=== PATIENT | male | born 1950 | race Caucasian/White ===

== ENCOUNTER 2022-07-15 12:46 | Inpatient (IN) | payer MEDICARE, SELFPAY ==
--- NOTE | ~2022-07-15 | NM_ITS ---
EXAMINATION: HEPATOBILIARY SCAN. CLINICAL INFORMATION: Suspect acute cholecystitis. COMPARISON: CT abdomen pelvis 07/15/2022. Ultrasound limited abdomen 07/15/2022 TECHNIQUE: 4.2 mCi technetium 99m mebrofenin was injected intravenously. Images obtained over the right upper quadrant. FINDINGS: The isotope is taken up by the liver and is excreted into the bowel through the initial 120 minute imaging without visualization of the gallbladder. Images were then obtained at 4 hour postinjection which still demonstrated no isotope within the gallbladder. Activity has moved into the bowel loops with almost no residual activity remaining in the liver. Findings consistent with cystic duct obstruction, acute cholecystitis. NM/NM hepatobiliary wo pharm IMPRESSION: Nonvisualization of the gallbladder consistent cystic duct obstruction and an acute cholecystitis
--- NOTE | ~2022-07-15 | US_ITS ---
EXAMINATION: US ABDOMEN LIMITED CLINICAL INFORMATION: Epigastric/right upper quadrant abdominal pain, nausea and vomiting.. COMPARISON: None TECHNIQUE: Real-time imaging of the right upper quadrant abdominal viscera. FINDINGS: PANCREAS: Visualized portions unremarkable; tail obscured by interposed bowel gas. LIVER: Normal. The liver is normal in size. The liver contour is normal. Parenchymal echogenicity is normal. There is a 1.1 cm simple cyst along the gallbladder. There is no intrahepatic biliary duct dilatation seen. GALLBLADDER: Cholelithiasis. No gallbladder wall thickening or pericholecystic fluid. COMMON BILE DUCT: Normal in caliber measuring 0.5 cm in diameter. RIGHT KIDNEY: Normal. No hydronephrosis. No renal calculi or focal parenchymal lesions. The kidney measures 12.0 cm in maximum dimension. FREE FLUID: None. US/US abdomen limited IMPRESSION: Cholelithiasis. No sonographic evidence of cholecystitis.
--- NOTE | ~2022-07-15 | CT_ITS ---
EXAMINATION: CT ABDOMEN AND PELVIS WITH CONTRAST CLINICAL INFORMATION: Right-sided abdominal pain, LAP-BAND. Rule out hernia, appendicitis or cholecystitis. COMPARISON: None TECHNIQUE: Multidetector volumetric images were obtained from the superior aspect of the liver through the pubic symphysis following administration 85 mL of Omnipaque 350 intravenous contrast. Sagittal and coronal reformatted images were obtained on the technologist's workstation. Oral contrast: No This CT examination was performed using dose optimization techniques as appropriate, variously including the following: *Automated exposure control *Adjustment of mA and/or kV according to patient size (this includes techniques or standardized protocols for targeted exams where dose is matched to indication/reason for exam; i.e. extremities or head) *Use of iterative reconstruction technique DLP: 733 mGy-cm FINDINGS: LUNG BASES: Minimal peripheral basilar atelectasis. Coronary artery vascular calcifications. LIVER, GALLBLADDER, AND BILIARY TREE: Normal hepatic attenuation in size. There are couple small subcentimeter hypodense probable cyst in the caudate, medial segment left liver lobe, and adjacent to the gallbladder, too small to characterize. No other liver lesion. No biliary ductal dilation. Gallbladder contains small amount of layering calcified stones. There is prominent gallbladder wall enhancement and surrounding pericholecystic inflammatory change highly suspicious for acute cholecystitis. No biliary ductal dilation. PANCREAS: Unremarkable. SPLEEN: 0.8 cm low-density lesion in the spleen, too small to characterize, statistically likely a cyst or hemangioma. No other splenic lesion. Normal splenic size. ADRENAL GLANDS: Unremarkable. KIDNEYS AND URETERS: Nephrograms are symmetric. No hydronephrosis. Cortical scarring in the left lower pole. 2.4 cm simple left upper pole renal cyst. No imaging follow-up recommended. No additional renal lesions. No perinephric fluid collections. BLADDER: Unremarkable. GASTROINTESTINAL TRACT: Small hiatal hernia. Status post prior sleeve gastrectomy. No dilated bowel loops. No bowel wall thickening. Normal appendix. No free air or ascites. ABDOMINAL WALL: Possible small fat-containing right inguinal hernia. LYMPH NODES: No lymphadenopathy. VASCULAR: Status post aortobiiliac endovascular stent graft grafting. 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 Moderate vascular calcifications. Numerous surgical clips in the right left groin. PELVIC VISCERA: Unremarkable. OSSEOUS STRUCTURES: No acute fracture or suspicious osseous lesion. Changes of DISH and superimposed mild degenerative disc disease noted. CT/CT abdomen pelvis w IV con IMPRESSION: 1. Cholelithiasis with findings highly suspicious for acute cholecystitis, as above. 2. No biliary ductal dilation. 3. Normal appendix. No evidence of appendicitis, bowel obstruction or other acute intra-abdominal process.
--- NOTE | 2022-07-15 12:53 | ED_ITS ---
HPI - Abdominal Pain General Chief Complaint: Abdominal Pain <DOMENIC Johns - Last Filed: 07/15/22 12:59> Stated Complaint: abd pain <DOMENIC Johns - Last Filed: 07/15/22 12:59> Time Seen by Provider: 07/15/22 16:00 <DOMENIC Johns - Last Filed: 07/15/22 12:59> Source: patient <Bernardo Singletary MD - Last Filed: 07/15/22 19:53> Mode of arrival: ambulatory <Bernardo Singletary MD - Last Filed: 07/15/22 19:53> Limitations: no limitations <Bernardo Singletary MD - Last Filed: 07/15/22 19:53> History of Present Illness HPI narrative: 71-year-old male who presents emergency department for evaluation epigastric pain which began last night around 19:00. Patient states that the pain came on gradually then became severe. Since onset the patient states the pain is been constant and is 8/10. Describes the pain as a throbbing/pressure- like pain. Patient states that he ate lunch which consisted of a chicken sandwich but did not eat dinner since had no appetite. Since onset of pain is had nausea and vomiting. He states he has not been able to eat food or drink fluid. This is 1st episode of this type pain. He denied fever, chills, rhinorrhea, sore throat, cough, chest pain, shortness of breath, diarrhea dysuria, frequency or urgency. He has not noticed any dark tarry stools or black stools. He does not know when he his bowels last. Patient states that a history lap band surgery 10 years prior and required some type of revision, he is not sure where he had the surgery. Patient was initially seen at urgent care clinic. I did review the note sent in with the patient. Patient was diagnosed with generalized abdominal pain, his vital signs revealed a normal temperature impulse 094 but his blood pressure was elevated 226/90. He had no test done at the urgent care clinic and was sent to the emergency department for further evaluation <Bernardo Singletary MD - Last Filed: 07/15/22 19:53> Related Data Home Medications: Previous Rx's Medication Instructions Recorded carbidopa 25 mg-levodopa 100 mg 1.5 tab PO TID 28 days #126 tabs 06/10/22 tablet <DOMENIC Johns - Last Filed: 07/15/22 12:59> Allergies/Adverse Reactions: Allergies Allergy/AdvReac Type Severity Reaction Status Date / Time No Known Allergies Allergy Verified 07/15/22 12:58 <DOMENIC Johns - Last Filed: 07/15/22 12:59> Review of Systems Review of Systems Yes all other systems are reviewed and are negative <Bernardo Singletary MD - Last Filed: 07/15/22 19:53> [facility] Past Medical History [facility] Narrative: Past medical history: Diabetes mellitus, hypertension, hyperlipidemia, gastritis, anxiety. Past surgical history: Lap band surgery with some type of revision 10 years prior, patient cannot recall what hospital he had this procedure done at. Social history: He denies tobacco, alcohol and drug use. <Bernardo Singletary MD - Last Filed: 07/15/22 19:53> Social History Social History: Social History Advance Directives: No Advance Directives Information Provided: Yes <DOMENIC Johns - Last Filed: 07/15/22 12:59> Physical Exam ED Vital Signs: Vital Signs - 24 hr 07/15/22 12:54 07/15/22 16:05 Temperature 98.2 F 99.5 F Pulse Rate 102 H 98 Respiratory Rate 18 14 Blood Pressure 194/82 H 192/84 H Pulse Oximetry 96 97 Oxygen Delivery Method Room Air Room Air BMI result Body Mass Index 31.1 <DOMENIC Johns - Last Filed: 07/15/22 12:59> Vital Signs - 24 hr 07/15/22 12:54 07/15/22 16:05 Temperature 98.2 F 99.5 F Pulse Rate 102 H 98 Respiratory Rate 18 14 Blood Pressure 194/82 H 192/84 H Pulse Oximetry 96 97 Oxygen Delivery Method Room Air Room Air BMI result Body Mass Index 31.1 <Bernardo Singletary MD - Last Filed: 07/15/22 19:53> Const General: cooperative and no acute distress <Bernardo Singletary MD - Last Filed: 07/15/22 19:53> Orientation/consciousness: oriented to person and oriented to place <Bernardo Singletary MD - Last Filed: 07/15/22 19:53> Limitations: no limitations <Bernardo Singletary MD - Last Filed: 07/15/22 19:53> HENMT Head: Yes normal to inspection, Yes normocephalic and Yes atraumatic <Bernardo Singletary MD - Last Filed: 07/15/22 19:53> Ears: external ears normal <Bernardo Singletary MD - Last Filed: 07/15/22 19:53> General nose exam: Normal external nose present <Bernardo Singletary MD - Last Filed: 07/15/22 19:53> Face and sinus: Yes normal facial exam <MD Neville Jackman Last Filed: 07/15/22 19:53> Mouth: Normal oral and palatal mucosa present <Bernardo Singletary MD - Last Filed: 07/15/22 19:53> Throat: Yes posterior oropharynx normal <Bernardo Singletary MD - Last Filed: 07/15 19:53> Eyes General: appearance normal, both eyes and all related structures <Bernardo Singletary MD - Last Filed: 07/15/22 19:53> Pupils: Equal, round and reactive pupils present <Bernardo Singletary MD - Last Filed: 07/15/22 19:53> Neck Neck: Yes normal visual inspection, Yes no lymphadenopathy, Yes trachea midline and Yes supple <Bernardo Singletary MD - Last Filed: 07/15/22 19:53> Chest Chest palpation & inspection: normal inspection of the chest and normal palpation of entire chest wall <MD Neville Jackman Last Filed: 07/15/22 19:53> Resp Effort & Inspection: normal respiratory effort and able to speak in complete sentences <MD Neville Jackman Last Filed: 07/15/22 19:53> Auscultation: clear to auscultation bilaterally <MD Neville Jackman Last Filed: 07/15/22 19:53> Cardio Rate: regular rate <Bernardo Singletary MD - Last Filed: 07/15/22 19:53> Rhythm: regular rhythm <Bernardo Singletary MD - Last Filed: 07/15/22 19:53> Heart sounds: S1 normal heart sound present, S2 normal heart sound present and no murmurs <Bernardo Singletary MD - Last Filed: 07/15/22 19:53> GI Inspection: Yes normal to inspection <Bernardo Singletary MD - Last Filed: 07/15/22 19:53> Palpation (GI): Soft to palpation, Tenderness to palpation present (GI) (Mid right abdominal tenderness moderate to severe) in the RLQ (Moderate) and in the RUQ (Mild) and no guarding <Bernardo Singletary MD - Last Filed: 07/15/22 19:53> Auscultation: normal bowel sounds <Bernardo Singletary MD - Last Filed: 07/15/22 19:53> General: Yes no CVA tenderness <Bernardo Singletary MD - Last Filed: 07/15/22 19:53> Back/Spine/Pelvis Back: no CVA tenderness <Bernardo Singletary MD - Last Filed: 07/15/22 19:53> Skin General skin exam: no rashes or lesions noted <Bernardo Singletayr MD - Last Filed: 07/15/22 19:53> Neuro General: oriented to person and oriented to place <Bernardo Singletary MD - Last Filed: 07/15/22 19:53> Cranial nerves: Yes CN's II-XII intact bilaterally and Yes Equal, round and reactive pupils present <Bernardo Singletary MD - Last Filed: 07/15/22 19:53> Cognition (Neuro): normal cognition <Bernardo Singletary MD - Last Filed: 07/15/22 19:53> Motor exam (neuro): 5/5 motor strength present throughout <Bernardo Singletary MD - Last Filed: 07/15/22 19:53> Extrem General: Yes normal to inspection <Bernardo Singletary MD - Last Filed: 07/15/22 19:53> Psych Appearance: grossly normal <Bernardo Singletary MD - Last Filed: 07/15/22 19:53> Speech and movement: Normal speech and movement present <Bernardo Singletary MD - Last Filed: 07/15/22 19:53> Affect: normal affect <Bernardo Singletary MD - Last Filed: 07/15/22 19:53> Attitude: cooperative <Bernardo Singletary MD - Last Filed: 07/15/22 19:53> Thought process: Normal thought process present <Bernardo Singletary MD - Last Filed: 07/15/22 19:53> Thought content: Normal thought content present <Bernardo Singletary MD - Last Filed: 07/15/22 19:53> Course Course Course Narrative: RME-- 71yo M w/PMHx HTN, HLD, anxiety, DM, epigastric/RUQ abd pain, N/V x yesterday. Sent from [facility] in triage, likely from pain. Abd soft with epigastric and RUQ abd pain. +[place]. No CVAT Low suspicion for severe sepsis at this time Labs, UA, US abd ordered <DOMENIC Johns - Last Filed: 07/15/22 12:59> Medical Decision Making Medical Decision Making MDM Narrative: 71-year-old male with history of diabetes mellitus, hypertension , hyperlipidemia, gastritis and anxiety who had a lap band surgery with some type revision 10 years prior presents emergency department for evaluation of gradual onset of right-sided abdominal pain which started last night at around 19:00 hours, the pain is been constant nausea 10. The on my exam the patient has mid right sided abdominal tenderness which is moderate to severe compared to the right upper quadrant and right lower quadrant. Patient was seen by the provider at triage, laboratory evaluation ultrasound were obtained. 1626: My independent interpretation of the patient's laboratory evaluation is as follows: Elevated WBC 38979. Elevated glucose 226. LFTs were normal. Lipase was normal. Patient's ultrasound revealed cholelithiasis but no evidence for cholecystitis. I am concerned the patient may have a partial small-bowel obstruction versus internal hernia secondary to his lack bed surgery. Cholecystitis and appendicitis are still a possibility despite the negative ultrasound. I ordered IV insert, normal saline x2 L, Zofran 4 mg IV for his nausea and vomiting and Dilaudid 1 mg IV for his pain. CT scan of the abdomen pelvis with IV contrast will be obtained. 1928: CT scan of the abdomen pelvis is consistent with acute cholecystitis. Patient did get some improvement of his pain after receiving the Dilaudid but he states that his pain is returning. On re-examination the patient continues to have right upper quadrant and right-sided abdominal tenderness. Patient was ordered to get Unasyn 3 g IV and Dilaudid 1 mg IV. 1939: I did discuss the case with the covering surgeon, Dr. Slater and he will admit the patient to his service. He did agree with Unasyn as the antibiotic. He requested that I consult the hospitalist for medical management of this patient and for medical clearance. Dr. King was consulted and I did discuss the case with her over tiger text. <Bernardo Singletary MD - Last Filed: 07/15/22 19:53> Differential Diagnosis The differential diagnosis includes but is not limited to acute cholecystitis, internal hernia, complete bowel obstruction, partial bowel obstruction, appendicitis <Bernardo Singletary MD - Last Filed: 07/15/22 19:53> Consult Healthcare Provider Management of the patient was discussed with: Hospitalist and Physical Therapy Aid (Dr. Slater) <Bernardo Singletary MD - Last Filed: 07/15/22 19:53> Lab Data [facility] Lab Attestation statement: I reviewed the patient's lab results. <Bernardo Singletary MD - Last Filed: 07/15/22 19:53> Please see [facility] from my discussion <Bernardo Singletary MD - Last Filed: 07/15/22 19:53> Result Diagrams: 07/15/22 13:13 07/15/22 13:13 <DOMENIC Johns - Last Filed: 07/15/22 12:59> Labs: Lab Results 07/15/22 07/15/22 07/15/22 Range/Units 13:13 13:13 13:13 WBC 13.3 H (4.8-10.8) X10*3/uL RBC 4.09 L (4.60-5.80) X10*6/uL Hgb 12.9 L (14.0-18.0) g/dl Hct 37.3 L (42.0-52.0) % MCV 91.2 (80.0-98.0) fL MCH 31.5 (27.0-33.0) pg MCHC 34.6 (31.0-36.0) g/dl RDW 13.6 (11.0-16.0) % Plt Count 199 (160-400) X10*3/uL MPV 9.9 (9.4-12.4) fL Immature Gran % (Auto) 0.7 H (0.0-0.4) % Neut % (Auto) 85.1 H (45-73) % Lymph % (Auto) 8.0 L (20-40) % [place] % (Auto) 5.7 (2-11) % Eos % (Auto) 0.2 (0-4) % Baso % (Auto) 0.3 (0-2) % Lymph # (Auto) 1.1 L (1.2-4.9) X10*3/uL [place] # (Auto) 0.8 (0.1-1.2) X10*3/uL Eos # (Auto) 0.0 (0.0-0.4) X10*3/uL Baso # (Auto) 0.0 (0.0-0.2) X10*3/uL Abs Immat Gran (auto) 0.09 H (0.00-0.03) X10*3/uL Absolute Neuts (auto) 11.3 H (2.0-8.3) x10*3/uL Absolute Nucleated RBC 0.000 (0.0-0.012) X10*3/uL Nucleated RBC % (auto) 0.0 (0.0-0.2) /100WBC Sodium 137 (135-145) mmol/L Potassium 4.4 (3.3-5.1) mmol/L Chloride 100 (96-108) mmol/L Carbon Dioxide 23 (22-29) mmol/L Anion Gap 18 (12-20) BUN 13 (9-16) mg/dL Creatinine 0.89 (0.5-1.4) mg/dL Estim Creat Clear Calc 97.8 Estimated GFR > 60 Random Glucose 222 H (60-115) mg/dL Lactic Acid (0.5-2.0) mmol/L Calcium 9.1 (8.4-10.2) mg/dL Magnesium 1.5 L (1.6-2.6) mg/dL Total Bilirubin 1.0 (0.0-1.0) mg/dL Direct Bilirubin 0.2 (0.0-0.5) mg/dL AST 23 (5-37) U/L ALT 31 (0-40) U/L Alkaline Phosphatase 103 (39-117) U/L Total Protein 7.8 (6.5-8.0) g/dL Albumin 4.2 (3.5-5.0) g/dL Lipase 22 (8-78) U/L COVID-19 (HAO) (Negative) COVID-19 Clin Com Influenza Type A (BO) Negative (Negative) Influenza Type B (BO) Negative (Negative) Influenza A & B Note See Note 07/15/22 07/15/22 Range/Units 13:13 16:49 WBC (4.8-10.8) X10*3/uL RBC (4.60-5.80) X10*6/uL Hgb (14.0-18.0) g/dl Hct (42.0-52.0) % MCV (80.0-98.0) fL MCH (27.0-33.0) pg MCHC (31.0-36.0) g/dl RDW (11.0-16.0) % Plt Count (160-400) X10*3/uL MPV (9.4-12.4) fL Immature Gran % (Auto) (0.0-0.4) % Neut % (Auto) (45-73) % Lymph % (Auto) (20-40) % [place] % (Auto) (2-11) % Eos % (Auto) (0-4) % Baso % (Auto) (0-2) % Lymph # (Auto) (1.2-4.9) X10*3/uL [place] # (Auto) (0.1-1.2) X10*3/uL Eos # (Auto) (0.0-0.4) X10*3/uL Baso # (Auto) (0.0-0.2) X10*3/uL Abs Immat Gran (auto) (0.00-0.03) X10*3/uL Absolute Neuts (auto) (2.0-8.3) x10*3/uL Absolute Nucleated RBC (0.0-0.012) X10*3/uL Nucleated RBC % (auto) (0.0-0.2) /100WBC Sodium (135-145) mmol/L Potassium (3.3-5.1) mmol/L Chloride (96-108) mmol/L Carbon Dioxide (22-29) mmol/L Anion Gap (12-20) BUN (9-16) mg/dL Creatinine (0.5-1.4) mg/dL Estim Creat Clear Calc Estimated GFR Random Glucose (60-115) mg/dL Lactic Acid 3.4 H* (0.5-2.0) mmol/L Calcium (8.4-10.2) mg/dL Magnesium (1.6-2.6) mg/dL Total Bilirubin (0.0-1.0) mg/dL Direct Bilirubin (0.0-0.5) mg/dL AST (5-37) U/L ALT (0-40) U/L Alkaline Phosphatase (39-117) U/L Total Protein (6.5-8.0) g/dL Albumin (3.5-5.0) g/dL Lipase (8-78) U/L COVID-19 (HAO) Negative (Negative) COVID-19 Clin Com See Note Influenza Type A (BO) (Negative) Influenza Type B (BO) (Negative) Influenza A & B Note <DOMENIC Johns - Last Filed: 07/15/22 12:59> Lab Results 07/15/22 07/15/22 07/15/22 Range/Units 13:13 13:13 13:13 WBC 13.3 H (4.8-10.8) X10*3/uL RBC 4.09 L (4.60-5.80) X10*6/uL Hgb 12.9 L (14.0-18.0) g/dl Hct 37.3 L (42.0-52.0) % MCV 91.2 (80.0-98.0) fL MCH 31.5 (27.0-33.0) pg MCHC 34.6 (31.0-36.0) g/dl RDW 13.6 (11.0-16.0) % Plt Count 199 (160-400) X10*3/uL MPV 9.9 (9.4-12.4) fL Immature Gran % (Auto) 0.7 H (0.0-0.4) % Neut % (Auto) 85.1 H (45-73) % Lymph % (Auto) 8.0 L (20-40) % [place] % (Auto) 5.7 (2-11) % Eos % (Auto) 0.2 (0-4) % Baso % (Auto) 0.3 (0-2) % Lymph # (Auto) 1.1 L (1.2-4.9) X10*3/uL [place] # (Auto) 0.8 (0.1-1.2) X10*3/uL Eos # (Auto) 0.0 (0.0-0.4) X10*3/uL Baso # (Auto) 0.0 (0.0-0.2) X10*3/uL Abs Immat Gran (auto) 0.09 H (0.00-0.03) X10*3/uL Absolute Neuts (auto) 11.3 H (2.0-8.3) x10*3/uL Absolute Nucleated RBC 0.000 (0.0-0.012) X10*3/uL Nucleated RBC % (auto) 0.0 (0.0-0.2) /100WBC Sodium 137 (135-145) mmol/L Potassium 4.4 (3.3-5.1) mmol/L Chloride 100 (96-108) mmol/L Carbon Dioxide 23 (22-29) mmol/L Anion Gap 18 (12-20) BUN 13 (9-16) mg/dL Creatinine 0.89 (0.5-1.4) mg/dL Estim Creat Clear Calc 97.8 Estimated GFR > 60 Random Glucose 222 H (60-115) mg/dL Lactic Acid (0.5-2.0) mmol/L Calcium 9.1 (8.4-10.2) mg/dL Magnesium 1.5 L (1.6-2.6) mg/dL Total Bilirubin 1.0 (0.0-1.0) mg/dL Direct Bilirubin 0.2 (0.0-0.5) mg/dL AST 23 (5-37) U/L ALT 31 (0-40) U/L Alkaline Phosphatase 103 (39-117) U/L Total Protein 7.8 (6.5-8.0) g/dL Albumin 4.2 (3.5-5.0) g/dL Lipase 22 (8-78) U/L COVID-19 (HAO) (Negative) COVID-19 Clin Com Influenza Type A (BO) Negative (Negative) Influenza Type B (BO) Negative (Negative) Influenza A & B Note See Note 07/15/22 07/15/22 Range/Units 13:13 16:49 WBC (4.8-10.8) X10*3/uL RBC (4.60-5.80) X10*6/uL Hgb (14.0-18.0) g/dl Hct (42.0-52.0) % MCV (80.0-98.0) fL MCH (27.0-33.0) pg MCHC (31.0-36.0) g/dl RDW (11.0-16.0) % Plt Count (160-400) X10*3/uL MPV (9.4-12.4) fL Immature Gran % (Auto) (0.0-0.4) % Neut % (Auto) (45-73) % Lymph % (Auto) (20-40) % [place] % (Auto) (2-11) % Eos % (Auto) (0-4) % Baso % (Auto) (0-2) % Lymph # (Auto) (1.2-4.9) X10*3/uL [place] # (Auto) (0.1-1.2) X10*3/uL Eos # (Auto) (0.0-0.4) X10*3/uL Baso # (Auto) (0.0-0.2) X10*3/uL Abs Immat Gran (auto) (0.00-0.03) X10*3/uL Absolute Neuts (auto) (2.0-8.3) x10*3/uL Absolute Nucleated RBC (0.0-0.012) X10*3/uL Nucleated RBC % (auto) (0.0-0.2) /100WBC Sodium (135-145) mmol/L Potassium (3.3-5.1) mmol/L Chloride (96-108) mmol/L Carbon Dioxide (22-29) mmol/L Anion Gap (12-20) BUN (9-16) mg/dL Creatinine (0.5-1.4) mg/dL Estim Creat Clear Calc Estimated GFR Random Glucose (60-115) mg/dL Lactic Acid 3.4 H* (0.5-2.0) mmol/L Calcium (8.4-10.2) mg/dL Magnesium (1.6-2.6) mg/dL Total Bilirubin (0.0-1.0) mg/dL Direct Bilirubin (0.0-0.5) mg/dL AST (5-37) U/L ALT (0-40) U/L Alkaline Phosphatase (39-117) U/L Total Protein (6.5-8.0) g/dL Albumin (3.5-5.0) g/dL Lipase (8-78) U/L COVID-19 ([facility]O) Negative (Negative) COVID-19 Clin Com See Note Influenza Type A (BO) (Negative) Influenza Type B (BO) (Negative) Influenza A & B Note <Bernardo Singletary MD - Last Filed: 07/15/22 19:53> Radiology Impression Discussion of test interpretation with radiology: I have reviewed the radiologist's reading. <Bernardo Singletary MD - Last Filed: 07/15/22 19:53> Radiologist Impression: EXAMINATION: US ABDOMEN LIMITED CLINICAL INFORMATION: Epigastric/right upper quadrant abdominal pain, nausea and vomiting.. COMPARISON: None TECHNIQUE: Real-time imaging of the right upper quadrant abdominal viscera. FINDINGS: PANCREAS: Visualized portions unremarkable; tail obscured by interposed bowel gas. LIVER: Normal. The liver is normal in size. The liver contour is normal. Parenchymal echogenicity is normal. There is a 1.1 cm simple cyst along the gallbladder. There is no intrahepatic biliary duct dilatation seen. GALLBLADDER: Cholelithiasis. No gallbladder wall thickening or pericholecystic fluid. COMMON BILE DUCT: Normal in caliber measuring 0.5 cm in diameter. RIGHT KIDNEY: Normal. No hydronephrosis. No renal calculi or focal parenchymal lesions. The kidney measures 12.0 cm in maximum dimension. FREE FLUID: None. US/US abdomen limited IMPRESSION: Cholelithiasis. No sonographic evidence of cholecystitis. Dictated By: Tristan Cannon MD Signed By:<Electronically signed by Tristan Cannon MD in [place]>07/15/22 [id number] EXAMINATION: CT ABDOMEN AND PELVIS WITH CONTRAST FINDINGS: LUNG BASES: Minimal peripheral basilar atelectasis. Coronary artery vascular calcifications. LIVER, GALLBLADDER, AND BILIARY TREE: Normal hepatic attenuation in size. There are couple small subcentimeter hypodense probable cyst in the caudate, medial segment left liver lobe, and adjacent to the gallbladder, too small to characterize. No other liver lesion. No biliary ductal dilation. Gallbladder contains small amount of layering calcified stones. There is prominent gallbladder wall enhancement and surrounding pericholecystic inflammatory change highly suspicious for acute cholecystitis. No biliary ductal dilation. PANCREAS: Unremarkable. SPLEEN: 0.8 cm low-density lesion in the spleen, too small to characterize, statistically likely a cyst or hemangioma. No other splenic lesion. Normal splenic size. ADRENAL GLANDS: Unremarkable. KIDNEYS AND URETERS: Nephrograms are symmetric. No hydronephrosis. Cortical scarring in the left lower pole. 2.4 cm simple left upper pole renal cyst. No imaging follow-up recommended. No additional renal lesions. No perinephric fluid collections. BLADDER: Unremarkable. GASTROINTESTINAL TRACT: Small hiatal hernia. Status post prior sleeve gastrectomy. No dilated bowel loops. No bowel wall thickening. Normal appendix. No free air or ascites. ABDOMINAL WALL: Possible small fat-containing right inguinal hernia. LYMPH NODES: No lymphadenopathy. VASCULAR: Status post aortobiiliac endovascular stent graft grafting. 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 Moderate vascular calcifications. Numerous surgical clips in the right left groin. PELVIC VISCERA: Unremarkable. OSSEOUS STRUCTURES: No acute fracture or suspicious osseous lesion. Changes of DISH and superimposed mild degenerative disc disease noted. CT/CT abdomen pelvis w IV con IMPRESSION: 1. Cholelithiasis with findings highly suspicious for acute cholecystitis, as above. 2. No biliary ductal dilation. 3. Normal appendix. No evidence of appendicitis, bowel obstruction or other acute intra-abdominal process. Dictated By:Chacho FormanSigned By:<Electronically signed by Chacho Forman in [place]>07/15/221806 <Bernardo Singletary MD - Last Filed: 07/15/22 19:53> External Record Review External record reviewed: Outside ED record (I reviewed the record from the urgent care clinic the refer the patient to the emergency depart) <Bernardo Singletary MD - Last Filed: 07/15/22 19:53> Medications Administered Discontinued Medications Generic Name Dose Route Start Last Admin Trade Name Freq PRN Reason Stop Dose Admin Hydromorphone HCl 1 mg 07/15/22 16:17 07/15/22 16:40 Hydromorphone Hcl 1 Mg/Ml Syringe IVPUSH 07/15/22 16:18 1 mg ONCE STA Administration Protocol Sodium Chloride 1,000 mls @ 999 mls/hr 07/15/22 13:00 07/15/22 16:41 Ns IV 07/15/22 14:00 Not Given .Q1H1M STEFFI Sodium Chloride 1,000 mls @ 999 mls/hr 07/15/22 16:17 07/15/22 17:43 Ns IV 07/15/22 17:17 Infused .Q1H1M STA Infusion Sodium Chloride 1,000 mls @ 999 mls/hr 07/15/22 16:26 07/15/22 18:06 Ns IV 07/15/22 17:26 Infused .Q1H1M STA Infusion Sodium Chloride 2,328 mls @ 2,328 mls/hr 07/15/22 17:29 07/15/22 18:09 Ns IV 07/15/22 18:28 Not Given .Q1H STA Iohexol 100 ml 07/15/22 17:22 07/15/22 17:22 Iohexol 350 Mg/Ml 100 Ml Infus..Btl IV 07/15/22 17:23 85 ml ONCE ONE Administration Ondansetron HCl 4 mg 07/15/22 16:17 07/15/22 16:41 Ondansetron Hcl 4 Mg/2 Ml Vial IVPUSH 07/15/22 16:18 4 mg ONCE ONE Administration <DOMENIC Johns - Last Filed: 07/15/22 12:59> Medications Administered Discontinued Medications Generic Name Dose Route Start Last Admin Trade Name Freq PRN Reason Stop Dose Admin Hydromorphone HCl 1 mg 07/15/22 16:17 07/15/22 16:40 Hydromorphone Hcl 1 Mg/Ml Syringe IVPUSH 07/15/22 16:18 1 mg ONCE STA Administration Protocol Sodium Chloride 1,000 mls @ 999 mls/hr 07/15/22 13:00 07/15/22 16:41 Ns IV 07/15/22 14:00 Not Given .Q1H1M STEFFI Sodium Chloride 1,000 mls @ 999 mls/hr 07/15/22 16:17 07/15/22 17:43 Ns IV 07/15/22 17:17 Infused .Q1H1M STA Infusion Sodium Chloride 1,000 mls @ 999 mls/hr 07/15/22 16:26 07/15/22 18:06 Ns IV 07/15/22 17:26 Infused .Q1H1M STA Infusion Sodium Chloride 2,328 mls @ 2,328 mls/hr 07/15/22 17:29 07/15/22 18:09 Ns IV 07/15/22 18:28 Not Given .Q1H STA Iohexol 100 ml 07/15/22 17:22 07/15/22 17:22 Iohexol 350 Mg/Ml 100 Ml Infus..Btl IV 07/15/22 17:23 85 ml ONCE ONE Administration Ondansetron HCl 4 mg 07/15/22 16:17 07/15/22 16:41 Ondansetron Hcl 4 Mg/2 Ml Vial IVPUSH 07/15/22 16:18 4 mg ONCE ONE Administration <Bernardo Singletary MD - Last Filed: 07/15/22 19:53> Discharge Plan Discharge Patient Disposition: Admitted As Inpatient <DOMENIC Johns - Last Filed: 07/15/22 12:59> Prescriptions: No Action carbidopa-levodopa 25-100 mg tablet 1.5 tab PO TID 28 Days Qty: 126 3RF <DOMENIC Johns - Last Filed: 07/15/22 12:59>
[2022-07-15 12:54] VITALS: BP 194/82; PULSE 102; RESP 18; TEMP 36.8; O2SAT 96; BMI 31.1
--- NOTE | 2022-07-15 12:56 | ECG_ITS ---
Test Reason : EPIGASTRIC PAIN Blood Pressure : / mmHG Vent. Rate : 099 BPM Atrial Rate : 099 BPM P-R Int : 188 ms QRS Dur : 086 ms QT Int : 372 ms P-R-T Axes : 049 -10 093 degrees QTc Int : 477 ms Sinus rhythm with occasional Premature ventricular complexes and Premature atrial complexes Inferior infarct , age undetermined Anteroseptal infarct , age undetermined Abnormal ECG No previous ECGs available Referred By: Danika Garcia Electronically Signed By:ARIELA ORO
[2022-07-15 13:19] LABS: MANUAL DIFF FLAG NO
[2022-07-15 13:22] LABS: Basophils Percent Auto 0.3 % (0-2); Eosinophils Percent Auto 0.2 % (0-4); Hematocrit 37.3 % (42.0-52.0); Hemoglobin 12.9 g/dl (14.0-18.0); Imm Gran Abs Auto 0.09 X10*3/uL (0.00-0.03); Imm Gran Pct Auto 0.7 % (0.0-0.4); Lymphocytes Absolute Auto 1.1 X10*3/uL (1.2-4.9); Mean Corpuscular HGB Conc 34.6 g/dl (31.0-36.0); Mean Corpuscular Hemoglobin 31.5 pg (27.0-33.0); Mean Corpuscular Volume 91.2 fL (80.0-98.0); Mean Platelet Volume 9.9 fL (9.4-12.4); Monocytes Absolute Auto 0.8 X10*3/uL (0.1-1.2); Monocytes Percent Auto 5.7 % (2-11); Neutrophils Absolute Auto 11.3 x10*3/uL (2.0-8.3); Neutrophils Percent Auto 85.1 % (45-73); Platelet Count 199 X10*3/uL (160-400); Red Blood Count 4.09 X10*6/uL (4.60-5.80); Red Cell Distribution Width 13.6 % (11.0-16.0); White Blood Count 13.3 X10*3/uL (4.8-10.8)
[2022-07-15 13:43] LABS: Alanine Aminotransferase 31 U/L (0-40); Albumin Level 4.2 g/dL (3.5-5.0); Alkaline Phosphatase 103 U/L (39-117); Anion Gap 18 (12-20); Aspartate Amino Transferase 23 U/L (5-37); Bilirubin Direct 0.2 mg/dL (0.0-0.5); Blood Urea Nitrogen 13 mg/dL (9-16); Calcium 9.1 mg/dL (8.4-10.2); Carbon Dioxide 23 mmol/L (22-29); Chloride 100 mmol/L (96-108); Creatinine Clr Calc Pharmacy 97.8; Estimated Glomerular Filt Rate > 60; Glucose Random 222 mg/dL (60-115); Lipase 22 U/L (8-78); Magnesium 1.5 mg/dL (1.6-2.6); Potassium 4.4 mmol/L (3.3-5.1); Sodium 137 mmol/L (135-145); Total Protein 7.8 g/dL (6.5-8.0)
[2022-07-15 13:45] LABS: COVID-19 Test Negative (Negative); IDNOW Serial# 9DB6401D
[2022-07-15 13:49] LABS: IDNOW Serial# 55D5AD1C; Influenza A Negative (Negative); Influenza B2 Negative (Negative)
[2022-07-15 16:05] VITALS: BP 192/84; PULSE 98; RESP 14; TEMP 37.5; O2SAT 97
[2022-07-15] MEDS: HYDROmorphone HCl 1 MG/ML SYRINGE IVPUSH ×2 (16:40→20:13)
[2022-07-15] MEDS: 0.9 % Sodium Chloride 1,000 ML 999 ML IV ×2 (16:40→17:30)
[2022-07-15] MEDS: ondansetron HCL 4 MG/2 ML VIAL IVPUSH (16:41)
[2022-07-15 17:22] LABS: Lactic Acid 3.4 mmol/L (0.5-2.0)
[2022-07-15] MEDS: iohexoL 350 MG/ML 100 ML INFUS..BTL IV (17:22)
[2022-07-15 18:54] LABS: Reflex Lactate? Lactic Acid Added
--- NOTE | 2022-07-15 19:45 | MHC.EDTECH ---
pt refused labs and urine being uncooperative with staff
--- OUTSIDE RECORDS SUMMARY | 2022-07-15 19:58 | XMS_ITS | Continuity of Care Document ---
:1950 Author Organization [facility] Address [address] [place] [phone]- Care Team Providers Name Role Phone Stephane Rodriguez MD Primary Care Physician [place] [facility] [place](s): 05/28/21 - 06/27/21 [facility] [address] [place], [place] [id number]- Attending Physician: Laith Martinez Admitting Physician: Laith Martinez Referring Physician: Laith Martinez Allergies, Adverse Reactions, Alerts No Known Allergies Immunizations Given and Recorded Vaccine Date Status Refusal Reason influenza virus vaccine, inactivated 03/09/18 Given influenza virus vaccine, inactivated1 03/25/16 Given Not Given Vaccine Date Status Refusal Reason pneumococcal 13-valent vaccine2 03/18/18 Not Given Patient Refuses 1Admin Note: VERBAL ORDER FROM . CDC INFO [id number] Note: Pt states had both pneumonia vaccines last year Medications aspirin 81 mg oral delayed release tablet 81 mg, By Mouth, Daily, # 30 tablet, Refills 11, Tot. Refills 11, Maintenance, 09/16/17 15:09:16 EDT, Route to Pharmacy Electronically, [id number], [facility] Start Date: 09/16/17 Stop Date: 09/11/18 Status: Orderedcarbidopa-levodopa 25 mg-100 mg oral tablet 0 Refills, Maintenance, 04/11/21 14:13:00 EST, Partial fill upon patient request if the prescriptionis for a schedule II opioid drug. Start Date: 04/11/21 Status: OrderedCelexa 20 mg oral tablet 1 tablet = 20 mg, By Mouth, Daily, 0 Refills, Maintenance Start Date: 01/15/12 Status: OrderedclonazePAM 0.5 mg oral tablet 0.5 tablet = 0.25 mg, By Mouth, Daily at bedtime, # 10 tablet, 0 Refills, Maintenance, 09/04/18 11:38:44 EDT, Tablet Start Date: 09/04/18 Status: Orderedclopidogrel 75 mg oral tablet 75 mg, 1, tablet, By Mouth, Daily, # 30 tablet, Refills 11, Tot. Refills 11, Maintenance, 09/14/20 15:50:00 EDT, Route to Pharmacy Electronically, [facility], med packs, 182.88, cm, 11/30/18 13:35:00 EDT, Height Start Date: 09/14/20 Stop Date: 09/09/21 Status: OrderedCPAP AT BEDTIME CPAP AT BEDTIME, See Instructions, # 1 each, Refills 0, Tot. Refills 0, Maintenance, At home he is on CPAP, 03/19/18 12:57:47 EDT, Compound Start Date: 03/19/18 Status: OrderedDepakote 500 mg oral enteric coated tablet 2, By Mouth, 2 times a day, # 270 tablet, 0 Refills, Maintenance, 09/13/17 8:46:59 EDT, EC Tablet Start Date: 09/13/17 Status: OrderedDiovan HCT 25 mg-320 mg oral tablet 1 tablet, By Mouth, Daily, # 30 tablet, 11 Refills, Maintenance, 11/23/15 8:33:10, Tablet, 1 tablet By Mouth Daily,x30 days Start Date: 11/23/15 Stop Date: 11/17/16 Status: Ordereddivalproex sodium 250 mg oral enteric coated tablet 1 tablet = 250 mg, By Mouth, Daily, 0 Refills, Maintenance, 04/11/21 14:16:00 EST, Partial fill uponpatient request if the prescription is for a schedule II opioid drug. Start Date: 04/11/21 Status: Orderedgabapentin 100 mg oral capsule 200 mg, 2, capsule, By Mouth, Daily at bedtime, # 120 capsule, Refills 0, Maintenance, 09/13/17 8:50:44 EDT Start Date: 09/13/17 Status: Orderedinsulin glargine 100 u/ml subcutaneous solution = 20 units, Subcutaneous Injection, Daily at bedtime, 0 Refills, Maintenance, 09/04/18 11:48:47 EDT,Injection Start Date: 09/04/18 Status: OrderedLipitor 80 mg oral tablet 1 tablet = 80 mg, By Mouth, Daily, # 30 tablet, 11 Refills, Maintenance, Tablet, Route to Pharmacy Electronically, [id number], [facility] Start Date: 12/19/16 Status: OrderedmetFORMIN 500 mg oral tablet 1 tablet = 500 mg, By Mouth, 2 times a day, # 180 tablet, 0 Refills, Maintenance, 09/06/15 10:37:15,Tablet Start Date: 09/06/15 Status: Orderednebivolol 10 mg oral tablet 1 tablet = 10 mg, By Mouth, Daily, # 30 tablet, 11 Refills, Maintenance, 04/11/21 14:58:00 EST, Tablet, [facility], Partial fill upon patient request if the prescription is for a schedule II opioid drug., 182.88, cm, 04/11/21 14:12:00 EST, Height Start Date: 04/11/21 Stop Date: 04/06/22 Status: Orderednitroglycerin 0.3 mg sublingual tablet See Instructions, PRN for chest pain, Take one sublingual tablet as needed for chest pain; may repeat x2 additional doses every 5 minutes not to exceed 3 doses/15 min--if pain persists, seek medical attention, # 100 tablet, 5 Refills, Maintenance,... Start Date: 04/23/21 Status: OrderedProventil 0.083% inhalation solution 3 mL, Inhalation, Every 6 hours, PRN Dyspnea, # 120 each, 0 Refills, Maintenance, Solution Start Date: 11/11/10 Status: OrderedRisperDAL 0.5 mg oral tablet 1 mg, 2, tablet, By Mouth, Daily at bedtime, # 120 tablet, Refills 0, Maintenance, 09/13/17 8:52:02 EDT Start Date: 09/13/17 Status: OrderedTylenol Caplet = 325 mg, By Mouth, Every 4 hours, PRN as needed for pain, not to exceed 4000 mg/day, 0 Refills, Maintenance, 11/15/13 10:52:47 EDT Start Date: 11/15/13 Status: OrderedVitamin B-12 1000 mcg oral tablet 1 tablet = 1,000 mcg, By Mouth, Daily, # 30 tablet, 0 Refills, Maintenance, 02/21/14 15:42:05, Tablet Start Date: 02/21/14 Status: OrderedVitamin C 500 mg oral tablet 1 tablet = 500 mg, By Mouth, 3 times a day, # 30 tablet, 0 Refills, Maintenance, 02/21/14 15:41:43, Tablet Start Date: 02/21/14 Status: Ordered Problem List Condition Effective Dates Status Health Status Informant AAA - Abdominal aortic Active aneurysm(Confirmed) Carotid artery stenosis(Confirmed) Active Empyema(Confirmed) Active HTN (hypertension)(Confirmed) Active Obese class I(Confirmed) Active Slurred speech(Confirmed) Active SVT - Supraventricular Active tachycardia(Confirmed) Social History Social History Type Response Smoking Status Former smoker; Tobacco user in household: No; Other: quit smoking 1999; entered on: 09/06/15 Sex
--- OUTSIDE RECORDS SUMMARY | 2022-07-15 19:58 | XMS_ITS | Continuity of Care Document ---
:1950 Author Organization [facility] Address [address] [address]- Care Team Providers Name Role Phone Stephane Rodriguez MD Primary Care Physician Encounter [facility] [place] Date(s): 04/17/21 - 05/17/21 [facility] [address] [address]- Attending Physician: Laith Martinez Admitting Physician: Laith Martinez Referring Physician: Admtr, Laith Allergies, Adverse Reactions, Alerts Substance Reaction Severity Status NKA Active Immunizations Given and Recorded Vaccine Date Status Refusal Reason influenza virus vaccine, inactivated 03/09/18 Given influenza virus vaccine, inactivated1 03/25/16 Given Not Given Vaccine Date Status Refusal Reason pneumococcal 13-valent vaccine2 03/18/18 Not Given Patient Refuses 1Admin Note: VERBAL ORDER FROM . CDC INFO [id number] Note: Pt states had both pneumonia vaccines last year Medications aspirin 81 mg oral delayed release tablet 81 mg, By Mouth, Daily, # 30 tablet, Refills 11, Tot. Refills 11, Maintenance, 09/16/17 15:09:16 EDT, Route to Pharmacy Electronically, [id number], [facility] Start Date: 09/16/17 Stop Date: [...] 09/14/20 15:50:00 EDT, Route to Pharmacy Electronically, [facility], med packs, 182.88, cm, 11/30/18 13:35:00 [...] Refills, Maintenance, Tablet, Route to Pharmacy Electronically, [id number], [facility] Start Date: 12/19/16 Status: OrderedmetFORMIN 500 mg oral tablet 1 tablet = 500 mg, By Mouth, 2 times a day, # 180 tablet, 0 Refills, Maintenance, 09/06/15 10:37:15,Tablet Start Date: 09/06/15 Status: Orderednebivolol 10 mg oral tablet 1 tablet = 10 mg, By Mouth, Daily, # 30 tablet, 11 Refills, Maintenance, 04/11/21 14:58:00 EST, Tablet, [facility], Partial fill upon patient request if [...] Refills, Maintenance, 11/15/13 10:52:47 EDT Start Date: 6/24/14 Status: OrderedVitamin B-12 1000 mcg oral tablet [...]
--- OUTSIDE RECORDS SUMMARY | 2022-07-15 19:58 | XMS_ITS | Continuity of Care Document ---
:1950 Author Organization [facility] Address [address] [place] [address]- Care Team Providers Name Role Phone Michael SUE, Stephane Dwyer Primary Care Physician Encounter [facility] Date(s): 02/11/21 - 03/13/21 [facility] [address] [place] [phone] [place] Allergies, Adverse Reactions, Alerts Substance Reaction Severity Status NKA Active Immunizations Given and Recorded Vaccine Date Status Refusal Reason influenza virus vaccine, inactivated 03/09/18 Given influenza virus vaccine, inactivated1 03/25/16 Given Not Given Vaccine Date Status Refusal Reason pneumococcal 13-valent vaccine2 03/18/18 Not Given Patient Refuses 1Admin Note: VERBAL ORDER FROM . CDC INFO [id number] Note: Pt states had both pneumonia vaccines last year Medications aspirin 81 mg oral delayed release tablet 81 mg, By Mouth, Daily, # 30 tablet, Refills 11, Tot. Refills 11, Maintenance, 09/16/17 15:09:16 EDT, Route to Pharmacy Electronically, [id number], [facility] Start Date: 09/16/17 Stop Date: 09/11/18 Status: Orderedbisacodyl 5 mg oral delayed release tablet = 10 mg, By Mouth, Daily, PRN Constipation, 0 Refills, Maintenance, 03/19/18 12:57:33 EDT, EC Tablet Start Date: 03/19/18 Status: OrderedCelexa 20 mg oral tablet 1 [...] 09/14/20 15:50:00 EDT, Route to Pharmacy Electronically, [facility], med packs, 182.88, cm, 11/30/18 13:35:00 [...] Start Date: 11/23/15 Stop Date: 11/17/16 Status: Orderedgabapentin 100 mg oral capsule 200 [...] Refills, Maintenance, Tablet, Route to Pharmacy Electronically, [id number], [facility] Start Date: 12/19/16 Status: OrderedmetFORMIN 500 mg oral tablet 1 tablet = 500 mg, By Mouth, 2 times a day, # 180 tablet, 0 Refills, Maintenance, 09/06/15 10:37:15,Tablet Start Date: 09/06/15 Status: Orderednebivolol 5 mg oral tablet 1 tablet = 5 mg, By Mouth, Daily, # 90 tablet, 3 Refills, Maintenance, 02/11/21 12:12:00 EDT, Tablet, [facility] Start Date: 02/11/21 Stop Date: 02/06/22 Status: OrderedProventil 0.083% inhalation solution 3 mL, [...] stenosis(Confirmed) Active Empyema(Confirmed) Active HTN (hypertension)(Confirmed) Active Slurred speech(Confirmed) Active SVT - Supraventricular Active tachycardia(Confirmed) Social History Social History Type Response Smoking Status Former smoker; Tobacco user in household: No; Other: quit smoking 1999; entered on: 09/06/15 Sex
--- OUTSIDE RECORDS SUMMARY | 2022-07-15 19:58 | XMS_ITS | Continuity of Care Document ---
:1950 Author Organization [facility] Address [address] [place] [address]- Care Team Providers Name Role Phone Stephane Rodriguez MD Primary Care Physician [place] [facility] [place] 10/[place]20 [facility] [address] [place] [id number] Attending Physician: Brown Carlisle MD Admitting Physician: Brown Carlisle MD Referring Physician: Stephane Rodriguez MD Allergies, Adverse Reactions, Alerts Substance Reaction Severity Status NKA Active Immunizations Given and Recorded Vaccine Date Status Refusal Reason influenza virus vaccine, inactivated 03/09/18 Given influenza virus vaccine, inactivated1 03/25/16 Given Not Given Vaccine Date Status Refusal Reason pneumococcal 13-valent vaccine2 03/18/18 Not Given Patient Refuses 1Admin Note: VERBAL ORDER FROM . CDC INFO [id number] Note: Pt states had both pneumonia vaccines last year Medications aspirin 81 mg oral delayed release tablet 81 mg, By Mouth, Daily, # 30 tablet, Refills 11, Tot. Refills 11, Maintenance, 09/16/17 15:09:16 EDT, Route to Pharmacy Electronically, [id number], [facility] Start Date: 09/16/17 Stop Date: [...] 09/14/20 15:50:00 EDT, Route to Pharmacy Electronically, [facility], med packs, 182.88, cm, 11/30/18 13:35:00 [...] Refills, Maintenance, Tablet, Route to Pharmacy Electronically, [id number], [facility] Start Date: 12/19/16 Status: OrderedmetFORMIN 500 mg oral tablet 1 tablet = 500 mg, By Mouth, 2 times a day, # 180 tablet, 0 Refills, Maintenance, 09/06/15 10:37:15,Tablet Start Date: 09/06/15 Status: Orderednebivolol 5 mg oral tablet 1 tablet = 5 mg, By Mouth, Daily, # 30 tablet, 11 Refills, Maintenance, 02/06/20 14:51:00 EDT, Tablet, [facility], 182.88, cm, 11/30/18 13:35:00 EDT, Height, 104.5, kg, 09/02/18 15:17:00 EDT, Dry Weight Start Date: 02/06/20 Stop Date: 01/31/21 Status: OrderedProventil 0.083% inhalation solution 3 mL, [...]
--- OUTSIDE RECORDS SUMMARY | 2022-07-15 19:58 | XMS_ITS | Continuity of Care Document ---
:1950 Author Organization [facility] Address [address] [place] [address]- Care Team Providers Name Role Phone Stephane Rodriguez MD Primary Care Physician [place] [facility] [place]11[place]22 - 05/11/22 [facility] [address] [place] [address]- [place] Allergies, Adverse Reactions, Alerts No Known Allergies Immunizations Given and Recorded Vaccine Date Status Refusal Reason influenza virus vaccine, inactivated 03/09/18 Given influenza virus vaccine, inactivated1 03/25/16 Given Not Given Vaccine Date Status Refusal Reason pneumococcal 13-valent vaccine2 03/18/18 Not Given Patient Refuses 1Admin Note: VERBAL ORDER FROM . CDC INFO [id number] Note: Pt states had both pneumonia vaccines last year Medications aspirin 81 mg oral delayed release tablet 81 mg, By Mouth, Daily, # 30 tablet, Refills 11, Tot. Refills 11, Maintenance, 09/16/17 15:09:16 EDT, Route to Pharmacy Electronically, [id number], [facility] Start Date: 09/16/17 Stop Date: 09/11/18 Status: Orderedcarbidopa-levodopa 25 mg-100 mg oral tablet See Instructions, 1.5 tabs TID, 0 Refills, Maintenance, 04/11/21 14:13:00 EST, Partial [...] 09/14/20 15:50:00 EDT, Route to Pharmacy Electronically, [facility], med packs, 182.88, cm, 11/30/18 13:35:00 EDT, Height Start Date: 09/14/20 Stop Date: 09/09/21 Status: Orderedclopidogrel 75 mg oral tablet See Instructions, TAKE 1 TABLET BY MOUTH ONCE A DAY, # 30 tablet, Refills 10, Instructions Replace Required Details, [facility], 182.85, cm, 08/05/21 16:25:00 EDT, Height Start Date: 09/30/21 Status: OrderedCPAP AT BEDTIME CPAP AT BEDTIME, See Instructions, # 1 each, Refills 0, Tot. Refills 0, Maintenance, At home he is on CPAP, 03/19/18 12:57:47 EDT, Compound Start Date: 03/19/18 Status: OrderedDepakote 500 mg oral enteric coated tablet 2, By Mouth, 2 times a day, # 270 tablet, 0 Refills, Maintenance, 09/13/17 8:46:59 EDT, EC Tablet Start Date: 09/13/17 Status: Ordereddivalproex sodium 250 mg oral enteric [...] Refills, Maintenance, Tablet, Route to Pharmacy Electronically, [id number], [facility] Start Date: 12/19/16 Status: OrderedmetFORMIN 500 mg oral tablet 1 tablet = 500 mg, By Mouth, 2 times a day, # 180 tablet, 0 Refills, Maintenance, 09/06/15 10:37:15,Tablet Start Date: 09/06/15 Status: Orderednebivolol 10 mg oral tablet 1 tablet = 10 mg, By Mouth, Daily, # 30 tablet, 11 Refills, Maintenance, 04/11/22 14:37:00 EST, Tablet, [facility], Partial fill upon patient request if the prescription is for a schedule II opioid drug., 182.85, cm, 08/05/21 16:25:00 EDT, Height Start Date: 04/11/22 Stop Date: 04/06/23 Status: Orderednitroglycerin 0.3 mg sublingual tablet See [...] Refills, Maintenance, Solution Start Date: 11/11/10 Status: Orderedranolazine 500 mg oral tablet, extended release 1 tablet = 500 mg, By Mouth, 2 times a day, # 120 tablet, 5 Refills, Maintenance, 08/05/21 17:51:00 EDT, ER Tablet, [facility], Partial fill upon patient request if the prescription is for a schedule II opioid drug., 182.85, cm, ... Start Date: 08/05/21 Stop Date: 07/31/22 Status: OrderedRisperDAL 0.5 mg oral tablet 1 [...] Date: 02/21/14 Status: Ordered Problem List Condition Confirmation Course Effective Dates Status Health I nformant Status AAA - Abdominal aortic Confirmed Active aneurysm Carotid artery Confirmed Active stenosis Empyema Confirmed Active HTN (hypertension) Confirmed Active Obese class I Confirmed Active Slurred speech Confirmed Active SVT - Supraventricular Confirmed Active tachycardia Social History Social History Type Response Smoking Status Former smoker; Tobacco user in household: No; Other: quit smoking 1999; entered on: 09/06/15 Sex Patient Care team information Care Team PersonnelName: Chacho Brunner MD Position: [facility] Cardiology MD Member Role: Lifetime Consulting Physician Address: Address: [address] [place] [address] [address] [place] [address]- Name: Chaparrita Rasheed RN Position: S RN Member Role: Primary Care Nurse Name: Mitali Benson Position: S Outreach Member Role: Lifetime Consulting Physician Name: Svitlana Aiken NP Position: Reference Physician Member Role: Primary Care Nurse Address: Address: [address] [place] [address]- [place] Name: Natalie Berkowitz RN Position: S RN Member Role: Primary Care Nurse Name: Stephane Rodriguez MD Position: [facility] Outreach Member Role: PCP Address: Address: [address] [place] [address] [address] [place] [address]- [place] Name: Liliana Bryant RN Position: S RN Member Role: Primary Care Nurse Care Team Related PersonsName: NO, ONE Name: TIESHA MARQUEZ Address: [place] [address] Name: DARNELL MARQUEZ Address: home [address] [place] [address] [place] [address]
--- OUTSIDE RECORDS SUMMARY | 2022-07-15 19:58 | XMS_ITS | Continuity of Care Document ---
:1950 Author Organization [facility] Address [address] [place] [address]- Care Team Providers Name Role Phone Stephane Rodriguez MD Primary Care Physician Encounter [facility] [place] Date(s): 05/14/22 - 05/14/[address] [address]- Discharge Disposition: A-D/C Walkout Attending Physician: Not on Staff, Attending MD Admitting Physician: Not on Staff, Admitting MD Referring Physician: Not on Staff, Referring MD Allergies, Adverse Reactions, Alerts No Known Allergies Immunizations Given and Recorded Vaccine Date Status Refusal Reason influenza virus vaccine, inactivated 03/09/18 Given influenza virus vaccine, inactivated1 03/25/16 Given Not Given Vaccine Date Status Refusal Reason pneumococcal 13-valent vaccine2 03/18/18 Not Given Patient Refuses 1Admin Note: VERBAL ORDER FROM . CDC INFO [id number] Note: Pt states had both pneumonia vaccines last year Medications aspirin 81 mg oral delayed release tablet 81 mg, By Mouth, Daily, # 30 tablet, Refills 11, Tot. Refills 11, Maintenance, 09/16/17 15:09:16 EDT, Route to Pharmacy Electronically, [id number], [facility] Start Date: 09/16/17 Stop [...] 09/14/20 15:50:00 EDT, Route to Pharmacy Electronically, [facility], med packs, 182.88, cm, 11/30/18 13:35:00 EDT, Height Start Date: 09/14/20 Stop Date: 09/09/21 Status: Orderedclopidogrel 75 mg oral tablet See Instructions, TAKE 1 TABLET BY MOUTH ONCE A DAY, # 30 tablet, Refills 10, Instructions Replace Required Details, Route to Pharmacy Electronically, [facility], 182.85, cm, 08/05/21 16:25:00 EDT, Height [...] Refills, Maintenance, Tablet, Route to Pharmacy Electronically, [id number], [facility] Start Date: 12/19/16 Status: OrderedmetFORMIN 500 mg oral tablet 1 tablet = 500 mg, By Mouth, 2 times a day, # 180 tablet, 0 Refills, Maintenance, 09/06/15 10:37:15,Tablet Start Date: 09/06/15 Status: Orderednebivolol 10 mg oral tablet 1 tablet = 10 mg, By Mouth, Daily, # 30 tablet, 11 Refills, Maintenance, 04/11/22 14:37:00 EST, Tablet, [facility], Partial fill upon patient request if [...] Active SVT - Supraventricular Confirmed Active tachycardia Vital Signs Most recent to oldest [Reference Range]: 1 2 Oxygen Saturation [94-100 %] 97 % 98 % (05/14/22 2:16 AM) (05/14/22 2:11 AM) Pulse Rate [55-90 bpm] 94 bpm 98 bpm *H* *H* (05/14/22 2:16 AM) (05/14/22 2:11 AM) Blood Pressure [90-138/55-84 mm Hg] 199/67 mm Hg *H* (05/14/22 2:20 AM) Respiratory Rate [16-30 br/min] 20 br/min 20 br/mi n (05/14/22 2:16 AM) (05/14/22 2:11 AM) Temperature [96.8-100.4 DegF] 98.9 DegF (05/14/22 2:16 AM) Mode of Delivery (Oxygen) Room air (05/14/22 2:16 AM) Blood pressure sites Arm, right (05/14/22 2:20 AM) Temperature Route Oral (05/14/22 2:16 AM) Social History Social History Type Response Smoking Status Former smoker; Tobacco user in household: No; Other: quit smoking 1999; entered on: 09/06/15 Sex EKG study Event Display: ECG 12-Lead Authored Date: Please click on pdf link to open report Event Display: ECG 12-Lead Authored Date: Ventricular Rate: 91 BPM Atrial Rate: 91 BPM P-R Interval: 208 ms QRS Duration: 86 ms Q-T Interval: 380 ms QTC Calculation(Bazett): 467 ms P [place]: 2 degrees R [place]: -4 degrees T [place]: 89 degrees Normal sinus rhythm Anteroseptal infarct (cited on or before 24-JUL-2013) Abnormal ECG When compared with ECG of 05-AUG-2021 16:34, No significant change was found Confirmed by JENNIFER PANDEY MD ([id number]) on 05/14/2022 3:52:28 PM [place]: JENNIFER PANDEY MD Event Display: EKG Authored Date: Patient Care team information Care Team PersonnelName: Jennifer Brunner MD R Position: [facility] MD Member Role: Lifetime Consulting Physician Address: Address: [address] [place] [address] [place] [address]- [place] Name: Chaparrita Rasheed RN Position: S RN Member Role: Primary Care Nurse Name: Mitali Benson Position: S Outreach Member Role: Lifetime Consulting Physician Name: Svitlana Aiken NP Position: Reference Physician Member Role: Primary Care Nurse Address: Address: [address] [place] [address]- [place] Name: Natalie Berkowitz RN Position: S RN Member Role: Primary Care Nurse Name: Stephane Rodriguez MD Position: [facility] Outreach Member Role: PCP Address: Address: [address] [place] [address] [address] [place] [address]- Name: Liliana Bryant RN Position: S RN Member Role: Primary Care Nurse Care Team Related PersonsName: NO, ONE Name: TIESHA MARQUEZ Address: [place] [address] Name: DARNELL MARQUEZ Address: [address] [address]
--- OUTSIDE RECORDS SUMMARY | 2022-07-15 19:58 | XMS_ITS | Continuity of Care Document ---
:1950 Author Organization [facility] Address [address] [place] [address]- Care Team Providers Name Role Phone Michael SUE, Stephane Dwyer Primary Care Physician Encounter [facility] [place] Date(s): 04/24/21 - 05/24/21 [facility] [address] [place] [address]- Attending Physician: Laith Martinez Allergies, Adverse Reactions, Alerts Substance Reaction Severity Status NKA Active Immunizations Given and Recorded Vaccine Date Status Refusal Reason influenza virus vaccine, inactivated 03/09/18 Given influenza virus vaccine, inactivated1 03/25/16 Given Not Given Vaccine Date Status Refusal Reason pneumococcal 13-valent vaccine2 03/18/18 Not Given Patient Refuses 1Admin Note: VERBAL ORDER FROM . CDC INFO [id number] Note: Pt states had both pneumonia vaccines last year Medications aspirin 81 mg oral delayed release tablet 81 mg, By Mouth, Daily, # 30 tablet, Refills 11, Tot. Refills 11, Maintenance, 09/16/17 15:09:16 EDT, Route to Pharmacy Electronically, [id number], [facility] Start Date: 09/16/17 Stop Date: [...] 09/14/20 15:50:00 EDT, Route to Pharmacy Electronically, [facility], med packs, 182.88, cm, 11/30/18 13:35:00 [...] Refills, Maintenance, Tablet, Route to Pharmacy Electronically, [id number], [facility] Start Date: 12/19/16 Status: OrderedmetFORMIN 500 mg oral tablet 1 tablet = 500 mg, By Mouth, 2 times a day, # 180 tablet, 0 Refills, Maintenance, 09/06/15 10:37:15,Tablet Start Date: 09/06/15 Status: Orderednebivolol 10 mg oral tablet 1 tablet = 10 mg, By Mouth, Daily, # 30 tablet, 11 Refills, Maintenance, 04/11/21 14:58:00 EST, Tablet, [facility], Partial fill upon patient request if [...]
--- OUTSIDE RECORDS SUMMARY | 2022-07-15 19:58 | XMS_ITS | Continuity of Care Document ---
:1950 Author Organization [facility] Address [address] [place] [address]- Care Team Providers Name Role Phone Michael SUE, Stephane Dwyer Primary Care Physician [place] [facility] [place] - 05/12/21 [facility] [address] [place] [address]- [place] Allergies, Adverse Reactions, Alerts Substance Reaction Severity Status NKA Active Immunizations Given and Recorded Vaccine Date Status Refusal Reason influenza virus vaccine, inactivated 03/09/18 Given influenza virus vaccine, inactivated1 03/25/16 Given Not Given Vaccine Date Status Refusal Reason pneumococcal 13-valent vaccine2 03/18/18 Not Given Patient Refuses 1Admin Note: VERBAL ORDER FROM . CDC INFO [id number] Note: Pt states had both pneumonia vaccines last year Medications aspirin 81 mg oral delayed release tablet 81 mg, By Mouth, Daily, # 30 tablet, Refills 11, Tot. Refills 11, Maintenance, 09/16/17 15:09:16 EDT, Route to Pharmacy Electronically, [id number], [facility] Start Date: 09/16/17 Stop [...] 09/14/20 15:50:00 EDT, Route to Pharmacy Electronically, [facility], med packs, 182.88, cm, 11/30/18 13:35:00 [...] Refills, Maintenance, Tablet, Route to Pharmacy Electronically, [id number], [facility] Start Date: 12/19/16 Status: OrderedmetFORMIN 500 mg oral tablet 1 tablet = 500 mg, By Mouth, 2 times a day, # 180 tablet, 0 Refills, Maintenance, 09/06/15 10:37:15,Tablet Start Date: 09/06/15 Status: Orderednebivolol 10 mg oral tablet 1 tablet = 10 mg, By Mouth, Daily, # 30 tablet, 11 Refills, Maintenance, 04/11/21 14:58:00 EST, Tablet, [facility], Partial fill upon patient request if [...]
--- OUTSIDE RECORDS SUMMARY | 2022-07-15 19:58 | XMS_ITS | Continuity of Care Document ---
:1950 Author Organization [facility] Address [address] [place] [address]- Care Team Providers Name Role Phone Stephane Rodriguez MD Primary Care Physician Encounter [facility] [place] Date(s): 09/11/20 - 10/11/20 [facility] [address] [place] [address] Attending Physician: Laith Martinez Admitting Physician: Laith Martinez Referring Physician: AdmtrLaith Allergies, Adverse Reactions, Alerts Substance Reaction Severity Status NKA Active Immunizations Given and Recorded Vaccine Date Status Refusal Reason influenza virus vaccine, inactivated 03/09/18 Given influenza virus vaccine, inactivated1 03/25/16 Given Not Given Vaccine Date Status Refusal Reason pneumococcal 13-valent vaccine2 03/18/18 Not Given Patient Refuses 1Admin Note: VERBAL ORDER FROM . CDC INFO [id number] Note: Pt states had both pneumonia vaccines last year Medications aspirin 81 mg oral delayed release tablet 81 mg, By Mouth, Daily, # 30 tablet, Refills 11, Tot. Refills 11, Maintenance, 09/16/17 15:09:16 EDT, Route to Pharmacy Electronically, [id number], [facility] Start Date: 09/16/17 Stop Date: [...] 09/14/20 15:50:00 EDT, Route to Pharmacy Electronically, [facility], med packs, 182.88, cm, 11/30/18 13:35:00 [...] Refills, Maintenance, Tablet, Route to Pharmacy Electronically, [id number], [facility] Start Date: 12/19/16 Status: OrderedmetFORMIN 500 mg oral tablet 1 tablet = 500 mg, By Mouth, 2 times a day, # 180 tablet, 0 Refills, Maintenance, 09/06/15 10:37:15,Tablet Start Date: 09/06/15 Status: Orderednebivolol 5 mg oral tablet 1 tablet = 5 mg, By Mouth, Daily, # 30 tablet, 11 Refills, Maintenance, 02/06/20 14:51:00 EDT, [facility], [facility], 182.88, cm, 11/30/18 13:35:00 EDT, Height, [...]
--- OUTSIDE RECORDS SUMMARY | 2022-07-15 19:58 | XMS_ITS | Continuity of Care Document ---
:1950 Author Organization [facility] Address [address] [place] [address]- Care Team Providers Name Role Phone Stephane Rodriguez MD Primary Care Physician [place] [facility] [place] - 03/13/21 [facility] [address] [place], [place] [id number]- Attending Physician: Laith Martinez Admitting Physician: Laith [...] Note: VERBAL ORDER FROM . CDC INFO [id number] Note: Pt states had both pneumonia vaccines last year Medications aspirin 81 mg oral delayed release tablet 81 mg, By Mouth, Daily, # 30 tablet, Refills 11, Tot. Refills 11, Maintenance, 09/16/17 15:09:16 EDT, Route to Pharmacy Electronically, [id number], [facility] Start Date: 09/16/17 Stop Date: 09/11/18 [...] 09/14/20 15:50:00 EDT, Route to Pharmacy Electronically, [facility], med packs, 182.88, cm, 11/30/18 13:35:00 [...] Refills, Maintenance, Tablet, Route to Pharmacy Electronically, [id number], [facility] Start Date: 12/19/16 Status: OrderedmetFORMIN 500 mg oral tablet 1 tablet = 500 mg, By Mouth, 2 times a day, # 180 tablet, 0 Refills, Maintenance, 09/06/15 10:37:15,Tablet Start Date: 09/06/15 Status: Orderednebivolol 5 mg oral tablet 1 tablet = 5 mg, By Mouth, Daily, # 90 tablet, 3 Refills, Maintenance, 02/11/21 12:12:00 EDT, Tablet, [facility] Start Date: 02/11/21 Stop Date: 02/06/22 [...]
--- OUTSIDE RECORDS SUMMARY | 2022-07-15 19:58 | XMS_ITS | Continuity of Care Document ---
:1950 Author Organization [facility] Address [address] [place] [address]- Care Team Providers Name Role Phone Stephane Rodriguez MD Primary Care Physician Encounter [facility] [place] Date(s): 11/03/19 - 01/05/20 [facility] [address] [place] [address]- [facility] Attending Physician: Brown Carlisle MD Admitting Physician: [...] Note: VERBAL ORDER FROM . CDC INFO [id number] Note: Pt states had both pneumonia vaccines last year Medications aspirin 81 mg oral delayed release tablet 81 mg, By Mouth, Daily, # 30 tablet, Refills 11, Tot. Refills 11, Maintenance, 09/16/17 15:09:16 EDT, Route to Pharmacy Electronically, [id number], [facility] Start Date: 09/16/17 Stop Date: 09/11/18 Status: Orderedbisacodyl 5 mg oral delayed release tablet = 10 mg, By Mouth, Daily, PRN Constipation, 0 Refills, Maintenance, 03/19/18 12:57:33 EDT, EC Tablet Start Date: 03/19/18 Status: OrderedCelexa 20 mg oral tablet 1 tablet = 20 mg, By Mouth, Daily, 0 Refills, Maintenance Start Date: 8/23/12 Status: OrderedclonazePAM 0.5 mg oral tablet 0.5 tablet = 0.25 mg, By Mouth, Daily at bedtime, # 10 tablet, 0 Refills, Maintenance, 09/04/18 11:38:44 EDT, Tablet Start Date: 09/04/18 Status: Orderedclopidogrel 75 mg oral tablet 75 mg, 1, tablet, By Mouth, Daily, # 30 tablet, Refills 11, Tot. Refills 11, Maintenance, 09/29/19 12:42:00 EDT, Route to Pharmacy Electronically, [facility], med packs, 182.88, cm, 11/30/18 13:35:00 EDT, Height, 104.5, kg, 09/02/18 15:17:00 E... Start Date: 09/29/19 Stop Date: 09/23/20 Status: OrderedCPAP AT BEDTIME CPAP AT BEDTIME, [...] Refills, Maintenance, Tablet, Route to Pharmacy Electronically, [id number], [facility] Start Date: 12/19/16 Status: OrderedmetFORMIN 500 mg oral tablet 1 tablet = 500 mg, By Mouth, 2 times a day, # 180 tablet, 0 Refills, Maintenance, 09/06/15 10:37:15,Tablet Start Date: 09/06/15 Status: Orderednadolol 80 mg oral tablet 1 tablet = 80 mg, By Mouth, Daily, # 30 tablet, 11 Refills, Maintenance, 01/13/17 16:05:53 Start Date: 01/13/17 Stop Date: 01/08/18 Status: OrderedProventil 0.083% inhalation solution 3 mL, [...]
--- OUTSIDE RECORDS SUMMARY | 2022-07-15 19:58 | XMS_ITS | Continuity of Care Document ---
:1950 Author Organization [facility] Address [address] [place] [address]- Care Team Providers Name Role Phone Stephane Rodriguez MD Primary Care Physician Encounter [facility] [place] Date(s): 05/14/20 - 06/13/20 [facility] [address] [place] [id number] Attending Physician: Laith Martinez Allergies, Adverse Reactions, Alerts Substance Reaction Severity Status NKA Active Immunizations Given and Recorded Vaccine Date Status Refusal Reason influenza virus vaccine, inactivated 03/09/18 Given influenza virus vaccine, inactivated1 03/25/16 Given Not Given Vaccine Date Status Refusal Reason pneumococcal 13-valent vaccine2 03/18/18 Not Given Patient Refuses 1Admin Note: VERBAL ORDER FROM . CDC INFO [id number] Note: Pt states had both pneumonia vaccines last year Medications aspirin 81 mg oral delayed release tablet 81 mg, By Mouth, Daily, # 30 tablet, Refills 11, Tot. Refills 11, Maintenance, 09/16/17 15:09:16 EDT, Route to Pharmacy Electronically, [id number], [facility] Start Date: 09/16/17 Stop Date: [...] 09/29/19 12:42:00 EDT, Route to Pharmacy Electronically, [facility], med packs, 182.88, cm, 11/30/18 13:35:00 [...] Refills, Maintenance, Tablet, Route to Pharmacy Electronically, [id number], [facility] Start Date: 12/19/16 Status: OrderedmetFORMIN 500 mg oral tablet 1 tablet = 500 mg, By Mouth, 2 times a day, # 180 tablet, 0 Refills, Maintenance, 09/06/15 10:37:15,Tablet Start Date: 09/06/15 Status: Orderednebivolol 5 mg oral tablet 1 tablet = 5 mg, By Mouth, Daily, # 30 tablet, 11 Refills, Maintenance, 02/06/20 14:51:00 EDT, Tablet, [facility], 182.88, cm, 11/30/18 13:35:00 EDT, [...]
--- OUTSIDE RECORDS SUMMARY | 2022-07-15 19:58 | XMS_ITS | Continuity of Care Document ---
:1950 Author Organization [facility] Address [address] [place] [address]- Care Team Providers Name Role Phone Stephane Rodriguez MD Primary Care Physician [place] [facility] [place] 09/[place] - 11/15/20 [facility] [address] [place] [address] Attending Physician: Brown Carlisle MD [...] Note: VERBAL ORDER FROM . CDC INFO [id number] Note: Pt states had both pneumonia vaccines last year Medications aspirin 81 mg oral delayed release tablet 81 mg, By Mouth, Daily, # 30 tablet, Refills 11, Tot. Refills 11, Maintenance, 09/16/17 15:09:16 EDT, Route to Pharmacy Electronically, [id number], [facility] Start Date: 09/16/17 Stop [...] 09/14/20 15:50:00 EDT, Route to Pharmacy Electronically, [facility], med packs, 182.88, cm, 11/30/18 13:35:00 [...] Refills, Maintenance, Tablet, Route to Pharmacy Electronically, [id number], [facility] Start Date: 12/19/16 Status: OrderedmetFORMIN 500 mg oral tablet 1 tablet = 500 mg, By Mouth, 2 times a day, # 180 tablet, 0 Refills, Maintenance, 09/06/15 10:37:15,Tablet Start Date: 09/06/15 Status: Orderednebivolol 5 mg oral tablet 1 tablet = 5 mg, By Mouth, Daily, # 30 tablet, 11 Refills, Maintenance, 02/06/20 14:51:00 EDT, Tablet, [facility], 182.88, cm, 11/30/18 13:35:00 EDT, Height, [...]
--- OUTSIDE RECORDS SUMMARY | 2022-07-15 19:58 | XMS_ITS | Continuity of Care Document ---
:1950 Author Organization [facility] Address [address] [place] [address]- Care Team Providers Name Role Phone Stephane Rodriguez MD Primary Care Physician [place] [facility] [place](s): 08/05/21 - 09/04/21 [facility] [address] [place] [address]- Attending Physician: Laith Martinez Allergies, Adverse Reactions, Alerts No Known Allergies Immunizations Given and Recorded Vaccine Date Status Refusal Reason influenza virus vaccine, inactivated 03/09/18 Given influenza virus vaccine, inactivated1 03/25/16 Given Not Given Vaccine Date Status Refusal Reason pneumococcal 13-valent vaccine2 03/18/18 Not Given Patient Refuses 1Admin Note: VERBAL ORDER FROM . CDC INFO [id number] Note: Pt states had both pneumonia vaccines last year Medications aspirin 81 mg oral delayed release tablet 81 mg, By Mouth, Daily, # 30 tablet, Refills 11, Tot. Refills 11, Maintenance, 09/16/17 15:09:16 EDT, Route to Pharmacy Electronically, [id number], [facility] Start Date: 09/16/17 [...] 09/14/20 15:50:00 EDT, Route to Pharmacy Electronically, [facility], med packs, 182.88, cm, 11/30/18 13:35:00 [...] Refills, Maintenance, Tablet, Route to Pharmacy Electronically, [id number], [facility] Start Date: 12/19/16 Status: OrderedmetFORMIN 500 mg oral tablet 1 tablet = 500 mg, By Mouth, 2 times a day, # 180 tablet, 0 Refills, Maintenance, 09/06/15 10:37:15,Tablet Start Date: 09/06/15 Status: Orderednebivolol 10 mg oral tablet 1 tablet = 10 mg, By Mouth, Daily, # 30 tablet, 11 Refills, Maintenance, 04/11/21 14:58:00 EST, Tablet, [facility], Partial fill upon patient request if [...]
--- OUTSIDE RECORDS SUMMARY | 2022-07-15 19:58 | XMS_ITS | Continuity of Care Document ---
:1950 Author Organization [facility] Address [address] [place] [address]- Care Team Providers Name Role Phone Stephane Rodriguez MD Primary Care Physician Encounter [facility] Date(s): 07/12/19 - 07/12/[address] [address]- [facility] Attending Physician: Stephane Rodriguez MD Allergies, Adverse Reactions, Alerts Substance Reaction Severity Status NKA Active Immunizations Given and Recorded Vaccine Date Status Refusal Reason influenza virus vaccine, inactivated 03/09/18 Given influenza virus vaccine, inactivated1 03/25/16 Given Not Given Vaccine Date Status Refusal Reason pneumococcal 13-valent vaccine2 03/18/18 Not Given Patient Refuses 1Admin Note: VERBAL ORDER FROM . CDC INFO [id number] Note: Pt states had both pneumonia vaccines last year Medications aspirin 81 mg oral delayed release tablet 81 mg, By Mouth, Daily, # 30 tablet, Refills 11, Tot. Refills 11, Maintenance, 09/16/17 15:09:16 EDT, Route to Pharmacy Electronically, [id number], [facility] Start Date: 09/16/17 Stop [...] 75 mg, 1, tablet, By Mouth, Daily, Please call for follow up appt [phone], # 30 tablet, [id number], Tot. Refills 11, Maintenance, 11/04/18 8:11:24 EDT, Route to Pharmacy Electronically, NCPDP_[id number], [facility], med packs Start Date: 11/04/18 Stop Date: 10/30/19 Status: OrderedCPAP AT BEDTIME CPAP AT BEDTIME, [...] Refills, Maintenance, Tablet, Route to Pharmacy Electronically, [id number], [facility] Start Date: [...]
--- OUTSIDE RECORDS SUMMARY | 2022-07-15 19:58 | XMS_ITS | Continuity of Care Document ---
:1950 Author Organization [facility] Address [address] [place] [address]- Care Team Providers Name Role Phone Stephane Rodriguez MD Primary Care Physician Encounter [facility] [place] Date(s): 08/07/20 - 09/22/[address] [address] Attending Physician: Stephane Rodriguez MD Admitting Physician: Stephane Rodriguez MD Referring Physician: Stephane Rodriguez MD Allergies, Adverse Reactions, Alerts Substance Reaction Severity Status NKA Active Immunizations Given and Recorded Vaccine Date Status Refusal Reason influenza virus vaccine, inactivated 03/09/18 Given influenza virus vaccine, inactivated1 03/25/16 Given Not Given Vaccine Date Status Refusal Reason pneumococcal 13-valent vaccine2 03/18/18 Not Given Patient Refuses 1Admin Note: VERBAL ORDER FROM . CDC INFO [id number] Note: Pt states had both pneumonia vaccines last year Medications aspirin 81 mg oral delayed release tablet 81 mg, By Mouth, Daily, # 30 tablet, Refills 11, Tot. Refills 11, Maintenance, 09/16/17 15:09:16 EDT, Route to Pharmacy Electronically, [id number], [facility] Start Date: 09/16/17 Stop [...] 09/14/20 15:50:00 EDT, Route to Pharmacy Electronically, [facility], med packs, 182.88, cm, 11/30/18 13:35:00 [...] Refills, Maintenance, Tablet, Route to Pharmacy Electronically, [id number], [facility] Start Date: 12/19/16 Status: OrderedmetFORMIN 500 mg oral tablet 1 tablet = 500 mg, By Mouth, 2 times a day, # 180 tablet, 0 Refills, Maintenance, 09/06/15 10:37:15,Tablet Start Date: 09/06/15 Status: Orderednebivolol 5 mg oral tablet 1 tablet = 5 mg, By Mouth, Daily, # 30 tablet, 11 Refills, Maintenance, 02/06/20 14:51:00 EDT, Tablet, [facility], 182.88, cm, 11/30/18 13:35:00 EDT, Height, [...]
--- OUTSIDE RECORDS SUMMARY | 2022-07-15 19:58 | XMS_ITS | Continuity of Care Document ---
:1950 Author Organization [facility] Address [address] [place] [address]- Care Team Providers Name Role Phone Stephane Rodriguez MD Primary Care Physician Encounter [facility] [place] Date(s): 03/19/21 - 05/15/21 [facility] [address] [place] [address]- Attending Physician: Brown Carlisle MD Admitting Physician: [...] Note: VERBAL ORDER FROM . CDC INFO [id number] Note: Pt states had both pneumonia vaccines last year Medications aspirin 81 mg oral delayed release tablet 81 mg, By Mouth, Daily, # 30 tablet, Refills 11, Tot. Refills 11, Maintenance, 09/16/17 15:09:16 EDT, Route to Pharmacy Electronically, [id number], [facility] Start Date: 09/16/17 Stop Date: [...] 09/14/20 15:50:00 EDT, Route to Pharmacy Electronically, [facility], med packs, 182.88, cm, 11/30/18 13:35:00 [...] Refills, Maintenance, Tablet, Route to Pharmacy Electronically, [id number], [facility] Start Date: 12/19/16 Status: OrderedmetFORMIN 500 mg oral tablet 1 tablet = 500 mg, By Mouth, 2 times a day, # 180 tablet, 0 Refills, Maintenance, 09/06/15 10:37:15,Tablet Start Date: 09/06/15 Status: Orderednebivolol 10 mg oral tablet 1 tablet = 10 mg, By Mouth, Daily, # 30 tablet, 11 Refills, Maintenance, 04/11/21 14:58:00 EST, Tablet, [facility], Partial fill upon patient request if [...]
--- OUTSIDE RECORDS SUMMARY | 2022-07-15 19:58 | XMS_ITS | Continuity of Care Document ---
:1950 Author Organization [facility] Address [address] [place] [address]- Care Team Providers Name Role Phone Stephane Rodriguez MD Primary Care Physician [place] [facility] [place] 01/24/21 - 03/13/21 [facility] [address] [place] [address]- Attending Physician: Brown Carlisle MD Admitting Physician: [...] Note: VERBAL ORDER FROM . CDC INFO [id number] Note: Pt states had both pneumonia vaccines last year Medications aspirin 81 mg oral delayed release tablet 81 mg, By Mouth, Daily, # 30 tablet, Refills 11, Tot. Refills 11, Maintenance, 09/16/17 15:09:16 EDT, Route to Pharmacy Electronically, [id number], [facility] Start Date: 09/16/17 Stop [...] 09/14/20 15:50:00 EDT, Route to Pharmacy Electronically, [facility], med packs, 182.88, cm, 11/30/18 13:35:00 [...] Refills, Maintenance, Tablet, Route to Pharmacy Electronically, [id number], [facility] Start Date: 12/19/16 Status: OrderedmetFORMIN 500 mg oral tablet 1 tablet = 500 mg, By Mouth, 2 times a day, # 180 tablet, 0 Refills, Maintenance, 09/06/15 10:37:15,Tablet Start Date: 09/06/15 Status: Orderednebivolol 5 mg oral tablet 1 tablet = 5 mg, By Mouth, Daily, # 90 tablet, 3 Refills, Maintenance, 02/11/21 12:12:00 EDT, Tablet, [facility] Start Date: 02/11/21 Stop Date: 02/06/22 [...]
--- OUTSIDE RECORDS SUMMARY | 2022-07-15 19:58 | XMS_ITS | Continuity of Care Document ---
:1950 Author Organization [facility] Address [address] [place] [address]- Care Team Providers Name Role Phone Stephane Rodriguez MD Primary Care Physician Encounter [facility] Date(s): 02/06/20 - 03/07/20 [facility] [address] [place] [address]- [facility] Attending Physician: Laith Martinez Allergies, Adverse Reactions, Alerts Substance Reaction Severity Status NKA Active Immunizations Given and Recorded Vaccine Date Status Refusal Reason influenza virus vaccine, inactivated 03/09/18 Given influenza virus vaccine, inactivated1 03/25/16 Given Not Given Vaccine Date Status Refusal Reason pneumococcal 13-valent vaccine2 03/18/18 Not Given Patient Refuses 1Admin Note: VERBAL ORDER FROM . CDC INFO [id number] Note: Pt states had both pneumonia vaccines last year Medications aspirin 81 mg oral delayed release tablet 81 mg, By Mouth, Daily, # 30 tablet, Refills 11, Tot. Refills 11, Maintenance, 09/16/17 15:09:16 EDT, Route to Pharmacy Electronically, [id number], [facility] Start Date: 09/16/17 Stop [...] 09/29/19 12:42:00 EDT, Route to Pharmacy Electronically, [facility], med packs, 182.88, cm, 11/30/18 13:35:00 [...] Refills, Maintenance, Tablet, Route to Pharmacy Electronically, [id number], [facility] Start Date: 12/19/16 Status: OrderedmetFORMIN 500 mg oral tablet 1 tablet = 500 mg, By Mouth, 2 times a day, # 180 tablet, 0 Refills, Maintenance, 09/06/15 10:37:15,Tablet Start Date: 09/06/15 Status: Orderednebivolol 5 mg oral tablet 1 tablet = 5 mg, By Mouth, Daily, # 30 tablet, 11 Refills, Maintenance, 02/06/20 14:51:00 EDT, Tablet, [facility], 182.88, cm, 11/30/18 13:35:00 EDT, [...]
--- OUTSIDE RECORDS SUMMARY | 2022-07-15 19:59 | XMS_ITS | Continuity of Care Document ---
:1950 Author Organization [facility] Address [address] [place] [address]- Care Team Providers Name Role Phone Stephane Rodriguez MD Primary Care Physician Encounter [facility] R [id number] Date(s): 01/11/20 - 03/15/20 [facility] [address] [place] [address]- [facility] Attending Physician: Brown Carlisle MD Admitting Physician: [...] Note: VERBAL ORDER FROM . CDC INFO [id number] Note: Pt states had both pneumonia vaccines last year Medications aspirin 81 mg oral delayed release tablet 81 mg, By Mouth, Daily, # 30 tablet, Refills 11, Tot. Refills 11, Maintenance, 09/16/17 15:09:16 EDT, Route to Pharmacy Electronically, [id number], [facility] Start Date: 09/16/17 Stop [...] 09/29/19 12:42:00 EDT, Route to Pharmacy Electronically, [facility], med packs, 182.88, cm, 11/30/18 13:35:00 [...] Refills, Maintenance, Tablet, Route to Pharmacy Electronically, [id number], [facility] Start Date: 12/19/16 Status: OrderedmetFORMIN 500 mg oral tablet 1 tablet = 500 mg, By Mouth, 2 times a day, # 180 tablet, 0 Refills, Maintenance, 09/06/15 10:37:15,Tablet Start Date: 09/06/15 Status: Orderednebivolol 5 mg oral tablet 1 tablet = 5 mg, By Mouth, Daily, # 30 tablet, 11 Refills, Maintenance, 02/06/20 14:51:00 EDT, Tablet, [facility], 182.88, cm, 11/30/18 13:35:00 EDT, [...]
--- OUTSIDE RECORDS SUMMARY | 2022-07-15 19:59 | XMS_ITS | Continuity of Care Document ---
:1950 Author Organization [facility] Address [address] [place] [id number]- Care Team Providers Name Role Phone Michael SUE, Stephane Dwyer Primary Care Physician Encounter [facility] Date(s): 02/11/21 - 03/13/21 [facility] [address] [place] [address]- [place] Allergies, Adverse Reactions, Alerts Substance Reaction Severity Status NKA Active Immunizations Given and Recorded Vaccine Date Status Refusal Reason influenza virus vaccine, inactivated 03/09/18 Given influenza virus vaccine, inactivated1 03/25/16 Given Not Given Vaccine Date Status Refusal Reason pneumococcal 13-valent vaccine2 03/18/18 Not Given Patient Refuses 1Admin Note: VERBAL ORDER FROM . CDC INFO [id number] Note: Pt states had both pneumonia vaccines last year Medications aspirin 81 mg oral delayed release tablet 81 mg, By Mouth, Daily, # 30 tablet, Refills 11, Tot. Refills 11, Maintenance, 09/16/17 15:09:16 EDT, Route to Pharmacy Electronically, [id number], [facility] Start Date: 09/16/17 Stop [...] 09/14/20 15:50:00 EDT, Route to Pharmacy Electronically, [email or web address], med packs, 182.88, cm, 11/30/18 13:35:00 [...] Refills, Maintenance, Tablet, Route to Pharmacy Electronically, [id number], [facility] Start Date: [...]
--- OUTSIDE RECORDS SUMMARY | 2022-07-15 19:59 | XMS_ITS | Continuity of Care Document ---
:1950 Author Organization [facility] Address [address] [address]- Care Team Providers Name Role Phone Stephane Rodriguez MD Primary Care Physician Encounter [facility] [place] Date(s): 04/17/21 - 04/24/21 [facility] [address] [address]- Attending Physician: Adam Caballero Admitting Physician: Adam Caballero Referring Physician: Adam Caballero Allergies, Adverse Reactions, Alerts Substance Reaction Severity Status NKA Active Immunizations Given and Recorded Vaccine Date Status Refusal Reason influenza virus vaccine, inactivated 03/09/18 Given influenza virus vaccine, inactivated1 03/25/16 Given Not Given Vaccine Date Status Refusal Reason pneumococcal 13-valent vaccine2 03/18/18 Not Given Patient Refuses 1Admin Note: VERBAL ORDER FROM . CDC INFO [id number] Note: Pt states had both pneumonia vaccines last year Medications aspirin 81 mg oral delayed release tablet 81 mg, By Mouth, Daily, # 30 tablet, Refills 11, Tot. Refills 11, Maintenance, 09/16/17 15:09:16 EDT, Route to Pharmacy Electronically, [id number], [facility] Start Date: 09/16/17 Stop [...] 09/14/20 15:50:00 EDT, Route to Pharmacy Electronically, [facility], med packs, 182.88, cm, 11/30/18 13:35:00 [...] Refills, Maintenance, Tablet, Route to Pharmacy Electronically, [id number], [facility] Start Date: 12/19/16 Status: OrderedmetFORMIN 500 mg oral tablet 1 tablet = 500 mg, By Mouth, 2 times a day, # 180 tablet, 0 Refills, Maintenance, 09/06/15 10:37:15,Tablet Start Date: 09/06/15 Status: Orderednebivolol 10 mg oral tablet 1 tablet = 10 mg, By Mouth, Daily, # 30 tablet, 11 Refills, Maintenance, 04/11/21 14:58:00 EST, Tablet, [facility], Partial fill upon patient request if [...]
--- OUTSIDE RECORDS SUMMARY | 2022-07-15 19:59 | XMS_ITS | Continuity of Care Document ---
:1950 Author Organization [facility] Address [address] [place] [address]- Care Team Providers Name Role Phone Stephane Rodriguez MD Primary Care Physician Encounter [facility] Date(s): 04/23/21 - 06/27/21 [facility] [address] [place] [address]- Attending Physician: Brown Carlisle MD Admitting Physician: Brwon Carlisle MD Referring Physician: Stephane Rodriguez MD Allergies, Adverse Reactions, Alerts No Known Allergies Immunizations Given and Recorded Vaccine Date Status Refusal Reason influenza virus vaccine, inactivated 03/09/18 Given influenza virus vaccine, inactivated1 03/25/16 Given Not Given Vaccine Date Status Refusal Reason pneumococcal 13-valent vaccine2 03/18/18 Not Given Patient Refuses 1Admin Note: VERBAL ORDER FROM . CDC INFO [id number] Note: Pt states had both pneumonia vaccines last year Medications aspirin 81 mg oral delayed release tablet 81 mg, By Mouth, Daily, # 30 tablet, Refills 11, Tot. Refills 11, Maintenance, 09/16/17 15:09:16 EDT, Route to Pharmacy Electronically, [id number], [facility] Start Date: 09/16/17 [...] 09/14/20 15:50:00 EDT, Route to Pharmacy Electronically, [facility], med packs, 182.88, cm, 11/30/18 13:35:00 [...] Refills, Maintenance, 09/04/18 11:48:47 EDT,Injection Start Date: 4/13/19 Status: OrderedLipitor 80 mg oral tablet 1 tablet = 80 mg, By Mouth, Daily, # 30 tablet, 11 Refills, Maintenance, Tablet, Route to Pharmacy Electronically, [id number], [facility] Start Date: 12/19/16 Status: OrderedmetFORMIN 500 mg oral tablet 1 tablet = 500 mg, By Mouth, 2 times a day, # 180 tablet, 0 Refills, Maintenance, 09/06/15 10:37:15,Tablet Start Date: 09/06/15 Status: Orderednebivolol 10 mg oral tablet 1 tablet = 10 mg, By Mouth, Daily, # 30 tablet, 11 Refills, Maintenance, 04/11/21 14:58:00 EST, Tablet, [facility], Partial fill upon patient request if [...]
--- OUTSIDE RECORDS SUMMARY | 2022-07-15 19:59 | XMS_ITS | Continuity of Care Document ---
:1950 Author Organization [facility] Address [address] [place] [address]- Care Team Providers Name Role Phone Stephane Rodriguez MD Primary Care Physician Encounter [facility] Date(s): 05/09/19 - 05/19/19 [facility] [address] [place] [address]- [facility] Attending Physician: Laith Martinez Admitting Physician: AdmtrLaith Referring Physician: AdmtrLaith Allergies, Adverse Reactions, Alerts Substance Reaction Severity Status NKA Active Immunizations Given and Recorded Vaccine Date Status Refusal Reason influenza virus vaccine, inactivated 03/09/18 Given influenza virus vaccine, inactivated1 03/25/16 Given Not Given Vaccine Date Status Refusal Reason pneumococcal 13-valent vaccine2 03/18/18 Not Given Patient Refuses 1Admin Note: VERBAL ORDER FROM . CDC INFO [id number] Note: Pt states had both pneumonia vaccines last year Medications aspirin 81 mg oral delayed release tablet 81 mg, By Mouth, Daily, # 30 tablet, Refills 11, Tot. Refills 11, Maintenance, 09/16/17 15:09:16 EDT, Route to Pharmacy Electronically, [id number], [facility] Start Date: 09/16/17 Stop Date: [...] Daily, Please call for follow up appt [phone], # 30 tablet, [id number], Tot. Refills 11, Maintenance, 11/04/18 8:11:24 EDT, Route to Pharmacy Electronically, [id number], [facility], med packs Start Date: 11/04/18 [...] Refills, Maintenance, Tablet, Route to Pharmacy Electronically, [id number], [facility] Start Date: [...]
--- OUTSIDE RECORDS SUMMARY | 2022-07-15 19:59 | XMS_ITS | Continuity of Care Document ---
:1950 Author Organization [facility] Address [address] [place] [address]- Care Team Providers Name Role Phone Stephane Rodriguez MD Primary Care Physician Encounter [facility] Date(s): 10/16/20 - 11/15/20 [facility] [address] [place] [address] Attending Physician: Laith Martinez Admitting [...] Note: VERBAL ORDER FROM . CDC INFO [id number] Note: Pt states had both pneumonia vaccines last year Medications aspirin 81 mg oral delayed release tablet 81 mg, By Mouth, Daily, # 30 tablet, Refills 11, Tot. Refills 11, Maintenance, 09/16/17 15:09:16 EDT, Route to Pharmacy Electronically, [id number], [facility] Start Date: 09/16/17 [...] 09/14/20 15:50:00 EDT, Route to Pharmacy Electronically, [email or web address], med packs, 182.88, cm, 11/30/18 13:35:00 [...] Refills, Maintenance, Tablet, Route to Pharmacy Electronically, [id number], [facility] Start Date: 12/19/16 Status: OrderedmetFORMIN 500 mg oral tablet 1 tablet = 500 mg, By Mouth, 2 times a day, # 180 tablet, 0 Refills, Maintenance, 09/06/15 10:37:15,Tablet Start Date: 09/06/15 Status: Orderednebivolol 5 mg oral tablet 1 tablet = 5 mg, By Mouth, Daily, # 30 tablet, 11 Refills, Maintenance, 02/06/20 14:51:00 EDT, Tablet, [email or web address], 182.88, cm, 11/30/18 13:35:00 [...]
--- NOTE | 2022-07-15 20:01 | PM.HPGS ---
History of Present Illness History of Present Illness Date of Service: 07/16/22 Chief complaint: Acute Cholecystitis Narrative: Angel Berrios is a 71 year old male with PMH: DM2, HTN, vascular disease, s/p aortobifem stent, h/o lap band & revision ?sleeve gastrectomy presenting with epigastric/RUQ abd pain & leukocytosis & CT Abd/pelvis concerning for acute cholecystitis. The patient is currently on Plavix for his vascular disease. He notes relatively acute onset of abdominal pain that localized to the right upper quadrant and notes that it has improved this morning. Patient is a somewhat poor historian and does not recall all of his history. He refused lab draws overnight and when I saw him this morning at 7:20am, a definitive plan could not be provided to the patient due to the lack of labs and the patient was upset. Review of Systems Review of Systems: Yes all other systems are reviewed and are negative Constitutional: Constitutional: Reports as per [facility] Past Medical History Medical History (Updated 07/16/22 @ 05:45 by Opal King MD) CAD (coronary artery disease) DMII (diabetes mellitus, type 2) HTN (hypertension) Hyperlipidemia Vascular disease of abdomen Surgical History Surgical History (Updated 07/16/22 @ 05:42 by Opal King MD) H/O bariatric surgery Social History Social History (Updated 07/16/22 @ 05:42 by Opal King MD) Household Members: None Housing: House Do you presently have visiting nurse or other home services: No Alcohol intake: never Patient Tobacco Use Status: Never used Tobacco Second Hand Smoke Exposure: No service: No Current occupational status: retired [employer] Allergies Allergy/AdvReac Type Severity Reaction Status Date / Time No Known Allergies Allergy Verified 07/15/22 12:58 Active Medications: Current Medications Hydromorphone HCl (Hydromorphone Hcl 0.5 Mg/0.5 Ml Syringe) 0.25 mg IVPUSH Q2H PRN; Protocol PRN Reason: Pain, Moderate (Pain Scale 4-6 Lactated Ringer's (Lr) 1,000 mls @ 100 mls/hr IVCONT .Q10H STEFFI Ampicillin Sodium/Sulbactam (Sodium 3 gm/ Sodium Chloride) 100 mls @ 200 mls/hr IV Q8H STEFFI Ondansetron HCl (Ondansetron Hcl 4 Mg/2 Ml Vial) 4 mg IVPUSH Q6H PRN PRN Reason: Nausea and Vomiting Pharmacy Consult (Consult Rx Perform Med Rec) 1 each MISCELLANE ONCE PRN PRN Reason: Consult order Sodium Chloride (0.9 % Sodium Chloride Flush 3 Ml Syringe) [facility] Medications Medication Instructions Recorded Confirmed Last Taken Type albuterol sulfate 90 mcg/actuation 2 puff inhalation Q4-6H PRN 07/15/22 07/15/22 07/14/22 History aerosol inhaler Wheezing atorvastatin 80 mg tablet 1 tab PO DAILY 07/15/22 07/15/22 07/14/22 History carbidopa 25 mg-levodopa 100 mg 1.5 tab PO BID 07/15/22 07/16/22 07/14/22 History tablet citalopram 20 mg tablet 1 tab PO DAILY 07/15/22 07/15/22 07/14/22 History clopidogrel 75 mg tablet 1 tab PO DAILY 07/15/22 07/15/22 07/14/22 History divalproex 500 mg tablet,extended 2 tab PO BID 07/15/22 07/16/22 07/14/22 History release 24 hr gabapentin 100 mg capsule 2 cap PO BEDTIME 07/15/22 07/16/22 07/14/22 History losartan 100 1 tab PO DAILY 07/15/22 07/15/22 Unknown History mg-hydrochlorothiazide 25 mg tablet metformin 500 mg tablet 1 tab PO BID 07/15/22 07/15/22 Unknown History nebivolol 10 mg tablet (Bystolic) 1 tab PO DAILY 07/15/22 07/15/22 Unknown History divalproex 250 mg tablet,delayed 1 tab PO BEDTIME 07/16/22 07/16/22 07/14/22 History release Physical Exam Vital Signs: Vital Signs: Last Vital Signs Temp 99.5 F 07/15/22 16:05 Pulse 98 07/15/22 16:05 Resp 14 07/15/22 16:05 BP 192/84 H 07/15/22 16:05 Pulse Ox 97 07/15/22 16:05 O2 Del Method 07/15/22 16:05 BMI result Body Mass Index 31.1 The patient is non-toxic & in good spirits NC/AT, PERRLA, EOMI Mood, affect & judgment all appear appropriate Sclera anicteric conjunctiva pink and moist Oropharynx is clear with no aphthous ulcers, Mallampati class 4, mucous membranes moist Neck is supple with no masses, adenopathy or bruits Heart is regular, normal S1-S2 no rubs or murmurs Lungs are clear and equal anteriorly with no audible wheezing, rubs or dullness to percussion Abdomen is overweight with no demonstrable hernias. RUQ pain to palpation is present but no HSM, rebound, rigidity, guarding, masses or bruits are present. Rectal exam is deferred Skin has good turgor and is free of rashes Extremities free of cyanosis clubbing edema Results Results Labs: Short CBC 07/15/22 Range/Units 13:13 WBC 13.3 H (4.8-10.8) X10*3/uL Hgb 12.9 L (14.0-18.0) g/dl Hct 37.3 L (42.0-52.0) % Plt Count 199 (160-400) X10*3/uL BMP 07/15/22 13:13 Sodium 137 Potassium 4.4 Chloride 100 Carbon Dioxide 23 BUN 13 Creatinine 0.89 Calcium 9.1 Liver Function 07/15/22 Range/Units 13:13 Total Bilirubin 1.0 (0.0-1.0) mg/dL Direct Bilirubin 0.2 (0.0-0.5) mg/dL AST 23 (5-37) U/L ALT 31 (0-40) U/L Alkaline Phosphatase 103 (39-117) U/L Albumin 4.2 (3.5-5.0) g/dL Abdomen CT scan report/results: report reviewed and image reviewed CT scan - pelvis: report reviewed and image reviewed Abdominal ultrasound report/results: report reviewed and image reviewed Additional studies: HbA1c pending Lactic acid elevated at 3.4; apparently patient refused repeat labs overnight 07/16/2022 labs HbA1c 7.7 wbc 5.8; Hb 10.9, Plts 163K LFTs: TBili 0.8; transaminases WNL; AlkPhos nml at 72 Lytes WNL, Mag WNL, Prealb 31 BUN 10, Cr 0.76 Pt refused repeat lactic acid Assessment and Plan (1) Cholecystitis, acute: Status: Acute (2) Acute dehydration: Status: Acute (3) DMII (diabetes mellitus, type 2): Status: Acute (4) HTN (hypertension): Status: Acute (5) H/O bariatric surgery: Status: Acute (6) Hyperlipidemia: Status: Acute (7) Vascular disease of abdomen: Status: Acute (8) Lactic acid acidosis: Status: Acute Plan admit NPO, Abx, IVF Unasyn, pain management & antiemetics Consult hospitalist re: DM2 & medical comorbidities; Check HbA1c Trend labs, lactic acid 07/16/22 1035am The patient reports that he is improved. We had a candid discussion about his refusal to allow labs and how that limits my ability to recommend a course of action. I also explained that he may need additional testing which she became irritated regarding. I reviewed his comorbidities and risk of complications regarding surgery and the need for a clear, safe plan which will require his participation. Time Spent With Patient Time: Total time managing care of this patient today ____ minutes. Quality Stroke Does the patient have a stroke diagnosis?: No VTE Prior VTE?: No VTE Risk Level:: Surgical - moderate VTE Device Contraindication: N/A - Device Ordered VTE Drug Contraindication: N/A - Med Ordered Procedures Date of Service Date of Service: 07/16/22
[2022-07-15] MEDS: Ampicillin Sodium/Sulbactam Na 3 GM in 0.9 % Sodium Chloride 100 ML IV (20:14)
[2022-07-15 20:21] LABS: Appearance Urine Clear; Color Urine Yellow; Glucose Urine UA 100 mg/dL (Negative); Leukocyte Esterase Urine Negative (Negative); Nitrite Urine Negative (Negative); PH 5.5 (5.0-9.0); Specific Gravity - Urine >= 1.030 (1.005-1.025); UMIC TRIGGER UACC YES; Urine Blood Negative (Negative); Urine Ketones 15 mg/dL (Negative); Urine Protein 100 (2+) mg/dL (Neg-Trace)
[2022-07-15 20:24] LABS: Bacteria Urine None Seen (None Seen); Hyaline Casts Urine 0-2 /LPF (0-2); RBC Urine 0-2 /HPF (0-2); Squamous Epithelial Cell Urine 0-2 /HPF (0-2); WBC Urine 0-5 /HPF (0-5)
[2022-07-15 20:49] LABS: ~Lactic Acid-LAB USE ONLY 2.4 mmol/L (0.5-2.0)
[2022-07-15] MEDS: Lactated Ringers 1,000 ML 125 ML IVCONT (21:08)
[2022-07-15 22:17] LABS: Reflex Lactate? 2 Y
[2022-07-15 22:42] VITALS: BP 119/81; PULSE 77; RESP 16; TEMP 36.3; O2SAT 96
--- NOTE | 2022-07-15 22:46 | P.CONHOSP_ITS ---
History of Present Illness Data of Consult Service Date: 07/15/22 Primary Care Provider: Stephane Rodriguez MD [facility] Reason for consult: medical management 71-year-old male with past medical history of diabetes, hypertension, hyperlipidemia, gastritis, anxiety, history of CVA, as well as reports history of CAD, status post sleeve gastrectomy, presents to the hospital with complaints of epigastric as well as right upper quadrant abdominal pain x1 day. Patient workup in the ED consistent with acute cholecystitis. [place] [address], and lactic acid of 3.4, medical team is consulted for medical management. patient currently denies any headache, change in vision, no chest pain, no urinary symptoms and no lower extremity edema. vitals reviewed, stable Review of Systems Review of Systems: Yes all other systems are reviewed and are negative [facility] Medical History (Updated 07/16/22 @ 05:45 by Opal King MD) CAD (coronary artery disease) DMII (diabetes mellitus, type 2) HTN (hypertension) Hyperlipidemia Vascular disease of abdomen Surgical History (Updated 07/16/22 @ 05:42 by Opal King MD) H/O bariatric surgery Social History (Updated 07/16/22 @ 05:42 by Opal King MD) Alcohol intake: never Patient Tobacco Use Status: Never used Tobacco Use of substances other than those prescribed or required for medical reasons: No Advance Directives: No Advance Directives Information Provided: Yes Meds Allergies Allergy/AdvReac Type Severity Reaction Status Date / Time No Known Allergies Allergy Verified 07/15/22 12:58 Active Medications: Current Medications Hydromorphone HCl (Hydromorphone Hcl 0.5 Mg/0.5 Ml Syringe) 0.25 mg IVPUSH Q2H PRN; Protocol PRN Reason: Pain, Moderate (Pain Scale 4-6 Lactated Ringer's (Lr) 1,000 mls @ 125 mls/hr IVCONT .Q8H STEFFI Last Admin: 07/15/22 21:08 Dose: 125 mls/hr Ampicillin Sodium/Sulbactam (Sodium 3 gm/ Sodium Chloride) 100 mls @ 200 mls/hr IV Q8H STEFFI Ondansetron HCl (Ondansetron Hcl 4 Mg/2 Ml Vial) 4 mg IVPUSH Q6H PRN PRN Reason: Nausea and Vomiting Pharmacy Consult (Consult Rx Perform Med Rec) 1 each MISCELLANE ONCE PRN PRN Reason: Consult order Sodium Chloride (0.9 % Sodium Chloride Flush 3 Ml Syringe) 3 ml IVFLUSH [facility] Home Medications Medication Instructions Recorded Confirmed Last Taken Type albuterol sulfate 90 mcg/actuation 2 puff inhalation Q4-6H PRN 07/15/22 07/15/22 Unknown History aerosol inhaler Wheezing atorvastatin 80 mg tablet 1 tab PO DAILY 07/15/22 07/15/22 Unknown History carbidopa 25 mg-levodopa 100 mg 1 tab PO 07/15/22 Unknown History tablet citalopram 20 mg tablet 1 tab PO DAILY 07/15/22 07/15/22 Unknown History clopidogrel 75 mg tablet 1 tab PO DAILY 07/15/22 07/15/22 Unknown History divalproex 250 mg tablet,delayed 1 tab PO DAILY 07/15/22 07/15/22 Unknown History release divalproex 500 mg tablet,extended 2 tab PO BEDTIME 07/15/22 07/15/22 Unknown History release 24 hr gabapentin 100 mg capsule 2 cap PO 07/15/22 Unknown History losartan 100 1 tab PO DAILY 07/15/22 07/15/22 Unknown History mg-hydrochlorothiazide 25 mg tablet metformin 500 mg tablet 1 tab PO BID 07/15/22 07/15/22 Unknown History nebivolol 10 mg tablet (Bystolic) 1 tab PO DAILY 07/15/22 07/15/22 Unknown History Physical Exam Vital Signs and Narrative: Vital Signs: Last Vital Signs Temp 97.3 F 07/15/22 22:42 Pulse 77 07/15/22 22:42 Resp 16 07/15/22 22:42 BP 119/81 07/15/22 22:42 Pulse Ox 96 07/15/22 22:42 O2 Del Method 07/15/22 22:42 BMI result Body Mass Index 31.1 Const: General: cooperative and no acute distress Orientation/con sciousness: patient oriented x3 Eyes: General: appearance normal, both eyes and all related structures Resp: Effort & Inspection: normal respiratory effort Auscultation: clear to auscultation bilaterally Cardio: Rate: regular rate Rhythm: regular rhythm GI: Other: abdominal tenderness in the right upper quadrant Palpation (GI): Soft to palpation Auscultation: normal bowel sounds Skin: General skin exam: no rashes or lesions noted Neuro: General: patient oriented x3 Cognition (Neuro): normal cognition Extrem: General: Yes normal to inspection and Yes no pedal edema Results Labs 07/15/22 13:13 07/15/22 13:13 Labs: Laboratory Results - last 24 hr 07/15/22 07/15/22 07/15/22 13:13 13:13 13:13 MCV 91.2 MCH 31.5 MCHC 34.6 RDW 13.6 Plt Count 199 MPV 9.9 Immature Gran % (Auto) 0.7 H Neut % (Auto) 85.1 H Lymph % (Auto) 8.0 L Wilkinson % (Auto) 5.7 Eos % (Auto) 0.2 Baso % (Auto) 0.3 Lymph # (Auto) 1.1 L Wilkinson # (Auto) 0.8 Eos # (Auto) 0.0 Baso # (Auto) 0.0 Abs Immat Gran (auto) 0.09 H Absolute Neuts (auto) 11.3 H Absolute Nucleated RBC 0.000 Nucleated RBC % (auto) 0.0 Anion Gap 18 Estim Creat Clear Calc 97.8 Estimated GFR > 60 Random Glucose 222 H Lactic Acid Lactic Acid F/U @ 2Hr Calcium 9.1 Magnesium 1.5 L Total Bilirubin 1.0 Direct Bilirubin 0.2 AST 23 ALT 31 Alkaline Phosphatase 103 Total Protein 7.8 Albumin 4.2 Prealbumin 31.0 Lipase 22 Urine Color Urine Appearance Urine pH Ur Specific [place]anger Urine Protein Urine Glucose (UA) Urine Ketones Urine Blood Urine Nitrite Ur Leukocyte Esterase Urine RBC Urine WBC Ur Squamous Epith Cells Urine Bacteria Hyaline Casts COVID-19 (HAO) COVID-19 Clin Com Influenza Type A (BO) Negative Influenza Type B (BO) Negative Influenza A & B Note See Note 07/15/22 07/15/22 07/15/22 13:13 16:49 20:07 MCV MCH MCHC RDW Plt Count MPV Immature Gran % (Auto) Neut % (Auto) Lymph % (Auto) Wilkinson % (Auto) Eos % (Auto) Baso % (Auto) Lymph # (Auto) Wilkinson # (Auto) Eos # (Auto) Baso # (Auto) Abs Immat Gran (auto) Absolute Neuts (auto) Absolute Nucleated RBC Nucleated RBC % (auto) Anion Gap Estim Creat Clear Calc Estimated GFR Random Glucose Lactic Acid 3.4 H* Lactic Acid F/U @ 2Hr Calcium Magnesium Total Bilirubin Direct Bilirubin AST ALT Alkaline Phosphatase Total Protein Albumin Prealbumin Lipase Urine Color Yellow Urine Appearance Clear Urine pH 5.5 Ur Specific [place]anger >= 1.030 H Urine Protein 100 (2+) H Urine Glucose (UA) 100 H Urine Ketones 15 Urine Blood Negative Urine Nitrite Negative Ur Leukocyte Esterase Negative Urine RBC 0-2 Urine WBC 0-5 Ur Squamous Epith Cells 0-2 Urine Bacteria None Seen Hyaline Casts 0-2 COVID-19 (HAO) Negative COVID-19 Clin Com See Note Influenza Type A (BO) Influenza Type B (BO) Influenza A & B Note 07/15/22 20:07 MCV MCH MCHC RDW Plt Count MPV Immature Gran % (Auto) Neut % (Auto) Lymph % (Auto) Wilkinson % (Auto) Eos % (Auto) Baso % (Auto) Lymph # (Auto) Wilkinson # (Auto) Eos # (Auto) Baso # (Auto) Abs Immat Gran (auto) Absolute Neuts (auto) Absolute Nucleated RBC Nucleated RBC % (auto) Anion Gap Estim Creat Clear Calc Estimated GFR Random Glucose Lactic Acid Lactic Acid F/U @ 2Hr 2.4 H* Calcium Magnesium Total Bilirubin Direct Bilirubin AST ALT Alkaline Phosphatase Total Protein Albumin Prealbumin Lipase Urine Color Urine Appearance Urine pH Ur Specific Granger Urine Protein Urine Glucose (UA) Urine Ketones Urine Blood Urine Nitrite Ur Leukocyte Esterase Urine RBC Urine WBC Ur Squamous Epith Cells Urine Bacteria Hyaline Casts COVID-19 (HAO) COVID-19 Clin Com Influenza Type A (BO) Influenza Type B (BO) Influenza A & B Note Imaging Radiologist's Impressions: Impressions Abdomen Ultrasound 07/15/22 14:04 IMPRESSION: Cholelithiasis. No sonographic evidence of cholecystitis. Abdomen/Pelvis CT 07/15/22 17:22 IMPRESSION: 1. Cholelithiasis with findings highly suspicious for acute cholecystitis, as above. 2. No biliary ductal dilation. 3. Normal appendix. No evidence of appendicitis, bowel obstruction or other acute intra-abdominal process. Assessment and Plan (1) Cholecystitis, acute: Status: Acute (2) Hypomagnesemia: Status: Acute (3) Lactic acid acidosis: Status: Acute Plan 71-year-old male with past medical history of hypertension, diabetes, presents to the hospital with complaints of right upper quadrant abdominal pain found to have acute cholecystitis. Patient being evaluated and admitted by General surgery, we are consulted for medical management # acute cholecystitis - patient started on IV antibiotics - further management per General surgery # hypo magnesemia - repleted - follow Mag level # lactic acidosis - likely secondary to acute infection - patient started on IV antibiotics and fluids - trend lactic level # hypertension - stable - continue home antihypertensives # diabetes - hold metformin - will add low-dose sliding scale insulin - diabetic diet # Parkinson's? - continue carbidopa levodopa # history of CVA /CAD? - continue Plavix DVT prophylaxis: SCDs, management per surgical team Time Spent With Patient Time: Total time managing care of this patient today ____ minutes.
--- NOTE | 2022-07-16 02:57 | PC.NURSE ---
Assumed care of pt. at 1900. At that time pt. resting in bed. Pt. put on clothes and wanted to leave. MD notified and talked to pt. about staying. Pt. requesting to go to his car to obtain cell phone. Security called and was able to retreive pt's cell phone. Pt. able to ambulate independently to bathroom. Pt. refused initial attempt at lab draw for repeat lactic and blood cultures. Pt. agreed to let this RN draw the blood for labs. Pt. then needed another repeat lab and refused when phlebotomy came for the draw. This RN explained why the draw was needed and pt. again agreed to the blood draw. Pt. now sleeping in bed, under no apparent distress. Pt. does bend arm itermittently during sleep which delays administration of IVF. Will continue to monitor.
[2022-07-16] MEDS: Ampicillin Sodium/Sulbactam Na 3 GM in 0.9 % Sodium Chloride 100 ML IV ×3 (04:25→20:14)
[2022-07-16] MEDS: Magnesium Sulfate/H2O 2 GM/50 ML PIGGYBACK IV (06:12)
[2022-07-16 07:07] LABS: MANUAL DIFF FLAG NO
[2022-07-16 07:08] LABS: Basophils Percent Auto 0.3 % (0-2); Eosinophils Absolute Auto 0.2 X10*3/uL (0.0-0.4); Eosinophils Percent Auto 2.6 % (0-4); Hematocrit 31.5 % (42.0-52.0); Hemoglobin 10.9 g/dl (14.0-18.0); Imm Gran Abs Auto 0.03 X10*3/uL (0.00-0.03); Imm Gran Pct Auto 0.5 % (0.0-0.4); Lymphocytes Absolute Auto 1.2 X10*3/uL (1.2-4.9); Lymphocytes Percent Auto 20.1 % (20-40); Mean Corpuscular HGB Conc 34.6 g/dl (31.0-36.0); Mean Corpuscular Hemoglobin 32.2 pg (27.0-33.0); Mean Corpuscular Volume 93.2 fL (80.0-98.0); Mean Platelet Volume 10.3 fL (9.4-12.4); Monocytes Absolute Auto 0.6 X10*3/uL (0.1-1.2); Monocytes Percent Auto 10.7 % (2-11); Neutrophils Absolute Auto 3.8 x10*3/uL (2.0-8.3); Neutrophils Percent Auto 65.8 % (45-73); Platelet Count 163 X10*3/uL (160-400); Red Blood Count 3.38 X10*6/uL (4.60-5.80); White Blood Count 5.8 X10*3/uL (4.8-10.8)
[2022-07-16] MEDS: Lactated Ringers 1,000 ML 125 ML IVCONT (07:13)
[2022-07-16 07:16] LABS: Glucose, Whole Blood 174 mg/dL (60-115)
--- NOTE | 2022-07-16 07:22 | PC.NURSE ---
Patient resting comfortably denies abdominal pain currently tolerating IVF no distress noted. Attempt to call report unsuccessful will CTM
[2022-07-16 07:31] LABS: Alanine Aminotransferase 23 U/L (0-40); Albumin Level 3.5 g/dL (3.5-5.0); Alkaline Phosphatase 72 U/L (39-117); Aspartate Amino Transferase 15 U/L (5-37); Bilirubin Total 0.8 mg/dL (0.0-1.0); Blood Urea Nitrogen 10 mg/dL (9-16); Calcium 8.4 mg/dL (8.4-10.2); Creatinine Clr Calc Pharmacy 114.5; Estimated Glomerular Filt Rate > 60; Glucose Random 157 mg/dL (60-115); Magnesium 1.8 mg/dL (1.6-2.6); Total Protein 6.2 g/dL (6.5-8.0)
[2022-07-16 07:39] LABS: Estimated Average Glucose 174 mg/dL; Hemoglobin A1c % 7.7 %
[2022-07-16 07:56] VITALS: BP 146/50; PULSE 87; RESP 18; O2SAT 97
[2022-07-16 08:00] VITALS: BP 184/82; PULSE 86; RESP 16; TEMP 36.3; O2SAT 98
[2022-07-16 08:14] LABS: Anion Gap 13 (12-20); Carbon Dioxide 29 mmol/L (22-29); Chloride 102 mmol/L (96-108); Potassium 3.9 mmol/L (3.3-5.1); Sodium 140 mmol/L (135-145)
[2022-07-16] MEDS: Losartan Potassium 50 MG TABLET 100 MG PO (08:35)
[2022-07-16] MEDS: Escitalopram Oxalate 10 MG TABLET PO (08:36)
[2022-07-16] MEDS: hydroCHLOROthiazide 25 MG TABLET PO (08:36)
[2022-07-16] MEDS: Divalproex Sodium 250 MG TABLET.DR PO (08:36)
[2022-07-16] MEDS: Atorvastatin Calcium 80 MG TABLET PO (08:36)
--- NOTE | 2022-07-16 08:43 | PC.NURSE ---
Message sent to inpatient MD to see if they want plavix held patient possible surgical case will CTM
--- NOTE | 2022-07-16 09:08 | PHA.MEDREC ---
Pharmacy Consult ? Medication Reconciliation Pharmacy has completed the medication reconciliation.
--- NOTE | 2022-07-16 09:29 | MHC.CM.PN ---
CM met with Patient at bedside and addressed IMM with him, original was given to him and a copy has been placed on the chart. Patient lives alone in a house and he required no services nor DME [employer]. Home self care is the goal and CM has initiated and will follow for dc planning. Patient's PCP is Dr. Stephane Rodriguez and he has received all of the [employer] vax.
[2022-07-16] MEDS: Divalproex Sodium ER 500 MG TAB.ER.24H PO ×2 (09:52→20:13)
[2022-07-16 10:57] VITALS: BP 148/62; PULSE 80
--- NOTE | 2022-07-16 11:16 | P.PNGS_ITS ---
Subjective Subjective Date of Service: 07/16/22 Patient reports: still having pain Interval history: The patient reports ongoing pain but also notes that it is improved somewhat. He continues to deny any chest pain, difficulty breathing or shortness of breath Biliary colic versus acute cholecystitis and his increased risk for the latter given his extensive vascular disease was discussed. The importance of his compliance with testing was reviewed and the patient noted that he would comply. Physical Exam Vital Signs: Vital Signs: Last Vital Signs Temp 97.4 F 07/16/22 08:00 Pulse 80 07/16/22 10:57 Resp 16 07/16/22 08:00 BP 148/62 H 07/16/22 10:57 Pulse Ox 98 07/16/22 08:00 O2 Del Method 07/16/22 08:00 BMI result Body Mass Index 31.1 On exam he is anicteric and nontoxic He is in no respiratory distress His abdomen in remains obese and soft with right upper quadrant tenderness to palpation with no peritoneal sign Objective Data Active Medications Albuterol Sulfate (Albuterol Sulfate 90 Mcg 8 Gm Inhaler) 2 puff INHALE Q4H PRN PRN Reason: Wheezing Atorvastatin Calcium (Atorvastatin Calcium 80 Mg Tablet) 80 mg PO DAILY [facility] Last Admin: 07/16/22 08:36 Dose: 80 mg Documented By: JACKIE Clopidogrel Bisulfate (Clopidogrel Bisulfate 75 Mg Tablet) 75 mg PO DAILY [facility] Last Admin: 07/16/22 09:44 Dose: Not Given Documented By: YAEL Non-Admin Reason: per MD sherryo itz Dextrose (Dextrose 50 % 25 Gm/50 Ml Syringe) 25 gm IVPUSH Q15M PRN; Protocol PRN Reason: per Hypoglycemia Standing Ord. Divalproex Sodium (Divalproex Sodium 250 Mg Tablet.Dr) 250 mg PO BEDTIME [facility] Divalproex Sodium (Divalproex Sodium Er 500 Mg Tab.Er.24h) 500 mg PO BID [facility] Last Admin: 07/16/22 09:52 Dose: 500 mg Documented By: YAEL Escitalopram Oxalate (Escitalopram Oxalate 10 Mg Tablet) 10 mg PO DAILY [facility] Last Admin: 07/16/22 08:36 Dose: 10 mg Documented By: JACKIE Glucose (Glucose Gel 15 Gm Gel..Gram.) 15 gm PO Q15M PRN; Protocol PRN Reason: per Hypoglycemia Standing Ord. Hydrochlorothiazide (Hydrochlorothiazide 25 Mg Tablet) 25 mg PO DAILY [facility] Last Admin: 07/16/22 08:36 Dose: 25 mg Documented By: JACKIE Hydromorphone HCl (Hydromorphone Hcl 0.5 Mg/0.5 Ml Syringe) 0.25 mg IVPUSH Q2H PRN; Protocol PRN Reason: Pain, Moderate (Pain Scale 4-6 Lactated Ringer's (Lr) 1,000 mls @ 125 mls/hr IVCONT .Q8H [facility] Last Admin: 07/16/22 07:13 Dose: 125 mls/hr Documented By: JACKIE Ampicillin Sodium/Sulbactam (Sodium 3 gm/ Sodium Chloride) 100 mls @ 200 mls/hr IV Q8H [facility] Last Infusion: 07/16/22 09:12 Dose: 0 mls/hr Documented By: YAEL Insulin Human Lispro (Insulin Lispro 100 Unit/Ml 3 Ml Vial) 0 unit SUBCUT QIDACHS [facility]; Protocol Last Admin: 07/16/22 07:14 Dose: Not Given Documented By: JACKIE Non-Admin Reason: NPO Losartan Potassium (Losartan Potassium 50 Mg Tablet) 100 mg PO DAILY [facility] Last Admin: 07/16/22 08:35 Dose: 100 mg Documented By: JACKIE Non-Formulary Medication (Nebivolol [Bystolic]) 1 tab PO DAILY [facility] Ondansetron HCl (Ondansetron Hcl 4 Mg/2 Ml Vial) 4 mg IVPUSH Q6H PRN PRN Reason: Nausea and Vomiting Pharmacy Consult (Consult Rx Perform Med Rec) 1 each MISCELLANE ONCE PRN PRN Reason: Consult order Sodium Chloride (0.9 % Sodium Chloride Flush 3 Ml Syringe) 3 ml IVFLUSH QSHIFT [facility] Last Admin: 07/16/22 07:14 Dose: Not Given Documented By: JACKIE Non-Admin Reason: fluids running Labs 07/16/22 06:17 07/16/22 06:17 Labs: Laboratory Results - last 24 hr 07/15/22 07/15/22 07/15/22 13:13 13:13 13:13 MCV 91.2 MCH 31.5 MCHC 34.6 RDW 13.6 Plt Count 199 MPV 9.9 Immature Gran % (Auto) 0.7 H Neut % (Auto) 85.1 H Lymph % (Auto) 8.0 L [place] % (Auto) 5.7 Eos % (Auto) 0.2 Baso % (Auto) 0.3 Lymph # (Auto) 1.1 L [place] # (Auto) 0.8 Eos # (Auto) 0.0 Baso # (Auto) 0.0 Abs Immat Gran (auto) 0.09 H Absolute Neuts (auto) 11.3 H Absolute Nucleated RBC 0.000 Nucleated RBC % (auto) 0.0 Anion Gap 18 Estim Creat Clear Calc 97.8 Estimated GFR > 60 POC Glucose Random Glucose 222 H Estimat Average Glucose Hemoglobin A1c % Lactic Acid Lactic Acid F/U @ 2Hr Calcium 9.1 Magnesium 1.5 L Total Bilirubin 1.0 Direct Bilirubin 0.2 AST 23 ALT 31 Alkaline Phosphatase 103 Total Protein 7.8 Albumin 4.2 Prealbumin 31.0 Lipase 22 Urine Color Urine Appearance Urine pH Ur Specific [place] Urine Protein Urine Glucose (UA) Urine Ketones Urine Blood Urine Nitrite Ur Leukocyte Esterase Urine RBC Urine WBC Ur Squamous Epith Cells Urine Bacteria Hyaline Casts COVID-19 ([facility]) COVID-19 Clin Com Influenza Type A (BO) Negative Influenza Type B (BO) Negative Influenza A & B Note See Note 07/15/22 07/15/22 07/15/22 13:13 16:49 20:07 MCV MCH MCHC RDW Plt Count MPV Immature Gran % (Auto) Neut % (Auto) Lymph % (Auto) [place] % (Auto) Eos % (Auto) Baso % (Auto) Lymph # (Auto) [place] # (Auto) Eos # (Auto) Baso # (Auto) Abs Immat Gran (auto) Absolute Neuts (auto) Absolute Nucleated RBC Nucleated RBC % (auto) Anion Gap Estim Creat Clear Calc Estimated GFR POC Glucose Random Glucose Estimat Average Glucose Hemoglobin A1c % Lactic Acid 3.4 H* Lactic Acid F/U @ 2Hr Calcium Magnesium Total Bilirubin Direct Bilirubin AST ALT Alkaline Phosphatase Total Protein Albumin Prealbumin Lipase Urine Color Yellow Urine Appearance Clear Urine pH 5.5 Ur Specific [place] >= 1.030 H Urine Protein 100 (2+) H Urine Glucose (UA) 100 H Urine Ketones 15 Urine Blood Negative Urine Nitrite Negative Ur Leukocyte Esterase Negative Urine RBC 0-2 Urine WBC 0-5 Ur Squamous Epith Cells 0-2 Urine Bacteria None Seen Hyaline Casts 0-2 COVID-19 ([facility]) Negative COVID-19 Clin Com See Note Influenza Type A (BO) Influenza Type B (BO) Influenza A & B Note 07/15/22 07/15/22 07/16/22 20:07 20:07 06:17 MCV 93.2 MCH 32.2 MCHC 34.6 RDW 14.0 Plt Count 163 MPV 10.3 Immature Gran % (Auto) 0.5 H Neut % (Auto) 65.8 Lymph % (Auto) 20.1 [place] % (Auto) 10.7 Eos % (Auto) 2.6 Baso % (Auto) 0.3 Lymph # (Auto) 1.2 [place] # (Auto) 0.6 Eos # (Auto) 0.2 Baso # (Auto) 0.0 Abs Immat Gran (auto) 0.03 Absolute Neuts (auto) 3.8 Absolute Nucleated RBC 0.000 Nucleated RBC % (auto) 0.0 Anion Gap Estim Creat Clear Calc Estimated GFR POC Glucose Random Glucose Estimat Average Glucose 174 Hemoglobin A1c % 7.7 Lactic Acid Lactic Acid F/U @ 2Hr 2.4 H* Calcium Magnesium Total Bilirubin Direct Bilirubin AST ALT Alkaline Phosphatase Total Protein Albumin Prealbumin Lipase Urine Color Urine Appearance Urine pH Ur Specific [place] Urine Protein Urine Glucose (UA) Urine Ketones Urine Blood Urine Nitrite Ur Leukocyte Esterase Urine RBC Urine WBC Ur Squamous Epith Cells Urine Bacteria Hyaline Casts COVID-19 ([facility]) COVID-19 Clin Com Influenza Type A (BO) Influenza Type B (BO) Influenza A & B Note 07/16/22 07/16/22 06:17 07:12 MCV MCH MCHC RDW Plt Count MPV Immature Gran % (Auto) Neut % (Auto) Lymph % (Auto) [place] % (Auto) Eos % (Auto) Baso % (Auto) Lymph # (Auto) [place] # (Auto) Eos # (Auto) Baso # (Auto) Abs Immat Gran (auto) Absolute Neuts (auto) Absolute Nucleated RBC Nucleated RBC % (auto) Anion Gap 13 Estim Creat Clear Calc 114.5 Estimated GFR > 60 POC Glucose 174 H Random Glucose 157 H Estimat Average Glucose Hemoglobin A1c % Lactic Acid Lactic Acid F/U @ 2Hr Calcium 8.4 D Magnesium 1.8 Total Bilirubin 0.8 Direct Bilirubin AST 15 ALT 23 Alkaline Phosphatase 72 Total Protein 6.2 L Albumin 3.5 Prealbumin Lipase Urine Color Urine Appearance Urine pH Ur Specific [place] Urine Protein Urine Glucose (UA) Urine Ketones Urine Blood Urine Nitrite Ur Leukocyte Esterase Urine RBC Urine WBC Ur Squamous Epith Cells Urine Bacteria Hyaline Casts COVID-19 ([facility]) COVID-19 Clin Com Influenza Type A (BO) Influenza Type B (BO) Influenza A & B Note Procedures Date of Service Date of Service: 07/16/22 Progress Note: A&P Assessment and plan (1) Cholecystitis, acute: Status: Acute (2) DMII (diabetes mellitus, type 2): Status: Acute (3) Vascular disease of abdomen: Status: Acute (4) H/O bariatric surgery: Status: Acute (5) HTN (hypertension): Status: Acute (6) Lactic acid acidosis: Status: Acute Plan I had a candid conversation with the patient regarding his refusal of lab testi ng and he assured me that he will be compliant. We reviewed options of contacting his PCP for a possible transfer verses continuing with evaluation here. I have ordered a HIDA scan stat since my concern is that the patient has acute cholecystitis in spite of his labs. His vascular disease puts him at an increased risk. In addition, his Plavix is being held since operative intervention or percutaneous cholecystostomy baby required. The patient's increased risk of surgical complications given his diabetes, significant vascular disease, anticoagulation with Plavix and the risks of multi organ failure including were candidly discussed. The option of him leaving is in appropriate since this could result in . The patient seems to understand the importance of his compliance to better direct his care. Will ask staff to obtain PCP records to help evaluate him from a cardio vascular perspective since he may need operative intervention versus percutaneous drainage. Continue NPO and hold Plavix Time Spent With Patient Time: Total time managing care of this patient today ____ minutes. Quality Stroke Does the patient have a stroke diagnosis?: No VTE Prior VTE?: No VTE Risk Level:: Surgical - moderate VTE Device Contraindication: N/A - Device Ordered VTE Drug Contraindication: N/A - Med Ordered
[2022-07-16 12:12] LABS: Glucose, Whole Blood 155 mg/dL (60-115)
--- NOTE | 2022-07-16 16:12 | P.PNIM_ITS ---
Subjective Subjective Date of Service: 07/16/22 Interval History: No acute events overnight. Pain somewhat improved Review of Systems Denies chest pain Denies shortness of breath Denies nausea vomiting diarrhea Denies fever chills Physical Exam Vital Signs: Vital Signs: Last Vital Signs Temp 97.4 F 07/16/22 08:00 Pulse 80 07/16/22 10:57 Resp 16 07/16/22 08:00 BP 148/62 H 07/16/22 10:57 Pulse Ox 98 07/16/22 08:00 O2 Del Method 07/16/22 08:00 BMI result Body Mass Index 31.1 Const: Other: Awake alert oriented x3 no acute distress Resp: Other: Clear to auscultation bilaterally no rales rhonchi or wheezes Cardio: Other: No S4; positive S1-S2; no S3 murmurs rubs gallops GI: Other: Soft nontender nondistended normoactive bowel sounds Extrem: Other: No edema bilaterally Objective Data Active Medications Albuterol Sulfate (Albuterol Sulfate 90 Mcg 8 Gm Inhaler) 2 puff INHALE Q4H PRN PRN Reason: Wheezing Atorvastatin Calcium (Atorvastatin Calcium 80 Mg Tablet) 80 mg PO DAILY [facility] Last Admin: 07/16/22 08:36 Dose: 80 mg Documented By: JACKIE Dextrose (Dextrose 50 % 25 Gm/50 Ml Syringe) 25 gm IVPUSH Q15M PRN; Protocol PRN Reason: per Hypoglycemia Standing Ord. Divalproex Sodium (Divalproex Sodium 250 Mg Tablet.Dr) 250 mg PO BEDTIME [facility] Divalproex Sodium (Divalproex Sodium Er 500 Mg Tab.Er.24h) 500 mg PO BID [facility] Last Admin: 07/16/22 09:52 Dose: 500 mg Documented By: YAEL Escitalopram Oxalate (Escitalopram Oxalate 10 Mg Tablet) 10 mg PO DAILY [facility] Last Admin: 07/16/22 08:36 Dose: 10 mg Documented By: JACKIE Glucose (Glucose Gel 15 Gm Gel..Gram.) 15 gm PO Q15M PRN; Protocol PRN Reason: per Hypoglycemia Standing Ord. Hydrochlorothiazide (Hydrochlorothiazide 25 Mg Tablet) 25 mg PO DAILY [facility] Last Admin: 07/16/22 08:36 Dose: 25 mg Documented By: JACKIE Hydromorphone HCl (Hydromorphone Hcl 0.5 Mg/0.5 Ml Syringe) 0.25 mg IVPUSH Q2H PRN; Protocol PRN Reason: Pain, Moderate (Pain Scale 4-6 Lactated Ringer's (Lr) 1,000 mls @ 100 mls/hr IVCONT .Q10H [facility] Last Infusion: 07/16/22 15:28 Dose: 0 mls/hr Documented By: YAEL Ampicillin Sodium/Sulbactam (Sodium 3 gm/ Sodium Chloride) 100 mls @ 200 mls/hr IV Q8H [facility] Last Infusion: 07/16/22 13:54 Dose: 0 mls/hr Documented By: JONNY Insulin Human Lispro (Insulin Lispro 100 Unit/Ml 3 Ml Vial) 0 unit SUBCUT QIDACHS [facility]; Protocol Last Admin: 07/16/22 12:41 Dose: Not Given Documented By: YAEL Non-Admin Reason: NPO Losartan Potassium (Losartan Potassium 50 Mg Tablet) 100 mg PO DAILY [facility] Last Admin: 07/16/22 08:35 Dose: 100 mg Documented By: JACKIE Non-Formulary Medication (Nebivolol [Bystolic]) 1 tab PO DAILY [facility] Ondansetron HCl (Ondansetron Hcl 4 Mg/2 Ml Vial) 4 mg IVPUSH Q6H PRN PRN Reason: Nausea and Vomiting Pharmacy Consult (Consult Rx Perform Med Rec) 1 each MISCELLANE ONCE PRN PRN Reason: Consult order Sodium Chloride (0.9 % Sodium Chloride Flush 3 Ml Syringe) 3 ml IVFLUSH QSHIFT [facility] Last Admin: 07/16/22 07:14 Dose: Not Given Documented By: JACKIE Non-Admin Reason: fluids running Labs 07/16/22 06:17 07/16/22 06:17 Labs: Laboratory Results - last 24 hr 07/15/22 07/15/22 07/15/22 13:13 16:49 20:07 MCV MCH MCHC RDW Plt Count MPV Immature Gran % (Auto) Neut % (Auto) Lymph % (Auto) [place] % (Auto) Eos % (Auto) Baso % (Auto) Lymph # (Auto) [place] # (Auto) Eos # (Auto) Baso # (Auto) Abs Immat Gran (auto) Absolute Neuts (auto) Absolute Nucleated RBC Nucleated RBC % (auto) Anion Gap Estim Creat Clear Calc Estimated GFR POC Glucose Random Glucose Estimat Average Glucose Hemoglobin A1c % Lactic Acid 3.4 H* Lactic Acid F/U @ 2Hr Calcium Magnesium Total Bilirubin AST ALT Alkaline Phosphatase Total Protein Albumin Prealbumin 31.0 Urine Color Yellow Urine Appearance Clear Urine pH 5.5 Ur Specific [place] >= 1.030 H Urine Protein 100 (2+) H Urine Glucose (UA) 100 H Urine Ketones 15 Urine Blood Negative Urine Nitrite Negative Ur Leukocyte Esterase Negative Urine RBC 0-2 Urine WBC 0-5 Ur Squamous Epith Cells 0-2 Urine Bacteria None Seen Hyaline Casts 0-2 07/15/22 07/15/22 07/16/22 20:07 20:07 06:17 MCV 93.2 MCH 32.2 MCHC 34.6 RDW 14.0 Plt Count 163 MPV 10.3 Immature Gran % (Auto) 0.5 H Neut % (Auto) 65.8 Lymph % (Auto) 20.1 [place] % (Auto) 10.7 Eos % (Auto) 2.6 Baso % (Auto) 0.3 Lymph # (Auto) 1.2 [place] # (Auto) 0.6 Eos # (Auto) 0.2 Baso # (Auto) 0.0 Abs Immat Gran (auto) 0.03 Absolute Neuts (auto) 3.8 Absolute Nucleated RBC 0.000 Nucleated RBC % (auto) 0.0 Anion Gap Estim Creat Clear Calc Estimated GFR POC Glucose Random Glucose Estimat Average Glucose 174 Hemoglobin A1c % 7.7 Lactic Acid Lactic Acid F/U @ 2Hr 2.4 H* Calcium Magnesium Total Bilirubin AST ALT Alkaline Phosphatase Total Protein Albumin Prealbumin Urine Color Urine Appearance Urine pH Ur Specific [place] Urine Protein Urine Glucose (UA) Urine Ketones Urine Blood Urine Nitrite Ur Leukocyte Esterase Urine RBC Urine WBC Ur Squamous Epith Cells Urine Bacteria Hyaline Casts 07/16/22 07/16/22 07/16/22 06:17 07:12 12:09 MCV MCH MCHC RDW Plt Count MPV Immature Gran % (Auto) Neut % (Auto) Lymph % (Auto) [place] % (Auto) Eos % (Auto) Baso % (Auto) Lymph # (Auto) [place] # (Auto) Eos # (Auto) Baso # (Auto) Abs Immat Gran (auto) Absolute Neuts (auto) Absolute Nucleated RBC Nucleated RBC % (auto) Anion Gap 13 Estim Creat Clear Calc 114.5 Estimated GFR > 60 POC Glucose 174 H 155 H Random Glucose 157 H Estimat Average Glucose Hemoglobin A1c % Lactic Acid Lactic Acid F/U @ 2Hr Calcium 8.4 D Magnesium 1.8 Total Bilirubin 0.8 AST 15 ALT 23 Alkaline Phosphatase 72 Total Protein 6.2 L Albumin 3.5 Prealbumin Urine Color Urine Appearance Urine pH Ur Specific [place] Urine Protein Urine Glucose (UA) Urine Ketones Urine Blood Urine Nitrite Ur Leukocyte Esterase Urine RBC Urine WBC Ur Squamous Epith Cells Urine Bacteria Hyaline Casts Assessment and Plan (1) Cholecystitis, acute: Status: Acute (2) Hypomagnesemia: Status: Acute (3) HTN (hypertension): Status: Acute (4) DMII (diabetes mellitus, type 2): Status: Acute Plan 71-year-old male with past medical history of hypertension, diabetes, CAD presents to the hospital with complaints of right upper quadrant abdominal pain found to have acute cholecystitis. Patient being evaluated and admitted by General surgery, we are consulted for medical management 1.Acute cholecystitis -Unasyn as ordered(2) -management per General surgery -hold plavix -cardiology consult for preop risk stratification given history of CAD (follows with Dr. Carlisle [facility]) 2.Hypomagnesemia - repleted... Normalized - follow Mag level 3.Hypertension -acceptable control on current therapies -adjust as indicated 4.DMII -hold metformin -lispro correctional scale -adjust as indicated 5.Parkinson's? -continue carbidopa levodopa DVT prophylaxis: SCDs, management per surgical team Time Spent With Patient Time: Total time managing care of this patient today ____ minutes. Quality Stroke Does the patient have a stroke diagnosis?: No VTE Prior VTE?: No VTE Risk Level:: Surgical - moderate VTE Device Contraindication: N/A - Device Ordered VTE Drug Contraindication: N/A - Med Ordered
[2022-07-16 18:04] LABS: Glucose, Whole Blood 156 mg/dL (60-115)
[2022-07-16 20:00] VITALS: RESP 20
[2022-07-16] MEDS: Lactated Ringers 1,000 ML 100 ML IVCONT (20:13)
[2022-07-16] MEDS: Gabapentin 100 MG CAPSULE 200 MG PO (21:02)
[2022-07-16] MEDS: Carbidopa/Levodopa 25/100 TABLET 1.5 TAB PO (21:02)
[2022-07-17 04:00] VITALS: BP 149/68; PULSE 86; RESP 16; TEMP 36.9; O2SAT 94
[2022-07-17] MEDS: Ampicillin Sodium/Sulbactam Na 3 GM in 0.9 % Sodium Chloride 100 ML IV ×3 (05:10→19:40)
--- NOTE | 2022-07-17 06:55 | PM.PNGS ---
Subjective Subjective Date of Service: 07/17/22 Patient reports: feels better and still having pain Interval history: The patient denies any new complaints and a continues to report his abdominal pain may be slightly improved but it is still present. He otherwise has no chest pain, difficulty breathing or shortness of breaths Physical Exam Vital Signs: Vital Signs: Last Vital Signs Temp 98.5 F 07/17/22 04:00 Pulse 86 07/17/22 04:00 Resp 16 07/17/22 04:00 BP 149/68 H 07/17/22 04:00 Pulse Ox 94 07/17/22 04:00 O2 Del Method 07/17/22 04:00 BMI result Body Mass Index 31.1 On exam he is anicteric and nontoxic Abdomen remains obese and soft with right upper quadrant tenderness that is approximately the same as yesterday. No peritoneal sign to percussion is noted. Objective Data Active Medications Albuterol Sulfate (Albuterol Sulfate 90 Mcg 8 Gm Inhaler) 2 puff INHALE Q4H PRN PRN Reason: Wheezing Atorvastatin Calcium (Atorvastatin Calcium 80 Mg Tablet) 80 mg PO DAILY [facility] Last Admin: 07/16/22 08:36 Dose: 80 mg Documented By: JACKIE Carbidopa/Levodopa (Carbidopa/Levodopa 25/100 Tablet) 1.5 tab PO BID [facility] Last Admin: 07/16/22 21:02 Dose: 1.5 tab Documented By: HAY Dextrose (Dextrose 50 % 25 Gm/50 Ml Syringe) 25 gm IVPUSH Q15M PRN; Protocol PRN Reason: per Hypoglycemia Standing Ord. Divalproex Sodium (Divalproex Sodium 250 Mg Tablet.) 250 mg PO BEDTIME [facility] Divalproex Sodium (Divalproex Sodium Er 500 Mg Tab.Er.24h) 500 mg PO BID [facility] Last Admin: 07/16/22 20:13 Dose: 500 mg Documented By: HAY Escitalopram Oxalate (Escitalopram Oxalate 10 Mg Tablet) 10 mg PO DAILY [facility] Last Admin: 07/16/22 08:36 Dose: 10 mg Documented By: JACKIE Gabapentin (Gabapentin 100 Mg Capsule) 200 mg PO BEDTIME [facility] Last Admin: 07/16/22 21:02 Dose: 200 mg Documented By: HAY Glucose (Glucose Gel 15 Gm Gel..Gram.) 15 gm PO Q15M PRN; Protocol PRN Reason: per Hypoglycemia Standing Ord. Hydrochlorothiazide (Hydrochlorothiazide 25 Mg Tablet) 25 mg PO DAILY [facility] Last Admin: 07/16/22 08:36 Dose: 25 mg Documented By: JACKIE Hydromorphone HCl (Hydromorphone Hcl 0.5 Mg/0.5 Ml Syringe) 0.25 mg IVPUSH Q2H PRN; Protocol PRN Reason: Pain, Moderate (Pain Scale 4-6 Lactated Ringer's (Lr) 1,000 mls @ 100 mls/hr IVCONT .Q10H [facility] Last Infusion: 07/17/22 05:44 Dose: 100 mls/hr Documented By: HAY Ampicillin Sodium/Sulbactam (Sodium 3 gm/ Sodium Chloride) 100 mls @ 200 mls/hr IV Q8H [facility] Last Infusion: 07/17/22 05:44 Dose: 0 mls/hr Documented By: HAY Insulin Human Lispro (Insulin Lispro 100 Unit/Ml 3 Ml Vial) 0 unit SUBCUT QIDACHS [facility]; Protocol Last Admin: 07/16/22 19:58 Dose: Not Given Documented By: HAY Non-Admin Reason: NPO Losartan Potassium (Losartan Potassium 50 Mg Tablet) 100 mg PO DAILY [facility] Last Admin: 07/16/22 08:35 Dose: 100 mg Documented By: JACKIE Non-Formulary Medication (Nebivolol [Bystolic]) 1 tab PO DAILY [facility] Ondansetron HCl (Ondansetron Hcl 4 Mg/2 Ml Vial) 4 mg IVPUSH Q6H PRN PRN Reason: Nausea and Vomiting Pharmacy Consult (Consult Rx Perform Med Rec) 1 each MISCELLANE ONCE PRN PRN Reason: Consult order Sodium Chloride (0.9 % Sodium Chloride Flush 3 Ml Syringe) 3 ml IVFLUSH QSHIFT [facility] Last Admin: 07/16/22 20:34 Dose: Not Given Documented By: HAY Non-Admin Reason: IV Running Labs 07/16/22 06:17 07/16/22 06:17 Labs: Laboratory Results - last 24 hr 07/15/22 07/16/22 07/16/22 20:07 06:17 06:17 MCV 93.2 MCH 32.2 MCHC 34.6 RDW 14.0 Plt Count 163 MPV 10.3 Immature Gran % (Auto) 0.5 H Neut % (Auto) 65.8 Lymph % (Auto) 20.1 Page % (Auto) 10.7 Eos % (Auto) 2.6 Baso % (Auto) 0.3 Lymph # (Auto) 1.2 Page # (Auto) 0.6 Eos # (Auto) 0.2 Baso # (Auto) 0.0 Abs Immat Gran (auto) 0.03 Absolute Neuts (auto) 3.8 Absolute Nucleated RBC 0.000 Nucleated RBC % (auto) 0.0 Anion Gap 13 Estim Creat Clear Calc 114.5 Estimated GFR > 60 POC Glucose Random Glucose 157 H Estimat Average Glucose 174 Hemoglobin A1c % 7.7 Calcium 8.4 D Magnesium 1.8 Total Bilirubin 0.8 AST 15 ALT 23 Alkaline Phosphatase 72 Total Protein 6.2 L Albumin 3.5 07/16/22 07/16/22 07/16/22 07:12 12:09 18:01 MCV MCH MCHC RDW Plt Count MPV Immature Gran % (Auto) Neut % (Auto) Lymph % (Auto) Page % (Auto) Eos % (Auto) Baso % (Auto) Lymph # (Auto) Page # (Auto) Eos # (Auto) Baso # (Auto) Abs Immat Gran (auto) Absolute Neuts (auto) Absolute Nucleated RBC Nucleated RBC % (auto) Anion Gap Estim Creat Clear Calc Estimated GFR POC Glucose 174 H 155 H 156 H Random Glucose Estimat Average Glucose Hemoglobin A1c % Calcium Magnesium Total Bilirubin AST ALT Alkaline Phosphatase Total Protein Albumin Imaging HIDA NM/NM hepatobiliary wo pharm IMPRESSION: Nonvisualization of the gallbladder consistent cystic duct obstruction and an acute cholecystitis : Radiologist's impression: Impressions Hepatobiliary Scan Nuclear Medicine 07/16/22 19:20 IMPRESSION: Nonvisualization of the gallbladder consistent cystic duct obstruction and an acute cholecystitis labs for 07/17/22 pendiing at 0658 Microbiology Microbiology Results: Microbiology 07/15/22 20:07 Blood Culture - Preliminary Blood - Venous No growth after 24 hours. 07/15/22 20:07 Blood Culture - Preliminary Blood - Venous No growth after 24 hours. Procedures Date of Service Date of Service: 07/17/22 Progress Note: A&P Assessment and plan (1) Cholecystitis, acute: Status: Acute (2) H/O bariatric surgery: Status: Acute (3) CAD (coronary artery disease): Status: Acute (4) Non-rheumatic aortic regurgitation: Status: Acute (5) DMII (diabetes mellitus, type 2): Status: Acute (6) Vascular disease of abdomen: Status: Acute (7) Hyperlipidemia: Status: Acute Plan I explained the symptoms of biliary colic versus acute calculous cholecystitis and recommended laparoscopic cholecystectomy since the patient clinically and by HIDA has acute cholecystitis. I reviewed the option of continued observation and 2nd opinion which was declined. I also reviewed the inherent risks to surgery which include, but are not limited to: Bleeding that could require another operation or blood, platelet or plasma transfusion, the need for open surgery, the unlikely but possible issue of bile leak that could require an ERCP, the risk of retained common duct stones that could require an ERCP, the risk of common bile duct injury which would require transfer to a larger institution for another operation. Patient seemed to understand his. His comorbidities and recent anticoagulation place him at a greater risk for bleeding complications which could require platelet transfusion or blood transfusion, and allowing the Plavix to get out of his system for a minimum of 5 days would help mitigate the risk of bleeding and need for blood products. We reviewed the operative consent and the patient would like to proceed with a laparoscopic cholecystectomy, possible open cholecystectomy and possible cholangiogram next week on Thursday. If his physical exam or labs mandate a change of plan, this will be discussed with him. Will start clears and continue to trend CBCD & CMP. Understandably, the patient asked about being discharged with an outpatient follow-up for surgery, however given the risks related to acute cholecystitis progressing and possibly requiring intervention or affecting his comorbidities, I do not believe this is a reasonable or safe option. Patient seemed understand and agreed with the plan Time Spent With Patient Time: Total time managing care of this patient today ____ minutes. Quality Stroke Does the patient have a stroke diagnosis?: No VTE Prior VTE?: No VTE Risk Level:: Surgical - moderate VTE Device Contraindication: N/A - Device Ordered VTE Drug Contraindication: N/A - Med Ordered
--- NOTE | 2022-07-17 07:00 | CA_ITS ---
Transthoracic Echocardiogram Patient (Last, First, Middle): Angel Berrios, Gender: Male Date of : 1950 Age: 71 Procedure Date: 07/17/2022 Procedure Type: Transthoracic Echocardiogram Location: S3E Height: 182.88 cm Weight: 104.33 kg BSA: 2.26 m2 Heart Rate: 75 bpm BP: 170 / 79 mmHg Skip Hoist Engineer: SB Referring MD: Marcos Tijerina DO Symptoms: Pre op risk stratification Study Quality: Adequate w contrast ECG Rhythm: Sinus Conclusions: - The left ventricular systolic function is hyperdynamic. The visually estimated ejection fraction is >70%. - There is severe septal asymmetric hypertrophy. - There is mild to moderate aortic valve regurgitation. Findings Procedure Information Contrast agent, definity, is being given per protocol without apparent complications. Left Ventricle Normal left ventricular cavity size. There is mildly increased left ventricular wall thickness. The left ventricular systolic function is hyperdynamic. The visually estimated ejection fraction is >70%. There is no evidence of regional wall motion abnormalities. There is no dynamic left ventricular outflow tract obstruction. E/E prime ratio is between 8 and 15 consistent with indeterminate filling pressures. Evidence suggests grade I (mild) diastolic dysfunction. There is severe septal asymmetric hypertrophy. Right Ventricle Mildly increased right ventricular cavity size. There is normal right ventricular systolic function. Atria Both atria are normal in size. Aortic Valve There is mild calcification of the aortic valve. There is no aortic valve stenosis. There is mild to moderate aortic valve regurgitation. Mitral Valve The mitral valve appears normal. There is no mitral valve regurgitation. There is no mitral valve stenosis. Pulmonic Valve The pulmonic valve is likely normal. Tricuspid Valve There is trace tricuspid valve regurgitation. There is no evidence of pulmonary hypertension. Great Vessels The aortic annulus, sinuses of valsalva, asc aorta, and aortic arch are normal in size. Venous The inferior vena cava is normal in size and collapses greater than 50% with inspiration. Pericardium/Pleural There is a trivial pericardial effusion. Prior Study Comparison No prior study available for comparison. Measurements 2D Linear Measurements IVSd: 1.63 0.6-0.9/0.6-1.0 cm LVIDd: 5.70 3.9-5.3/4.2-5.9 cm LVIDd Index: 2.52 2.4-3.2/2.2-3.1 cm/m2 LVIDs: 3.67 2.0-3.6 cm LVPWd: 1.26 0.7-1.1 cm LA Diam: 4.30 2.7-3.8/3.0-4.0 cm LAIDs Index: 1.90 1.5-2.3 cm/m2 LV Mass: 466.59 67-162/88-224 g LV Mass Index: 206.46 43-95/49-115 g/m2 LVOT Diam: 2.30 3.0+(-)1.3 cm 2D Systolic Function EF 4C: 73.10 >55% EF 2C: 84.60 >55% EF BiP: 80.50 >55% Mitral Valve MV Pk E: 0.93 MV PK A: 1.12 MV Decel Time: 192.00 E/A: 0.80 E'Lateral: 6.94 E'Medial: 4.67 E/E' Med: 20.00 E/E' Lat: 13.50 PHT: 56.00 MVA PHT: 3.93 Decel Trego: 4.87 Aortic Valve AoV Pk Pelon: 1.73 AoV Mn Pelon: 1.28 AoV VTI: 0.41 AoV Pk Grad: 12.00 Aov Mn Grad: 7.00 HEIDI Cont.VTI: 3.95 AI Pk Pelon: 4.40 AI VTI: 1.89 AI Trego: 2.91 LVOT LVOT Pk Pelon: 1.72 LVOT Mn Pelon: 1.24 LVOT VTI: 0.39 LVOT Pk Grad: 12.00 LVOT Mn Grad: 7.00 LVOT Diam: 2.30 LVOT Area: 4.15 Diastolic Function MV Pk E: 0.93 MV Pk A: 1.12 E/A: 0.80 E'Medial: 4.67 E/E' Med: 20.00 E' Laterial: 6.94 E/E' Lat: 13.50 Right Ventricle TAPSE (mm): 22.40 TVS' Pelon: 12.70 Tricuspid Valve RA Press: 3.00 Great Vessels Aorta Sinus of Valsalva: 3.90 2.0-3.5 cm Ao Asc: 3.60 2.1-3.4 cm Ao Arch: 3.50 Pulmonary Veins Pulm Vein S/D 1.00 Pulmonary Valve PV Pk Pelon: 0.80 Peak PV Grad: 3.00 Updated in Other Vendor System with Status of Final Tone Gutierres MD electronically signed on 07/17/2022 11:52:50 AM with status of Final
[2022-07-17 07:53] VITALS: BP 170/79; PULSE 87; RESP 16; TEMP 36.8; O2SAT 94
[2022-07-17] MEDS: hydroCHLOROthiazide 25 MG TABLET PO (08:06)
[2022-07-17] MEDS: Escitalopram Oxalate 10 MG TABLET PO (08:06)
[2022-07-17] MEDS: Divalproex Sodium ER 500 MG TAB.ER.24H PO ×2 (08:06→19:40)
[2022-07-17] MEDS: Carbidopa/Levodopa 25/100 TABLET 1.5 TAB PO ×2 (08:07→19:39)
[2022-07-17] MEDS: Losartan Potassium 50 MG TABLET 100 MG PO (08:07)
[2022-07-17] MEDS: Atorvastatin Calcium 80 MG TABLET PO (08:07)
[2022-07-17 08:34] LABS: MANUAL DIFF FLAG NO
[2022-07-17 08:37] LABS: Hematocrit 33.1 % (42.0-52.0); Hemoglobin 11.4 g/dl (14.0-18.0); Mean Corpuscular Hemoglobin 31.4 pg (27.0-33.0); Mean Corpuscular Volume 91.2 fL (80.0-98.0); Red Blood Count 3.63 X10*6/uL (4.60-5.80); White Blood Count 4.6 X10*3/uL (4.8-10.8)
[2022-07-17 08:38] LABS: Basophils Percent Auto 0.4 % (0-2); Eosinophils Absolute Auto 0.3 X10*3/uL (0.0-0.4); Eosinophils Percent Auto 5.7 % (0-4); Imm Gran Abs Auto 0.02 X10*3/uL (0.00-0.03); Imm Gran Pct Auto 0.4 % (0.0-0.4); Lymphocytes Absolute Auto 1.1 X10*3/uL (1.2-4.9); Mean Corpuscular HGB Conc 34.4 g/dl (31.0-36.0); Mean Platelet Volume 10.1 fL (9.4-12.4); Monocytes Absolute Auto 0.4 X10*3/uL (0.1-1.2); Monocytes Percent Auto 8.6 % (2-11); Neutrophils Absolute Auto 2.8 x10*3/uL (2.0-8.3); Neutrophils Percent Auto 61.9 % (45-73); Platelet Count 166 X10*3/uL (160-400); Red Cell Distribution Width 14.1 % (11.0-16.0)
[2022-07-17 08:51] LABS: Alanine Aminotransferase 10 U/L (0-40); Albumin Level 3.7 g/dL (3.5-5.0); Alkaline Phosphatase 77 U/L (39-117); Anion Gap 13 (12-20); Aspartate Amino Transferase 18 U/L (5-37); Bilirubin Total 0.9 mg/dL (0.0-1.0); Blood Urea Nitrogen 10 mg/dL (9-16); Calcium 8.7 mg/dL (8.4-10.2); Carbon Dioxide 29 mmol/L (22-29); Chloride 103 mmol/L (96-108); Creatinine Clr Calc Pharmacy 106.1; Estimated Glomerular Filt Rate > 60; Glucose Random 161 mg/dL (60-115); Potassium 3.7 mmol/L (3.3-5.1); Sodium 141 mmol/L (135-145); Total Protein 6.7 g/dL (6.5-8.0)
[2022-07-17 08:59] LABS: Prothrombin Time 11.9 SEC (10.0-13.1)
[2022-07-17 09:02] LABS: Partial Thromboplastin Time 30.5 SEC (26.0-36.4)
--- NOTE | 2022-07-17 09:48 | PM.CNCAR ---
History of Present Illness History of Present Illness Date of Service: 07/17/22 Chief complaint: Acute Cholecystitis Narrative: This is a cardiology consultation regarding preoperative risk stratification for gallbladder surgery. He has been diagnosed with acute cholecystitis after presenting with abdominal pain. Plan for cholecystectomy based on operative risk. [facility] records reviewed. He has significant past medical issues. Per last office note from 2 in , history of coronary disease status post bare metal stent to LAD in 2013 and drug-eluting stent to circumflex in 2018.; history of AVRT status post ablation; stroke in 2016, status post tPA, asthma, COPD, obstructive sleep apnea, hypertension, elevated lipids, ILR 2018 for cryptogenic CVA, obesity, status post lap band. Overall, he states that he generally does well from cardiac. Even with activities like walking, going up stairs extra, he does not really get chest pains or any cardiac symptoms. Nothing in the recent past according to him. Review of Systems Review of Systems: Yes all other systems are reviewed and are negative Constitutional: Constitutional: Reports as per HPI and Reports no additional constitutional complaints Eyes: Eyes: Reports as per HPI and Denies no additional eye complaints ENT: Denies system reviewed and no additional complaints, except as documented and Reports as per HPI Cardiovascular: Cardiovascular: Reports as per HPI, Reports no additional cardiovascular complaints, Denies acrocyanosis, Denies cool extremities, Denies chest pain, Denies leg edema, Denies lightheadedness, Denies palpitations and Denies dyspnea Respiratory: Respiratory: Reports as per HPI, Denies no additional respiratory complaints and Denies dyspnea Gastrointestinal: Gastrointestinal: Reports as per HPI, Denies no additional gastrointestinal complaints and Reports abdominal pain Genitourinary: Genitourinary: Reports no additional male genitourinary complaints and Reports as per HPI Musculoskeletal: Musculoskeletal: Reports no additional musculoskeletal complaints and Reports as per HPI Integumentary/Breasts: Skin/Breast: Reports system reviewed and no additional complaints, except as docu Neurologic: Reports system reviewed and no additional complaints, except as documented and Reports as per HPI Psychiatric: Psychiatric: Reports no additional psychiatric complaints and Reports as per HPI Endocrine: Endocrine: Reports no additional endocrine complaints, Reports as per HPI and Denies palpitations Hematologic/Lymphatic: Hematologic/Lymphatic: Reports no additional hematologic/lymphatic complaints and Reports as per HPI Allergic/Immunologic: Allergic/Immunologic: Reports no additional allergic/immunologic complaints and Reports as per HPI PMFSH Past Medical History Medical History (Updated 07/17/22 @ 09:53 by Tone Gutierres MD) CAD (coronary artery disease) DMII (diabetes mellitus, type 2) HTN (hypertension) Hyperlipidemia Non-rheumatic aortic regurgitation Vascular disease of abdomen Family History Family History (Updated 07/17/22 @ 09:52 by Tone Gutierres MD) Father CAD (coronary artery disease) Mother Lung cancer Surgical History Surgical History (Updated 07/16/22 @ 05:42 by Opal King MD) H/O bariatric surgery Social History Social History (Updated 07/16/22 @ 05:42 by Opal King MD) Household Members: None Housing: House Do you presently have visiting nurse or other home services: No Alcohol intake: never Patient Tobacco Use Status: Never used Tobacco Second Hand Smoke Exposure: No service: No Current occupational status: retired [employer] Allergies Allergy/AdvReac Type Severity Reaction Status Date / Time No Known Allergies Allergy Verified 07/15/22 12:58 Active Medications: Current Medications Albuterol Sulfate (Albuterol Sulfate 90 Mcg 8 Gm Inhaler) 2 puff INHALE Q4H PRN PRN Reason: Wheezing Atorvastatin Calcium (Atorvastatin Calcium 80 Mg Tablet) 80 mg PO DAILY [facility] Last Admin: 07/17/22 08:07 Dose: 80 mg Carbidopa/Levodopa (Carbidopa/Levodopa 25/100 Tablet) 1.5 tab PO BID [facility] Last Admin: 07/17/22 08:07 Dose: 1.5 tab Dextrose (Dextrose 50 % 25 Gm/50 Ml Syringe) 25 gm IVPUSH Q15M PRN; Protocol PRN Reason: per Hypoglycemia Standing Ord. Divalproex Sodium (Divalproex Sodium 250 Mg Tablet.Dr) 250 mg PO BEDTIME [facility] Divalproex Sodium (Divalproex Sodium Er 500 Mg Tab.Er.24h) 500 mg PO BID [facility] Last Admin: 07/17/22 08:06 Dose: 500 mg Escitalopram Oxalate (Escitalopram Oxalate 10 Mg Tablet) 10 mg PO DAILY [facility] Last Admin: 07/17/22 08:06 Dose: 10 mg Gabapentin (Gabapentin 100 Mg Capsule) 200 mg PO BEDTIME [facility] Last Admin: 07/16/22 21:02 Dose: 200 mg Glucose (Glucose Gel 15 Gm Gel..Gram.) 15 gm PO Q15M PRN; Protocol PRN Reason: per Hypoglycemia Standing Ord. Hydrochlorothiazide (Hydrochlorothiazide 25 Mg Tablet) 25 mg PO DAILY [facility] Last Admin: 07/17/22 08:06 Dose: 25 mg Hydromorphone HCl (Hydromorphone Hcl 0.5 Mg/0.5 Ml Syringe) 0.25 mg IVPUSH Q2H PRN; Protocol PRN Reason: Pain, Moderate (Pain Scale 4-6 Lactated Ringer's (Lr) 1,000 mls @ 100 mls/hr IVCONT .Q10H [facility] Last Infusion: 07/17/22 05:44 Dose: 100 mls/hr Ampicillin Sodium/Sulbactam (Sodium 3 gm/ Sodium Chloride) 100 mls @ 200 mls/hr IV Q8H [facility] Last Infusion: 07/17/22 05:44 Dose: Infused Insulin Human Lispro (Insulin Lispro 100 Unit/Ml 3 Ml Vial) 0 unit SUBCUT QIDACHS [facility]; Protocol Last Admin: 07/17/22 07:57 Dose: Not Given Losartan Potassium (Losartan Potassium 50 Mg Tablet) 100 mg PO DAILY [facility] Last Admin: 07/17/22 08:07 Dose: 100 mg Non-Formulary Medication (Nebivolol [Bystolic]) 1 tab PO DAILY [facility] Ondansetron HCl (Ondansetron Hcl 4 Mg/2 Ml Vial) 4 mg IVPUSH Q6H PRN PRN Reason: Nausea and Vomiting Pharmacy Consult (Consult Rx Perform Med Rec) 1 each MISCELLANE ONCE PRN PRN Reason: Consult order Sodium Chloride (0.9 % Sodium Chloride Flush 3 Ml Syringe) 3 ml IVFLUSH QSHIFT [facility] Last Admin: 07/17/22 08:07 Dose: Not Given Home Medications Medication Instructions Recorded Confirmed Last Taken Type albuterol sulfate 90 mcg/actuation 2 puff inhalation Q4-6H PRN 07/15/22 07/15/22 07/14/22 History aerosol inhaler Wheezing atorvastatin 80 mg tablet 1 tab PO DAILY 07/15/22 07/15/22 07/14/22 History carbidopa 25 mg-levodopa 100 mg 1.5 tab PO BID 07/15/22 07/16/22 07/14/22 History tablet citalopram 20 mg tablet 1 tab PO DAILY 07/15/22 07/15/22 07/14/22 History clopidogrel 75 mg tablet 1 tab PO DAILY 07/15/22 07/15/22 07/14/22 History divalproex 500 mg tablet,extended 2 tab PO BID 07/15/22 07/16/22 07/14/22 History release 24 hr gabapentin 100 mg capsule 2 cap PO BEDTIME 07/15/22 07/16/22 07/14/22 History losartan 100 1 tab PO DAILY 07/15/22 07/15/22 Unknown History mg-hydrochlorothiazide 25 mg tablet metformin 500 mg tablet 1 tab PO BID 07/15/22 07/15/22 Unknown History nebivolol 10 mg tablet (Bystolic) 1 tab PO DAILY 07/15/22 07/15/22 Unknown History divalproex 250 mg tablet,delayed 1 tab PO BEDTIME 07/16/22 07/16/22 07/14/22 History release Physical Exam Vital Signs: Vital Signs: Last Vital Signs Temp 98.2 F 07/17/22 07:53 Pulse 87 07/17/22 07:53 Resp 16 07/17/22 07:53 BP 170/79 H 07/17/22 07:53 Pulse Ox 94 07/17/22 07:53 O2 Del Method 07/17/22 07:53 BMI result Body Mass Index 31.1 Const: General: comfortable and no acute distress Orientation/consciousness: patient oriented x3 HEENT: Other: Unremarkable Head: Yes normal to inspection Neck: Neck: Yes normal visual inspection Chest: Chest palpation & inspection: normal inspection of the chest Resp: Auscultation: clear to auscultation bilaterally Cardio: Palpation: normal PMI Heart sounds: S1 normal heart sound present, S2 normal heart sound present, no gallops, no murmurs and no rubs GI: Palpation (GI): Soft to palpation Back/Spine/Pelvis: Other: unremarkable Skin: General skin exam: no rashes or lesions noted Neuro: General: patient oriented x3 Extrem: General: Yes normal to inspection Psych: Mental Status: mental status grossly normal Objective Labs and Meds 07/17/22 08:19 07/17/22 08:19 Lab results: Laboratory Results - last 24 hr 07/16/22 07/16/22 07/17/22 12:09 18:01 08:19 WBC 4.6 L RBC 3.63 L Hgb 11.4 L Hct 33.1 L MCV 91.2 MCH 31.4 MCHC 34.4 RDW 14.1 Plt Count 166 MPV 10.1 Immature Gran % (Auto) 0.4 Neut % (Auto) 61.9 Lymph % (Auto) 23.0 Collier % (Auto) 8.6 Eos % (Auto) 5.7 H Baso % (Auto) 0.4 Lymph # (Auto) 1.1 L Collier # (Auto) 0.4 Eos # (Auto) 0.3 Baso # (Auto) 0.0 Abs Immat Gran (auto) 0.02 Absolute Neuts (auto) 2.8 Absolute Nucleated RBC 0.000 Nucleated RBC % (auto) 0.0 PT INR APTT Sodium Potassium Chloride Carbon Dioxide Anion Gap BUN Creatinine Estim Creat Clear Calc Estimated GFR POC Glucose 155 H 156 H Random Glucose Calcium Total Bilirubin AST ALT Alkaline Phosphatase Total Protein Albumin 07/17/22 07/17/22 08:19 08:19 WBC RBC Hgb Hct MCV MCH MCHC RDW Plt Count MPV Immature Gran % (Auto) Neut % (Auto) Lymph % (Auto) Collier % (Auto) Eos % (Auto) Baso % (Auto) Lymph # (Auto) Collier # (Auto) Eos # (Auto) Baso # (Auto) Abs Immat Gran (auto) Absolute Neuts (auto) Absolute Nucleated RBC Nucleated RBC % (auto) PT 11.9 INR 1.0 APTT 30.5 Sodium 141 Potassium 3.7 Chloride 103 Carbon Dioxide 29 Anion Gap 13 BUN 10 Creatinine 0.82 Estim Creat Clear Calc 106.1 Estimated GFR > 60 POC Glucose Random Glucose 161 H Calcium 8.7 Total Bilirubin 0.9 AST 18 ALT 10 Alkaline Phosphatase 77 Total Protein 6.7 Albumin 3.7 ECG Interpretation: EKG with sinus rhythm at 99/Min; old inferior/anteroseptal infarct. Imaging Radiologist's impression: Impressions Hepatobiliary Scan Nuclear Medicine 07/16/22 19:20 IMPRESSION: Nonvisualization of the gallbladder consistent cystic duct obstruction and an acute cholecystitis Assessment and Plan (1) Preoperative cardiovascular examination: Status: Acute (2) CAD (coronary artery disease): Status: Acute (3) Non-rheumatic aortic regurgitation: Status: Acute (4) Cholecystitis, acute: Status: Acute Plan Cardiac catheterization 2018 reviewed; patent mid LAD stent; [id number] nonobstructive CAD in lad/RCA; severe stenosis in distal circumflex status post drug-eluting stenting. Echocardiogram 2020 with LVEF of 55-60%; no wall motion abnormality; calcification/thickening of right coronary cusp with mobile calcium; moderate aortic regurgitation. Bedside echocardiogram with preserved LVEF and aortic regurgitation as above. Study yet to be completed and reviewed. Hepatobiliary scan shows evidence of cystic duct obstruction/acute cholecystitis. Overall, history of CAD, prior stents but stable with no acute symptoms. Chronic aortic regurgitation but not severe. Multiple other comorbidities. Sara-operative risk including myocardial infarction discussed with the patient. This risk isn't modifiable. As he has been generally stable from cardiac, no clear contraindications for surgery. Patient himself feels that he would rather have the gallbladder taken out and accept the risk. Overall risk would be considered intermediate. With regard to antiplatelet drugs, not clear what he is actually on. [facility] notes from last year shows aspirin and Plavix. Current note list only Plavix. If he is actually taking both medications, that will increase his bleeding risk from surgery. In that case, may have to hold Plavix for 5 days before resorting to surgery. The other option proposed is percutaneous cholecystostomy. However, his cardiac risk for future gallbladder surgery will be similar to the current risk-with the exception of possibly lower bleeding risk based on antiplatelet regimen at that time. Discussed with and . Time Spent With Patient Time: Total time managing care of this patient today ____ minutes. Procedures Date of Service Date of Service: 07/17/22
[2022-07-17] MEDS: Lactated Ringers 1,000 ML 100 ML IVCONT (11:49)
[2022-07-17 15:51] VITALS: BP 182/79; PULSE 79; RESP 18; TEMP 36.3; O2SAT 98
--- NOTE | 2022-07-17 16:11 | HO.PM.IMPN ---
Subjective Subjective Date of Service: 07/17/22 Interval History: comfortable overnight. No acute issues. Tolerating clear liquids Review of Systems Denies chest pain Denies shortness of breath Denies nausea vomiting diarrhea Denies fever chills Physical Exam Vital Signs: Vital Signs: Last Vital Signs Temp 97.4 F 07/17/22 15:51 Pulse 79 07/17/22 15:51 Resp 18 07/17/22 15:51 BP 182/79 H 07/17/22 15:51 Pulse Ox 98 07/17/22 15:51 O2 Del Method 07/17/22 15:51 BMI result Body Mass Index 31.1 Const: Other: Awake alert oriented x3 no acute distress Resp: Other: Clear to auscultation bilaterally no rales rhonchi or wheezes Cardio: Other: No S4; positive S1-S2; no S3 murmurs rubs gallops GI: Other: Soft nontender nondistended normoactive bowel sounds Extrem: Other: No edema bilaterally Objective Data Active Medications Acetaminophen (Acetaminophen 325 Mg Tablet) 975 mg PO Q6H PRN PRN Reason: Pain, Mild (Pain Scale 1-3) Albuterol Sulfate (Albuterol Sulfate 90 Mcg 8 Gm Inhaler) 2 puff INHALE Q4H PRN PRN Reason: Wheezing Atorvastatin Calcium (Atorvastatin Calcium 80 Mg Tablet) 80 mg PO DAILY [facility] Last Admin: 07/17/22 08:07 Dose: 80 mg Documented By: JOSÉ ANTONIO Carbidopa/Levodopa (Carbidopa/Levodopa 25/100 Tablet) 1.5 tab PO BID [facility] Last Admin: 07/17/22 08:07 Dose: 1.5 tab Documented By: JOSÉ ANTONIO Divalproex Sodium (Divalproex Sodium 250 Mg Tablet.Dr) 250 mg PO BEDTIME [facility] Divalproex Sodium (Divalproex Sodium Er 500 Mg Tab.Er.24h) 500 mg PO BID [facility] Last Admin: 07/17/22 08:06 Dose: 500 mg Documented By: JOSÉ ANTONIO Escitalopram Oxalate (Escitalopram Oxalate 10 Mg Tablet) 10 mg PO DAILY [facility] Last Admin: 07/17/22 08:06 Dose: 10 mg Documented By: JOSÉ ANTONIO Gabapentin (Gabapentin 100 Mg Capsule) 200 mg PO BEDTIME [facility] Last Admin: 07/16/22 21:02 Dose: 200 mg Documented By: HO.LYSZ Hydrochlorothiazide (Hydrochlorothiazide 25 Mg Tablet) 25 mg PO DAILY [facility] Last Admin: 07/17/22 08:06 Dose: 25 mg Documented By: JOSÉ ANTONIO Hydromorphone HCl (Hydromorphone Hcl 0.5 Mg/0.5 Ml Syringe) 0.25 mg IVPUSH Q2H PRN; Protocol PRN Reason: Pain, Moderate (Pain Scale 4-6 Lactated Ringer's (Lr) 1,000 mls @ 100 mls/hr IVCONT .Q10H [facility] Last Admin: 07/17/22 11:49 Dose: 100 mls/hr Documented By: JOSÉ ANTONIO Ampicillin Sodium/Sulbactam (Sodium 3 gm/ Sodium Chloride) 100 mls @ 200 mls/hr IV Q8H [facility] Last Infusion: 07/17/22 12:36 Dose: 0 mls/hr Documented By: JOSÉ ANTONIO Losartan Potassium (Losartan Potassium 50 Mg Tablet) 100 mg PO DAILY [facility] Last Admin: 07/17/22 08:07 Dose: 100 mg Documented By: JOSÉ ANTONIO Non-Formulary Medication (Nebivolol [Bystolic]) 1 tab PO DAILY [facility] Ondansetron HCl (Ondansetron Hcl 4 Mg/2 Ml Vial) 4 mg IVPUSH Q6H PRN PRN Reason: Nausea and Vomiting Pantoprazole Sodium (Pantoprazole Sodium 40 Mg/10 Ml Vial) 40 mg IVPUSH DAILY@0630 [facility] Pharmacy Consult (Consult Rx Perform Med Rec) 1 each MISCELLANE ONCE PRN PRN Reason: Consult order Sodium Chloride (0.9 % Sodium Chloride Flush 3 Ml Syringe) 3 ml IVFLUSH QSHIFT [facility] Last Admin: 07/17/22 15:11 Dose: Not Given Documented By: JOSÉ ANTONIO Non-Admin Reason: IV Running Labs 07/17/22 08:19 07/17/22 08:19 Labs: Laboratory Results - last 24 hr 07/16/22 07/17/22 07/17/22 18:01 08:19 08:19 MCV 91.2 MCH 31.4 MCHC 34.4 RDW 14.1 Plt Count 166 MPV 10.1 Immature Gran % (Auto) 0.4 Neut % (Auto) 61.9 Lymph % (Auto) 23.0 [place] % (Auto) 8.6 Eos % (Auto) 5.7 H Baso % (Auto) 0.4 Lymph # (Auto) 1.1 L [place] # (Auto) 0.4 Eos # (Auto) 0.3 Baso # (Auto) 0.0 Abs Immat Gran (auto) 0.02 Absolute Neuts (auto) 2.8 Absolute Nucleated RBC 0.000 Nucleated RBC % (auto) 0.0 PT 11.9 INR 1.0 APTT 30.5 Anion Gap Estim Creat Clear Calc Estimated GFR POC Glucose 156 H Random Glucose Calcium Total Bilirubin AST ALT Alkaline Phosphatase Total Protein Albumin 07/17/22 08:19 MCV MCH MCHC RDW Plt Count MPV Immature Gran % (Auto) Neut % (Auto) Lymph % (Auto) [place] % (Auto) Eos % (Auto) Baso % (Auto) Lymph # (Auto) [place] # (Auto) Eos # (Auto) Baso # (Auto) Abs Immat Gran (auto) Absolute Neuts (auto) Absolute Nucleated RBC Nucleated RBC % (auto) PT INR APTT Anion Gap 13 Estim Creat Clear Calc 106.1 Estimated GFR > 60 POC Glucose Random Glucose 161 H Calcium 8.7 Total Bilirubin 0.9 AST 18 ALT 10 Alkaline Phosphatase 77 Total Protein 6.7 Albumin 3.7 Microbiology Microbiology Results: Microbiology 07/15/22 20:07 Blood Culture - Preliminary Blood - Venous No growth after 24 hours. 07/15/22 20:07 Blood Culture - Preliminary Blood - Venous No growth after 24 hours. Assessment and Plan (1) Cholecystitis, acute: Status: Acute (2) Hypomagnesemia: Status: Acute (3) HTN (hypertension): Status: Acute Plan 71-year-old male with past medical history of hypertension, diabetes, CAD presents to the hospital with complaints of right upper quadrant abdominal pain found to have acute cholecystitis. Patient being evaluated and admitted by General surgery, we are consulted for medical management 1.Acute cholecystitis -Unasyn as ordered(3) -management per General surgery -hold plavix x 5 days as per Cardiology - risk assessment done; plan for OR 07/22 2.Hypomagnesemia - repleted... Normalized - follow Mag level 3.Hypertension -acceptable control on current therapies -adjust as indicated 4.DMII -hold metformin -lispro correctional scale -adjust as indicated 5.Parkinson's? -continue carbidopa levodopa DVT prophylaxis: SCDs, management per surgical team Time Spent With Patient Time: Total time managing care of this patient today ____ minutes. Quality Stroke Does the patient have a stroke diagnosis?: No VTE Prior VTE?: No VTE Risk Level:: Surgical - moderate VTE Device Contraindication: N/A - Device Ordered VTE Drug Contraindication: N/A - Med Ordered
[2022-07-17] MEDS: Divalproex Sodium 250 MG TABLET.DR PO (19:39)
[2022-07-17] MEDS: Gabapentin 100 MG CAPSULE 200 MG PO (19:39)
[2022-07-17 19:43] VITALS: BP 180/74; PULSE 88; RESP 18; TEMP 36.1; O2SAT 96
[2022-07-17] MEDS: hydrALAZINE HCl 20 MG/ML VIAL 5 MG IVPUSH (20:58)
[2022-07-17 22:45] VITALS: BP 174/76
[2022-07-17] MEDS: 0.9 % Sodium Chloride Flush 3 ML SYRINGE IVFLUSH (23:45)
[2022-07-18 03:18] VITALS: BP 170/68; PULSE 85; RESP 18; TEMP 36.3; O2SAT 98
[2022-07-18] MEDS: Ampicillin Sodium/Sulbactam Na 3 GM in 0.9 % Sodium Chloride 100 ML IV ×3 (04:04→23:58)
[2022-07-18] MEDS: Pantoprazole Sodium 40 MG/10 ML VIAL IVPUSH (06:21)
[2022-07-18 06:39] LABS: MANUAL DIFF FLAG NO
[2022-07-18 06:58] LABS: Basophils Percent Auto 0.5 % (0-2); Eosinophils Absolute Auto 0.3 X10*3/uL (0.0-0.4); Eosinophils Percent Auto 8.1 % (0-4); Hematocrit 32.7 % (42.0-52.0); Hemoglobin 11.3 g/dl (14.0-18.0); Imm Gran Abs Auto 0.02 X10*3/uL (0.00-0.03); Imm Gran Pct Auto 0.5 % (0.0-0.4); Lymphocytes Absolute Auto 1.1 X10*3/uL (1.2-4.9); Lymphocytes Percent Auto 29.4 % (20-40); Mean Corpuscular HGB Conc 34.6 g/dl (31.0-36.0); Mean Corpuscular Volume 89.8 fL (80.0-98.0); Mean Platelet Volume 10.3 fL (9.4-12.4); Monocytes Absolute Auto 0.4 X10*3/uL (0.1-1.2); Monocytes Percent Auto 11.2 % (2-11); Neutrophils Absolute Auto 1.9 x10*3/uL (2.0-8.3); Neutrophils Percent Auto 50.3 % (45-73); Platelet Count 151 X10*3/uL (160-400); Red Blood Count 3.64 X10*6/uL (4.60-5.80); Red Cell Distribution Width 13.6 % (11.0-16.0); White Blood Count 3.8 X10*3/uL (4.8-10.8)
[2022-07-18 07:20] LABS: Alanine Aminotransferase 9 U/L (0-40); Albumin Level 3.6 g/dL (3.5-5.0); Alkaline Phosphatase 73 U/L (39-117); Anion Gap 12 (12-20); Aspartate Amino Transferase 18 U/L (5-37); Bilirubin Total 0.8 mg/dL (0.0-1.0); Blood Urea Nitrogen 8 mg/dL (9-16); Carbon Dioxide 29 mmol/L (22-29); Chloride 104 mmol/L (96-108); Creatinine Clr Calc Pharmacy 110.2; Estimated Glomerular Filt Rate > 60; Glucose Random 146 mg/dL (60-115); Potassium 3.3 mmol/L (3.3-5.1); Sodium 142 mmol/L (135-145); Total Protein 6.4 g/dL (6.5-8.0)
[2022-07-18 07:46] VITALS: BP 186/77; PULSE 79; RESP 19; TEMP 36.4; O2SAT 97
[2022-07-18] MEDS: Carbidopa/Levodopa 25/100 TABLET 1.5 TAB PO ×2 (08:18→21:38)
[2022-07-18] MEDS: 0.9 % Sodium Chloride Flush 3 ML SYRINGE IVFLUSH ×2 (08:18→21:41)
[2022-07-18] MEDS: Divalproex Sodium ER 500 MG TAB.ER.24H PO ×2 (08:19→21:40)
[2022-07-18] MEDS: Atorvastatin Calcium 80 MG TABLET PO (08:19)
[2022-07-18] MEDS: hydroCHLOROthiazide 25 MG TABLET PO (08:19)
[2022-07-18] MEDS: Losartan Potassium 50 MG TABLET 100 MG PO (08:19)
[2022-07-18] MEDS: Escitalopram Oxalate 10 MG TABLET PO (08:19)
--- NOTE | 2022-07-18 10:16 | PM.PNGS ---
Subjective Subjective Date of Service: 07/18/22 <Pita Bower PA-C - Last Filed: 07/18/22 10:34> 07/18/22 <Casper Craft MD - Last Filed: 07/18/22 13:32> Interval history: Feels ok this morning, overall improved. Some mild pain persists. Tolerating liquids. OOB and ambulating. <Pita Bower PA-C - Last Filed: 07/18/22 10:34> Physical Exam Vital Signs: Vital Signs: Last Vital Signs Temp 97.5 F 07/18/22 07:46 Pulse 79 07/18/22 07:46 Resp 19 07/18/22 07:46 BP 186/77 H 07/18/22 07:46 Pulse Ox 97 07/18/22 07:46 O2 Del Method 07/18/22 07:46 BMI result Body Mass Index 31.1 <Pita Bower PA-C - Last Filed: 07/18/22 10:34> Const: General: comfortable, no acute distress and alert <Pita Bower PA-C - Last Filed: 07/18/22 10:34> Orientation/consciousness: patient oriented x3 <Pita Bower PA-C - Last Filed: 07/18/22 10:34> Resp: Effort & Inspection: normal respiratory effort <Pita Bower PA-C - Last Filed: 07/18/22 10:34> GI: Inspection: No distended <Pita Bower PA-C - Last Filed: 07/18/22 10:34> Palpation (GI): Soft to palpation, Tenderness to palpation present (GI) in the RUQ and Yung's sign positive, no guarding and not rigid <Pita Bower PA-C - Last Filed: 07/18/22 10:34> Skin: General skin exam: no rashes or lesions noted and no jaundice <Pita Bower PA-C - Last Filed: 07/18/22 10:34> Neuro: General: patient oriented x3 and moves all extremities <Pita Bower PA-C - Last Filed: 07/18/22 10:34> Objective Data Active Medications Acetaminophen (Acetaminophen 325 Mg Tablet) 975 mg PO Q6H PRN PRN Reason: Pain, Mild (Pain Scale 1-3) Albuterol Sulfate (Albuterol Sulfate 90 Mcg 8 Gm Inhaler) 2 puff INHALE Q4H PRN PRN Reason: Wheezing Atorvastatin Calcium (Atorvastatin Calcium 80 Mg Tablet) 80 mg PO DAILY [facility] Last Admin: 07/18/22 08:19 Dose: 80 mg Documented By: JOSÉ ANTONIO Carbidopa/Levodopa (Carbidopa/Levodopa 25/100 Tablet) 1.5 tab PO BID [facility] Last Admin: 07/18/22 08:18 Dose: 1.5 tab Documented By: JOSÉ ANTONIO Divalproex Sodium (Divalproex Sodium 250 Mg Tablet.Dr) 250 mg PO BEDTIME [facility] Last Admin: 07/17/22 19:39 Dose: 250 mg Documented By: HAY Divalproex Sodium (Divalproex Sodium Er 500 Mg Tab.Er.24h) 500 mg PO BID [facility] Last Admin: 07/18/22 08:19 Dose: 500 mg Documented By: JOSÉ ANTONIO Escitalopram Oxalate (Escitalopram Oxalate 10 Mg Tablet) 10 mg PO DAILY [facility] Last Admin: 07/18/22 08:19 Dose: 10 mg Documented By: JOSÉ ANTONIO Gabapentin (Gabapentin 100 Mg Capsule) 200 mg PO BEDTIME [facility] Last Admin: 07/17/22 19:39 Dose: 200 mg Documented By: HAY Hydrochlorothiazide (Hydrochlorothiazide 25 Mg Tablet) 25 mg PO DAILY [facility] Last Admin: 07/18/22 08:19 Dose: 25 mg Documented By: JOSÉ ANTONIO Hydromorphone HCl (Hydromorphone Hcl 0.5 Mg/0.5 Ml Syringe) 0.25 mg IVPUSH Q2H PRN; Protocol PRN Reason: Pain, Moderate (Pain Scale 4-6 Lactated Ringer's (Lr) 1,000 mls @ 100 mls/hr IVCONT .Q10H [facility] Last Admin: 07/18/22 04:49 Dose: Not Given Documented By: CARLOS Non-Admin Reason: paused per md order Ampicillin Sodium/Sulbactam (Sodium 3 gm/ Sodium Chloride) 100 mls @ 200 mls/hr IV Q8H [facility] Last Infusion: 07/18/22 04:49 Dose: 0 mls/hr Documented By: CARLOS Losartan Potassium (Losartan Potassium 50 Mg Tablet) 100 mg PO DAILY [facility] Last Admin: 07/18/22 08:19 Dose: 100 mg Documented By: JOSÉ ANTONIO Non-Formulary Medication (Nebivolol [Bystolic]) 1 tab PO DAILY [facility] Ondansetron HCl (Ondansetron Hcl 4 Mg/2 Ml Vial) 4 mg IVPUSH Q6H PRN PRN Reason: Nausea and Vomiting Pantoprazole Sodium (Pantoprazole Sodium 40 Mg/10 Ml Vial) 40 mg IVPUSH DAILY@0630 [facility] Last Admin: 07/18/22 06:21 Dose: 40 mg Documented By: CARLOS Pharmacy Consult (Consult Rx Perform Med Rec) 1 each MISCELLANE ONCE PRN PRN Reason: Consult order Sodium Chloride (0.9 % Sodium Chloride Flush 3 Ml Syringe) 3 ml IVFLUSH QSHIFT [facility] Last Admin: 07/18/22 08:18 Dose: 3 ml Documented By: JOSÉ ANTONIO <Pita Bower PA-C - Last Filed: 07/18/22 10:34> Labs CBC & Chem 7: 07/18/22 06:20 07/18/22 06:20 <Pita Bower PA-C - Last Filed: 07/18/22 10:34> Labs: Laboratory Results - last 24 hr 07/18/22 07/18/22 06:20 06:20 MCV 89.8 MCH 31.0 MCHC 34.6 RDW 13.6 Plt Count 151 L MPV 10.3 Immature Gran % (Auto) 0.5 H Neut % (Auto) 50.3 Lymph % (Auto) 29.4 [place] % (Auto) 11.2 H Eos % (Auto) 8.1 H Baso % (Auto) 0.5 Lymph # (Auto) 1.1 L [place] # (Auto) 0.4 Eos # (Auto) 0.3 Baso # (Auto) 0.0 Abs Immat Gran (auto) 0.02 Absolute Neuts (auto) 1.9 L Absolute Nucleated RBC 0.000 Nucleated RBC % (auto) 0.0 Anion Gap 12 Estim Creat Clear Calc 110.2 Estimated GFR > 60 Random Glucose 146 H Calcium 9.0 Total Bilirubin 0.8 AST 18 ALT 9 Alkaline Phosphatase 73 Total Protein 6.4 L Albumin 3.6 <Pita McnallyLUTHER posadasAnila - Last Filed: 07/18/22 10:34> Microbiology Microbiology Results: Microbiology 07/15/22 20:07 Blood Culture - Preliminary Blood - Venous No growth after 48 hours. 07/15/22 20:07 Blood Culture - Preliminary Blood - Venous No growth after 48 hours. <Pita McnallyBEULAH posadas - Last Filed: 07/18/22 10:34> Procedures Date of Service Date of Service: 07/18/22 <Pita McnallyBEULAH posadas - Last Filed: 07/18/22 10:34> Progress Note: A&P Assessment and plan (1) Cholecystitis, acute: Status: Acute <Pita CheliBEULAH posadas - Last Filed: 07/18/22 10:34> (2) Non-rheumatic aortic regurgitation: Status: Acute <Pita CheliLUTHER posadasAnila - Last Filed: 07/18/22 10:34> (3) CAD (coronary artery disease): Status: Acute <Pita CheliLUTHER posadasAnila - Last Filed: 07/18/22 10:34> (4) DMII (diabetes mellitus, type 2): Status: Acute <Pita McnallyLUTHER posadasAnlia Lozada Last Filed: 07/18/22 10:34> Assessment and Plan: 71 year old male with multiple medical comorbidities who presented with epigastric/RUQ abd pain, clinical picture suggestive of acute cholecystitis. Feels overall improved with only mild pain but RUQ remains tender with positive yung sign. Treatment options discussed with the patient by Dr. Slater and the patient would like to proceed with cholecystectomy. Seen by cardiology yesterday and was deemed stable from cardiac standpoint. Surgery is planned for Thursday. Cont to hold plavix. Cont unasyn, IVF, clear liquids. AM labs reviewed. Patient comfortable with plan. <Pita CheliBEULAH posadas - Last Filed: 07/18/22 10:34> 71 year old male with multiple medical comorbidities who presented with epigastric/RUQ abd pain, clinical picture suggestive of acute cholecystitis. Feels overall improved with only mild pain but RUQ remains tender with positive yung sign. Treatment options discussed with the patient by Dr. Slater and the patient would like to proceed with cholecystectomy. Seen by cardiology yesterday and was deemed stable from cardiac standpoint. Surgery is planned for Thursday. Cont to hold plavix. Cont unasyn, IVF, clear liquids. AM labs reviewed. Patient comfortable with plan. Agree with the above assessment and plan. Patient feels much improved with pain 2 to 3/10 currently. His abdomen is soft with some mild right upper quadrant abdominal tenderness and positive Yung sign. Continue clear liquids. Patient scheduled for laparoscopic cholecystectomy on Thursday. <Casper Craft MD - Last Filed: 07/18/22 13:32> Time Spent With Patient Time: Total time managing care of this patient today ____ minutes. <Pita Bower PA-C - Last Filed: 07/18/22 10:34> Quality Stroke Does the patient have a stroke diagnosis?: No <Pita Bower PA-C - Last Filed: 07/18/22 10:34> VTE Prior VTE?: No <Pita Bower PA-C - Last Filed: 07/18/22 10:34> VTE Risk Level:: Surgical - moderate <Pita Bower PA-C - Last Filed: 07/18/22 10:34> VTE Device Contraindication: N/A - Device Ordered <Pita Bower PA-C - Last Filed: 07/18/22 10:34> VTE Drug Contraindication: N/A - Med Ordered <Pita Bower PA-C - Last Filed: 07/18/22 10:34>
--- NOTE | 2022-07-18 14:08 | P.PNIM_ITS ---
Subjective Subjective Date of Service: 07/18/22 Interval History: no acute issues overnight. Pain 3/10 tolerating clear liquid diet Review of Systems Denies chest pain Denies shortness of breath Denies nausea vomiting diarrhea Denies fever chills Physical Exam Vital Signs: Vital Signs: Last Vital Signs Temp 97.5 F 07/18/22 07:46 Pulse 79 07/18/22 07:46 Resp 19 07/18/22 07:46 BP 186/77 H 07/18/22 07:46 Pulse Ox 97 07/18/22 07:46 O2 Del Method 07/18/22 07:46 BMI result Body Mass Index 31.1 Const: Other: Awake alert oriented x3 no acute distress Resp: Other: Clear to auscultation bilaterally no rales rhonchi or wheezes Cardio: Other: No S4; positive S1-S2; no S3 murmurs rubs gallops GI: Other: Soft nontender nondistended normoactive bowel sounds Extrem: Other: No edema bilaterally Objective Data Active Medications Acetaminophen (Acetaminophen 325 Mg Tablet) 975 mg PO Q6H PRN PRN Reason: Pain, Mild (Pain Scale 1-3) Albuterol Sulfate (Albuterol Sulfate 90 Mcg 8 Gm Inhaler) 2 puff INHALE Q4H PRN PRN Reason: Wheezing Atorvastatin Calcium (Atorvastatin Calcium 80 Mg Tablet) 80 mg PO DAILY [facility] Last Admin: 07/18/22 08:19 Dose: 80 mg Documented By: JOSÉ ANTONIO Carbidopa/Levodopa (Carbidopa/Levodopa 25/100 Tablet) 1.5 tab PO BID [facility] Last Admin: 07/18/22 08:18 Dose: 1.5 tab Documented By: JOSÉ ANTONIO Divalproex Sodium (Divalproex Sodium 250 Mg Tablet.Dr) 250 mg PO BEDTIME [facility] Last Admin: 07/17/22 19:39 Dose: 250 mg Documented By: HAY Divalproex Sodium (Divalproex Sodium Er 500 Mg Tab.Er.24h) 500 mg PO BID [facility] Last Admin: 07/18/22 08:19 Dose: 500 mg Documented By: JOSÉ ANTONIO Escitalopram Oxalate (Escitalopram Oxalate 10 Mg Tablet) 10 mg PO DAILY [facility] Last Admin: 07/18/22 08:19 Dose: 10 mg Documented By: JOSÉ ANTONIO Gabapentin (Gabapentin 100 Mg Capsule) 200 mg PO BEDTIME [facility] Last Admin: 07/17/22 19:39 Dose: 200 mg Documented By: HAY Hydrochlorothiazide (Hydrochlorothiazide 25 Mg Tablet) 25 mg PO DAILY [facility] Last Admin: 07/18/22 08:19 Dose: 25 mg Documented By: JOSÉ ANTONIO Hydromorphone HCl (Hydromorphone Hcl 0.5 Mg/0.5 Ml Syringe) 0.25 mg IVPUSH Q2H PRN; Protocol PRN Reason: Pain, Moderate (Pain Scale 4-6 Lactated Ringer's (Lr) 1,000 mls @ 100 mls/hr IVCONT .Q10H [facility] Last Infusion: 07/18/22 13:07 Dose: 0 mls/hr Documented By: JOSÉ ANTONIO Ampicillin Sodium/Sulbactam (Sodium 3 gm/ Sodium Chloride) 100 mls @ 200 mls/hr IV Q8H [facility] Last Infusion: 07/18/22 04:49 Dose: 0 mls/hr Documented By: CARLOS Losartan Potassium (Losartan Potassium 50 Mg Tablet) 100 mg PO DAILY [facility] Last Admin: 07/18/22 08:19 Dose: 100 mg Documented By: JOSÉ ANTONIO Non-Formulary Medication (Nebivolol [Bystolic]) 1 tab PO DAILY [facility] Ondansetron HCl (Ondansetron Hcl 4 Mg/2 Ml Vial) 4 mg IVPUSH Q6H PRN PRN Reason: Nausea and Vomiting Oxycodone HCl (Oxycodone Hcl Immed Release 5 Mg Tablet) 5 mg PO Q4H PRN PRN Reason: Pain, Moderate (Pain Scale 4-6 Pantoprazole Sodium (Pantoprazole Sodium 40 Mg/10 Ml Vial) 40 mg IVPUSH DAILY@0630 [facility] Last Admin: 07/18/22 06:21 Dose: 40 mg Documented By: CARLOS Pharmacy Consult (Consult Rx Perform Med Rec) 1 each MISCELLANE ONCE PRN PRN Reason: Consult order Sodium Chloride (0.9 % Sodium Chloride Flush 3 Ml Syringe) 3 ml IVFLUSH QSHIFT [facility] Last Admin: 07/18/22 08:18 Dose: 3 ml Documented By: JOSÉ ANTONIO Labs 07/18/22 06:20 07/18/22 06:20 Labs: Laboratory Results - last 24 hr 07/18/22 07/18/22 06:20 06:20 MCV 89.8 MCH 31.0 MCHC 34.6 RDW 13.6 Plt Count 151 L MPV 10.3 Immature Gran % (Auto) 0.5 H Neut % (Auto) 50.3 Lymph % (Auto) 29.4 [place] % (Auto) 11.2 H Eos % (Auto) 8.1 H Baso % (Auto) 0.5 Lymph # (Auto) 1.1 L [place] # (Auto) 0.4 Eos # (Auto) 0.3 Baso # (Auto) 0.0 Abs Immat Gran (auto) 0.02 Absolute Neuts (auto) 1.9 L Absolute Nucleated RBC 0.000 Nucleated RBC % (auto) 0.0 Anion Gap 12 Estim Creat Clear Calc 110.2 Estimated GFR > 60 Random Glucose 146 H Calcium 9.0 Total Bilirubin 0.8 AST 18 ALT 9 Alkaline Phosphatase 73 Total Protein 6.4 L Albumin 3.6 Microbiology Microbiology Results: Microbiology 07/15/22 20:07 Blood Culture - Preliminary Blood - Venous No growth after 48 hours. 07/15/22 20:07 Blood Culture - Preliminary Blood - Venous No growth after 48 hours. Assessment and Plan (1) Cholecystitis, acute: Status: Acute (2) Hypomagnesemia: Status: Acute (3) HTN (hypertension): Status: Acute Plan 71-year-old male with past medical history of hypertension, diabetes, CAD presents to the hospital with complaints of right upper quadrant abdominal pain found to have acute cholecystitis. Patient being evaluated and admitted by General surgery, we are consulted for medical management 1.Acute cholecystitis -Unasyn as ordered(3) -management per General surgery -hold plavix x 5 days as per Cardiology - risk assessment done; plan for OR 07/22 2.Hypomagnesemia - repleted... Normalized - follow Mag level 3.Hypertension - add Norvasc 10 mg daily - follow clinically 4.DMII -hold metformin -lispro correctional scale -adjust as indicated 5.Parkinson's? -continue carbidopa levodopa DVT prophylaxis: SCDs, management per surgical team Time Spent With Patient Time: Total time managing care of this patient today ____ minutes. Quality Stroke Does the patient have a stroke diagnosis?: No VTE Prior VTE?: No VTE Risk Level:: Surgical - moderate VTE Device Contraindication: N/A - Device Ordered VTE Drug Contraindication: N/A - Med Ordered
--- NOTE | 2022-07-18 15:04 | MHC.CM.PN ---
PATIENT IS HERE UNTIL Thursday07/22/22 (GALLBLADDER TO BE REMOVED THURSDAY )
[2022-07-18 15:17] VITALS: BP 170/74; PULSE 82; RESP 18; TEMP 36.3; O2SAT 96
[2022-07-18] MEDS: amLODIPine Besylate 10 MG TABLET PO (15:35)
[2022-07-18 19:42] VITALS: BP 146/72; PULSE 85; RESP 18; TEMP 37; O2SAT 97
[2022-07-18] MEDS: Gabapentin 100 MG CAPSULE 200 MG PO (21:37)
[2022-07-18] MEDS: Divalproex Sodium 250 MG TABLET.DR PO (21:39)
[2022-07-19 04:00] VITALS: BP 152/60; PULSE 82; RESP 16; TEMP 36.3; O2SAT 98
[2022-07-19] MEDS: Pantoprazole Sodium 40 MG/10 ML VIAL IVPUSH (06:19)
[2022-07-19 08:00] VITALS: BP 143/69; PULSE 92; RESP 18; TEMP 36.3; O2SAT 97
[2022-07-19] MEDS: Losartan Potassium 50 MG TABLET 100 MG PO (08:59)
[2022-07-19] MEDS: Escitalopram Oxalate 10 MG TABLET PO (08:59)
[2022-07-19] MEDS: Divalproex Sodium ER 500 MG TAB.ER.24H PO ×2 (08:59→20:11)
[2022-07-19] MEDS: amLODIPine Besylate 10 MG TABLET PO (08:59)
[2022-07-19] MEDS: Carbidopa/Levodopa 25/100 TABLET 1.5 TAB PO ×2 (08:59→20:09)
[2022-07-19] MEDS: hydroCHLOROthiazide 25 MG TABLET PO (08:59)
[2022-07-19] MEDS: Atorvastatin Calcium 80 MG TABLET PO (08:59)
[2022-07-19] MEDS: Ampicillin Sodium/Sulbactam Na 3 GM in 0.9 % Sodium Chloride 100 ML IV ×3 (09:00→22:50)
[2022-07-19] MEDS: 0.9 % Sodium Chloride Flush 3 ML SYRINGE IVFLUSH ×3 (09:01→23:34)
--- NOTE | 2022-07-19 09:12 | P.PNGS_ITS ---
Subjective Subjective Date of Service: 07/19/22 Interval history: Patient feels well, denies any abdominal pain. He is tolerating the clear liquid diet. Physical Exam Vital Signs: Vital Signs: Last Vital Signs Temp 97.3 F 07/19/22 08:00 Pulse 92 07/19/22 08:00 Resp 18 07/19/22 08:00 BP 143/69 H 07/19/22 08:00 Pulse Ox 97 07/19/22 08:00 O2 Del Method 07/19/22 08:00 BMI result Body Mass Index 31.1 Const: General: comfortable, no acute distress and alert Orientation/consciousness: patient oriented x3 Resp: Effort & Inspection: normal respiratory effort GI: Inspection: No distended Palpation (GI): Soft to palpation, nontender, no guarding and not rigid Skin: General skin exam: no rashes or lesions noted and no jaundice Neuro: General: patient oriented x3 and moves all extremities Objective Data Active Medications Acetaminophen (Acetaminophen 325 Mg Tablet) 975 mg PO Q6H PRN PRN Reason: Pain, Mild (Pain Scale 1-3) Albuterol Sulfate (Albuterol Sulfate 90 Mcg 8 Gm Inhaler) 2 puff INHALE Q4H PRN PRN Reason: Wheezing Amlodipine Besylate (Amlodipine Besylate 10 Mg Tablet) 10 mg PO DAILY [facility]; Protocol Last Admin: 07/19/22 08:59 Dose: 10 mg Documented By: OLY Atorvastatin Calcium (Atorvastatin Calcium 80 Mg Tablet) 80 mg PO DAILY [facility] Last Admin: 07/19/22 08:59 Dose: 80 mg Documented By: OLY Carbidopa/Levodopa (Carbidopa/Levodopa 25/100 Tablet) 1.5 tab PO BID [facility] Last Admin: 07/19/22 08:59 Dose: 1.5 tab Documented By: OLY Divalproex Sodium (Divalproex Sodium 250 Mg Tablet.Dr) 250 mg PO BEDTIME [facility] Last Admin: 07/18/22 21:39 Dose: 250 mg Documented By: ROBERT Divalproex Sodium (Divalproex Sodium Er 500 Mg Tab.Er.24h) 500 mg PO BID [facility] Last Admin: 07/19/22 08:59 Dose: 500 mg Documented By: OLY Escitalopram Oxalate (Escitalopram Oxalate 10 Mg Tablet) 10 mg PO DAILY [facility] Last Admin: 07/19/22 08:59 Dose: 10 mg Documented By: OLY Gabapentin (Gabapentin 100 Mg Capsule) 200 mg PO BEDTIME [facility] Last Admin: 07/18/22 21:37 Dose: 200 mg Documented By: ABA-SHAMAR Hydrochlorothiazide (Hydrochlorothiazide 25 Mg Tablet) 25 mg PO DAILY [facility] Last Admin: 07/19/22 08:59 Dose: 25 mg Documented By: OLY Hydromorphone HCl (Hydromorphone Hcl 0.5 Mg/0.5 Ml Syringe) 0.25 mg IVPUSH Q2H PRN; Protocol PRN Reason: Pain, Moderate (Pain Scale 4-6 Lactated Ringer's (Lr) 1,000 mls @ 100 mls/hr IVCONT .Q10H [facility] Last Admin: 07/19/22 01:00 Dose: Not Given Documented By: JUSTICE Non-Admin Reason: on hold per report/ Ampicillin Sodium/Sulbactam (Sodium 3 gm/ Sodium Chloride) 100 mls @ 200 mls/hr IV Q8H [facility] Last Admin: 07/19/22 09:00 Dose: 200 mls/hr Documented By: OLY Losartan Potassium (Losartan Potassium 50 Mg Tablet) 100 mg PO DAILY [facility] Last Admin: 07/19/22 08:59 Dose: 100 mg Documented By: OLY Non-Formulary Medication (Nebivolol [Bystolic]) 1 tab PO DAILY [facility] Ondansetron HCl (Ondansetron Hcl 4 Mg/2 Ml Vial) 4 mg IVPUSH Q6H PRN PRN Reason: Nausea and Vomiting Oxycodone HCl (Oxycodone Hcl Immed Release 5 Mg Tablet) 5 mg PO Q4H PRN PRN Reason: Pain, Moderate (Pain Scale 4-6 Pantoprazole Sodium (Pantoprazole Sodium 40 Mg/10 Ml Vial) 40 mg IVPUSH DAILY@0630 [facility] Last Admin: 07/19/22 06:19 Dose: 40 mg Documented By: JUSTICE Pharmacy Consult (Consult Rx Perform Med Rec) 1 each MISCELLANE ONCE PRN PRN Reason: Consult order Sodium Chloride (0.9 % Sodium Chloride Flush 3 Ml Syringe) 3 ml IVFLUSH QSHIFT [facility] Last Admin: 07/19/22 09:01 Dose: 3 ml Documented By: OLY Labs 07/18/22 06:20 07/18/22 06:20 Procedures Date of Service Date of Service: 07/19/22 Progress Note: A&P Assessment and plan (1) Cholecystitis, acute: Status: Acute (2) Non-rheumatic aortic regurgitation: Status: Acute (3) CAD (coronary artery disease): Status: Acute (4) DMII (diabetes mellitus, type 2): Status: Acute Plan 71 year old male with multiple medical comorbidities who presented with epigastric/RUQ abd pain, clinical picture suggestive of acute cholecystitis. Patient is now asymptomatic with no abdominal pain and a negative Yung sign. He is tolerating clear liquid diet without increased pain or nausea/vomiting. Patient is easily awaiting laparoscopic cholecystectomy planned for Thursday with Dr. Slater. Continue to hold Plavix. Continue clear liquid diet. Time Spent With Patient Time: Total time managing care of this patient today ____ minutes. Quality Stroke Does the patient have a stroke diagnosis?: No VTE Prior VTE?: No VTE Risk Level:: Surgical - moderate VTE Device Contraindication: N/A - Device Ordered VTE Drug Contraindication: N/A - Med Ordered
--- NOTE | 2022-07-19 14:37 | P.PNIM_ITS ---
Subjective Subjective Date of Service: 07/19/22 Interval History: remains pain-free. Tolerating clear liquid diet Review of Systems Denies chest pain Denies shortness of breath Denies nausea vomiting diarrhea Denies fever chills Physical Exam Vital Signs: Vital Signs: Last Vital Signs Temp 97.3 F 07/19/22 08:00 Pulse 92 07/19/22 08:00 Resp 18 07/19/22 08:00 BP 143/69 H 07/19/22 08:00 Pulse Ox 97 07/19/22 08:00 O2 Del Method 07/19/22 08:00 BMI result Body Mass Index 31.1 Const: Other: Awake alert oriented x3 no acute distress Resp: Other: Clear to auscultation bilaterally no rales rhonchi or wheezes Cardio: Other: No S4; positive S1-S2; no S3 murmurs rubs gallops GI: Other: Soft nontender nondistended normoactive bowel sounds Extrem: Other: No edema bilaterally Objective Data Active Medications Acetaminophen (Acetaminophen 325 Mg Tablet) 975 mg PO Q6H PRN PRN Reason: Pain, Mild (Pain Scale 1-3) Albuterol Sulfate (Albuterol Sulfate 90 Mcg 8 Gm Inhaler) 2 puff INHALE Q4H PRN PRN Reason: Wheezing Amlodipine Besylate (Amlodipine Besylate 10 Mg Tablet) 10 mg PO DAILY [facility]; Protocol Last Admin: 07/19/22 08:59 Dose: 10 mg Documented By: OLY Atorvastatin Calcium (Atorvastatin Calcium 80 Mg Tablet) 80 mg PO DAILY [facility] Last Admin: 07/19/22 08:59 Dose: 80 mg Documented By: OLY Carbidopa/Levodopa (Carbidopa/Levodopa 25/100 Tablet) 1.5 tab PO BID [facility] Last Admin: 07/19/22 08:59 Dose: 1.5 tab Documented By: OLY Divalproex Sodium (Divalproex Sodium 250 Mg Tablet.) 250 mg PO BEDTIME [facility] Last Admin: 07/18/22 21:39 Dose: 250 mg Documented By: ROBERT Divalproex Sodium (Divalproex Sodium Er 500 Mg Tab.Er.24h) 500 mg PO BID [facility] Last Admin: 07/19/22 08:59 Dose: 500 mg Documented By: OLY Escitalopram Oxalate (Escitalopram Oxalate 10 Mg Tablet) 10 mg PO DAILY [facility] Last Admin: 07/19/22 08:59 Dose: 10 mg Documented By: OLY Gabapentin (Gabapentin 100 Mg Capsule) 200 mg PO BEDTIME [facility] Last Admin: 07/18/22 21:37 Dose: 200 mg Documented By: ABA-RIVCHELSEY Hydrochlorothiazide (Hydrochlorothiazide 25 Mg Tablet) 25 mg PO DAILY [facility] Last Admin: 07/19/22 08:59 Dose: 25 mg Documented By: OLY Hydromorphone HCl (Hydromorphone Hcl 0.5 Mg/0.5 Ml Syringe) 0.25 mg IVPUSH Q2H PRN; Protocol PRN Reason: Pain, Moderate (Pain Scale 4-6 Ampicillin Sodium/Sulbactam (Sodium 3 gm/ Sodium Chloride) 100 mls @ 200 mls/hr IV Q8H [facility] Last Infusion: 07/19/22 09:57 Dose: 200 mls/hr Documented By: OLY Losartan Potassium (Losartan Potassium 50 Mg Tablet) 100 mg PO DAILY [facility] Last Admin: 07/19/22 08:59 Dose: 100 mg Documented By: OLY Metoprolol Succinate (Metoprolol Succinate Er 100 Mg Tab.Er.24h) 200 mg PO DAILY [facility] Ondansetron HCl (Ondansetron Hcl 4 Mg/2 Ml Vial) 4 mg IVPUSH Q6H PRN PRN Reason: Nausea and Vomiting Oxycodone HCl (Oxycodone Hcl Immed Release 5 Mg Tablet) 5 mg PO Q4H PRN PRN Reason: Pain, Moderate (Pain Scale 4-6 Pantoprazole Sodium (Pantoprazole Sodium 40 Mg/10 Ml Vial) 40 mg IVPUSH DAILY@0630 [facility] Last Admin: 07/19/22 06:19 Dose: 40 mg Documented By: JUSTICE Pharmacy Consult (Consult Rx Perform Med Rec) 1 each MISCELLANE ONCE PRN PRN Reason: Consult order Sodium Chloride (0.9 % Sodium Chloride Flush 3 Ml Syringe) 3 ml IVFLUSH QSHIFT [facility] Last Admin: 07/19/22 09:01 Dose: 3 ml Documented By: OLY Labs 07/18/22 06:20 07/18/22 06:20 Assessment and Plan (1) Cholecystitis, acute: Status: Acute (2) Hypomagnesemia: Status: Acute (3) HTN (hypertension): Status: Acute Plan 71-year-old male with past medical history of hypertension, diabetes, CAD presents to the hospital with complaints of right upper quadrant abdominal pain found to have acute cholecystitis. Patient being evaluated and admitted by [facility] surgery, we are consulted for medical management 1.Acute cholecystitis -Unasyn as ordered(4) -management per General surgery -hold plavix x 5 days as per Cardiology - risk assessment done; plan for OR 07/22 2.Hypomagnesemia - repleted... Normalized - follow Mag level 3.Hypertension - add Norvasc 10 mg daily - follow clinically 4.DMII -hold metformin -lispro correctional scale -adjust as indicated 5.Parkinson's? -continue carbidopa levodopa DVT prophylaxis: SCDs, management per surgical team Time Spent With Patient Time: Total time managing care of this patient today ____ minutes. Quality Stroke Does the patient have a stroke diagnosis?: No VTE Prior VTE?: No VTE Risk Level:: Surgical - moderate VTE Device Contraindication: N/A - Device Ordered VTE Drug Contraindication: N/A - Med Ordered
[2022-07-19 16:00] VITALS: BP 149/67; PULSE 82; RESP 18; TEMP 36.3; O2SAT 100
[2022-07-19 20:00] VITALS: BP 178/85; PULSE 77; RESP 18; TEMP 36.6; O2SAT 99
[2022-07-19] MEDS: Gabapentin 100 MG CAPSULE 200 MG PO (20:10)
[2022-07-19] MEDS: Divalproex Sodium 250 MG TABLET.DR PO (20:11)
[2022-07-20 03:12] VITALS: BP 163/75; PULSE 84; RESP 18; TEMP 36.2; O2SAT 99
[2022-07-20] MEDS: Pantoprazole Sodium 40 MG/10 ML VIAL IVPUSH (05:57)
[2022-07-20] MEDS: 0.9 % Sodium Chloride Flush 3 ML SYRINGE IVFLUSH ×3 (07:38→23:23)
[2022-07-20] MEDS: Metoprolol Succinate ER 100 MG TAB.ER.24H 200 MG PO (07:38)
[2022-07-20] MEDS: Losartan Potassium 50 MG TABLET 100 MG PO (07:39)
[2022-07-20] MEDS: Carbidopa/Levodopa 25/100 TABLET 1.5 TAB PO ×2 (07:39→20:25)
[2022-07-20] MEDS: Divalproex Sodium ER 500 MG TAB.ER.24H PO ×2 (07:39→20:24)
[2022-07-20] MEDS: amLODIPine Besylate 10 MG TABLET PO (07:39)
[2022-07-20] MEDS: Escitalopram Oxalate 10 MG TABLET PO (07:40)
[2022-07-20] MEDS: hydroCHLOROthiazide 25 MG TABLET PO (07:40)
[2022-07-20] MEDS: Ampicillin Sodium/Sulbactam Na 3 GM in 0.9 % Sodium Chloride 100 ML IV ×3 (07:40→22:38)
[2022-07-20] MEDS: Atorvastatin Calcium 80 MG TABLET PO (07:40)
[2022-07-20 08:00] VITALS: BP 165/72; PULSE 65; RESP 16; TEMP 36.2; O2SAT 97
--- NOTE | 2022-07-20 08:51 | PM.PNGS ---
Subjective Subjective Date of Service: 07/20/22 Interval history: No new complaints, resting comfortably Physical Exam Vital Signs: Vital Signs: Last Vital Signs Temp 97.1 F 07/20/22 08:00 Pulse 65 07/20/22 08:00 Resp 16 07/20/22 08:00 BP 165/72 H 07/20/22 08:00 Pulse Ox 97 07/20/22 08:00 O2 Del Method 07/20/22 08:00 O2 Flow Rate 96 07/19/22 20:00 BMI result Body Mass Index 31.1 Const: General: comfortable and no acute distress Nutritional Appearance: well nourished Orientation/consciousness: patient oriented x3 Eyes: Sclerae: sclerae normal GI: Inspection: Yes normal to inspection Palpation (GI): Soft to palpation Neuro: General: patient oriented x3 Extrem: General: Yes normal to inspection Objective Data Active Medications Acetaminophen (Acetaminophen 325 Mg Tablet) 975 mg PO Q6H PRN PRN Reason: Pain, Mild (Pain Scale 1-3) Albuterol Sulfate (Albuterol Sulfate 90 Mcg 8 Gm Inhaler) 2 puff INHALE Q4H PRN PRN Reason: Wheezing Amlodipine Besylate (Amlodipine Besylate 10 Mg Tablet) 10 mg PO DAILY [facility]; Protocol Last Admin: 07/20/22 07:39 Dose: 10 mg Documented By: OLY Atorvastatin Calcium (Atorvastatin Calcium 80 Mg Tablet) 80 mg PO DAILY [facility] Last Admin: 07/20/22 07:40 Dose: 80 mg Documented By: OLY Carbidopa/Levodopa (Carbidopa/Levodopa 25/100 Tablet) 1.5 tab PO BID [facility] Last Admin: 07/20/22 07:39 Dose: 1.5 tab Documented By: OLY Divalproex Sodium (Divalproex Sodium 250 Mg Tablet.Dr) 250 mg PO BEDTIME [facility] Last Admin: 07/19/22 20:11 Dose: 250 mg Documented By: CANDI Divalproex Sodium (Divalproex Sodium Er 500 Mg Tab.Er.24h) 500 mg PO BID [facility] Last Admin: 07/20/22 07:39 Dose: 500 mg Documented By: OLY Escitalopram Oxalate (Escitalopram Oxalate 10 Mg Tablet) 10 mg PO DAILY [facility] Last Admin: 07/20/22 07:40 Dose: 10 mg Documented By: OLY Gabapentin (Gabapentin 100 Mg Capsule) 200 mg PO BEDTIME [facility] Last Admin: 07/19/22 20:10 Dose: 200 mg Documented By: CANDI Hydrochlorothiazide (Hydrochlorothiazide 25 Mg Tablet) 25 mg PO DAILY [facility] Last Admin: 07/20/22 07:40 Dose: 25 mg Documented By: OLY Hydromorphone HCl (Hydromorphone Hcl 0.5 Mg/0.5 Ml Syringe) 0.25 mg IVPUSH Q2H PRN; Protocol PRN Reason: Pain, Moderate (Pain Scale 4-6 Ampicillin Sodium/Sulbactam (Sodium 3 gm/ Sodium Chloride) 100 mls @ 200 mls/hr IV Q8H [facility] Last Infusion: 07/20/22 08:35 Dose: 200 mls/hr Documented By: OLY Losartan Potassium (Losartan Potassium 50 Mg Tablet) 100 mg PO DAILY [facility] Last Admin: 07/20/22 07:39 Dose: 100 mg Documented By: OLY Metoprolol Succinate (Metoprolol Succinate Er 100 Mg Tab.Er.24h) 200 mg PO DAILY [facility] Last Admin: 07/20/22 07:38 Dose: 200 mg Documented By: OLY Ondansetron HCl (Ondansetron Hcl 4 Mg/2 Ml Vial) 4 mg IVPUSH Q6H PRN PRN Reason: Nausea and Vomiting Oxycodone HCl (Oxycodone Hcl Immed Release 5 Mg Tablet) 5 mg PO Q4H PRN PRN Reason: Pain, Moderate (Pain Scale 4-6 Pantoprazole Sodium (Pantoprazole Sodium 40 Mg/10 Ml Vial) 40 mg IVPUSH DAILY@0630 [facility] Last Admin: 07/20/22 05:57 Dose: 40 mg Documented By: JUSTICE Pharmacy Consult (Consult Rx Perform Med Rec) 1 each MISCELLANE ONCE PRN PRN Reason: Consult order Sodium Chloride (0.9 % Sodium Chloride Flush 3 Ml Syringe) 3 ml IVFLUSH QSHIFT [facility] Last Admin: 07/20/22 07:38 Dose: 3 ml Documented By: OLY Labs 07/18/22 06:20 07/18/22 06:20 Procedures Date of Service Date of Service: 07/20/22 Progress Note: A&P Assessment and plan (1) Cholecystitis, acute: Status: Acute (2) Non-rheumatic aortic regurgitation: Status: Acute (3) CAD (coronary artery disease): Status: Acute (4) DMII (diabetes mellitus, type 2): Status: Acute Plan 71 year old male with multiple medical comorbidities who presented with epigastric/RUQ abd pain, clinical picture suggestive of acute cholecystitis. Patient is now asymptomatic with no abdominal pain and a negative Yung sign. He is tolerating clear liquid diet without increased pain or nausea/vomiting. Patient is easily awaiting laparoscopic cholecystectomy planned for Thursday with Dr. Slater. Continue to hold Plavix. Continue clear liquid diet. Time Spent With Patient Time: Total time managing care of this patient today ____ minutes. Quality Stroke Does the patient have a stroke diagnosis?: No VTE Prior VTE?: No VTE Risk Level:: Surgical - moderate VTE Device Contraindication: N/A - Device Ordered VTE Drug Contraindication: N/A - Med Ordered
--- NOTE | 2022-07-20 12:42 | HO.PM.IMPN ---
Subjective Subjective Date of Service: 07/20/22 Interval History: remains comfortable tolerating clear liquids. Ambulatory ad saundra in the hallway Review of Systems Denies chest pain Denies shortness of breath Denies nausea vomiting diarrhea Denies fever chills Physical Exam Vital Signs: Vital Signs: Last Vital Signs Temp 97.1 F 07/20/22 08:00 Pulse 65 07/20/22 08:00 Resp 16 07/20/22 08:00 BP 165/72 H 07/20/22 08:00 Pulse Ox 97 07/20/22 08:00 O2 Del Method 07/20/22 08:00 O2 Flow Rate 96 07/19/22 20:00 BMI result Body Mass Index 31.1 Const: Other: Awake alert oriented x3 no acute distress Resp: Other: Clear to auscultation bilaterally no rales rhonchi or wheezes Cardio: Other: No S4; positive S1-S2; no S3 murmurs rubs gallops GI: Other: Soft nontender nondistended normoactive bowel sounds Extrem: Other: No edema bilaterally Objective Data Active Medications Acetaminophen (Acetaminophen 325 Mg Tablet) 975 mg PO Q6H PRN PRN Reason: Pain, Mild (Pain Scale 1-3) Albuterol Sulfate (Albuterol Sulfate 90 Mcg 8 Gm Inhaler) 2 puff INHALE Q4H PRN PRN Reason: Wheezing Amlodipine Besylate (Amlodipine Besylate 10 Mg Tablet) 10 mg PO DAILY [facility]; Protocol Last Admin: 07/20/22 07:39 Dose: 10 mg Documented By: OLY Atorvastatin Calcium (Atorvastatin Calcium 80 Mg Tablet) 80 mg PO DAILY [facility] Last Admin: 07/20/22 07:40 Dose: 80 mg Documented By: OLY Carbidopa/Levodopa (Carbidopa/Levodopa 25/100 Tablet) 1.5 tab PO BID [facility] Last Admin: 07/20/22 07:39 Dose: 1.5 tab Documented By: OLY Divalproex Sodium (Divalproex Sodium 250 Mg Tablet.) 250 mg PO BEDTIME [facility] Last Admin: 07/19/22 20:11 Dose: 250 mg Documented By: CANDI Divalproex Sodium (Divalproex Sodium Er 500 Mg Tab.Er.24h) 500 mg PO BID [facility] Last Admin: 07/20/22 07:39 Dose: 500 mg Documented By: OLY Escitalopram Oxalate (Escitalopram Oxalate 10 Mg Tablet) 10 mg PO DAILY [facility] Last Admin: 07/20/22 07:40 Dose: 10 mg Documented By: OLY Gabapentin (Gabapentin 100 Mg Capsule) 200 mg PO BEDTIME [facility] Last Admin: 07/19/22 20:10 Dose: 200 mg Documented By: CANDI Hydrochlorothiazide (Hydrochlorothiazide 25 Mg Tablet) 25 mg PO DAILY [facility] Last Admin: 07/20/22 07:40 Dose: 25 mg Documented By: OLY Hydromorphone HCl (Hydromorphone Hcl 0.5 Mg/0.5 Ml Syringe) 0.25 mg IVPUSH Q2H PRN; Protocol PRN Reason: Pain, Moderate (Pain Scale 4-6 Ampicillin Sodium/Sulbactam (Sodium 3 gm/ Sodium Chloride) 100 mls @ 200 mls/hr IV Q8H [facility] Last Infusion: 07/20/22 08:35 Dose: 200 mls/hr Documented By: OLY Losartan Potassium (Losartan Potassium 50 Mg Tablet) 100 mg PO DAILY [facility] Last Admin: 07/20/22 07:39 Dose: 100 mg Documented By: OLY Metoprolol Succinate (Metoprolol Succinate Er 100 Mg Tab.Er.24h) 200 mg PO DAILY [facility] Last Admin: 07/20/22 07:38 Dose: 200 mg Documented By: OLY Ondansetron HCl (Ondansetron Hcl 4 Mg/2 Ml Vial) 4 mg IVPUSH Q6H PRN PRN Reason: Nausea and Vomiting Oxycodone HCl (Oxycodone Hcl Immed Release 5 Mg Tablet) 5 mg PO Q4H PRN PRN Reason: Pain, Moderate (Pain Scale 4-6 Pantoprazole Sodium (Pantoprazole Sodium 40 Mg/10 Ml Vial) 40 mg IVPUSH DAILY@0630 [facility] Last Admin: 07/20/22 05:57 Dose: 40 mg Documented By: JUSTICE Pharmacy Consult (Consult Rx Perform Med Rec) 1 each MISCELLANE ONCE PRN PRN Reason: Consult order Sodium Chloride (0.9 % Sodium Chloride Flush 3 Ml Syringe) 3 ml IVFLUSH QSHIFT [facility] Last Admin: 07/20/22 07:38 Dose: 3 ml Documented By: OLY Labs 07/18/22 06:20 07/18/22 06:20 Assessment and Plan (1) Cholecystitis, acute: Status: Acute (2) Hypomagnesemia: Status: Acute (3) HTN (hypertension): Status: Acute (4) Hyperlipidemia: Status: Acute Plan 71-year-old male with past medical history of hypertension, diabetes, CAD presents to the hospital with complaints of right upper quadrant abdominal pain found to have acute cholecystitis. Patient being evaluated and admitted by General surgery, we are consulted for medical management 1.Acute cholecystitis -Unasyn as ordered(5) -management per General surgery -hold plavix x 5 days as per Cardiology - risk assessment done; plan for OR 07/22 2.Hypomagnesemia - repleted... Normalized - follow Mag level 3.Hypertension - add Norvasc 10 mg daily - follow clinically 4.DMII -hold metformin -lispro correctional scale -adjust as indicated 5.Parkinson's? -continue carbidopa levodopa DVT prophylaxis: SCDs, management per surgical team Time Spent With Patient Time: Total time managing care of this patient today ____ minutes. Quality Stroke Does the patient have a stroke diagnosis?: No VTE Prior VTE?: No VTE Risk Level:: Surgical - moderate VTE Device Contraindication: N/A - Device Ordered VTE Drug Contraindication: N/A - Med Ordered
[2022-07-20 15:24] VITALS: BP 148/79; PULSE 71; RESP 16; TEMP 36.4; O2SAT 99
[2022-07-20 19:47] VITALS: BP 167/75; PULSE 64; RESP 18; TEMP 35.9; O2SAT 99
[2022-07-20] MEDS: Divalproex Sodium 250 MG TABLET.DR PO (20:24)
[2022-07-20] MEDS: Gabapentin 100 MG CAPSULE 200 MG PO (20:24)
[2022-07-21 02:57] VITALS: BP 148/67; PULSE 64; RESP 18; TEMP 36.3; O2SAT 94
[2022-07-21] MEDS: Pantoprazole Sodium 40 MG/10 ML VIAL IVPUSH (05:46)
[2022-07-21] MEDS: 0.9 % Sodium Chloride Flush 3 ML SYRINGE IVFLUSH ×3 (07:28→22:56)
[2022-07-21] MEDS: Ampicillin Sodium/Sulbactam Na 3 GM in 0.9 % Sodium Chloride 100 ML IV ×3 (07:28→22:55)
[2022-07-21 08:00] VITALS: BP 170/74; PULSE 67; RESP 18; TEMP 36.4; O2SAT 99
[2022-07-21 09:58] LABS: Hematocrit 33.6 % (42.0-52.0); Hemoglobin 11.9 g/dl (14.0-18.0); Mean Corpuscular HGB Conc 35.4 g/dl (31.0-36.0); Mean Corpuscular Hemoglobin 31.9 pg (27.0-33.0); Mean Corpuscular Volume 90.1 fL (80.0-98.0); Mean Platelet Volume 9.7 fL (9.4-12.4); Platelet Count 153 X10*3/uL (160-400); Red Blood Count 3.73 X10*6/uL (4.60-5.80); Red Cell Distribution Width 13.9 % (11.0-16.0); White Blood Count 4.5 X10*3/uL (4.8-10.8)
[2022-07-21] MEDS: Metoprolol Succinate ER 100 MG TAB.ER.24H 200 MG PO (10:54)
[2022-07-21] MEDS: amLODIPine Besylate 10 MG TABLET PO (10:54)
[2022-07-21] MEDS: Divalproex Sodium ER 500 MG TAB.ER.24H PO ×2 (10:54→20:55)
[2022-07-21] MEDS: hydroCHLOROthiazide 25 MG TABLET PO (10:54)
[2022-07-21] MEDS: Losartan Potassium 50 MG TABLET 100 MG PO (10:54)
[2022-07-21] MEDS: Carbidopa/Levodopa 25/100 TABLET 1.5 TAB PO ×2 (10:55→20:55)
[2022-07-21] MEDS: Escitalopram Oxalate 10 MG TABLET PO (10:55)
[2022-07-21] MEDS: Atorvastatin Calcium 80 MG TABLET PO (10:55)
[2022-07-21 10:59] LABS: Anion Gap 15 (12-20); Blood Urea Nitrogen 5 mg/dL (9-16); Calcium 8.5 mg/dL (8.4-10.2); Carbon Dioxide 26 mmol/L (22-29); Chloride 105 mmol/L (96-108); Creatinine Clr Calc Pharmacy 101.2; Estimated Glomerular Filt Rate > 60; Glucose Random 189 mg/dL (60-115); Magnesium 1.6 mg/dL (1.6-2.6); Potassium 3.8 mmol/L (3.3-5.1); Sodium 142 mmol/L (135-145)
--- NOTE | 2022-07-21 11:17 | P.PNGS_ITS ---
Subjective Subjective Date of Service: 07/21/22 <Pita Bower PA-C - Last Filed: 07/21/22 11:22> 07/21/22 <Casper Craft MD - Last Filed: 07/21/22 11:56> Interval history: No new complaints. <Pita Bower PA-C - Last Filed: 07/21/22 11:22> Physical Exam Vital Signs: Vital Signs: Last Vital Signs Temp 97.6 F 07/21/22 08:00 Pulse 67 07/21/22 08:00 Resp 18 07/21/22 08:00 BP 170/74 H 07/21/22 08:00 Pulse Ox 99 07/21/22 08:00 O2 Del Method 07/21/22 08:00 O2 Flow Rate 96 07/19/22 20:00 BMI result Body Mass Index 31.1 <Pita Bower PA-C - Last Filed: 07/21/22 11:22> Const: General: comfortable, no acute distress and alert <Pita Bower PA-C - Last Filed: 07/21/22 11:22> Orientation/consciousness: patient oriented x3 <Pita Bower PA-C - Last Filed: 07/21/22 11:22> Resp: Effort & Inspection: normal respiratory effort <Pita Bower PA-C - Last Filed: 07/21/22 11:22> GI: Inspection: No distended <Pita Bower PA-C - Last Filed: 07/21/22 11:22> Palpation (GI): Soft to palpation, Tenderness to palpation present (GI) (very mild RUQ tenderness to deep palpation), no guarding and not rigid <Pita Bower PA-C - Last Filed: 07/21/22 11:22> Skin: General skin exam: no rashes or lesions noted <BEULAH Samano Last Filed: 07/21/22 11:22> Neuro: General: patient oriented x3 and moves all extremities <Pita Bower PA-C - Last Filed: 07/21/22 11:22> Objective Data Active Medications Acetaminophen (Acetaminophen 325 Mg Tablet) 975 mg PO Q6H PRN PRN Reason: Pain, Mild (Pain Scale 1-3) Albuterol Sulfate (Albuterol Sulfate 90 Mcg 8 Gm Inhaler) 2 puff INHALE Q4H PRN PRN Reason: Wheezing Amlodipine Besylate (Amlodipine Besylate 10 Mg Tablet) 10 mg PO DAILY [facility]; Protocol Last Admin: 07/21/22 10:54 Dose: 10 mg Documented By: ZANDRA Atorvastatin Calcium (Atorvastatin Calcium 80 Mg Tablet) 80 mg PO DAILY [facility] Last Admin: 07/21/22 10:55 Dose: 80 mg Documented By: ZANDRA Carbidopa/Levodopa (Carbidopa/Levodopa 25/100 Tablet) 1.5 tab PO BID [facility] Last Admin: 07/21/22 10:55 Dose: 1.5 tab Documented By: ZANDRA Divalproex Sodium (Divalproex Sodium 250 Mg Tablet.Dr) 250 mg PO BEDTIME [facility] Last Admin: 07/20/22 20:24 Dose: 250 mg Documented By: CANDI Divalproex Sodium (Divalproex Sodium Er 500 Mg Tab.Er.24h) 500 mg PO BID [facility] Last Admin: 07/21/22 10:54 Dose: 500 mg Documented By: ZANDRA Escitalopram Oxalate (Escitalopram Oxalate 10 Mg Tablet) 10 mg PO DAILY [facility] Last Admin: 07/21/22 10:55 Dose: 10 mg Documented By: ZANDRA Gabapentin (Gabapentin 100 Mg Capsule) 200 mg PO BEDTIME [facility] Last Admin: 07/20/22 20:24 Dose: 200 mg Documented By: CANDI Hydrochlorothiazide (Hydrochlorothiazide 25 Mg Tablet) 25 mg PO DAILY [facility] Last Admin: 07/21/22 10:54 Dose: 25 mg Documented By: ZANDRA Hydromorphone HCl (Hydromorphone Hcl 0.5 Mg/0.5 Ml Syringe) 0.25 mg IVPUSH Q2H PRN; Protocol PRN Reason: Pain, Moderate (Pain Scale 4-6 Ampicillin Sodium/Sulbactam (Sodium 3 gm/ Sodium Chloride) 100 mls @ 200 mls/hr IV Q8H [facility] Last Infusion: 07/21/22 08:07 Dose: 0 mls/hr Documented By: ZANDRA Losartan Potassium (Losartan Potassium 50 Mg Tablet) 100 mg PO DAILY [facility] Last Admin: 07/21/22 10:54 Dose: 100 mg Documented By: ZANDRA Metoprolol Succinate (Metoprolol Succinate Er 100 Mg Tab.Er.24h) 200 mg PO DAILY [facility] Last Admin: 07/21/22 10:54 Dose: 200 mg Documented By: ZANDRA Ondansetron HCl (Ondansetron Hcl 4 Mg/2 Ml Vial) 4 mg IVPUSH Q6H PRN PRN Reason: Nausea and Vomiting Oxycodone HCl (Oxycodone Hcl Immed Release 5 Mg Tablet) 5 mg PO Q4H PRN PRN Reason: Pain, Moderate (Pain Scale 4-6 Pantoprazole Sodium (Pantoprazole Sodium 40 Mg/10 Ml Vial) 40 mg IVPUSH RIC LY@0630 [facility] Last Admin: 07/21/22 05:46 Dose: 40 mg Documented By: MAGNUS Pharmacy Consult (Consult Rx Perform Med Rec) 1 each MISCELLANE ONCE PRN PRN Reason: Consult order Sodium Chloride (0.9 % Sodium Chloride Flush 3 Ml Syringe) 3 ml IVFLUSH QSHIFT [facility] Last Admin: 07/21/22 07:28 Dose: 3 ml Documented By: ZANDRA <Pita Bower PA-C - Last Filed: 07/21/22 11:22> Labs CBC & Chem 7: 07/21/22 09:51 07/21/22 09:51 <Pita Bower PA-C - Last Filed: 07/21/22 11:22> Labs: Laboratory Results - last 24 hr 07/21/22 07/21/22 09:51 09:51 MCV 90.1 MCH 31.9 MCHC 35.4 RDW 13.9 Plt Count 153 L MPV 9.7 Absolute Nucleated RBC 0.000 Nucleated RBC % (auto) 0.0 Anion Gap 15 Estim Creat Clear Calc 101.2 Estimated GFR > 60 Random Glucose 189 H Calcium 8.5 Magnesium 1.6 <Pita Bower PA-C - Last Filed: 07/21/22 11:22> Microbiology Microbiology Results: Microbiology 07/15/22 20:07 Blood Culture - Final Blood - Venous No growth after 5 days. 07/15/22 20:07 Blood Culture - Final Blood - Venous No growth after 5 days. <Pita Bower PA-C - Last Filed: 07/21/22 11:22> Procedures Date of Service Date of Service: 07/21/22 <Pita Bower PA-C - Last Filed: 07/21/22 11:22> Progress Note: A&P Assessment and plan (1) Cholecystitis, acute: Status: Acute <Pita Bower PA-C - Last Filed: 07/21/22 11:22> Assessment and Plan: 71 year old male with multiple medical comorbidities who presented with epigastric/RUQ abd pain, clinical picture suggestive of acute cholecystitis. Awaiting laparoscopic cholecystectomy with possible IOC tomorrow with Dr. Slater. Continue to hold Plavix. NPO after midnight. Patient understands plan. <Pita Bower PA-C - Last Filed: 07/21/22 11:22> 71 year old male with multiple medical comorbidities who presented with epigastric/RUQ abd pain, clinical picture suggestive of acute cholecystitis. Awaiting laparoscopic cholecystectomy with possible IOC tomorrow with Dr. Slater. Continue to hold Plavix. NPO after midnight. Patient understands plan. Agree with the above assessment and plan. Patient is scheduled for surgery tomorrow. Preop orders placed. <Casper Craft MD - Last Filed: 07/21/22 11:56> Time Spent With Patient Time: Total time managing care of this patient today ____ minutes. <Pita Bower PA-C - Last Filed: 07/21/22 11:22> Quality Stroke Does the patient have a stroke diagnosis?: No <Pita Bower PA-C - Last Filed: 07/21/22 11:22> VTE Prior VTE?: No <Pita Bower PA-C - Last Filed: 07/21/22 11:22> VTE Risk Level:: Surgical - moderate <Pita Bower PA-C - Last Filed: 07/21/22 11:22> VTE Device Contraindication: N/A - Device Ordered <Pita Bower PA-C - Last Filed: 07/21/22 11:22> VTE Drug Contraindication: N/A - Med Ordered <Pita Bower PA-C - Last Filed: 07/21/22 11:22>
--- NOTE | 2022-07-21 11:55 | MHC.CM.PN ---
PLAN IS FOR [facility] SATURDAY 07/22
--- NOTE | 2022-07-21 15:11 | HO.PM.IMPN ---
Subjective Subjective Date of Service: 07/21/22 Interval History: no RUQ pain and tolerating clear liquids, no fever Review of Systems Review of Systems: Yes all other systems are reviewed and are negative Physical Exam Vital Signs: Vital Signs: Last Vital Signs Temp 97.6 F 07/21/22 08:00 Pulse 67 07/21/22 08:00 Resp 18 07/21/22 08:00 BP 170/74 H 07/21/22 08:00 Pulse Ox 99 07/21/22 08:00 O2 Del Method 07/21/22 08:00 O2 Flow Rate 96 07/19/22 20:00 BMI result Body Mass Index 31.1 Const: Other: Gen: in no acute distress HEENT: sclera anicteric, moist mucus membranes Neck: supple Lungs: clear to auscultation bilaterally Heart: regular rate and rhythm, no murmurs Abd: soft, non-tender, non-distended, no Yung sign Ext: no edema Skin: warm/well-perfused Neuro: alert and oriented x3, no focal findings Psych: appropriate affect Objective Data Active Medications Acetaminophen (Acetaminophen 325 Mg Tablet) 975 mg PO Q6H PRN PRN Reason: Pain, Mild (Pain Scale 1-3) Albuterol Sulfate (Albuterol Sulfate 90 Mcg 8 Gm Inhaler) 2 puff INHALE Q4H PRN PRN Reason: Wheezing Amlodipine Besylate (Amlodipine Besylate 10 Mg Tablet) 10 mg PO DAILY [facility]; Protocol Last Admin: 07/21/22 10:54 Dose: 10 mg Documented By: ZANDRA Atorvastatin Calcium (Atorvastatin Calcium 80 Mg Tablet) 80 mg PO DAILY [facility] Last Admin: 07/21/22 10:55 Dose: 80 mg Documented By: ZANDRA Carbidopa/Levodopa (Carbidopa/Levodopa 25/100 Tablet) 1.5 tab PO BID [facility] Last Admin: 07/21/22 10:55 Dose: 1.5 tab Documented By: ZANDRA Divalproex Sodium (Divalproex Sodium 250 Mg Tablet.Dr) 250 mg PO BEDTIME [facility] Last Admin: 07/20/22 20:24 Dose: 250 mg Documented By: CANDI Divalproex Sodium (Divalproex Sodium Er 500 Mg Tab.Er.24h) 500 mg PO BID [facility] Last Admin: 07/21/22 10:54 Dose: 500 mg Documented By: ZANDRA Escitalopram Oxalate (Escitalopram Oxalate 10 Mg Tablet) 10 mg PO DAILY [facility] Last Admin: 07/21/22 10:55 Dose: 10 mg Documented By: ZANDRA Gabapentin (Gabapentin 100 Mg Capsule) 200 mg PO BEDTIME [facility] Last Admin: 07/20/22 20:24 Dose: 200 mg Documented By: CANDI Hydrochlorothiazide (Hydrochlorothiazide 25 Mg Tablet) 25 mg PO DAILY [facility] Last Admin: 07/21/22 10:54 Dose: 25 mg Documented By: ZANDRA Hydromorphone HCl (Hydromorphone Hcl 0.5 Mg/0.5 Ml Syringe) 0.25 mg IVPUSH Q2H PRN; Protocol PRN Reason: Pain, Moderate (Pain Scale 4-6 Ampicillin Sodium/Sulbactam (Sodium 3 gm/ Sodium Chloride) 100 mls @ 200 mls/hr IV Q8H [facility] Last Infusion: 07/21/22 08:07 Dose: 0 mls/hr Documented By: ZANDRA Losartan Potassium (Losartan Potassium 50 Mg Tablet) 100 mg PO DAILY [facility] Last Admin: 07/21/22 10:54 Dose: 100 mg Documented By: ZANDRA Metoprolol Succinate (Metoprolol Succinate Er 100 Mg Tab.Er.24h) 200 mg PO DAILY [facility] Last Admin: 07/21/22 10:54 Dose: 200 mg Documented By: ZANDRA Ondansetron HCl (Ondansetron Hcl 4 Mg/2 Ml Vial) 4 mg IVPUSH Q6H PRN PRN Reason: Nausea and Vomiting Oxycodone HCl (Oxycodone Hcl Immed Release 5 Mg Tablet) 5 mg PO Q4H PRN PRN Reason: Pain, Moderate (Pain Scale 4-6 Pantoprazole Sodium (Pantoprazole Sodium 40 Mg/10 Ml Vial) 40 mg IVPUSH DAILY@0630 [facility] Last Admin: 07/21/22 05:46 Dose: 40 mg Documented By: MAGNUS Pharmacy Consult (Consult Rx Perform Med Rec) 1 each MISCELLANE ONCE PRN PRN Reason: Consult order Sodium Chloride (0.9 % Sodium Chloride Flush 3 Ml Syringe) 3 ml IVFLUSH QSHIFT [facility] Last Admin: 07/21/22 07:28 Dose: 3 ml Documented By: ZANDRA Labs 07/21/22 09:51 07/21/22 09:51 Labs: Laboratory Results - last 24 hr 07/21/22 07/21/22 09:51 09:51 MCV 90.1 MCH 31.9 MCHC 35.4 RDW 13.9 Plt Count 153 L MPV 9.7 Absolute Nucleated RBC 0.000 Nucleated RBC % (auto) 0.0 Anion Gap 15 Estim Creat Clear Calc 101.2 Estimated GFR > 60 Random Glucose 189 H Calcium 8.5 Magnesium 1.6 Microbiology Microbiology Results: Microbiology 07/15/22 20:07 Blood Culture - Final Blood - Venous No growth after 5 days. 07/15/22 20:07 Blood Culture - Final Blood - Venous No growth after 5 days. Assessment and Plan (1) Cholecystitis, acute: Status: Acute (2) Hypomagnesemia: Status: Acute (3) HTN (hypertension): Status: Acute (4) Hyperlipidemia: Status: Acute Plan 71 year-old male with past medical history of hypertension, diabetes, and CAD who presented to the hospital with complaints of right upper quadrant abdominal pain and was found to have acute cholecystitis and admitted to the General Surgery service with Medicine consultation # acute cholecystitis - ampicillin-sulbactam d#6 - plan lap gris tomorrow - Cardiology consulted, clopidogrel on hold x5d # CAD - cath 2018: patent mid-LAD stent, mild-mod nonobstructive CAD in LAD + RAC; severe stenosis in distal circumflex s/p [place] - TTE 2020 with LVEF 55-60%, no WMA, calcification/thickening of R coronary cusp with mobile calcium; moderate aortic regurgitation - unmodifiable perioperative risk - clopidogrel on hold as above; continue metoprolol succinate + atorvastatin # hypoMg - repleted # HTN - metoprolol succinate, amlodipine, HCTZ, losartan # DM2 - hold MTF, continue correction-dose lispro # Parkinsonism - continue Sinemet # mood disorder - continue escitalopram + divalproex # VTE ppx: SCDs # dispo: TBD In my clinical judgment, the patient requires continued inpatient hospitalization for the following reasons: operative intervention + IV ABX Time Spent With Patient Time: Total time managing care of this patient today _40___ minutes. Quality Stroke Does the patient have a stroke diagnosis?: No VTE Prior VTE?: No VTE Risk Level:: Surgical - moderate VTE Device Contraindication: N/A - Device Ordered VTE Drug Contraindication: N/A - Med Ordered
[2022-07-21 15:54] VITALS: BP 147/68; PULSE 63; RESP 16; TEMP 36.3; O2SAT 99
[2022-07-21 20:00] VITALS: BP 160/70; PULSE 74; RESP 16; TEMP 36.6; O2SAT 96
[2022-07-21] MEDS: Gabapentin 100 MG CAPSULE 200 MG PO (20:55)
[2022-07-21] MEDS: Divalproex Sodium 250 MG TABLET.DR PO (20:55)
[2022-07-22] VITALS (12 sets, daily range): BP systolic 117–196; BP diastolic 45–70; PULSE 57–71; RESP 11–18; TEMP 35.9–36.6; O2SAT 96–100
[2022-07-22] MEDS: Pantoprazole Sodium 40 MG/10 ML VIAL IVPUSH (05:43)
[2022-07-22] MEDS: 0.9 % Sodium Chloride Flush 3 ML SYRINGE IVFLUSH (07:15)
[2022-07-22] MEDS: Ampicillin Sodium/Sulbactam Na 3 GM in 0.9 % Sodium Chloride 100 ML IV (07:16)
--- NOTE | 2022-07-22 08:00 | MHC.SHP ---
Pre-Procedural Eval Section A Date of Service: 07/22/22 The patient is an INPATIENT: Yes The History & Physical has been completed within 30 days and I have reviewed it.: Yes Section B Chief Complaint: Acute Cholecystitis Allergies: Allergies Allergy/AdvReac Type Severity Reaction Status Date / Time No Known Allergies Allergy Verified 07/15/22 12:58 Plan I have reviewed the history and physical and performed a pertinent physical examination on my patient. No changes have occurred unless specified. Time Spent With Patient Time: Total time managing care of this patient today ____ minutes.
--- NOTE | 2022-07-22 08:01 | P.PNGS_ITS ---
Subjective Subjective Date of Service: 07/22/22 Patient reports: no new complaints and feels better Interval history: Chart is reviewed. The patient is seen in follow-up with the plan to perform a laparoscopic cholecystectomy, possibly open and possible cholangiogram due to likely acute calculous cholecystitis. The patient denies interval change to any symptoms and notes that he is actually feeling a little better. He has no chest pain, difficulty breathing, shortness of breath or localizing neurologic symptoms. Physical Exam Vital Signs: Vital Signs: Last Vital Signs Temp 97 F 07/22/22 03:40 Pulse 59 07/22/22 03:40 Resp 18 07/22/22 03:40 BP 158/70 H 07/22/22 03:40 Pulse Ox 98 07/22/22 03:40 O2 Del Method 07/22/22 03:40 O2 Flow Rate 96 07/19/22 20:00 BMI result Body Mass Index 31.1 On exam he is nontoxic Sclera are anicteric Abdomen is soft, obese with a diastasis recti and right upper quadrant tenderness with no guarding Objective Data Active Medications Acetaminophen (Acetaminophen 325 Mg Tablet) 975 mg PO Q6H PRN PRN Reason: Pain, Mild (Pain Scale 1-3) Albuterol Sulfate (Albuterol Sulfate 90 Mcg 8 Gm Inhaler) 2 puff INHALE Q4H PRN PRN Reason: Wheezing Amlodipine Besylate (Amlodipine Besylate 10 Mg Tablet) 10 mg PO DAILY [facility]; Protocol Last Admin: 07/21/22 10:54 Dose: 10 mg Documented By: ZANDRA Atorvastatin Calcium (Atorvastatin Calcium 80 Mg Tablet) 80 mg PO DAILY [facility] Last Admin: 07/21/22 10:55 Dose: 80 mg Documented By: ZANDRA Carbidopa/Levodopa (Carbidopa/Levodopa 25/100 Tablet) 1.5 tab PO BID [facility] Last Admin: 07/21/22 20:55 Dose: 1.5 tab Documented By: MAGNUS Divalproex Sodium (Divalproex Sodium 250 Mg Tablet.Dr) 250 mg PO BEDTIME [facility] Last Admin: 07/21/22 20:55 Dose: 250 mg Documented By: MAGNUS Divalproex Sodium (Divalproex Sodium Er 500 Mg Tab.Er.24h) 500 mg PO BID [facility] Last Admin: 07/21/22 20:55 Dose: 500 mg Documented By: MAGNUS Escitalopram Oxalate (Escitalopram Oxalate 10 Mg Tablet) 10 mg PO DAILY [facility] Last Admin: 07/21/22 10:55 Dose: 10 mg Documented By: ZANDRA Gabapentin (Gabapentin 100 Mg Capsule) 200 mg PO BEDTIME [facility] Last Admin: 07/21/22 20:55 Dose: 200 mg Documented By: MAGNUS Hydrochlorothiazide (Hydrochlorothiazide 25 Mg Tablet) 25 mg PO DAILY [facility] Last Admin: 07/21/22 10:54 Dose: 25 mg Documented By: ZANDRA Hydromorphone HCl (Hydromorphone Hcl 0.5 Mg/0.5 Ml Syringe) 0.25 mg IVPUSH Q2H PRN; Protocol PRN Reason: Pain, Moderate (Pain Scale 4-6 Ampicillin Sodium/Sulbactam (Sodium 3 gm/ Sodium Chloride) 100 mls @ 200 mls/hr IV Q8H [facility] Last Infusion: 07/22/22 07:43 Dose: 0 mls/hr Documented By: ZANDRA Losartan Potassium (Losartan Potassium 50 Mg Tablet) 100 mg PO DAILY [facility] Last Admin: 07/21/22 10:54 Dose: 100 mg Documented By: ZANDRA Metoprolol Succinate (Metoprolol Succinate Er 100 Mg Tab.Er.24h) 200 mg PO DAILY [facility] Last Admin: 07/21/22 10:54 Dose: 200 mg Documented By: ZANDRA Ondansetron HCl (Ondansetron Hcl 4 Mg/2 Ml Vial) 4 mg IVPUSH Q6H PRN PRN Reason: Nausea and Vomiting Oxycodone HCl (Oxycodone Hcl Immed Release 5 Mg Tablet) 5 mg PO Q4H PRN PRN Reason: Pain, Moderate (Pain Scale 4-6 Pantoprazole Sodium (Pantoprazole Sodium 40 Mg/10 Ml Vial) 40 mg IVPUSH DAILY@0630 [facility] Last Admin: 07/22/22 05:43 Dose: 40 mg Documented By: MAGNUS Pharmacy Consult (Consult Rx Perform Med Rec) 1 each MISCELLANE ONCE PRN PRN Reason: Consult order Sodium Chloride (0.9 % Sodium Chloride Flush 3 Ml Syringe) 3 ml IVFLUSH QSHIFT [facility] Last Admin: 07/22/22 07:15 Dose: 3 ml Documented By: ZANDRA Labs 07/21/22 09:51 07/21/22 09:51 Labs: Laboratory Results - last 24 hr 07/21/22 07/21/22 09:51 09:51 MCV 90.1 MCH 31.9 MCHC 35.4 RDW 13.9 Plt Count 153 L MPV 9.7 Absolute Nucleated RBC 0.000 Nucleated RBC % (auto) 0.0 Anion Gap 15 Estim Creat Clear Calc 101.2 Estimated GFR > 60 Random Glucose 189 H Calcium 8.5 Magnesium 1.6 Procedures Date of Service Date of Service: 07/22/22 Progress Note: A&P Assessment and plan (1) Cholecystitis, acute: Status: Acute (2) CAD (coronary artery disease): Status: Acute (3) DMII (diabetes mellitus, type 2): Status: Acute (4) Vascular disease of abdomen: Status: Acute (5) Hyperlipidemia: Status: Acute (6) H/O bariatric surgery: Status: Acute (7) HTN (hypertension): Status: Acute (8) COPD (chronic obstructive pulmonary disease): Status: Acute (9) ERNESTO (obstructive sleep apnea): Status: Acute (10) Anticoagulated: Status: Acute Plan NPO except meds The patient agrees to laparoscopic cholecystectomy, possibly open and possible cholangiogram this afternoon. The inherent risks to surgery which include, but are not limited to: Bleeding that could require another operation or blood transfusion, the need for open surgery, the unlikely but possible issue of bile leak that could require an ERCP, the risk of retained common duct stones that could require an ERCP, the risk of common bile duct injury which would require t ransfer to a larger institution for another operation. Patient seemed to understand her options, declined a datastage consultant or 2nd opinion and wants to proceed. Please have patient void his urinary bladder confidential secretary. I have the OR consent on my person. Continue antibiotics and SCDs. Will need to keep the patient overnight due to bleeding concerns. Time Spent With Patient Time: Total time managing care of this patient today ____ minutes. Quality Stroke Does the patient have a stroke diagnosis?: No VTE Prior VTE?: No VTE Risk Level:: Surgical - moderate VTE Device Contraindication: N/A - Device Ordered VTE Drug Contraindication: N/A - Med Ordered
--- NOTE | 2022-07-22 09:20 | W.PM.OPN ---
Operative Note Operative Note Date of Service: 07/22/22 Narrative: Preop diagnosis: [Acute cholecystitis] Postop diagnosis: [Same, dense adhesions to the right upper quadrant from the omentum to the gallbladder] Procedure: [Laparoscopic cholecystectomy, lysis of adhesions] Surgeon: Frederick Slater MD Assist: [Glenis Warren PA-C; Karin Negrete PA-C] Anesthesia: [GET; Marcaine, 0.5% with epi] Estimated blood loss: [3cc] Drain: RENZO in Morison's Pouch Specimen: [1) GB with contents; 2) GB culture & Gram stain] Intraoperative findings: [Dense adhesions from the omentum to the gallbladder and liver; milk of bile vs purulent bile. Cystic duct was fibrous & 5-6mm OD/3-4mm ID; cystic artery was 4-5mm OD/2-3mm ID] Indications: [The patient is a 71-year-old gentleman with type 2 diabetes, vasculopathy, coronary artery disease who is maintained on Plavix because of his vascular disease. 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 The patient presented to the emergency department at [facility] with abdominal pain and after failure of his pain to resolve, HIDA scan confirmed nonvisualization of the gallbladder. Given his recent Plavix dosing, he was kept in the hospital on clear liquids to minimize postoperative bleeding issues by allowing his Plavix to be processed out of his system/new platelet production. Given the potential disaster & increased risk to the patient, outpatient management was deemed unsafe & inappropriate. Given his ongoing pain, the option of being transferred to a different hospital where his regular physicians are available was discussed versus the option of cholecystectomy here. The patient wanted to proceed with my recommendation for a laparoscopic, possible open cholecystectomy and possible cholangiogram. We reviewed the inherent risks to surgery which include, but are not limited to: Bleeding that could require another operation or blood, platelet or plasma transfusion & his increased risk for bleeding given Plavix; the need for open surgery; the unlikely but possible issue of bile leak or retained CBD stones that could require an ERCP; the risk of common bile duct injury which would require transfer to a larger institution for another operation with an hepatobiliary surgeron. I also explained that his comorbidities of vascular disease, DM2, and others increase his risk for unexpected complications such as CVA, NH, other organ dysfunction that could require transfer to the intensive care unit and may even cause . The patient seemed understand his options and we again discussed transferring him to a larger institution which he declined. Patient seemed to understand his options, declined a recreational specialist or 2nd opinion and wants to proceed.] Procedure: [The patient was identified in the preoperative holding area by myself and again in the operating room Rm 3. He voided his urinary bladder business continuity consultant to the OR, sequential compression stockings were in place and he had been maintained on Unasyn since admission and received his afternoon dose in the operating room. The patient was induced in general endotracheal anesthesia administered with excellent effect. An appropriate time-out was performed. A footboard was utilized. The patient's abdomen was widely prepped and draped in the usual manner for surgery using chlorprep. Preemptive local was used at all trocar insertion sites. Again at the supraumbilical location and after infiltrating local, made a stab incision and placed a Veress needle without difficulty. An appropriate drop test was performed and a pneumoperitoneum of 15 mmHg was obtained using carbon dioxide. opening pressure was 7 mmHg. Next, the needle was withdrawn and a 5 mm/30 degree laparoscoped over Optiview trocar was used to access the abdomen without incident. Upon examining the abdomen, there was no evidence of injury from the Veress needle or trocar. Next, 5 mm trocars were placed in the epigastric, subcostal and right anterior axillary line just above the line of the umbilicus. Under direct laparoscopic vision, the 5 mm umbilical port was upsized to a 12 mm. The patient was then positioned in reverse Trendelenburg position and banked left. The gallbladder was covered with omentum that was densely adherent from the fundus to the cystic triangle. Careful lysis of adhesions using electrocautery, first, then LigaSure 5mm [place] tip was performed and added 46 minutes to the OR case. Once this was done, the gallbladder was identified and grasped by its fundus. It was retracted cranially and anteriorly and dissection was carefully carried into the cystic triangle. The cystic duct was identified at its junction on the gallbladder and dissection began laterally, then circumferentially dissected using the [place] dissector and hook. The cystic artery was then carefully identified and circumferentially dissected. Once dissection of both structures was complete and the critical view of safety demonstrated, the duct and artery were double clipped proximally and once distally and sharply divided. The fibrosis that was present made both structures appear to have a larger outside diameter (OD) than the inner diameter (ID) as described in the operative findings. Electrocautery was used to remove the gallbladder from its fossa on the liver, and during dissection, milk of bile verses purulence was demonstrated from a rent in the gallbladder. Liver bed was inspected for hemostasis and the clips were noted to be on the respective structures. The gallbladder was placed in an Endo-Catch bag and delivered through the umbilicus under direct laparoscopic vision. The abdomen was again inspected with the laparoscoped and a abdomen deflated to assess for hemostasis. Copious irrigation of sterile saline was used in the right upper quadrant. Suction irrigation was used to remove clot from the operative field in the right upper quadrant. Next, a flat, 10 mm RENZO drain was inserted in Morison's pouch under direct laparoscopic vision and brought through the inferior most 5 mm trocar in the right abdomen. The patient was returned to neutral position, the abdomen deflated and the fascia of the supraumbilical incision closed with interrupted Vicryl sutures. Skin was closed with 4-0 Monocryl subcuticular sutures. The drain was secured to the patient's skin with a 2-0 silk suture Mastisol and Steri-Strips were applied followed by Band-Aids. The patient tolerated the procedure well and was extubated recovered in stable condition. All sponge instrument counts were correct x2.]
[2022-07-22] MEDS: Carbidopa/Levodopa 25/100 TABLET 1.5 TAB PO ×2 (09:31→20:38)
[2022-07-22] MEDS: Atorvastatin Calcium 80 MG TABLET PO (09:31)
[2022-07-22] MEDS: Escitalopram Oxalate 10 MG TABLET PO (09:31)
[2022-07-22] MEDS: Losartan Potassium 50 MG TABLET 100 MG PO (09:31)
[2022-07-22] MEDS: Metoprolol Succinate ER 100 MG TAB.ER.24H 200 MG PO (09:31)
[2022-07-22] MEDS: hydroCHLOROthiazide 25 MG TABLET PO (09:32)
[2022-07-22] MEDS: amLODIPine Besylate 10 MG TABLET PO (09:33)
[2022-07-22] MEDS: Divalproex Sodium ER 500 MG TAB.ER.24H PO ×2 (09:33→20:38)
--- NOTE | 2022-07-22 11:52 | P.PNIM_ITS ---
Subjective Subjective Date of Service: 07/22/22 Interval History: no RUQ pain NPO for OR today no fever Review of Systems Review of Systems: Yes all other systems are reviewed and are negative Physical Exam Vital Signs: Vital Signs: Last Vital Signs Temp 97.8 F 07/22/22 08:00 Pulse 57 07/22/22 08:00 Resp 17 07/22/22 08:00 BP 151/66 H 07/22/22 08:00 Pulse Ox 96 07/22/22 08:00 O2 Del Method 07/22/22 08:00 O2 Flow Rate 96 07/19/22 20:00 BMI result Body Mass Index 31.1 Gen: in no acute distress HEENT: sclera anicteric, moist mucus membranes Neck: supple Lungs: clear to auscultation bilaterally Heart: regular rate and rhythm, no murmurs Abd: soft, non-tender, non-distended, no Yung sign Ext: no edema Skin: warm/well-perfused Neuro: alert and oriented x3, no focal findings Psych: appropriate affect Objective Data Active Medications Acetaminophen (Acetaminophen 325 Mg Tablet) 975 mg PO Q6H PRN PRN Reason: Pain, Mild (Pain Scale 1-3) Albuterol Sulfate (Albuterol Sulfate 90 Mcg 8 Gm Inhaler) 2 puff INHALE Q4H PRN PRN Reason: Wheezing Amlodipine Besylate (Amlodipine Besylate 10 Mg Tablet) 10 mg PO DAILY [facility]; Protocol Last Admin: 07/22/22 09:33 Dose: 10 mg Documented By: ZANDRA Atorvastatin Calcium (Atorvastatin Calcium 80 Mg Tablet) 80 mg PO DAILY [facility] Last Admin: 07/22/22 09:31 Dose: 80 mg Documented By: ZANDRA Carbidopa/Levodopa (Carbidopa/Levodopa 25/100 Tablet) 1.5 tab PO BID [facility] Last Admin: 07/22/22 09:31 Dose: 1.5 tab Documented By: ZANDRA Divalproex Sodium (Divalproex Sodium 250 Mg Tablet.) 250 mg PO BEDTIME [facility] Last Admin: 07/21/22 20:55 Dose: 250 mg Documented By: MAGNUS Divalproex Sodium (Divalproex Sodium Er 500 Mg Tab.Er.24h) 500 mg PO BID [facility] Last Admin: 07/22/22 09:33 Dose: 500 mg Documented By: ZANDRA Escitalopram Oxalate (Escitalopram Oxalate 10 Mg Tablet) 10 mg PO DAILY [facility] Last Admin: 07/22/22 09:31 Dose: 10 mg Documented By: ZANDRA Gabapentin (Gabapentin 100 Mg Capsule) 200 mg PO BEDTIME [facility] Last Admin: 07/21/22 20:55 Dose: 200 mg Documented By: MAGNUS Hydrochlorothiazide (Hydrochlorothiazide 25 Mg Tablet) 25 mg PO DAILY [facility] Last Admin: 07/22/22 09:32 Dose: 25 mg Documented By: ZANDRA Hydromorphone HCl (Hydromorphone Hcl 0.5 Mg/0.5 Ml Syringe) 0.25 mg IVPUSH Q2H PRN; Protocol PRN Reason: Pain, Moderate (Pain Scale 4-6 Ampicillin Sodium/Sulbactam (Sodium 3 gm/ Sodium Chloride) 100 mls @ 200 mls/hr IV Q8H [facility] Last Infusion: 07/22/22 07:43 Dose: 0 mls/hr Documented By: ZANDRA Losartan Potassium (Losartan Potassium 50 Mg Tablet) 100 mg PO DAILY [facility] Last Admin: 07/22/22 09:31 Dose: 100 mg Documented By: ZANDRA Metoprolol Succinate (Metoprolol Succinate Er 100 Mg Tab.Er.24h) 200 mg PO DAILY [facility] Last Admin: 07/22/22 09:31 Dose: 200 mg Documented By: ZANDRA Ondansetron HCl (Ondansetron Hcl 4 Mg/2 Ml Vial) 4 mg IVPUSH Q6H PRN PRN Reason: Nausea and Vomiting Oxycodone HCl (Oxycodone Hcl Immed Release 5 Mg Tablet) 5 mg PO Q4H PRN PRN Reason: Pain, Moderate (Pain Scale 4-6 Pantoprazole Sodium (Pantoprazole Sodium 40 Mg/10 Ml Vial) 40 mg IVPUSH DAILY@0630 [facility] Last Admin: 07/22/22 05:43 Dose: 40 mg Documented By: MAGNUS Pharmacy Consult (Consult Rx Perform Med Rec) 1 each MISCELLANE ONCE PRN PRN Reason: Consult order Sodium Chloride (0.9 % Sodium Chloride Flush 3 Ml Syringe) 3 ml IVFLUSH QSHIFT [facility] Last Admin: 07/22/22 07:15 Dose: 3 ml Documented By: ZANDRA Labs 07/21/22 09:51 07/21/22 09:51 Assessment and Plan (1) Cholecystitis, acute: Status: Acute (2) Hypomagnesemia: Status: Acute (3) HTN (hypertension): Status: Acute (4) Hyperlipidemia: Status: Acute Plan 71 year-old male with past medical history of hypertension, diabetes, and CAD who presented to the hospital with complaints of right upper quadrant abdominal pain and was found to have acute cholecystitis and admitted to the General Surgery service with Medicine consultation # acute cholecystitis - ampicillin-sulbactam d#7 - plan lap gris today - Cardiology consulted, clopidogrel on hold x5d pre-op # CAD - cath 2018: patent mid-LAD stent, mild-mod nonobstructive CAD in LAD + RAC; severe stenosis in distal circumflex s/p [place] - TTE 2020 with LVEF 55-60%, no WMA, calcification/thickening of R coronary cusp with mobile calcium; moderate aortic regurgitation - unmodifiable perioperative risk - clopidogrel on hold as above; continue metoprolol succinate + atorvastatin # hypoMg - repleted # HTN - metoprolol succinate, amlodipine, HCTZ, losartan # DM2 - hold MTF, continue correction-dose lispro # Parkinsonism - continue Sinemet # mood disorder - continue escitalopram + divalproex # VTE ppx: SCDs # dispo: TBD In my clinical judgment, the patient requires continued inpatient hospita lization for the following reasons: operative intervention + IV ABX Time Spent With Patient Time: Total time managing care of this patient today __30__ minutes. Quality Stroke Does the patient have a stroke diagnosis?: No VTE Prior VTE?: No VTE Risk Level:: Surgical - moderate VTE Device Contraindication: N/A - Device Ordered VTE Drug Contraindication: N/A - Med Ordered
--- NOTE | 2022-07-22 12:59 | MHC.CM.PN ---
PLAN IS GALLBLADDER REMOVAL TODAY
[2022-07-22 13:48] LABS: Glucose, Whole Blood 142 mg/dL (60-115)
--- NOTE | 2022-07-22 14:31 | HO.ANESPROP2 ---
HPI - Anesthesia Eval Consult details Narrative: 71 yr old male for lap gris PMFSH Active Problems Active Problems: All Active Problems (Updated 07/22/22 @ 08:04 by Frederick Slater MD) Cholecystitis, acute (Acute) Acute dehydration (Acute) Lactic acid acidosis (Acute) Hypomagnesemia (Acute) Preoperative cardiovascular examination (Acute) Anticoagulated (Acute) ERNESTO (obstructive sleep apnea) (Acute) COPD (chronic obstructive pulmonary disease) (Acute) Non-rheumatic aortic regurgitation (Acute) CAD (coronary artery disease) (Acute) DMII (diabetes mellitus, type 2) (Acute) Vascular disease of abdomen (Acute) Hyperlipidemia (Acute) H/O bariatric surgery (Acute) HTN (hypertension) (Acute) Past Medical History Medical History Asthma CAD (coronary artery disease) COPD (chronic obstructive pulmonary disease) Cryptogenic stroke DMII (diabetes mellitus, type 2) HTN (hypertension) Hyperlipidemia Non-rheumatic aortic regurgitation ERNESTO (obstructive sleep apnea) Presence of stent in LAD coronary artery Stroke Vascular disease of abdomen Family History Family History (Updated 07/17/22 @ 09:52 by Tone Gutierres MD) Father CAD (coronary artery disease) Mother Lung cancer Family history of problems with anesthesia: No Surgical History Surgical History (Updated 07/22/22 @ 13:37 by Meghan Woods, GALINA) H/O bariatric surgery H/O heart artery stent History of AAA (abdominal aortic aneurysm) repair History of lung surgery History of Problems with Anesthesia: No Social History Social History (Updated 07/16/22 @ 05:42 by Opal King MD) Household Members: None Housing: House Do you presently have visiting nurse or other home services: No Alcohol intake: never Patient Tobacco Use Status: Former Tobacco user Quit Date: 20 yrs ago Second Hand Smoke Exposure: No service: No Current occupational status: retired Meds Allergies Allergy/AdvReac Type Severity Reaction Status Date / Time No Known Allergies Allergy Verified 07/15/22 12:58 Active Medications: Current Medications Acetaminophen (Acetaminophen 325 Mg Tablet) 975 mg PO Q6H PRN PRN Reason: Pain, Mild (Pain Scale 1-3) Albuterol Sulfate (Albuterol Sulfate 90 Mcg 8 Gm Inhaler) 2 puff INHALE Q4H PRN PRN Reason: Wheezing Amlodipine Besylate (Amlodipine Besylate 10 Mg Tablet) 10 mg PO DAILY [facility]; Protocol Last Admin: 07/22/22 09:33 Dose: 10 mg Atorvastatin Calcium (Atorvastatin Calcium 80 Mg Tablet) 80 mg PO DAILY [facility] Last Admin: 07/22/22 09:31 Dose: 80 mg Carbidopa/Levodopa (Carbidopa/Levodopa 25/100 Tablet) 1.5 tab PO BID [facility] Last Admin: 07/22/22 09:31 Dose: 1.5 tab Divalproex Sodium (Divalproex Sodium 250 Mg Tablet.Dr) 250 mg PO BEDTIME [facility] Last Admin: 07/21/22 20:55 Dose: 250 mg Divalproex Sodium (Divalproex Sodium Er 500 Mg Tab.Er.24h) 500 mg PO BID [facility] Last Admin: 07/22/22 09:33 Dose: 500 mg Escitalopram Oxalate (Escitalopram Oxalate 10 Mg Tablet) 10 mg PO DAILY [facility] Last Admin: 07/22/22 09:31 Dose: 10 mg Gabapentin (Gabapentin 100 Mg Capsule) 200 mg PO BEDTIME [facility] Last Admin: 07/21/22 20:55 Dose: 200 mg Hydrochlorothiazide (Hydrochlorothiazide 25 Mg Tablet) 25 mg PO DAILY [facility] Last Admin: 07/22/22 09:32 Dose: 25 mg Hydromorphone HCl (Hydromorphone Hcl 0.5 Mg/0.5 Ml Syringe) 0.25 mg IVPUSH Q2H PRN; Protocol PRN Reason: Pain, Moderate (Pain Scale 4-6 Ampicillin Sodium/Sulbactam (Sodium 3 gm/ Sodium Chloride) 100 mls @ 200 mls/hr IV Q8H [facility] Last Infusion: 07/22/22 07:43 Dose: Infused Losartan Potassium (Losartan Potassium 50 Mg Tablet) 100 mg PO DAILY [facility] Last Admin: 07/22/22 09:31 Dose: 100 mg Metoprolol Succinate (Metoprolol Succinate Er 100 Mg Tab.Er.24h) 200 mg PO DAILY [facility] Last Admin: 07/22/22 09:31 Dose: 200 mg Ondansetron HCl (Ondansetron Hcl 4 Mg/2 Ml Vial) 4 mg IVPUSH Q6H PRN PRN Reason: Nausea and Vomiting Oxycodone HCl (Oxycodone Hcl Immed Release 5 Mg Tablet) 5 mg PO Q4H PRN PRN Reason: Pain, Moderate (Pain Scale 4-6 Pantoprazole Sodium (Pantoprazole Sodium 40 Mg/10 Ml Vial) 40 mg IVPUSH DAILY@0630 [facility] Last Admin: 07/22/22 05:43 Dose: 40 mg Pharmacy Consult (Consult Rx Perform Med Rec) 1 each MISCELLANE ONCE PRN PRN Reason: Consult order Sodium Chloride (0.9 % Sodium Chloride Flush 3 Ml Syringe) 3 ml IVFLUSH QSHIFT [facility] Last Admin: 07/22/22 07:15 Dose: 3 ml Home Medications Medication Instructions Recorded Confirmed Last Taken Type albuterol sulfate 90 mcg/actuation 2 puff inhalation Q4-6H PRN 07/15/22 07/15/22 07/14/22 History aerosol inhaler Wheezing atorvastatin 80 mg tablet 1 tab PO DAILY 07/15/22 07/15/22 07/14/22 History carbidopa 25 mg-levodopa 100 mg 1.5 tab PO BID 07/15/22 07/16/22 07/14/22 History tablet citalopram 20 mg tablet 1 tab PO DAILY 07/15/22 07/15/22 07/14/22 History clopidogrel 75 mg tablet 1 tab PO DAILY 07/15/22 07/15/22 07/14/22 History divalproex 500 mg tablet,extended 2 tab PO BID 07/15/22 07/16/22 07/14/22 History release 24 hr gabapentin 100 mg capsule 2 cap PO BEDTIME 07/15/22 07/16/22 07/14/22 History losartan 100 1 tab PO DAILY 07/15/22 07/15/22 Unknown History mg-hydrochlorothiazide 25 mg tablet metformin 500 mg tablet 1 tab PO BID 07/15/22 07/15/22 Unknown History nebivolol 10 mg tablet (Bystolic) 1 tab PO DAILY 07/15/22 07/15/22 Unknown History divalproex 250 mg tablet,delayed 1 tab PO BEDTIME 07/16/22 07/16/22 07/14/22 History release Exam Exam Date and Time: July 22, 2022 1431 Height,Weight and Vital Signs: Height 6 ft Weight 104.326 kg Last Vital Signs Temp 97.5 F 07/22/22 13:20 Pulse 64 07/22/22 13:20 Resp 15 07/22/22 13:20 BP 117/58 L 07/22/22 13:20 Pulse Ox 97 07/22/22 13:20 O2 Del Method 07/22/22 13:20 O2 Flow Rate 96 07/19/22 20:00 Pertinent Lab Results Pertinent Lab Results: Laboratory Tests 07/15/22 07/15/22 07/15/22 13:13 13:13 13:13 WBC 13.3 H RBC 4.09 L Hgb 12.9 L Hct 37.3 L MCV 91.2 MCH 31.5 MCHC 34.6 RDW 13.6 Plt Count 199 MPV 9.9 Immature Gran % (Auto) 0.7 H Neut % (Auto) 85.1 H Lymph % (Auto) 8.0 L Will % (Auto) 5.7 Eos % (Auto) 0.2 Baso % (Auto) 0.3 Lymph # (Auto) 1.1 L Will # (Auto) 0.8 Eos # (Auto) 0.0 Baso # (Auto) 0.0 Abs Immat Gran (auto) 0.09 H Absolute Neuts (auto) 11.3 H Absolute Nucleated RBC 0.000 Nucleated RBC % (auto) 0.0 PT INR APTT Sodium 137 Potassium 4.4 Chloride 100 Carbon Dioxide 23 Anion Gap 18 BUN 13 Creatinine 0.89 Estim Creat Clear Calc 97.8 Estimated GFR > 60 POC Glucose Random Glucose 222 H Estimat Average Glucose Hemoglobin A1c % Lactic Acid Lactic Acid F/U @ 2Hr Calcium 9.1 Magnesium 1.5 L Total Bilirubin 1.0 Direct Bilirubin 0.2 AST 23 ALT 31 Alkaline Phosphatase 103 Total Protein 7.8 Albumin 4.2 Prealbumin 31.0 Lipase 22 Urine Color Urine Appearance Urine pH Ur Specific [place] Urine Protein Urine Glucose (UA) Urine Ketones Urine Blood Urine Nitrite Ur Leukocyte Esterase Urine RBC Urine WBC Ur Squamous Epith Cells Urine Bacteria Hyaline Casts COVID-19 ([facility]) COVID-19 Clin Com Influenza Type A (BO) Negative Influenza Type B (BO) Negative Influenza A & B Note See Note 07/15/22 07/15/22 07/15/22 13:13 16:49 20:07 WBC RBC Hgb Hct MCV MCH MCHC RDW Plt Count MPV Immature Gran % (Auto) Neut % (Auto) Lymph % (Auto) Will % (Auto) Eos % (Auto) Baso % (Auto) Lymph # (Auto) Will # (Auto) Eos # (Auto) Baso # (Auto) Abs Immat Gran (auto) Absolute Neuts (auto) Absolute Nucleated RBC Nucleated RBC % (auto) PT INR APTT Sodium Potassium Chloride Carbon Dioxide Anion Gap BUN Creatinine Estim Creat Clear Calc Estimated GFR POC Glucose Random Glucose Estimat Average Glucose Hemoglobin A1c % Lactic Acid 3.4 H* Lactic Acid F/U @ 2Hr Calcium Magnesium Total Bilirubin Direct Bilirubin AST ALT Alkaline Phosphatase Total Protein Albumin Prealbumin Lipase Urine Color Yellow Urine Appearance Clear Urine pH 5.5 Ur Specific [place] >= 1.030 H Urine Protein 100 (2+) H Urine Glucose (UA) 100 H Urine Ketones 15 Urine Blood Negative Urine Nitrite Negative Ur Leukocyte Esterase Negative Urine RBC 0-2 Urine WBC 0-5 Ur Squamous Epith Cells 0-2 Urine Bacteria None Seen Hyaline Casts 0-2 COVID-19 ([facility]O) Negative COVID-19 Clin Com See Note Influenza Type A (BO) Influenza Type B (BO) Influenza A & B Note 07/15/22 07/15/22 07/16/22 20:07 20:07 06:17 WBC 5.8 RBC 3.38 L Hgb 10.9 L Hct 31.5 L MCV 93.2 MCH 32.2 MCHC 34.6 RDW 14.0 Plt Count 163 MPV 10.3 Immature Gran % (Auto) 0.5 H Neut % (Auto) 65.8 Lymph % (Auto) 20.1 Will % (Auto) 10.7 Eos % (Auto) 2.6 Baso % (Auto) 0.3 Lymph # (Auto) 1.2 Will # (Auto) 0.6 Eos # (Auto) 0.2 Baso # (Auto) 0.0 Abs Immat Gran (auto) 0.03 Absolute Neuts (auto) 3.8 Absolute Nucleated RBC 0.000 Nucleated RBC % (auto) 0.0 PT INR APTT Sodium Potassium Chloride Carbon Dioxide Anion Gap BUN Creatinine Estim Creat Clear Calc Estimated GFR POC Glucose Random Glucose Estimat Average Glucose 174 Hemoglobin A1c % 7.7 Lactic Acid Lactic Acid F/U @ 2Hr 2.4 H* Calcium Magnesium Total Bilirubin Direct Bilirubin AST ALT Alkaline Phosphatase Total Protein Albumin Prealbumin Lipase Urine Color Urine Appearance Urine pH Ur Specific [place] Urine Protein Urine Glucose (UA) Urine Ketones Urine Blood Urine Nitrite Ur Leukocyte Esterase Urine RBC Urine WBC Ur Squamous Epith Cells Urine Bacteria Hyaline Casts COVID-19 ([facility]O) COVID-19 Clin Com Influenza Type A (BO) Influenza Type B (BO) Influenza A & B Note 07/16/22 07/16/22 07/16/22 06:17 07:12 12:09 WBC RBC Hgb Hct MCV MCH MCHC RDW Plt Count MPV Immature Gran % (Auto) Neut % (Auto) Lymph % (Auto) Will % (Auto) Eos % (Auto) Baso % (Auto) Lymph # (Auto) Will # (Auto) Eos # (Auto) Baso # (Auto) Abs Immat Gran (auto) Absolute Neuts (auto) Absolute Nucleated RBC Nucleated RBC % (auto) PT INR APTT Sodium 140 Potassium 3.9 Chloride 102 Carbon Dioxide 29 Anion Gap 13 BUN 10 Creatinine 0.76 Estim Creat Clear Calc 114.5 Estimated GFR > 60 POC Glucose 174 H 155 H Random Glucose 157 H Estimat Average Glucose Hemoglobin A1c % Lactic Acid Lactic Acid F/U @ 2Hr Calcium 8.4 D Magnesium 1.8 Total Bilirubin 0.8 Direct Bilirubin AST 15 ALT 23 Alkaline Phosphatase 72 Total Protein 6.2 L Albumin 3.5 Prealbumin Lipase Urine Color Urine Appearance Urine pH Ur Specific [place] Urine Protein Urine Glucose (UA) Urine Ketones Urine Blood Urine Nitrite Ur Leukocyte Esterase Urine RBC Urine WBC Ur Squamous Epith Cells Urine Bacteria Hyaline Casts COVID-19 ([facility]) COVID-19 Clin Com Influenza Type A (BO) Influenza Type B (BO) Influenza A & B Note 07/16/22 07/17/22 07/17/22 18:01 08:19 08:19 WBC 4.6 L RBC 3.63 L Hgb 11.4 L Hct 33.1 L MCV 91.2 MCH 31.4 MCHC 34.4 RDW 14.1 Plt Count 166 MPV 10.1 Immature Gran % (Auto) 0.4 Neut % (Auto) 61.9 Lymph % (Auto) 23.0 Will % (Auto) 8.6 Eos % (Auto) 5.7 H Baso % (Auto) 0.4 Lymph # (Auto) 1.1 L Will # (Auto) 0.4 Eos # (Auto) 0.3 Baso # (Auto) 0.0 Abs Immat Gran (auto) 0.02 Absolute Neuts (auto) 2.8 Absolute Nucleated RBC 0.000 Nucleated RBC % (auto) 0.0 PT 11.9 INR 1.0 APTT 30.5 Sodium Potassium Chloride Carbon Dioxide Anion Gap BUN Creatinine Estim Creat Clear Calc Estimated GFR POC Glucose 156 H Random Glucose Estimat Average Glucose Hemoglobin A1c % Lactic Acid Lactic Acid F/U @ 2Hr Calcium Magnesium Total Bilirubin Direct Bilirubin AST ALT Alkaline Phosphatase Total Protein Albumin Prealbumin Lipase Urine Color Urine Appearance Urine pH Ur Specific [place] Urine Protein Urine Glucose (UA) Urine Ketones Urine Blood Urine Nitrite Ur Leukocyte Esterase Urine RBC Urine WBC Ur Squamous Epith Cells Urine Bacteria Hyaline Casts COVID-19 ([facility]O) COVID-19 Clin Com Influenza Type A (BO) Influenza Type B (BO) Influenza A & B Note 07/17/22 07/18/22 07/18/22 08:19 06:20 06:20 WBC 3.8 L RBC 3.64 L Hgb 11.3 L Hct 32.7 L MCV 89.8 MCH 31.0 MCHC 34.6 RDW 13.6 Plt Count 151 L MPV 10.3 Immature Gran % (Auto) 0.5 H Neut % (Auto) 50.3 Lymph % (Auto) 29.4 Will % (Auto) 11.2 H Eos % (Auto) 8.1 H Baso % (Auto) 0.5 Lymph # (Auto) 1.1 L Will # (Auto) 0.4 Eos # (Auto) 0.3 Baso # (Auto) 0.0 Abs Immat Gran (auto) 0.02 Absolute Neuts (auto) 1.9 L Absolute Nucleated RBC 0.000 Nucleated RBC % (auto) 0.0 PT INR APTT Sodium 141 142 Potassium 3.7 3.3 Chloride 103 104 Carbon Dioxide 29 29 Anion Gap 13 12 BUN 10 8 L Creatinine 0.82 0.79 Estim Creat Clear Calc 106.1 110.2 Estimated GFR > 60 > 60 POC Glucose Random Glucose 161 H 146 H Estimat Average Glucose Hemoglobin A1c % Lactic Acid Lactic Acid F/U @ 2Hr Calcium 8.7 9.0 Magnesium Total Bilirubin 0.9 0.8 Direct Bilirubin AST 18 18 ALT 10 9 Alkaline Phosphatase 77 73 Total Protein 6.7 6.4 L Albumin 3.7 3.6 Prealbumin Lipase Urine Color Urine Appearance Urine pH Ur Specific [place] Urine Protein Urine Glucose (UA) Urine Ketones Urine Blood Urine Nitrite Ur Leukocyte Esterase Urine RBC Urine WBC Ur Squamous Epith Cells Urine Bacteria Hyaline Casts COVID-19 (HAO) COVID-19 Clin Com Influenza Type A (BO) Influenza Type B (BO) Influenza A & B Note 07/21/22 07/21/22 07/22/22 09:51 09:51 13:40 WBC 4.5 L RBC 3.73 L Hgb 11.9 L Hct 33.6 L MCV 90.1 MCH 31.9 MCHC 35.4 RDW 13.9 Plt Count 153 L MPV 9.7 Immature Gran % (Auto) Neut % (Auto) Lymph % (Auto) Will % (Auto) Eos % (Auto) Baso % (Auto) Lymph # (Auto) Will # (Auto) Eos # (Auto) Baso # (Auto) Abs Immat Gran (auto) Absolute Neuts (auto) Absolute Nucleated RBC 0.000 Nucleated RBC % (auto) 0.0 PT INR APTT Sodium 142 Potassium 3.8 Chloride 105 Carbon Dioxide 26 Anion Gap 15 BUN 5 L Creatinine 0.86 Estim Creat Clear Calc 101.2 Estimated GFR > 60 POC Glucose 142 H Random Glucose 189 H Estimat Average Glucose Hemoglobin A1c % Lactic Acid Lactic Acid F/U @ 2Hr Calcium 8.5 Magnesium 1.6 Total Bilirubin Direct Bilirubin AST ALT Alkaline Phosphatase Total Protein Albumin Prealbumin Lipase Urine Color Urine Appearance Urine pH Ur Specific [place] Urine Protein Urine Glucose (UA) Urine Ketones Urine Blood Urine Nitrite Ur Leukocyte Esterase Urine RBC Urine WBC Ur Squamous Epith Cells Urine Bacteria Hyaline Casts COVID-19 (HAO) COVID-19 Clin Com Influenza Type A (BO) Influenza Type B (BO) Influenza A & B Note Airway Mallampati Class: II TM Dist: >3cm Neck ROM: Full Denture: Upper Loose/Missing/Broken Teeth: Lower Heart: rrr Lungs: cta Assessment and Plan Assessment Anesthesia Assessment: Anesthesia Plan Discussed and Chart Reviewed Final Anesthetic Review Family History of Problems with Anesthesia: No History of Problems with Anesthesia: No NPO: Yes ASA Class: III Final Preanesthetic Review: No Changes in Pt Med Stat, Meds/Allgs Chart Reviewed, Consent Obtained/Reviewed and Anes Risks/Benef Reviewed Patient Risk: Intermediate Procedure Risk: Intermediate Anesthetic Plan Anesthetic Plan: GA Disposition: Standard PACU
[2022-07-22] MEDS: fentaNYL citrate/PF 100 MCG/2 ML VIAL 50 MCG IVPUSH ×2 (18:01→18:13)
[2022-07-22] MEDS: ondansetron HCL 4 MG/2 ML VIAL IVPUSH ×2 (18:27→20:41)
[2022-07-22] MEDS: HYDROmorphone HCl 0.5 MG/0.5 ML SYRINGE 0.25 MG IVPUSH (20:37)
[2022-07-22] MEDS: Gabapentin 100 MG CAPSULE 200 MG PO (20:38)
[2022-07-22] MEDS: Divalproex Sodium 250 MG TABLET.DR PO (20:38)
[2022-07-23] VITALS (7 sets, daily range): BP systolic 116–144; BP diastolic 55–64; PULSE 64–74; RESP 17–18; TEMP 36.2–37.1; O2SAT 94–97
[2022-07-23] MEDS: Ampicillin Sodium/Sulbactam Na 3 GM in 0.9 % Sodium Chloride 100 ML IV ×4 (00:14→23:57)
[2022-07-23] MEDS: oxyCODONE HCl Immed Release 5 MG TABLET PO ×5 (00:14→20:04)
[2022-07-23] MEDS: HYDROmorphone HCl 0.5 MG/0.5 ML SYRINGE 0.25 MG IVPUSH (02:49)
[2022-07-23] MEDS: Pantoprazole Sodium 40 MG/10 ML VIAL IVPUSH (04:58)
[2022-07-23 06:39] LABS: MANUAL DIFF FLAG NO
[2022-07-23 06:47] LABS: Basophils Percent Auto 0.4 % (0-2); Eosinophils Absolute Auto 0.2 X10*3/uL (0.0-0.4); Eosinophils Percent Auto 1.8 % (0-4); Hematocrit 31.4 % (42.0-52.0); Hemoglobin 10.8 g/dl (14.0-18.0); Imm Gran Abs Auto 0.05 X10*3/uL (0.00-0.03); Imm Gran Pct Auto 0.6 % (0.0-0.4); Lymphocytes Absolute Auto 1.4 X10*3/uL (1.2-4.9); Lymphocytes Percent Auto 16.7 % (20-40); Mean Corpuscular HGB Conc 34.4 g/dl (31.0-36.0); Mean Corpuscular Hemoglobin 31.3 pg (27.0-33.0); Mean Platelet Volume 10.7 fL (9.4-12.4); Monocytes Absolute Auto 0.6 X10*3/uL (0.1-1.2); Monocytes Percent Auto 7.2 % (2-11); Neutrophils Absolute Auto 6.3 x10*3/uL (2.0-8.3); Neutrophils Percent Auto 73.3 % (45-73); Platelet Count 160 X10*3/uL (160-400); Red Blood Count 3.45 X10*6/uL (4.60-5.80); Red Cell Distribution Width 13.9 % (11.0-16.0); White Blood Count 8.5 X10*3/uL (4.8-10.8)
[2022-07-23 07:09] LABS: Alanine Aminotransferase 19 U/L (0-40); Albumin Level 3.6 g/dL (3.5-5.0); Alkaline Phosphatase 78 U/L (39-117); Anion Gap 14 (12-20); Aspartate Amino Transferase 50 U/L (5-37); Bilirubin Total 0.9 mg/dL (0.0-1.0); Blood Urea Nitrogen 6 mg/dL (9-16); Calcium 8.2 mg/dL (8.4-10.2); Carbon Dioxide 27 mmol/L (22-29); Chloride 99 mmol/L (96-108); Creatinine Clr Calc Pharmacy 80.6; Estimated Glomerular Filt Rate > 60; Glucose Random 197 mg/dL (60-115); Potassium 3.1 mmol/L (3.3-5.1); Sodium 137 mmol/L (135-145); Total Protein 6.2 g/dL (6.5-8.0)
[2022-07-23 08:09] LABS: Magnesium 1.5 mg/dL (1.6-2.6)
[2022-07-23] MEDS: Acetaminophen 325 MG TABLET 975 MG PO ×2 (08:18→15:53)
[2022-07-23] MEDS: Metoprolol Succinate ER 100 MG TAB.ER.24H 200 MG PO (08:19)
[2022-07-23] MEDS: Potassium Chloride ER 20 MEQ TAB.ER.PRT 40 MEQ PO (08:20)
[2022-07-23] MEDS: Atorvastatin Calcium 80 MG TABLET PO (08:20)
[2022-07-23] MEDS: hydroCHLOROthiazide 25 MG TABLET PO (08:21)
[2022-07-23] MEDS: Carbidopa/Levodopa 25/100 TABLET 1.5 TAB PO ×2 (08:21→19:49)
[2022-07-23] MEDS: Losartan Potassium 50 MG TABLET 100 MG PO (08:21)
[2022-07-23] MEDS: amLODIPine Besylate 10 MG TABLET PO (08:22)
[2022-07-23] MEDS: Divalproex Sodium ER 500 MG TAB.ER.24H PO ×2 (08:22→19:49)
[2022-07-23] MEDS: Escitalopram Oxalate 10 MG TABLET PO (08:24)
[2022-07-23] MEDS: 0.9 % Sodium Chloride Flush 3 ML SYRINGE IVFLUSH ×3 (08:36→19:49)
--- NOTE | 2022-07-23 10:29 | PM.PNGS ---
Subjective Subjective Date of Service: 07/23/22 <Pita Bower PA-C - Last Filed: 07/23/22 10:36> 07/23/22 <Frederick Slater MD - Last Filed: 07/23/22 11:25> Interval history: Feels overall well and comfortable with mild incisional soreness. Tolerating clear liquids. Had liquid stool this morning. Out of bed and ambulating. Wants to go home today. <Pita Bower PA-C - Last Filed: 07/23/22 10:36> Physical Exam Vital Signs: Vital Signs: Last Vital Signs Temp 98.8 F 07/23/22 09:00 Pulse 74 07/23/22 09:00 Resp 17 07/23/22 09:00 BP 116/55 L 07/23/22 09:00 Pulse Ox 96 07/23/22 09:00 O2 Del Method 07/23/22 09:00 O2 Flow Rate 2 07/22/22 18:37 BMI result Body Mass Index 31.1 <Pita Bower PA-C - Last Filed: 07/23/22 10:36> Const: General: comfortable, no acute distress and alert <BEULAH Samano Last Filed: 07/23/22 10:36> Orientation/consciousness: patient oriented x3 <BEULAH Samano Last Filed: 07/23/22 10:36> Resp: Effort & Inspection: normal respiratory effort <BEULAH Samano Last Filed: 07/23/22 10:36> Cardio: Rate: regular rate <BEULAH Samano Last Filed: 07/23/22 10:36> GI: Other: RENZO drain with serosanguineous drainage <BEULAH Samano Last Filed: 07/23/22 10:36> Inspection: No distended and Yes incision (c/d/i) <BEULAH Samano Last Filed: 07/23/22 10:36> Palpation (GI): Soft to palpation, Tenderness to palpation present (GI) (mild, incisional), no guarding and not rigid <BEULAH Samano Last Filed: 07/23/22 10:36> Percussion: Yes normal to percussion <BEULAH Samano Last Filed: 07/23/22 10:36> Skin: General skin exam: no rashes or lesions noted and no jaundice <BEULAH Samano Last Filed: 07/23/22 10:36> Neuro: General: patient oriented x3 and moves all extremities <BEULAH Samano Last Filed: 07/23/22 10:36> Objective Data Active Medications Acetaminophen (Acetaminophen 325 Mg Tablet) 975 mg PO Q6H PRN PRN Reason: Pain, Mild (Pain Scale 1-3) Last Admin: 07/23/22 08:18 Dose: 975 mg Documented By: SUSANA Albuterol Sulfate (Albuterol Sulfate 90 Mcg 8 Gm Inhaler) 2 puff INHALE Q4H PRN PRN Reason: Wheezing Amlodipine Besylate (Amlodipine Besylate 10 Mg Tablet) 10 mg PO DAILY [facility]; Protocol Last Admin: 07/23/22 08:22 Dose: 10 mg Documented By: SUSANA Atorvastatin Calcium (Atorvastatin Calcium 80 Mg Tablet) 80 mg PO DAILY [facility] Last Admin: 07/23/22 08:20 Dose: 80 mg Documented By: SUSANA Carbidopa/Levodopa (Carbidopa/Levodopa 25/100 Tablet) 1.5 tab PO BID [facility] Last Admin: 07/23/22 08:21 Dose: 1.5 tab Documented By: SUSANA Divalproex Sodium (Divalproex Sodium 250 Mg Tablet.) 250 mg PO BEDTIME [facility] Last Admin: 07/22/22 20:38 Dose: 250 mg Documented By: NATALIIA Divalproex Sodium (Divalproex Sodium Er 500 Mg Tab.Er.24h) 500 mg PO BID [facility] Last Admin: 07/23/22 08:22 Dose: 500 mg Documented By: SUSANA Escitalopram Oxalate (Escitalopram Oxalate 10 Mg Tablet) 10 mg PO DAILY [facility] Last Admin: 07/23/22 08:24 Dose: 10 mg Documented By: SUSANA Fentanyl (Fentanyl Citrate/Pf 100 Mcg/2 Ml Vial) 25 mcg IVPUSH Q5M PRN; Protocol PRN Reason: Pain, Moderate (Pain Scale 4-6 Fentanyl (Fentanyl Citrate/Pf 100 Mcg/2 Ml Vial) 50 mcg IVPUSH Q5M PRN; Protocol PRN Reason: Pain, Severe (Pain Scale 7-10) Last Admin: 07/22/22 18:13 Dose: 50 mcg Documented By: KRAIG Gabapentin (Gabapentin 100 Mg Capsule) 200 mg PO BEDTIME [facility] Last Admin: 07/22/22 20:38 Dose: 200 mg Documented By: NATALIIA Hydrochlorothiazide (Hydrochlorothiazide 25 Mg Tablet) 25 mg PO DAILY [facility] Last Admin: 07/23/22 08:21 Dose: 25 mg Documented By: SUSANA Hydromorphone HCl (Hydromorphone Hcl 0.5 Mg/0.5 Ml Syringe) 0.25 mg IVPUSH Q2H PRN; Protocol PRN Reason: Pain, Moderate (Pain Scale 4-6 Last Admin: 07/23/22 02:49 Dose: 0.25 mg Documented By: NATALIIA Ampicillin Sodium/Sulbactam (Sodium 3 gm/ Sodium Chloride) 100 mls @ 200 mls/hr IV Q8H [facility] Last Infusion: 07/23/22 09:25 Dose: 0 mls/hr Documented By: SUSANA Losartan Potassium (Losartan Potassium 50 Mg Tablet) 100 mg PO DAILY [facility] Last Admin: 07/23/22 08:21 Dose: 100 mg Documented By: SUSANA Metoprolol Succinate (Metoprolol Succinate Er 100 Mg Tab.Er.24h) 200 mg PO DAILY [facility] Last Admin: 07/23/22 08:19 Dose: 200 mg Documented By: SUSANA Ondansetron HCl (Ondansetron Hcl 4 Mg/2 Ml Vial) 4 mg IVPUSH Q6H PRN PRN Reason: Nausea and Vomiting Last Admin: 07/22/22 20:41 Dose: 4 mg Documented By: NATALIIA Oxycodone HCl (Oxycodone Hcl Immed Release 5 Mg Tablet) 5 mg PO Q4H PRN PRN Reason: Pain, Moderate (Pain Scale 4-6 Last Admin: 07/23/22 04:57 Dose: 5 mg Documented By: NATALIIA Oxycodone HCl (Oxycodone Hcl Immed Release 5 Mg Tablet) 5 mg PO ONCE PRN PRN Reason: Pain, Severe (Pain Scale 7-10) Pantoprazole Sodium (Pantoprazole Sodium 40 Mg/10 Ml Vial) 40 mg IVPUSH DAILY@0630 [facility] Last Admin: 07/23/22 04:58 Dose: 40 mg Documented By: NATALIIA Pharmacy Consult (Consult Rx Perform Med Rec) 1 each MISCELLANE ONCE PRN PRN Reason: Consult order Sodium Chloride (0.9 % Sodium Chloride Flush 3 Ml Syringe) 3 ml IVFLUSH QSHIFT [facility] Last Admin: 07/23/22 08:36 Dose: 3 ml Documented By: SUSANA <Pita Bower PA-C - Last Filed: 07/23/22 10:36> Labs CBC & Chem 7: 07/23/22 05:23 07/23/22 05:23 <Pita Bower PA-C - Last Filed: 07/23/22 10:36> Labs: Laboratory Results - last 24 hr 07/22/22 07/23/22 07/23/22 13:40 05:23 05:23 MCV 91.0 MCH 31.3 MCHC 34.4 RDW 13.9 Plt Count 160 MPV 10.7 Immature Gran % (Auto) 0.6 H Neut % (Auto) 73.3 H Lymph % (Auto) 16.7 L [place] % (Auto) 7.2 Eos % (Auto) 1.8 Baso % (Auto) 0.4 Lymph # (Auto) 1.4 [place] # (Auto) 0.6 Eos # (Auto) 0.2 Baso # (Auto) 0.0 Abs Immat Gran (auto) 0.05 H Absolute Neuts (auto) 6.3 Absolute Nucleated RBC 0.000 Nucleated RBC % (auto) 0.0 Anion Gap 14 Estim Creat Clear Calc 80.6 Estimated GFR > 60 POC Glucose 142 H Random Glucose 197 H Calcium 8.2 L Magnesium 1.5 L Total Bilirubin 0.9 AST 50 H ALT 19 Alkaline Phosphatase 78 Total Protein 6.2 L Albumin 3.6 <Pita Bower PA-C - Last Filed: 07/23/22 10:36> Microbiology Microbiology Results: Microbiology 07/22/22 Unknown Gram Stain - Final Gallbladder Fluid Routine Culture - Preliminary No growth to date. Anaerobic Culture - Preliminary No growth to date. <Pita Bower PA-C - Last Filed: 07/23/22 10:36> Procedures Date of Service Date of Service: 07/23/22 <Pita Bower PA-C - Last Filed: 07/23/22 10:36> Progress Note: A&P Assessment and plan (1) Cholecystitis, acute: Status: Acute <Pita Bower PA-C - Last Filed: 07/23/22 10:36> (2) S/P laparoscopic cholecystectomy: Status: Acute <Pita oBwer PA-C - Last Filed: 07/23/22 10:36> (3) CAD (coronary artery disease): Status: Acute <Pita Bower PA-C - Last Filed: 07/23/22 10:36> (4) Anticoagulated: Status: Acute <Pita Bower PA-C - Last Filed: 07/23/22 10:36> Assessment and Plan: 71 year old male with multiple medical comorbidities who presented with epigastric/RUQ abd pain, clinical picture suggestive of acute cholecystitis. He is now POD #1 s/p lap CCY. Dense adhesions from the omentum to the gallbladder and liver; milk of bile vs purulent bile. He is doing well post op and is comfortable, tolerating liquids with GI function. VSS. Abd is benign with appropriate post op tenderness, dressings intact, Has high RENZO output which is nonbilious and likely irrigation. AM labs reviewed. GB fluid culture no current growth. Will advance to diabetic/low fat diet. Will reassess later today for possible discharge if remains stable and tolerating solid diet. Will discuss timeline regarding restarting plavix with Dr. Slater. Patient comfortable with plan. <Pita Bower PA-C - Last Filed: 07/23/22 10:36> 71 year old male with multiple medical comorbidities who presented with epigastric/RUQ abd pain, clinical picture suggestive of acute cholecystitis. He is now POD #1 s/p lap CCY. Dense adhesions from the omentum to the gallbladder and liver; milk of bile vs purulent bile. He is doing well post op and is comfortable, tolerating liquids with GI function. VSS. Abd is benign with appropriate post op tenderness, dressings intact, Has high RENZO output which is nonbilious and likely irrigation. AM labs reviewed. GB fluid culture no current growth. Will advance to diabetic/low fat diet. Will reassess later today for possible discharge if remains stable and tolerating solid diet. Will discuss timeline regarding restarting plavix with Dr. Slater. Patient comfortable with plan. Agree with above Will hopefully be able to remove drain today before resuming Plavix. Will reassess this afternoon. <Frederick Slater MD - Last Filed: 07/23/22 11:25> Time Spent With Patient Time: Total time managing care of this patient today ____ minutes. <Pita Bower PA-C - Last Filed: 07/23/22 10:36> Quality Stroke Does the patient have a stroke diagnosis?: No <Pita Bower PA-C - Last Filed: 07/23/22 10:36> VTE Prior VTE?: No <Pita Bower PA-C - Last Filed: 07/23/22 10:36> VTE Risk Level:: Surgical - moderate <Pita Bower PA-C - Last Filed: 07/23/22 10:36> VTE Device Contraindication: N/A - Device Ordered <Pita Bower PA-C - Last Filed: 07/23/22 10:36> VTE Drug Contraindication: N/A - Med Ordered <Pita Bower PA-C - Last Filed: 07/23/22 10:36>
--- NOTE | 2022-07-23 11:04 | P.PNIM_ITS ---
Subjective Subjective Date of Service: 07/23/22 Interval History: POD#1 pain well controlled Review of Systems Review of Systems: Yes all other systems are reviewed and are negative Physical Exam Vital Signs: Vital Signs: Last Vital Signs Temp 98.8 F 07/23/22 09:00 Pulse 74 07/23/22 09:00 Resp 17 07/23/22 09:00 BP 116/55 L 07/23/22 09:00 Pulse Ox 96 07/23/22 09:00 O2 Del Method 07/23/22 09:00 O2 Flow Rate 2 07/22/22 18:37 BMI result Body Mass Index 31.1 Gen: in no acute distress HEENT: sclera anicteric, moist mucus membranes Neck: supple Lungs: clear to auscultation bilaterally Heart: regular rate and rhythm, no murmurs Abd: soft, mild postop tenderness, incisions C/D/I, RENZO with pink clear fluid Ext: no edema Skin: warm/well-perfused Neuro: alert and oriented x3, no focal findings Psych: appropriate affect Objective Data Active Medications Acetaminophen (Acetaminophen 325 Mg Tablet) 975 mg PO Q6H PRN PRN Reason: Pain, Mild (Pain Scale 1-3) Last Admin: 07/23/22 08:18 Dose: 975 mg Documented By: SUSANA Albuterol Sulfate (Albuterol Sulfate 90 Mcg 8 Gm Inhaler) 2 puff INHALE Q4H PRN PRN Reason: Wheezing Amlodipine Besylate (Amlodipine Besylate 10 Mg Tablet) 10 mg PO DAILY [facility]; Protocol Last Admin: 07/23/22 08:22 Dose: 10 mg Documented By: SUSANA Atorvastatin Calcium (Atorvastatin Calcium 80 Mg Tablet) 80 mg PO DAILY [facility] Last Admin: 07/23/22 08:20 Dose: 80 mg Documented By: SUSANA Carbidopa/Levodopa (Carbidopa/Levodopa 25/100 Tablet) 1.5 tab PO BID [facility] Last Admin: 07/23/22 08:21 Dose: 1.5 tab Documented By: SUSANA Divalproex Sodium (Divalproex Sodium 250 Mg Tablet.Dr) 250 mg PO BEDTIME [facility] Last Admin: 07/22/22 20:38 Dose: 250 mg Documented By: NATALIIA Divalproex Sodium (Divalproex Sodium Er 500 Mg Tab.Er.24h) 500 mg PO BID [facility] Last Admin: 07/23/22 08:22 Dose: 500 mg Documented By: SUSANA Escitalopram Oxalate (Escitalopram Oxalate 10 Mg Tablet) 10 mg PO DAILY [facility] Last Admin: 07/23/22 08:24 Dose: 10 mg Documented By: SUSANA Fentanyl (Fentanyl Citrate/Pf 100 Mcg/2 Ml Vial) 25 mcg IVPUSH Q5M PRN; Protocol PRN Reason: Pain, Moderate (Pain Scale 4-6 Fentanyl (Fentanyl Citrate/Pf 100 Mcg/2 Ml Vial) 50 mcg IVPUSH Q5M PRN; Protocol PRN Reason: Pain, Severe (Pain Scale 7-10) Last Admin: 07/22/22 18:13 Dose: 50 mcg Documented By: KRAIG Gabapentin (Gabapentin 100 Mg Capsule) 200 mg PO BEDTIME [facility] Last Admin: 07/22/22 20:38 Dose: 200 mg Documented By: MICHAELZEBharat Hydrochlorothiazide (Hydrochlorothiazide 25 Mg Tablet) 25 mg PO DAILY [facility] Last Admin: 07/23/22 08:21 Dose: 25 mg Documented By: SUSANA Hydromorphone HCl (Hydromorphone Hcl 0.5 Mg/0.5 Ml Syringe) 0.25 mg IVPUSH Q2H PRN; Protocol PRN Reason: Pain, Moderate (Pain Scale 4-6 Last Admin: 07/23/22 02:49 Dose: 0.25 mg Documented By: NATALIIA Ampicillin Sodium/Sulbactam (Sodium 3 gm/ Sodium Chloride) 100 mls @ 200 mls/hr IV Q8H [facility] Last Infusion: 07/23/22 09:25 Dose: 0 mls/hr Documented By: SUSANA Losartan Potassium (Losartan Potassium 50 Mg Tablet) 100 mg PO DAILY [facility] Last Admin: 07/23/22 08:21 Dose: 100 mg Documented By: SUSANA Metoprolol Succinate (Metoprolol Succinate Er 100 Mg Tab.Er.24h) 200 mg PO DAILY [facility] Last Admin: 07/23/22 08:19 Dose: 200 mg Documented By: SUSANA Ondansetron HCl (Ondansetron Hcl 4 Mg/2 Ml Vial) 4 mg IVPUSH Q6H PRN PRN Reason: Nausea and Vomiting Last Admin: 07/22/22 20:41 Dose: 4 mg Documented By: NATALIIA Oxycodone HCl (Oxycodone Hcl Immed Release 5 Mg Tablet) 5 mg PO Q4H PRN PRN Reason: Pain, Moderate (Pain Scale 4-6 Last Admin: 07/23/22 10:52 Dose: 5 mg Documented By: SUSANA Oxycodone HCl (Oxycodone Hcl Immed Release 5 Mg Tablet) 5 mg PO ONCE PRN PRN Reason: Pain, Severe (Pain Scale 7-10) Pantoprazole Sodium (Pantoprazole Sodium 40 Mg/10 Ml Vial) 40 mg IVPUSH DAILY@0630 [facility] Last Admin: 07/23/22 04:58 Dose: 40 mg Documented By: NATALIIA Pharmacy Consult (Consult Rx Perform Med Rec) 1 each MISCELLANE ONCE PRN PRN Reason: Consult order Sodium Chloride (0.9 % Sodium Chloride Flush 3 Ml Syringe) 3 ml IVFLUSH QSHIFT [facility] Last Admin: 07/23/22 08:36 Dose: 3 ml Documented By: SUSANA Labs 07/23/22 05:23 07/23/22 05:23 Labs: Laboratory Results - last 24 hr 07/22/22 07/23/22 07/23/22 13:40 05:23 05:23 MCV 91.0 MCH 31.3 MCHC 34.4 RDW 13.9 Plt Count 160 MPV 10.7 Immature Gran % (Auto) 0.6 H Neut % (Auto) 73.3 H Lymph % (Auto) 16.7 L [place] % (Auto) 7.2 Eos % (Auto) 1.8 Baso % (Auto) 0.4 Lymph # (Auto) 1.4 [place] # (Auto) 0.6 Eos # (Auto) 0.2 Baso # (Auto) 0.0 Abs Immat Gran (auto) 0.05 H Absolute Neuts (auto) 6.3 Absolute Nucleated RBC 0.000 Nucleated RBC % (auto) 0.0 Anion Gap 14 Estim Creat Clear Calc 80.6 Estimated GFR > 60 POC Glucose 142 H Random Glucose 197 H Calcium 8.2 L Magnesium 1.5 L Total Bilirubin 0.9 AST 50 H ALT 19 Alkaline Phosphatase 78 Total Protein 6.2 L Albumin 3.6 Microbiology Microbiology Results: Microbiology 07/22/22 Unknown Gram Stain - Final Gallbladder Fluid Routine Culture - Preliminary No growth to date. Anaerobic Culture - Preliminary No growth to date. Assessment and Plan (1) Cholecystitis, acute: Status: Acute (2) Hypomagnesemia: Status: Acute (3) HTN (hypertension): Status: Acute (4) Hyperlipidemia: Status: Acute Plan 71 year-old male with past medical history of hypertension, diabetes, and CAD who presented to the hospital with complaints of right upper quadrant abdominal pain and was found to have acute cholecystitis and admitted to the General Surgery service with Medicine consultation # acute cholecystitis - would d/c antibiotics as source is controlled - POD#1 lap gris - Cardiology consulted, clopidogrel on hold x5d pre-op, would resume as soon as cleared by surgery to do so # CAD - cath 2018: patent mid-LAD stent, mild-mod nonobstructive CAD in LAD + RAC; severe stenosis in distal circumflex s/p [place] - TTE 2020 with LVEF 55-60%, no WMA, calcification/thickening of R coronary cusp with mobile calcium; moderate aortic regurgitation - unmodifiable perioperative risk - clopidogrel on hold as above; continue metoprolol succinate + atorvastatin # hypoMg - replete # HTN - metoprolol succinate, amlodipine, HCTZ, losartan # DM2 - hold MTF, continue correction-dose lispro # Parkinsonism - continue Sinemet # mood disorder - continue escitalopram + divalproex # VTE ppx: SCDs # dispo: anticipate home with surgically cleared Time Spent With Patient Time: Total time managing care of this patient today _30___ minutes. Quality Stroke Does the patient have a stroke diagnosis?: No VTE Prior VTE?: No VTE Risk Level:: Surgical - moderate VTE Device Contraindication: N/A - Device Ordered VTE Drug Contraindication: N/A - Med Ordered
[2022-07-23] MEDS: Magnesium Oxide 400 MG TABLET PO ×2 (12:15→15:53)
--- NOTE | 2022-07-23 12:35 | MHC.CM.PN ---
PATIENT STILL DRAINING FROM GALLBLADDER REMOVAL CASE MANAGEMENT FOLLOWING
--- NOTE | 2022-07-23 13:02 | HO.POSTANES ---
Post Anesthesia Evaluation Post Anesthesia Evaluation Vital Signs: Vital Signs Temp Pulse Resp BP Pulse Ox O2 Del Method 07/23/22 09:00 98.8 F 74 17 116/55 L 96 Room Air 07/23/22 07:35 97.3 F 65 18 130/60 94 Room Air 07/23/22 03:36 97.1 F 66 18 144/64 H 95 Room Air Anesthesia: General Endotracheal-GETA Mental Status: Awake Pain Control: Satisfactory Nausea/Vomiting: None Hydration: Adequate Anesthesia-Related Issues: No Anes. Related Issues
[2022-07-23 16:48] LABS: Glucose, Whole Blood 146 mg/dL (60-115)
[2022-07-23] MEDS: Gabapentin 100 MG CAPSULE 200 MG PO (19:49)
[2022-07-23] MEDS: Divalproex Sodium 250 MG TABLET.DR PO (19:49)
[2022-07-23 20:01] LABS: Glucose, Whole Blood 178 mg/dL (60-115)
[2022-07-24] MEDS: HYDROmorphone HCl 0.5 MG/0.5 ML SYRINGE 0.25 MG IVPUSH (00:04)
[2022-07-24 03:43] VITALS: BP 128/68; PULSE 60; RESP 16; TEMP 36.5; O2SAT 99
[2022-07-24] MEDS: oxyCODONE HCl Immed Release 5 MG TABLET PO (04:34)
[2022-07-24] MEDS: Acetaminophen 325 MG TABLET 975 MG PO (04:34)
[2022-07-24] MEDS: Pantoprazole Sodium 40 MG/10 ML VIAL IVPUSH (04:34)
[2022-07-24 06:14] LABS: Hematocrit 31.6 % (42.0-52.0); Hemoglobin 10.9 g/dl (14.0-18.0); Mean Corpuscular HGB Conc 34.5 g/dl (31.0-36.0); Mean Corpuscular Hemoglobin 31.7 pg (27.0-33.0); Mean Corpuscular Volume 91.9 fL (80.0-98.0); Mean Platelet Volume 10.9 fL (9.4-12.4); Platelet Count 182 X10*3/uL (160-400); Red Blood Count 3.44 X10*6/uL (4.60-5.80); Red Cell Distribution Width 14.2 % (11.0-16.0); White Blood Count 9.1 X10*3/uL (4.8-10.8)
[2022-07-24 06:31] LABS: Anion Gap 12 (12-20); Blood Urea Nitrogen 7 mg/dL (9-16); Calcium 8.2 mg/dL (8.4-10.2); Carbon Dioxide 29 mmol/L (22-29); Chloride 101 mmol/L (96-108); Creatinine Clr Calc Pharmacy 88.8; Estimated Glomerular Filt Rate > 60; Glucose Random 125 mg/dL (60-115); Potassium 3.5 mmol/L (3.3-5.1); Sodium 138 mmol/L (135-145)
--- NOTE | 2022-07-24 06:57 | PM.PNGS ---
Subjective Subjective Date of Service: 07/24/22 Patient reports: no new complaints, feels better and tolerating a regular diet Interval history: Doing well. Denies chest pain, difficulty breathing, shortness of breath or localizing neurologic symptoms. Anxious for discharge. He notes that he has been given drainage occasion and bathing and activity restrictions were reviewed Physical Exam Vital Signs: Vital Signs: Last Vital Signs Temp 97.7 F 07/24/22 03:43 Pulse 60 07/24/22 03:43 Resp 16 07/24/22 03:43 BP 128/68 07/24/22 03:43 Pulse Ox 99 07/24/22 03:43 O2 Del Method 07/24/22 03:43 O2 Flow Rate 2 07/22/22 18:37 BMI result Body Mass Index 31.1 On exam he is nontoxic Patient is anicteric The patient has no respiratory distress RENZO is serosanguineous in abdomen is soft with appropriate incisional tenderness Objective Data Active Medications Acetaminophen (Acetaminophen 325 Mg Tablet) 975 mg PO Q6H PRN PRN Reason: Pain, Mild (Pain Scale 1-3) Last Admin: 07/24/22 04:34 Dose: 975 mg Documented By: BRENDEN Albuterol Sulfate (Albuterol Sulfate 90 Mcg 8 Gm Inhaler) 2 puff INHALE Q4H PRN PRN Reason: Wheezing Amlodipine Besylate (Amlodipine Besylate 10 Mg Tablet) 10 mg PO DAILY [facility]; Protocol Last Admin: 07/23/22 08:22 Dose: 10 mg Documented By: SUSANA Atorvastatin Calcium (Atorvastatin Calcium 80 Mg Tablet) 80 mg PO DAILY [facility] Last Admin: 07/23/22 08:20 Dose: 80 mg Documented By: SUSANA Carbidopa/Levodopa (Carbidopa/Levodopa 25/100 Tablet) 1.5 tab PO BID [facility] Last Admin: 07/23/22 19:49 Dose: 1.5 tab Documented By: BRENDEN Divalproex Sodium (Divalproex Sodium 250 Mg Tablet.) 250 mg PO BEDTIME [facility] Last Admin: 07/23/22 19:49 Dose: 250 mg Documented By: BRENDEN Divalproex Sodium (Divalproex Sodium Er 500 Mg Tab.Er.24h) 500 mg PO BID [facility] Last Admin: 07/23/22 19:49 Dose: 500 mg Documented By: BRENDEN Escitalopram Oxalate (Escitalopram Oxalate 10 Mg Tablet) 10 mg PO DAILY [facility] Last Admin: 07/23/22 08:24 Dose: 10 mg Documented By: SUSANA Fentanyl (Fentanyl Citrate/Pf 100 Mcg/2 Ml Vial) 25 mcg IVPUSH Q5M PRN; Protocol PRN Reason: Pain, Moderate (Pain Scale 4-6 Fentanyl (Fentanyl Citrate/Pf 100 Mcg/2 Ml Vial) 50 mcg IVPUSH Q5M PRN; Protocol PRN Reason: Pain, Severe (Pain Scale 7-10) Last Admin: 07/22/22 18:13 Dose: 50 mcg Documented By: KRAIG Gabapentin (Gabapentin 100 Mg Capsule) 200 mg PO BEDTIME [facility] Last Admin: 07/23/22 19:49 Dose: 200 mg Documented By: BRENDEN Hydrochlorothiazide (Hydrochlorothiazide 25 Mg Tablet) 25 mg PO DAILY [facility] Last Admin: 07/23/22 08:21 Dose: 25 mg Documented By: SUSANA Hydromorphone HCl (Hydromorphone Hcl 0.5 Mg/0.5 Ml Syringe) 0.25 mg IVPUSH Q2H PRN; Protocol PRN Reason: Pain, Moderate (Pain Scale 4-6 Last Admin: 07/24/22 00:04 Dose: 0.25 mg Documented By: BRENDEN Ampicillin Sodium/Sulbactam (Sodium 3 gm/ Sodium Chloride) 100 mls @ 200 mls/hr IV Q8H [facility] Last Infusion: 07/24/22 00:47 Dose: 0 mls/hr Documented By: BRENDEN Losartan Potassium (Losartan Potassium 50 Mg Tablet) 100 mg PO DAILY [facility] Last Admin: 07/23/22 08:21 Dose: 100 mg Documented By: SUSANA Magnesium Oxide (Magnesium Oxide 400 Mg Tablet) 400 mg PO BIDPC [facility] Last Admin: 07/23/22 15:53 Dose: 400 mg Documented By: SUSANA Metoprolol Succinate (Metoprolol Succinate Er 100 Mg Tab.Er.24h) 200 mg PO DAILY [facility] Last Admin: 07/23/22 08:19 Dose: 200 mg Documented By: SUSANA Ondansetron HCl (Ondansetron Hcl 4 Mg/2 Ml Vial) 4 mg IVPUSH Q6H PRN PRN Reason: Nausea and Vomiting Last Admin: 07/22/22 20:41 Dose: 4 mg Documented By: NATALIIA Oxycodone HCl (Oxycodone Hcl Immed Release 5 Mg Tablet) 5 mg PO Q4H PRN PRN Reason: Pain, Moderate (Pain Scale 4-6 Last Admin: 07/24/22 04:34 Dose: 5 mg Documented By: BRENDEN Oxycodone HCl (Oxycodone Hcl Immed Release 5 Mg Tablet) 5 mg PO ONCE PRN PRN Reason: Pain, Severe (Pain Scale 7-10) Pantoprazole Sodium (Pantoprazole Sodium 40 Mg/10 Ml Vial) 40 mg IVPUSH DAILY@0630 [facility] Last Admin: 07/24/22 04:34 Dose: 40 mg Documented By: BRENDEN Pharmacy Consult (Consult Rx Perform Med Rec) 1 each MISCELLANE ONCE PRN PRN Reason: Consult order Sodium Chloride (0.9 % Sodium Chloride Flush 3 Ml Syringe) 3 ml IVFLUSH QSOHFT [facility] Last Admin: 07/23/22 19:49 Dose: 3 ml Documented By: BRENDEN Labs 07/24/22 05:18 07/24/22 05:18 Labs: Laboratory Results - last 24 hr 07/23/22 07/23/22 07/23/22 05:23 16:44 19:52 MCV MCH MCHC RDW Plt Count MPV Absolute Nucleated RBC Nucleated RBC % (auto) Anion Gap 14 Estim Creat Clear Calc 80.6 Estimated GFR > 60 POC Glucose 146 H 178 H Random Glucose 197 H Calcium 8.2 L Magnesium 1.5 L Total Bilirubin 0.9 AST 50 H ALT 19 Alkaline Phosphatase 78 Total Protein 6.2 L Albumin 3.6 07/24/22 07/24/22 05:18 05:18 MCV 91.9 MCH 31.7 MCHC 34.5 RDW 14.2 Plt Count 182 MPV 10.9 Absolute Nucleated RBC 0.000 Nucleated RBC % (auto) 0.0 Anion Gap 12 Estim Creat Clear Calc 88.8 Estimated GFR > 60 POC Glucose Random Glucose 125 H Calcium 8.2 L Magnesium Total Bilirubin AST ALT Alkaline Phosphatase Total Protein Albumin Microbiology Microbiology Results: Microbiology 07/22/22 Unknown Gram Stain - Final Gallbladder Fluid Routine Culture - Preliminary No growth to date. Anaerobic Culture - Preliminary No growth to date. Procedures Date of Service Date of Service: 07/24/22 Progress Note: A&P Assessment and plan (1) S/P laparoscopic cholecystectomy: Status: Acute (2) Cholecystitis, acute: Status: Acute (3) Anticoagulated: Status: Acute (4) ERNESTO (obstructive sleep apnea): Status: Acute (5) COPD (chronic obstructive pulmonary disease): Status: Acute (6) Non-rheumatic aortic regurgitation: Status: Acute (7) CAD (coronary artery disease): Status: Acute (8) DMII (diabetes mellitus, type 2): Status: Acute (9) Vascular disease of abdomen: Status: Acute (10) Hyperlipidemia: Status: Acute (11) HTN (hypertension): Status: Acute (12) H/O bariatric surgery: Status: Acute Plan Put appears significant at this time but is non bloody/not consistent with ongoing bleeding . Pain management and activity restrictions as well as bathing were reviewed. Dietary recommendations were reviewed. Please teach drain teaching to confirm that the patient understands the need to trend output Q 24 hours. Okay for discharge if okay with hospitalist. Start Plavix and assess for discharge later this morning. Time Spent With Patient Time: Total time managing care of this patient today ____ minutes. Quality Stroke Does the patient have a stroke diagnosis?: No VTE Prior VTE?: No VTE Risk Level:: Surgical - moderate VTE Device Contraindication: N/A - Device Ordered VTE Drug Contraindication: N/A - Med Ordered
[2022-07-24 06:58] VITALS: BP 128/62; PULSE 67; RESP 18; TEMP 36.6; O2SAT 95
--- NOTE | 2022-07-24 07:42 | PM.DS ---
DS: Providers Provider Date of Service: 07/24/22 Date of admission: 07/15/22 19:40 Primary care physician: Stephane Rodriguez MD Consults: 07/15/22 19:38 Consult to General Surgery Stat Consulting Provider: Frederick Slater Reason for consultation: Acute cholecystitis Has provider been notified: Yes 07/15/22 19:43 Consult to Hospitalist Stat Consulting Provider: Hospitalist Reason For Exam: Acute cholecystitis, Dr. Slater request 07/15/22 19:47 Consult to Hospitalist Routine Consulting Provider: Hospitalist Reason For Exam: diabetes & medical management 07/16/22 16:12 Consult to Cardiology Routine Consulting Provider: Tone Gutierres Reason for consultation: Preop risk stratification Has provider been notified: Yes DS: Diagnosis Discharge Diagnosis (1) S/P laparoscopic cholecystectomy: Status: Acute (2) Cholecystitis, acute: Status: Acute (3) Anticoagulated: Status: Acute (4) ERNESTO (obstructive sleep apnea): Status: Acute (5) COPD (chronic obstructive pulmonary disease): Status: Acute (6) Non-rheumatic aortic regurgitation: Status: Acute (7) CAD (coronary artery disease): Status: Acute (8) DMII (diabetes mellitus, type 2): Status: Acute (9) Vascular disease of abdomen: Status: Acute (10) Hyperlipidemia: Status: Acute (11) HTN (hypertension): Status: Acute (12) H/O bariatric surgery: Status: Acute DS: Summary Hospital Course Hospital Course: See admitting H and P for full details. Briefly, this 71-year-old gentleman with an extensive past medical history including vascular disease, type 2 diabetes, TIA and bariatric surgery with revision presented with acute calculous cholecystitis and was anticoagulated with Plavix. Given some interval improvement, following cardiac clearance, the patient was kept on clear liquids to allow the Plavix to work out of his system. He then was taken to the operating room for laparoscopic cholecystectomy which also required a lysis of adhesions secondary to chronic gallbladder problems. Postoperatively, his drain put out serosanguineous, non bloody and non bilious drainage, his diet was advanced, his Plavix resume any was discharge in improved condition. Time Spent with Patient Time attestation: Total time managing care of this patient today ____ minutes. Discharge coordination time: Greater than 30 minutes Quality: Safe Use of Opioids Does Pt have an Active Cancer Diagnosis on the Problem List?: No Quality: Stroke Does the patient have a stroke diagnosis?: No Physical Exam Vital Signs: Vital Signs: Last Vital Signs Temp 98 F 07/24/22 06:58 Pulse 67 07/24/22 06:58 Resp 18 07/24/22 06:58 BP 128/62 07/24/22 06:58 Pulse Ox 95 07/24/22 06:58 O2 Del Method 07/24/22 06:58 O2 Flow Rate 2 07/22/22 18:37 BMI result Body Mass Index 31.1 DS: Data Data Completed and Pending Pending studies at discharge: Pending at discharge 07/22/22 17:23 Surgical [PTH] Routine Labs on day of discharge: Laboratory Results - last 24 hr 07/23/22 07/23/22 07/23/22 05:23 16:44 19:52 WBC RBC Hgb Hct MCV MCH MCHC RDW Plt Count MPV Absolute Nucleated RBC Nucleated RBC % (auto) Sodium Potassium Chloride Carbon Dioxide Anion Gap BUN Creatinine Estim Creat Clear Calc Estimated GFR POC Glucose 146 H 178 H Random Glucose Calcium Magnesium 1.5 L 07/24/22 07/24/22 05:18 05:18 WBC 9.1 RBC 3.44 L Hgb 10.9 L Hct 31.6 L MCV 91.9 MCH 31.7 MCHC 34.5 RDW 14.2 Plt Count 182 MPV 10.9 Absolute Nucleated RBC 0.000 Nucleated RBC % (auto) 0.0 Sodium 138 Potassium 3.5 Chloride 101 Carbon Dioxide 29 Anion Gap 12 BUN 7 L Creatinine 0.98 Estim Creat Clear Calc 88.8 Estimated GFR > 60 POC Glucose Random Glucose 125 H Calcium 8.2 L Magnesium Preliminary micro results at discharge 07/22/22 Unknown Routine Culture - Preliminary Gallbladder Fluid No growth to date. Anaerobic Culture - Preliminary No growth to date. Discharge Plan Discharge Anticipated Discharge Date/Time: 07/24/22 07:38 Patient Disposition: Home, Self-Care Discharge Diagnosis: Acute cholecystitis Referrals: Stephane Rodriguez MD [Primary Care Provider] - 1 Week Frederick Slater MD [Physician] - 1 Week Discharge Medications: New oxycodone 5 mg tablet 5 mg PO Q4H PRN (Reason: pain) Qty: 20 0RF Rx Instructions: Partial Fill upon patient request. Continued metformin 500 mg tablet 1 tab PO BID atorvastatin 80 mg tablet 1 tab PO DAILY clopidogrel 75 mg tablet 1 tab PO DAILY losartan-hydrochlorothiazide 100-25 mg tablet 1 tab PO DAILY citalopram 20 mg tablet 1 tab PO DAILY divalproex 500 mg tablet extended release 24 hr 2 tab PO BID gabapentin 100 mg capsule 2 cap PO BEDTIME albuterol sulfate 90 mcg/actuation HFA aerosol inhaler 2 puff inhalation Q4-6H PRN (Reason: Wheezing) carbidopa-levodopa 25-100 mg tablet 1.5 tab PO BID nebivolol [Bystolic] 10 mg tablet 1 tab PO DAILY divalproex 250 mg tablet,delayed release (/EC) 1 tab PO BEDTIME Discharge Orders: Discharge Order (Routine); Ordered 07/24/22 Ordered By: Frederick Slater Diet: Low Fat Activity on Discharge: No heavy lifting Stand Alone Forms: Patient Portal Discharge page Activity Restrictions/Additional Instructions: You had a laparoscopic cholecystectomy performed by Dr. Slater on 07/22/22. It is normal to experience some neck or shoulder pain from the gas used to inflate your abdomen. It is also normal to have pain or discomfort in your abdomen/belly as well as at the trocar sites (small incisions). This discomfort will resolve over the next 1-3 days, however, if it gets progressively worse, if you should develop worsening pain, nausea, vomiting and cannot keep liquids down, chest pain, difficulty breathing or shortness of breath, fevers over 100F please report to the nearest emergency department. Unless otherwise directed by Dr. Slater, you should resume taking your regular medications. You should resume your Plavix/clopidogrel on: 07/24/22 at the hospital & daily at home As Dr. Slater reviewed in the office, you must not lift more than 20 lb for the next 6 weeks. Strenuous activities can tear out your sutures and cause an incisional hernia that would require another operation. Activities to be avoided include: sports, running, bicycling, yoga, lifting more than 20 lb, digging, gardening, splitting/carrying wood, swimming, hiking uphill, and other activities. If you have questions regarding this specific activity, please check with Dr. Slater. If your incisions become red, swollen, tender or draining pus, please contact Dr. Slater or go to the nearest emergency department. Do not shower or bathe for 48 hours from surgery. If there are bandages on your incisions, remove them in 48 hours. Do not allow your bandages to become wet for 48 hours. Do not soak in a tub or swimming pool until your incisions have completely sealed, usually 2 or more weeks. After the dressings are removed in 48 hours, you will notice paper tapes called butterflies/Steri-Strips. These tapes will fall off on their own in 1-2 weeks. You do not need to apply another bandage unless your clothing irritates your incisions. If you need to place another Band-Aid on your incisions, be sure to wait until the Steri strip is dry. You have been prescribed narcotic pain medicine that will cause constipation. Please purchase [id number] stool softener known as Colace/docusate, 100 mg. Take 2 tablets with breakfast and the morning and 2 tablets in the evening after dinner until your bowels are moving and urine or longer taking narcotics. Please note that if you are not taking narcotics, the general anesthesia for the procedure can still cause constipation. If you experience diarrhea, stop taking the stool softener medicine. You can take [id number] Tylenol/acetaminophen with your oxycodone (narcotic) pain medication. If you do not need the narctoic & can get by with just Tylenol, that's OK. Expect purple/black and blue at your trocar sites. This will settle towards her pubic area due to gravity. This is normal and related to your blood thinner. It is not permanent and will resolve. Remember that the gallbladder helps to to digest fatty foods. If you eat fried foods; rich, creamy sauces; cheese; gravies or other such heavy, greasy foods, you will likely develop gas and bloating and diarrhea. To minimize this risk, eat a high protein, high-fiber, low-fat diet for the next few weeks. You will need to see Dr. Slater in 7-10 days for a follow-up appointment. If you develop pain in her chest, trouble breathing, shortness of breath, vomiting or other problems, please report to the nearest emergency department. Please contact your primary care provider for a follow-up appointment within a week in case any of your medications need to be adjusted. Care Plan Goals: Allow adequate healing Health Concerns: Follow-up with primary care regarding your multiple medical conditions Plan of Treatment: Allow adequate healing and follow-up with your regular medical doctor Assessment: Acute cholecystitis, status post lap choly
[2022-07-24] MEDS: Carbidopa/Levodopa 25/100 TABLET 1.5 TAB PO (08:51)
[2022-07-24] MEDS: Divalproex Sodium ER 500 MG TAB.ER.24H PO (08:52)
[2022-07-24] MEDS: hydroCHLOROthiazide 25 MG TABLET PO (08:52)
[2022-07-24] MEDS: Escitalopram Oxalate 10 MG TABLET PO (08:53)
[2022-07-24] MEDS: Metoprolol Succinate ER 100 MG TAB.ER.24H 200 MG PO (08:53)
[2022-07-24] MEDS: Atorvastatin Calcium 80 MG TABLET PO (08:53)
[2022-07-24] MEDS: amLODIPine Besylate 10 MG TABLET PO (08:53)
[2022-07-24] MEDS: Losartan Potassium 50 MG TABLET 100 MG PO (08:53)
[2022-07-24] MEDS: Magnesium Oxide 400 MG TABLET PO (08:54)
[2022-07-24] MEDS: 0.9 % Sodium Chloride Flush 3 ML SYRINGE IVFLUSH (08:54)
[2022-07-24] MEDS: Ampicillin Sodium/Sulbactam Na 3 GM in 0.9 % Sodium Chloride 100 ML IV (08:54)
[2022-07-24] MEDS: Clopidogrel Bisulfate 75 MG TABLET PO (08:55)
--- NOTE | 2022-07-24 09:18 | MHC.CM.PN ---
HOME TODAY - SELF CARE CAR IS IN LOT IMM 07/23 IN CHART
--- NOTE | 2022-07-24 11:12 | HO.PM.IMPN ---
Subjective Subjective Date of Service: 07/24/22 Interval History: postop pain controlled RENZO with clear pink drainage no chest pain Review of Systems Review of Systems: Yes all other systems are reviewed and are negative Physical Exam Vital Signs: Vital Signs: Last Vital Signs Temp 98 F 07/24/22 06:58 Pulse 67 07/24/22 06:58 Resp 18 07/24/22 06:58 BP 128/62 07/24/22 06:58 Pulse Ox 95 07/24/22 06:58 O2 Del Method 07/24/22 06:58 O2 Flow Rate 2 07/22/22 18:37 BMI result Body Mass Index 31.1 Gen: in no acute distress HEENT: sclera anicteric, moist mucus membranes Neck: supple Lungs: clear to auscultation bilaterally Heart: regular rate and rhythm, no murmurs Abd: soft, mild postop tenderness, incisions C/D/I, RENZO with pink clear fluid Ext: no edema Skin: warm/well-perfused Neuro: alert and oriented x3, no focal findings Psych: appropriate affect Objective Data Labs 07/24/22 05:18 07/24/22 05:18 Labs: Laboratory Results - last 24 hr 07/23/22 07/23/22 07/24/22 16:44 19:52 05:18 MCV 91.9 MCH 31.7 MCHC 34.5 RDW 14.2 Plt Count 182 MPV 10.9 Absolute Nucleated RBC 0.000 Nucleated RBC % (auto) 0.0 Anion Gap Estim Creat Clear Calc Estimated GFR POC Glucose 146 H 178 H Random Glucose Calcium 07/24/22 05:18 MCV MCH MCHC RDW Plt Count MPV Absolute Nucleated RBC Nucleated RBC % (auto) Anion Gap 12 Estim Creat Clear Calc 88.8 Estimated GFR > 60 POC Glucose Random Glucose 125 H Calcium 8.2 L Microbiology Microbiology Results: Microbiology 07/22/22 Unknown Gram Stain - Final Gallbladder Fluid Routine Culture - Preliminary No growth to date. Anaerobic Culture - Preliminary No growth to date. Assessment and Plan (1) Cholecystitis, acute: Status: Acute (2) Hypomagnesemia: Status: Acute (3) HTN (hypertension): Status: Acute (4) Hyperlipidemia: Status: Acute Plan 71 year-old male with past medical history of hypertension, diabetes, and CAD who presented to the hospital with complaints of right upper quadrant abdominal pain and was found to have acute cholecystitis and admitted to the General Surgery service with Medicine consultation # acute cholecystitis - d/c antibiotics as source is controlled - POD#2 lap gris - Cardiology consulted, clopidogrel on hold x5d pre-op, resume clopidogrel today # CAD - cath 2018: patent mid-LAD stent, mild-mod nonobstructive CAD in LAD + RAC; severe stenosis in distal circumflex s/p [place] - TTE 2020 with LVEF 55-60%, no WMA, calcification/thickening of R coronary cusp with mobile calcium; moderate aortic regurgitation - unmodifiable perioperative risk - resume clopidogrel; continue metoprolol succinate + atorvastatin # hypoMg - replete # HTN - metoprolol succinate, amlodipine, HCTZ, losartan # DM2 - hold MTF, continue correction-dose lispro # Parkinsonism - continue Sinemet # mood disorder - continue escitalopram + divalproex # VTE ppx: SCDs # dispo: anticipate home with surgically cleared Time Spent With Patient Time: Total time managing care of this patient today _25___ minutes. Quality Stroke Does the patient have a stroke diagnosis?: No VTE Prior VTE?: No VTE Risk Level:: Surgical - moderate VTE Device Contraindication: N/A - Device Ordered VTE Drug Contraindication: N/A - Med Ordered
== END 2022-07-24 10:30 | disposition home or self-care (01) | DRG 418 ==
LOC: HO.ED 19:50 → HO.EDOVER 19:56 → HO.S3 07-16 06:53
PROVIDERS: Family Medicine; Hospitalist; Physician Assistant; Admitting Provider Surgery; Emergency Provider Emergency Medicine Emergency Medical Services; PCP Internal Medicine; Visit Provider Surgery
PROC: 0FT44ZZ Resection of Gallbladder, Percutaneous Endoscopic Approach (ICD-10-PCS; CPT 47562; principal; 2022-07-22 13:30)
DX: K81.0 Acute cholecystitis (principal); E87.0 Hyperosmolality and hypernatremia; J44.9 Chronic obstructive pulmonary disease, unspecified; E78.5 Hyperlipidemia, unspecified; I25.10 Atherosclerotic heart disease of native coronary artery without angina pectoris; E83.42 Hypomagnesemia; G20 Parkinson's disease; I35.1 Nonrheumatic aortic (valve) insufficiency; E86.0 Dehydration; K66.0 Peritoneal adhesions (postprocedural) (postinfection); Z20.822 Contact with and (suspected) exposure to COVID-19; Z98.84 Bariatric surgery status; Z86.73 Personal history of transient ischemic attack (TIA), and cerebral infarction without residual deficits; Z87.891 Personal history of nicotine dependence; Z79.01 Long term (current) use of anticoagulants; Z79.84 Long term (current) use of oral hypoglycemic drugs; Z79.899 Other long term (current) drug therapy
CPT/HCPCS: 36415; 74177; 76705; 78226; 80048; 80053; 80076; 81001; 82947; 83036; 83605; 83690; 83735; 84134; 85025; 85027; 85610; 85730; 87040; 87070; 87073; 87205; 87502; 87635; 88304; 93005; 93306; 96361; 96374; 96375; 96376; 99285; A9537; J0131; J0295; J0330; J1170; J2250; J2405; J3010; J3475; Q9957; Q9967

== ENCOUNTER → 2022-07-29 09:54 | Outpatient (BNVA) | payer MEDICARE, SELFPAY | PROVIDERS: PCP Internal Medicine; Referring Provider Internal Medicine; Visit Provider Surgery | DX: Z13.89 Encounter for screening for other disorder (principal) | CPT/HCPCS: 99212 ==

== ENCOUNTER → 2022-08-08 10:12 | Outpatient (BNVA) | payer MEDICARE, SELFPAY | PROVIDERS: PCP Internal Medicine; Referring Provider Internal Medicine; Visit Provider Surgery | DX: Z48.815 Encounter for surgical aftercare following surgery on the digestive system (principal); G47.33 Obstructive sleep apnea (adult) (pediatric); J44.9 Chronic obstructive pulmonary disease, unspecified; E11.9 Type 2 diabetes mellitus without complications; Z79.01 Long term (current) use of anticoagulants; Z90.49 Acquired absence of other specified parts of digestive tract; Z87.19 Personal history of other diseases of the digestive system | CPT/HCPCS: 99212 ==

== ENCOUNTER 2023-03-31 14:41 | Outpatient (AMB) | payer MEDICARE, SELFPAY ==
--- NOTE | 2023-03-31 14:48 | A.OFFVIS_ITS ---
Intake Vital Signs 03/31/23 14:49 Height 6 ft Weight 245 lb 2 oz BMI 33.2 BP 140/70 H Blood Pressure Location Rt brachial Position Sitting Pulse 94 Pulse Source Pulse Oximeter Pulse Oximetry (%) 94 Oxygen Delivery Method Room Air Intake Visit Reasons: Follow up Parkinson-Confirmed Intake Note: Patient presents for follow up parkinson's. Patient states I'm very good, no issue or concerns leave things the way they are I dont want to mess things up.. Allergies No Known Allergies Allergy (Verified 03/31/23 14:55) Medication List - Last Reconciled 03/31/23 by CRISTOFER Farias albuterol sulfate 90 mcg/actuation 2 puffs inhalation Q4-6H PRN atorvastatin 1 tab PO DAILY carbidopa-levodopa 25-100 mg 1.5 tabs PO BID 28 days citalopram 1 tab PO DAILY clopidogrel 1 tab PO DAILY divalproex 1 tab PO BEDTIME divalproex ER 2 tabs PO BID gabapentin 2 caps PO BEDTIME losartan-hydrochlorothiazide 100-25 mg 1 tab PO DAILY metformin 1 tab PO BID nebivolol (Bystolic) 1 tab PO DAILY HPI HPI Comments History of Present Illness Details 72-yr-old male presents for f/u visit. Freeman zhang was last seen in Jan 2021 at [facility]. Pt denies any significant interval medical history changes. Pt's current PD medication regimen: CD-LD 25-100mg 1.5 tabs BID- 11am and 11pm-12am (in-line w/ his sleep-wake routine). Gabapentin 100-200mg qhs, sometimes 300mg qhs. Do medication effects last between doses: None ADL's: Ind Swallowing: No issues Cough: No issues Drooling: No issues Orthostatic lightheadedness: Occasionally- can last x's 30 seconds. States he only drinks diet coke Constipation: No issues Freezing: No issues Stiffness: No issues Tremor: Stable- not overly bothersome. More right sided Falls: None Hallucinations: Denies Memory: Stable Mood: No issues Sleep: Sleeping ok. But he has bouts of pain in his toes and his legs jump around- startes in the evening when on the couch and when in bed. If he gets up and moves around, this subsides. Exercise: Not so much [facility] Medical History (Updated 03/31/23 @ 17:29 by CRISTOFER Farias) Presence of stent in LAD coronary artery Cryptogenic stroke ERNESTO (obstructive sleep apnea) COPD (chronic obstructive pulmonary disease) Asthma Stroke Non-rheumatic aortic regurgitation CAD (coronary artery disease) Vascular disease of abdomen Hyperlipidemia HTN (hypertension) DMII (diabetes mellitus, type 2) Surgical History S/P laparoscopic cholecystectomy History of lung surgery History of AAA (abdominal aortic aneurysm) repair H/O heart artery stent H/O bariatric surgery Family History Father CAD (coronary artery disease) Mother Lung cancer Social History Household Members: None Housing: House Do you presently have visiting nurse or other home services: No Alcohol intake: never Patient Tobacco Use Status: Former Tobacco user Quit Date: 20 yrs ago Second Hand Smoke Exposure: No service: No Current occupational status: retired Review of Systems Const All systems reviewed & are unremarkable except as noted in HPI and below Physical Exam Vital Signs: Last Vital Signs Pulse 94 03/31/23 14:49 BP 140/70 H 03/31/23 14:49 Pulse Ox 94 03/31/23 14:49 Oxygen Delivery Method Room Air 03/31/23 14:49 BMI result Body Mass Index 33.2 Const General: cooperative and no acute distress Resp Effort & Inspection: normal respiratory effort and able to speak in complete sentences Neuro Other: General: A&O x's 3, slightly clammy Expression: Slight decrease Voice: Intact Tremor: None observed today Tone: BUE R > L Dyskinesia: None FFM: Slight decrease Foot taps: Slight decrease Gait: Stands ok, dropped right shoulder, decreased arm swing, shorter steps w/ knees slightly bent, steady gait Psych: Pleasant affect Results Reviewed Results Reviewed: Last Resulted Lab Tests 07/24/22 05:18 RBC 3.44 L Hgb 10.9 L Hct 31.6 L MCV 91.9 Assessment & Plan Assessment & Plan (1) Parkinson's disease without dyskinesia: Code(s): G20.A1 - Parkinson's disease without dyskinesia, without mention of fluctuations (2) Restless leg syndrome: Code(s): G25.81 - Restless legs syndrome (3) Anemia: Code(s): D64.9 - Anemia, unspecified Plan For PD: Continue CD-LD 25-100mg 1.5 tabs bid Increase water intake, decrease diet coke intake. Advised to increase physical activity. For RLS: Will check labs for common causes of RLS. In the meantime, try adjusting/increasing Gabapentin to 100mg 12- hours before bedtime and 2 hours at bedtime. Discussed non-pharmacologic tx's for RLS- including OTC RLS cream, weighted blanket- however pt states he is already prone to excess sweating. f/u on review of above and in 6 months in clinic or sooner prn Orders: Orders Complete Blood Count Auto Diff Today D64.9 - Anemia, unspecified, E11.9 - Type 2 diabetes mellitus without complications, I10 - Essential (primary) hypertension, I25.10 - Atherosclerotic heart disease of [place] coronary artery without angina pectoris Ferritin Today D64.9 - Anemia, unspecified, E11.9 - Type 2 diabetes mellitus without complications, I10 - Essential (primary) hypertension, I25.10 - Atherosclerotic heart disease of [place] coronary artery without angina pectoris TSH reflex Free T4 Today D64.9 - Anemia, unspecified, E11.9 - Type 2 diabetes mellitus without complications, I10 - Essential (primary) hypertension, I25.10 - Atherosclerotic heart disease of [place] coronary artery without angina pectoris IRON PROFILE Today D64.9 - Anemia, unspecified, E11.9 - Type 2 diabetes mellitus without complications, I10 - Essential (primary) hypertension, I25.10 - Atherosclerotic heart disease of [place] coronary artery without angina pectoris Comprehensive Met. Panel Today D64.9 - Anemia, unspecified, E11.9 - Type 2 diabetes mellitus without complications, I10 - Essential (primary) hypertension, I25.10 - Atherosclerotic heart disease of [place] coronary artery without angina pectoris Vitamin B12 and Folate Today D64.9 - Anemia, unspecified, E11.9 - Type 2 diabetes mellitus without complications, I10 - Essential (primary) hypertension, I25.10 - Atherosclerotic heart disease of [place] coronary artery without angina pectoris Methylmalonic Acid Today D64.9 - Anemia, unspecified, E11.9 - Type 2 diabetes mellitus without complications, I10 - Essential (primary) hypertension, I25.10 - Atherosclerotic heart disease of [place] coronary artery without angina pectoris Homocysteine Today D64.9 - Anemia, unspecified, E11.9 - Type 2 diabetes mellitus without complications, I10 - Essential (primary) hypertension, I25.10 - Atherosclerotic heart disease of [place] coronary artery without angina pectoris Medications: New gabapentin 100 - 300 mg (1 - 3 x 100 mg) PO BEDTIME 30 days 90 caps 3RF Coding Level of Care Code Est Pt Level 4 (64341) Diagnoses Parkinson's disease without dyskinesia G20.A1 Restless leg syndrome G25.81 Anemia D64.9
[2023-03-31 14:49] VITALS: BP 140/70; PULSE 94; O2SAT 94; BMI 33.2
== END 2023-03-31 15:45 | disposition home or self-care (01) ==
PROVIDERS: PCP Internal Medicine; Visit Provider Nurse Practitioner Family
DX: G20.A1 Parkinson's disease without dyskinesia, without mention of fluctuations (principal); G25.81 Restless legs syndrome; D64.9 Anemia, unspecified
CPT/HCPCS: 99214

== ENCOUNTER → 2023-03-31 14:41 | Outpatient (BNVA) | payer MEDICARE, SELFPAY | PROVIDERS: PCP Internal Medicine; Visit Provider Nurse Practitioner Family | DX: G20.A1 Parkinson's disease without dyskinesia, without mention of fluctuations (principal); G25.81 Restless legs syndrome; D64.9 Anemia, unspecified | CPT/HCPCS: 99212 ==

== ENCOUNTER 2023-09-30 14:37 | Outpatient (AMB) | payer MEDICARE, SELFPAY ==
[2023-09-30 14:56] VITALS: PULSE 88; O2SAT 96; BMI 33.2
--- NOTE | 2023-09-30 14:56 | A.OFFVIS_ITS ---
Vital Signs 09/30/23 14:56 Height 6 ft Weight 245 lb BMI 33.2 Pulse 88 Pulse Source Pulse Oximeter Pulse Oximetry (%) 96 Intake Visit Reasons: 6 mo f/u Parkinson-Conf Intake Note: Patient presents for 6 month follow up parkinson's. Allergies No Known Allergies Allergy (Verified 09/30/23 14:58) Medication List - Last Reconciled 09/30/23 by CRISTOFER Farias albuterol sulfate 90 mcg/actuation 2 puffs inhalation Q4-6H PRN amlodipine 5 mg PO DAILY atorvastatin 1 tab PO DAILY carbidopa-levodopa 25-100 mg 1.5 tabs PO BID 28 days citalopram 1 tab PO DAILY clopidogrel 1 tab PO DAILY divalproex 1 tab PO BEDTIME divalproex ER 2 tabs PO BID gabapentin 300 mg PO BEDTIME 30 days gabapentin 100 mg PO BID PRN 30 days isosorbide mononitrate ER 60 mg PO DAILY losartan-hydrochlorothiazide 100-25 mg 1 tab PO DAILY metformin 1 tab PO BID nebivolol (Bystolic) 1 tab PO DAILY HPI Comments Details: 73-yr-old male presents for f/u visit. Pt denies any significant interval medical history changes. Pt reports he has been doing better overall, not noticing his PD s/s as much. 03/31/23, labs showed: H&H 13.2 and 38.5 L MCV 91.2 NL MMA 213 Ferritin 93 CMP- WNL, w/ exception of glucose 244 H Folic acid 18.7 TSH 1.39 Homocystiene 10.9 B-12 809 Pt's current PD medication regimen: CD-LD 25-100mg 1.5 tabs BID- 11am and 11pm- 12am (in-line w/ his sleep-wake routine). Gabapentin 300mg qhs helps for BLE restlessness/pain. Do medication effects last between doses: None ADL's: Ind Swallowing: No issues Cough: No issues Drooling: No issues Orthostatic lightheadedness: Denies Constipation: No issues Freezing: No issues Stiffness: No issues Tremor: Better. Falls: None Gait: He finds himself being more cautious going down his cellar stairs, has handrails on both sides. Walking up the stairs is better. Does not need to go down to the basement on a routine basement, just occasionally for a random thing stored in the basement. Hallucinations: Denies Memory: Stable- states not bad . Mood: No issues Sleep: Sleeping ok. Can still have bouts of restlessness at night. Exercise: Not so much but walks his dog a 1/2 mile everyday. [facility] Medical History (Updated 03/31/23 @ 17:29 by CRISTOFER Farias) Presence of stent in LAD coronary artery Cryptogenic stroke ERNESTO (obstructive sleep apnea) COPD (chronic obstructive pulmonary disease) Asthma Stroke Non-rheumatic aortic regurgitation CAD (coronary artery disease) Vascular disease of abdomen Hyperlipidemia HTN (hypertension) DMII (diabetes mellitus, type 2) Surgical History S/P laparoscopic cholecystectomy History of lung surgery History of AAA (abdominal aortic aneurysm) repair H/O heart artery stent H/O bariatric surgery Family History Father CAD (coronary artery disease) Mother Lung cancer Social History Household Members: None Housing: House Do you presently have visiting nurse or other home services: No Alcohol intake: never Patient Tobacco Use Status: Former Tobacco user Quit Date: 20 yrs ago Second Hand Smoke Exposure: No service: No Current occupational status: retired Review of Systems Const All systems reviewed & are unremarkable except as noted in HPI and below Physical Exam Vital Signs: Last Vital Signs Pulse 88 09/30/23 14:56 Pulse Ox 96 09/30/23 14:56 BMI result Body Mass Index 33.2 Const General: cooperative and no acute distress Resp Effort & Inspection: normal respiratory effort and able to speak in complete sentences Neuro Other: General: A&O x's 3, slightly clammy Expression: Slight decrease Voice: Intact Tremor: Mild RUE postural Tone: BUE R > L Dyskinesia: None FFM: Slight decrease Foot taps: Slight decrease Gait: Stands ok, dropped right shoulder, decreased arm swing, shorter steps w/ knees slightly bent, steady gait Psych: Pleasant affect Assessment & Plan Assessment & Plan (1) Parkinson's disease without dyskinesia: Code(s): G20.A1 - Parkinson's disease without dyskinesia, without mention of fluctuations Category: Medical (2) Restless leg syndrome: Code(s): G25.81 - Restless legs syndrome Category: Medical Plan For PD: Continue CD-LD 25-100mg 1.5 tabs bid Increase water intake. Stressed the importance of increased physical activity for Parkinson's management. Continue increased social activity. ? For RLS: Reviewed labs- improved anemia. Continue Gabapentin 200mg q evening. ? f/u on review of above and in 6 months in clinic or sooner prn Medications: New gabapentin 300 mg PO BEDTIME 30 caps 6RF 30 days Changed From gabapentin 100 - 300 mg (1 - 3 x 100 mg) PO BEDTIME 30 days 90 caps 3RF To gabapentin 100 mg PO BID PRN 60 caps 3RF restless legs 30 days Refilled carbidopa-levodopa 25-100 mg 1.5 tabs PO BID 84 tabs 6RF 28 days Coding Level of Care Code Est Pt Level 4 (61321) Diagnoses Parkinson's disease without dyskinesia G20.A1 Restless leg syndrome G25.81
== END 2023-09-30 15:43 | disposition home or self-care (01) ==
PROVIDERS: PCP Internal Medicine; Visit Provider Nurse Practitioner Family
DX: G20.A1 Parkinson's disease without dyskinesia, without mention of fluctuations (principal); G25.81 Restless legs syndrome
CPT/HCPCS: 99214

== ENCOUNTER → 2023-09-30 14:37 | Outpatient (BNVA) | payer MEDICARE, SELFPAY | PROVIDERS: PCP Internal Medicine; Visit Provider Nurse Practitioner Family | DX: G20.A1 Parkinson's disease without dyskinesia, without mention of fluctuations (principal); G25.81 Restless legs syndrome | CPT/HCPCS: 99212 ==

== ENCOUNTER 2024-04-14 09:56 | Outpatient (AMB) | payer MEDICARE, SELFPAY ==
[2024-04-14 10:03] VITALS: BP 118/52; PULSE 84; O2SAT 97; BMI 32.7
--- NOTE | 2024-04-14 10:03 | HO.NEPHOV_ITS ---
Vital Signs 04/14/24 10:03 Height 6 ft Weight 241 lb BMI 32.7 BP 118/52 L Blood Pressure Location Lt brachial Position Sitting Pulse 84 Pulse Source Pulse Oximeter Pulse Oximetry (%) 97 Oxygen Delivery Method Room Air Intake Visit Reasons: 6 Month Follow Up Facility Mechanic Required: No Accompanied by: Self / Same As Patient Allergies No Known Allergies Allergy (Verified 04/14/24 10:05) Medication List - Last Reconciled 04/14/24 by CRISTOFER Farias albuterol sulfate 90 mcg/actuation 2 puffs inhalation Q4-6H PRN amlodipine 10 mg PO DAILY ascorbic acid (vitamin C) mg PO aspirin 81 mg PO DAILY atorvastatin 1 tab PO DAILY carbidopa-levodopa 25-100 mg 1.5 tabs PO BID 28 days citalopram 1 tab PO DAILY clopidogrel 1 tab PO DAILY gabapentin 300 mg PO BEDTIME 30 days gabapentin 100 mg PO BID PRN 30 days isosorbide mononitrate ER 60 mg PO DAILY isosorbide mononitrate ER 30 mg PO DAILY losartan-hydrochlorothiazide 100-25 mg 1 tab PO DAILY mecobalamin (vitamin B12) 1,000 mcg PO DAILY metformin 1 tab PO BID [id number] 1 tab PO DAILY nebivolol (Bystolic) 1 tab PO DAILY HPI Comments Details: 73-yr-old male presents for f/u visit. Pt denies any significant interval medical history changes. Pt reports he has been doing better overall in terms of his PD.. Pt's current PD medication regimen: CD-LD 25-100mg 1.5 tabs BID- 10-11am and 11pm-12am (in-line w/ his sleep-wake routine). Gabapentin 300mg qhs helps for BLE restlessness/pain. Do medication effects last between doses: None ADL's: Ind Swallowing: No issues Cough: No issues Drooling: No issues Orthostatic lightheadedness: May notice after he drives to a store, then after he gets out of his car/sedan and walks- about 30-60 seconds later he can feel lightheaded. He states he does drink fluids well- drinks 98% diet coke. Constipation: No issues Freezing: No issues Stiffness: No issues Tremor: Only notices when he plays pool- his hand on the back end of the pool stick shakes- it is distracting. Falls: None Gait: He finds himself being more cautious going down his cellar stairs, has handrails on both sides. Walking up the stairs is better. Does not need to go down to the basement on a routine basement, just occasionally for a random thing stored in the basement. Hallucinations: Denies Memory: Stable- states not great but pretty good . Uses small cognitive tricks to trigger recall of say a name. Mood: No issues Sleep: Sleeping ok, maybe too much. Sleeps almost 11-12 hrs plus takes an unintentional 2-3 hr nap. If he is active, he is ok. If he is inactive, he will unintentionally fall asleep. He says he has always had hypersomnia. He has had several sleep studies- last was 8 yrs ago- never had a dx of sleep apnea. His mother had and sister have hypersomnia. Has vivid dreams, some dreams feel very real, daytime dreams. Denies cataplexy. Without his anti-depressant tx he is aggressive and confrontational . Exercise: Not so much but walks his dog a 1/2 mile everyday. [facility] Medical History (Updated 03/31/23 @ 17:29 by CRISTOFER Farias) Presence of stent in LAD coronary artery Cryptogenic stroke ERNESTO (obstructive sleep apnea) COPD (chronic obstructive pulmonary disease) Asthma Stroke Non-rheumatic aortic regurgitation CAD (coronary artery disease) Vascular disease of abdomen Hyperlipidemia HTN (hypertension) DMII (diabetes mellitus, type 2) Surgical History S/P laparoscopic cholecystectomy History of lung surgery History of AAA (abdominal aortic aneurysm) repair H/O heart artery stent H/O bariatric surgery Family History Father CAD (coronary artery disease) Mother Lung cancer Social History Household Members: None Housing: House Do you presently have visiting nurse or other home services: No Alcohol intake: never Patient Tobacco Use Status: Former Tobacco user Second Hand Smoke Exposure: No service: No Current occupational status: retired Physical Exam Vital Signs: Last Vital Signs Pulse 84 04/14/24 10:03 BP 118/52 L 04/14/24 10:03 Pulse Ox 97 04/14/24 10:03 Oxygen Delivery Method Room Air 04/14/24 10:03 BMI result Body Mass Index 32.7 Const General: cooperative and no acute distress Resp Effort & Inspection: normal respiratory effort and able to speak in complete sentences Neuro Other: General: A&O x's 3, slightly clammy Expression: Slight decrease Voice: Intact Tremor: Mild RUE postural Tone: BUE R > L Dyskinesia: None FFM: Slight decrease Foot taps: Slight decrease Gait: Stands ok, dropped right shoulder, decreased arm swing, shorter steps w/ knees slightly bent, steady gait Psych: Pleasant affect Results Reviewed Nephrology Results: No Data to Display Assessment & Plan Assessment & Plan (1) Parkinson's disease without dyskinesia: Code(s): G20.A1 - Parkinson's disease without dyskinesia, without mention of fluctuations Category: Medical (2) Restless leg syndrome: Code(s): G25.81 - Restless legs syndrome Category: Medical Plan For PD: Continue CD-LD 25-100mg 1.5 tabs bid Try adding gatorade 8-16oz qam. Pt would like to try V-8 firts. Pt states he does not drink water. Encouraged tod ecrease diet coke use. To reduce OH s/s- Advised to stand slowly, step in place. Stressed the importance of increased physical activity for Parkinson's management. Continue increased social activity. ? For RLS: Reviewed labs- improved anemia. Continue Gabapentin 300mg q evening and 100mg bid prn. For sleep: Discussed having f/u sleep study/MSLT, however pt is not overly bothered by his hypersomnia s/s. ? f/u on review of above and in 6 months in clinic or sooner prn Medications: Changed From gabapentin 100 mg PO BID 30 days PRN 60 caps 3RF restless legs To gabapentin am and afternoon 100 mg PO BID PRN 60 caps 6RF restless legs 30 days Refilled gabapentin 300 mg PO BEDTIME 30 caps 6RF 30 days Coding Diagnoses Parkinson's disease without dyskinesia G20.A1 Restless leg syndrome G25.81
[2024-04-14 11:48] VITALS: BMI 32.7
--- NOTE | 2024-04-14 11:48 | MHC.OFFVIS ---
Vital Signs 04/14/24 10:03 04/14/24 11:48 Height 6 ft Weight 241 lb BMI 32.7 32.7 BP 118/52 L Blood Pressure Location Lt brachial Position Sitting Pulse 84 Pulse Source Pulse Oximeter Pulse Oximetry (%) 97 Oxygen Delivery Method Room Air Intake Visit Reasons: 6 Month Follow Up Allergies No Known Allergies Allergy (Verified 04/14/24 10:05) Medication List - Last Reconciled 04/14/24 by CRISTOFER Farias albuterol sulfate 90 mcg/actuation 2 puffs inhalation Q4-6H PRN amlodipine 10 mg PO DAILY ascorbic acid (vitamin C) mg PO aspirin 81 mg PO DAILY atorvastatin 1 tab PO DAILY carbidopa-levodopa 25-100 mg 1.5 tabs PO BID 28 days citalopram 1 tab PO DAILY clopidogrel 1 tab PO DAILY gabapentin 300 mg PO BEDTIME 30 days gabapentin 100 mg PO BID PRN 30 days isosorbide mononitrate ER 60 mg PO DAILY isosorbide mononitrate ER 30 mg PO DAILY losartan-hydrochlorothiazide 100-25 mg 1 tab PO DAILY mecobalamin (vitamin B12) 1,000 mcg PO DAILY metformin 1 tab PO BID [id number] 1 tab PO DAILY nebivolol (Bystolic) 1 tab PO DAILY HPI Comments Details: 73-yr-old male presents for f/u visit of PD. Pt denies any significant interval medical history changes. Pt reports he has been doing better overall in terms of his PD. Pt's current PD medication regimen: CD-LD 25-100mg 1.5 tabs BID- 10-11am and 11pm-12am (in-line w/ his sleep-wake routine). Gabapentin 300mg qhs helps for BLE restlessness/pain. ADL's: Ind Swallowing: No issues Cough: No issues Drooling: No issues Orthostatic lightheadedness: May notice after he drives to a store, then after he gets out of his car/sedan and walks- about 30-60 seocnds later he can feel lightheaded. Constipation: No issues Freezing: No issues Stiffness: No issues Tremor: Better. Falls: None Gait: He finds himself being more cautious going down his cellar stairs, has handrails on both sides. Walking up the stairs is better. Does not need to go down to the basement on a routine basement, just occasionally for a random thing stored in the basement. Hallucinations: Denies Memory: Stable- states not bad . Mood: No issues Sleep: Sleeping ok. Can still have bouts of restlessness at night. Exercise: Not so much but walks his dog a 1/2 mile everyday. [facility] BY [facility] Medical History (Updated 04/14/24 @ 21:14 by CRISTOFER Farias) Presence of stent in LAD coronary artery Cryptogenic stroke ERNESTO (obstructive sleep apnea) COPD (chronic obstructive pulmonary disease) Asthma Stroke Non-rheumatic aortic regurgitation CAD (coronary artery disease) Vascular disease of abdomen Hyperlipidemia HTN (hypertension) DMII (diabetes mellitus, type 2) Surgical History S/P laparoscopic cholecystectomy History of lung surgery History of AAA (abdominal aortic aneurysm) repair H/O heart artery stent H/O bariatric surgery Family History Father CAD (coronary artery disease) Mother Lung cancer Social History Household Members: None Housing: House Do you presently have visiting nurse or other home services: No Alcohol intake: never Patient Tobacco Use Status: Former Tobacco user Second Hand Smoke Exposure: No service: No Current occupational status: retired Physical Exam Vital Signs: Last Vital Signs Pulse 84 04/14/24 10:03 BP 118/52 L 04/14/24 10:03 Pulse Ox 97 04/14/24 10:03 Oxygen Delivery Method Room Air 04/14/24 10:03 BMI result Body Mass Index 32.7 Const General: cooperative and no acute distress Resp Effort & Inspection: normal respiratory effort and able to speak in complete sentences Neuro Other: General: A&O x's 3 Expression: Slight decrease Voice: Intact Tremor: Mild RUE postural Tone: Mild BUE R > L Dyskinesia: None FFM: Slight decrease Foot taps: Slight decrease Gait: Stands ok, dropped right shoulder, decreased arm swing- more so on right, shorter steps w/ knees slightly bent, steady gait Psych: Pleasant affect Assessment & Plan Assessment & Plan (1) Parkinson's disease without dyskinesia: Code(s): G20.A1 - Parkinson's disease without dyskinesia, without mention of fluctuations Category: Medical (2) Restless leg syndrome: Code(s): G25.81 - Restless legs syndrome Category: Medical (3) Orthostatic lightheadedness: Code(s): R42 - Dizziness and giddiness Category: Medical Plan For PD: Continue CD-LD 25-100mg 1.5 tabs bid Try adding gatorade 8-16oz qam. Pt would like to try V-8 firts. Pt states he does not drink water. Encouraged tod ecrease diet coke use. To reduce OH s/s- Advised to stand slowly, step in place. Stressed the importance of increased physical activity for Parkinson's management. Continue increased social activity. ? For RLS: Continue Gabapentin 300mg q evening and 100mg bid prn. For hypersomnia w/ family h/o hypersomnia w/o cataplexy: Pt is not overly bothered by this, however discussed that untreated hypersomnia can be a/w increased risk for accidents and CV complications, Offered f/u sleep study/MSLT, however pt is not overly bothered by his hypersomnia s/s. f/u on review of above and in 6 months in clinic or sooner prn ? f/u on review of above and in 6 months in clinic or sooner prn Medications: Changed From gabapentin 100 mg PO BID 30 days PRN 60 caps 3RF restless legs To gabapentin am and afternoon 100 mg PO BID PRN 60 caps 6RF restless legs 30 days Refilled gabapentin 300 mg PO BEDTIME 30 caps 6RF 30 days Coding Level of Care Code Est Pt Level 4 (01129) Diagnoses Parkinson's disease without dyskinesia G20.A1 Restless leg syndrome G25.81 Orthostatic lightheadedness R42
== END 2024-04-14 11:15 | disposition home or self-care (01) ==
PROVIDERS: PCP Internal Medicine; Visit Provider Nurse Practitioner Family
DX: G20.A1 Parkinson's disease without dyskinesia, without mention of fluctuations (principal); G25.81 Restless legs syndrome; R42 Dizziness and giddiness
CPT/HCPCS: 99214

== ENCOUNTER → 2024-04-14 09:56 | Outpatient (BNVA) | payer MEDICARE, SELFPAY | PROVIDERS: PCP Internal Medicine; Visit Provider Nurse Practitioner Family | DX: G20.A1 Parkinson's disease without dyskinesia, without mention of fluctuations (principal); G25.81 Restless legs syndrome; R42 Dizziness and giddiness; Z95.5 Presence of coronary angioplasty implant and graft | CPT/HCPCS: 99212 ==

== ENCOUNTER 2024-10-19 09:35 | Outpatient (AMB) | payer MEDICARE, SELFPAY ==
--- NOTE | 2024-10-19 09:40 | A.OFFVIS_ITS ---
Vital Signs 10/19/24 09:41 Height 6 ft Weight 238 lb BMI 32.3 BP 130/60 Pulse 83 Pulse Source Pulse Oximeter Pulse Oximetry (%) 94 Oxygen Delivery Method Room Air Intake Visit Reasons: Follow Up 6mo Intake Note: Patient presents follow up for Parkinson's/RLS [employer] Furnace Operator Required: No Accompanied by: Self / Same As Patient Allergies No Known Allergies Allergy (Verified 10/19/24 09:46) Medication List - Last Reconciled 10/19/24 by CRISTOFER Farias albuterol sulfate 90 mcg/actuation 2 puffs inhalation Q4-6H PRN amlodipine 10 mg PO DAILY ascorbic acid (vitamin C) mg PO aspirin 81 mg PO DAILY atorvastatin 1 tab PO DAILY carbidopa-levodopa 25-100 mg 1.5 tabs PO BID 28 days citalopram 1 tab PO DAILY gabapentin 100 mg PO BID PRN 30 days gabapentin 400 mg PO BEDTIME 30 days isosorbide mononitrate ER 60 mg PO DAILY isosorbide mononitrate ER 30 mg PO DAILY losartan-hydrochlorothiazide 100-25 mg 1 tab PO DAILY mecobalamin (vitamin B12) 1,000 mcg PO DAILY metformin 1 tab PO BID [id number] 1 tab PO DAILY nebivolol (Bystolic) 1 tab PO DAILY HPI Comments Details: 74-yr-old male presents for f/u visit of Parkinson's disease. Pt reports he recently underwent recent f/u nuclear stress test d/t breakthrough angina s/s- he has not heard on results yet. Pt reports he has been doing better overall in terms of his PD. Pt's current PD medication regimen: CD-LD 25-100mg 1.5 tabs BID- 10-11am and 11pm-12am (in-line w/ his sleep-wake routine). Gabapentin 300+100mg qhs and uses 100mg prn for a nap- helps for BLE restlessness/pain. ADL's: Ind Swallowing: No issues Cough: No issues Drooling: No issues Orthostatic lightheadedness: Occasionally- may notice after he drives to a store, then after he gets out of his car/sedan and walks- about 30-60 seconds later he can feel lightheaded and legs feel weak. Pausing for 30 seconds can help. Typically drinks 2.5-3 liters of diet coke per day. He does not drink much water. He did not yet try the V-8- but has it. Constipation: No issues Freezing: No issues Stiffness: No issues Tremor: Overall better, but every once in a while he notices a mild head tremor/bobble- which he can stop. Denies neck pain. Falls: None Gait: No usual issues, but is cautious on stairs. Hallucinations: Denies Memory: Stable- states not bad . Mood: No issues Sleep: Sleeping ok- maybe too much . Can still have bouts of restlessness at night. Has had several normal sleep studies. Exercise: walks his dog a 1/2 mile everyday. [facility] Medical History (Updated 10/23/24 @ 13:26 by CRISTOFER Farias) Presence of stent in LAD coronary artery Cryptogenic stroke ERNESTO (obstructive sleep apnea) COPD (chronic obstructive pulmonary disease) Asthma Stroke Non-rheumatic aortic regurgitation CAD (coronary artery disease) Vascular disease of abdomen Hyperlipidemia HTN (hypertension) DMII (diabetes mellitus, type 2) Surgical History S/P laparoscopic cholecystectomy History of lung surgery History of AAA (abdominal aortic aneurysm) repair H/O heart artery stent H/O bariatric surgery Family History Father CAD (coronary artery disease) Mother Lung cancer Social History Household Members: None Housing: House Do you presently have visiting nurse or other home services: No Alcohol intake: never Patient Tobacco Use Status: Former Tobacco user Second Hand Smoke Exposure: No service: No Current occupational status: retired Physical Exam Vital Signs: Last Vital Signs Pulse 83 10/19/24 09:41 BP 130/60 10/19/24 09:41 Pulse Ox 94 10/19/24 09:41 Oxygen Delivery Method Room Air 10/19/24 09:41 BMI result Body Mass Index 32.3 Const General: cooperative and no acute distress Resp Effort & Inspection: normal respiratory effort and able to speak in complete sentences Neuro Other: General: A&O x's 3 Expression: Slight decrease Voice: Intact Tremor: Mild RUE postural Tone: Mild BUE R > L Dyskinesia: None FFM: Slight decrease Foot taps: Slight decrease Gait: Stands ok, dropped right shoulder, decreased arm swing- more so on right, shorter steps w/ knees slightly bent, steady gait Psych: Pleasant affect Assessment & Plan Assessment & Plan (1) Parkinson's disease without dyskinesia: Code(s): G20.A1 - Parkinson's disease without dyskinesia, without mention of fluctuations Category: Medical Qualifiers: Fluctuating manifestations: without fluctuating manifestations Qualified Code(s): G20.A1 - Parkinson's disease without dyskinesia, without mention of fluctuations (2) Restless leg syndrome: Code(s): G25.81 - Restless legs syndrome Category: Medical (3) Orthostatic lightheadedness: Code(s): R42 - Dizziness and giddiness Category: Medical Plan For PD: Continue CD-LD 25-100mg 1.5 tabs bid To minimize orthostatic lightheadedness symptoms: * Try adding V-8 1-2 servings daily in the morning. If V-8 ineffective, try adding Gatorade 16-20 oz daily in the morning. Pt states he does not drink water. Encouraged to decrease diet coke use. * Advised to move legs and step in place prior to standing, and then change positions in stand up slowly. Stressed the importance of increased physical activity for Parkinson's management. Continue increased social activity. ? For RLS: We will adjust patient's gabapentin to reflect what he is currently taking at home, as this seems to be more effective. Adjust Gabapentin from 300 mg Q evening and 100 mg b.i.d. prn to gabapentin 400mg q evening and 100mg bid prn. For hypersomnia w/ family h/o hypersomnia w/o cataplexy: Discussed undergoing f/u sleep study/MSLT, as untreated hypersomnia can be associated with increased risk for accidents and CV complications if secondary to untreated ERNESTO. However, patient declines at this time, as he has had several negative sleep studies in the past and and he is not overly bothered by his hypersomnia s/s. ? Follow-up in 6 months in clinic or sooner prn Medications: New gabapentin 400 mg PO BEDTIME 30 days 30 caps 6RF Discontinued gabapentin Discontinued Reason: Doctor's Order 300 mg PO BEDTIME 30 days 30 caps 6RF Coding Level of Care Code Est Pt Level 4 (18997) Diagnoses Parkinson's disease without dyskinesia or fluctuating manifestations G20.A1 Fluctuating manifestations: without fluctuating manifestations Restless leg syndrome G25.81 Orthostatic lightheadedness R42
[2024-10-19 09:41] VITALS: BP 130/60; PULSE 83; O2SAT 94; BMI 32.3
--- OUTSIDE RECORDS SUMMARY | 2024-10-19 10:18 | XMS_ITS | Data Portability ---
Author Organization [facility], [address] Address [address] [place] [address] Assessment No assessment recorded. Plan of Treatment Reminders Order Date Submit Date Provider Last Modified By Organization Details Last Modified Time Details Appointments None recorded. Lab rapid flu (A+B) 2022 023 [facility] [address] [place], [address], 3 11:40:16 rapid SARS CoV 2 Ag, QL IA, respirato ry specimen 2022 023 [id number] [address] [place], [address], 3 11:40:17 rapid strep group A, throat 2022 023 [facility] [address] [address] [place], [address], 3 11:40:18 Referral None recorded. Procedures None recorded. Surgeries None recorded. Imaging None recorded. Medication Orders albuterol sulfate 2.5 mg/3 mL (0.083 %) solution for nebulizat ion 2022 023 adiazrivera 2 [id number], [address] [place], [address], 3 11:46:25 ipratropi um bromide 0.02 % solution for inhalatio n 2022 023 adiazrivera 2 [facility], [address] [place], [address], 3 11:47:15 prednison e 20 mg tablet 2022 023 [facility], [address] [place], [address], 3 12:09:05 albuterol sulfate HFA 90 mcg/actua tion aerosol inhaler 2022 023 [facility], [address] [place], [address], 3 12:09:05 Allergy Relief (fluticas one) 50 mcg/actua tion nasal spray,[facility] pension 2022 023 [facility], [address] [place], [address], 3 12:09:04 benzonata te 200 mg capsule 2022 023 [facility], [address] [place], [address], 3 12:09:04 Allergy Relief (fluticas one) 50 mcg/actua tion nasal spray,[facility] pension 2022 023 [facility], [phone] [place], [address], 3 19:24:41 prednison e 20 mg tablet [facility] [phone] [place], [address], 3 10:57:17 albuterol sulfate HFA 90 mcg/actua tion aerosol inhaler 2022 023 vzavalunov [facility], [phone] [place], [address], 10:56:37 benzonata te 200 mg capsule 2022 023 ADOLFO [facility], [phone] [place], [address], 10:56:49 Patient TargetsNo targets recorded. Patient Instructions Encounter Date Encounter Id Patient Instructions Last Modified By Organization Details Last Modified Time 06/20/2022 [id number] Patient instruct ed on worsening signs and symptoms that would require further evaluation by ED or PCP such as fever of 101.0 or greater, congestion accompanied with coughing, vomiting, diarrhea, abdominal pain, decreased oral intake, lethargy, or other new symptom(s) experienced not discussed during this visit. Use humidifier and ensure good hydration. If you experience new concerning symptoms, shortness of breath, respiratory distress, or chest pain go to the ER. Use the medications prescribed. May use Decongestants if tolerated and no history of elevated blood pressure or Diabetes. Use saline nasal saline and Flonase daily for1 week. You may use tylenol for pain/fever. Do not take prednisone with Ibuprofen. Get some extra rest. When should you call for help? Call anytime you think you may need emergency care. For example, call if: You have severe trouble breathing. Call your doctor now or seek immediate medical care if: You have new or worse trouble breathing. You cough up dark brown or bloody mucus (sputum). You have a new or higher fever. You have a new rash. Watch closely for changes in your health, and be sure to contact your doctor if: You cough more deeply or more often, especially if you notice more mucus or a change in the color of your mucus. You are not getting better as expected. Not available 06/20/2022 19:22:41 11/21/2022 [id number] coronavirus (covid-19): care instructions Not available 11/21/2022 11:40:12 cough: care instructions Not available 11/21/2022 11:40:13 sore throat: car e instructions Not available 11/21/2022 11:40:13 peak flow* [email or web address] Not available 12:04:44 If you test positive for COVID-19, stay home for at least 5 days and isolate from others in your home. You are likely most infectious during these first 5 days. Wear a high-quality mask if you must be around others at home and in public. Do not go places where you are unable to wear a mask. For travel guidance, see [facility]? s Travel webpage. Do not travel. Stay home and separate from others as much as possible. Use a separate bathroom, if possible. Take steps to improve ventilation at home, if possible. Don? t share personal household items, like cups, towels, and utensils. Monitor your symptoms. If you have an emergency warning sign (like trouble breathing), seek emergency medical care immediately. If you had symptoms and: Your symptoms are improving You may end isolation after day 5 if: You are fever-free for 24 hours (without the use of fever-reducing medication). Your symptoms are not improving Continue to isolate until: You are fever-free for 24 hours (without the use of fever-reducing medication). Your symptoms are improving. Regardless of when you end isolation Until at least day 11: Avoid being around people who are more likely to get very sick from COVID-19. Remember to wear a high-quality mask when indoors around others at home and in public. Do not go places where you are unable to wear a mask until you are able to discontinue masking (see below). For travel guidance, see [facility]? s Travel webpage. Not available 11/21/2022 11:39:05 Patient instruct ed on worsening signs and symptoms that would require further evaluation by ED or PCP such as fever of 101.0 or greater, congestion accompanied with coughing, vomiting, diarrhea, abdominal pain, decreased oral intake, lethargy, or other new symptom(s) experienced not discussed during this visit. Use humidifier and ensure good hydration. If you experience new concerning symptoms, shortness of breath, respiratory distress, or chest pain go to the ER. Use the medications prescribed. May use Decongestants if tolerated and no history of elevated blood pressure or Diabetes. Use saline nasal saline and Flonase daily for1 week. You may use tylenol for pain/fever. Do not take prednisone with Ibuprofen. Get some extra rest. When should you call for help? Call anytime you think you may need emergency care. For example, call if: You have severe trouble breathing. Call your doctor now or seek immediate medical care if: You have new or worse trouble breathing. You cough up dark brown or bloody mucus (sputum). You have a new or higher fever. You have a new rash. Watch closely for changes in your health, and be sure to contact your doctor if: You cough more deeply or more often, especially if you notice more mucus or a change in the color of your mucus. You are not getting better as expected. [email or web address] Not available 11/21/2022 11:38:58 Reason for Referral None Reported. Results Created Date Observation Date Name Description Value Unit Range Abnormal Flag Note LastModifiedBy Organization Detail LastModifiedTime 11/22/1911/21/2022 peak flow* Pre (L/min) 380 Not Available [facility] [address] [place], [address], 11/21/2022 11:39:20 11/22/19 23 11/21/2022 peak flow* Post (L/min) [address] Not Available [address] [place], [address], 11/21/2022 11:39:20 11/22/19 23 11/21/2022 peak flow* Pulse [address] [facility] [address] [place], [address], 11/21/2022 11:39:20 11/22/1911/21/2022 peak flow* Oxygen Saturation 97% Not Available [address] [place], [address], 11/21/2022 11:39:20 11/22/19 23 11/21/2022 rapid SARS CoV 2 Ag, QL IA, respi rator y speci men Unknown Analyte Normal =Negat mauro Not Available [address] [address] [place], [address], 11/21/2022 11:00:01 11/22/19 23 11/21/2022 rapid SARS CoV 2 Ag, QL IA, respi rator y speci men Unknown Analyte negati ve Not Available [address] [place], [address], 11/21/2022 11:00:01 11/22/19 23 11/21/2022 rapid flu (A+B) Unknown Analyte Normal = Negati ve Not Available [address] [place], [address], 11/21/2022 10:59:55 11/22/19 23 11/21/2022 rapid flu (A+B) Unknown Analyte negati ve Not Available [address] [place], [address], 11/21/2022 10:59:55 11/22/19 23 11/21/2022 rapid flu (A+B) Unknown Analyte Normal = Negati ve Not Available [address] [place], [address], 11/21/2022 10:59:55 11/22/19 23 11/21/2022 rapid flu (A+B) Unknown Analyte negati ve Not Available [address] [place], [address], 11/21/2022 10:59:55 11/22/19 23 11/21/2022 rapid strep group A, throa t Unknown Analyte Normal = Negati ve Not Available [address] [place], [address], 11/21/2022 10:59:43 11/22/19 23 11/21/2022 rapid strep group A, throa t Unknown Analyte negati ve Not Available [id number] [facility], [place], [address], 11/21/2022 10:59:43 Result Notes None recorded. Problems Name Problem SNOMED Code Status Onset Date Resolution Date Notes Provider Name and Address Organization Details Recorded Time Diabetes mellitus 19469940 Active 2022 LINDEN ZATODD null, PA - [facility] 3 19:00:49 Hypertensive disorder 24403019 Active 2022 LINDEN EJ null, PA - [facility] 3 19:00:54 Parkinson's disease 60779452 Active 2022 LINDEN EJ null, PA - [facility] 3 19:01:02 Myocardial infarction 41077289 Active 2022 LINDEN ZATODD null, PA - [facility] 3 19:01:45 Cerebrovascula r accident 327982624 Active 2022 LINDEN ZATODD null, PA - [facility] 3 19:02:10 Problem Notes None recorded. Procedures Surgical History Date Name Laterality Status Provider Name and Address Organization Details Recorded Time Nebulizer Treatment completed SHERYL CORNELIUS PA - [facility] 11/21/2022 12:05:08 repair of aortic abdominal aneurysm using straight graft completed LINDEN PAGAN PA - [facility] 06/20/2022 19:02:26 Imaging Results None recorded. Procedure Notes None recorded. Medical Equipment None Reported. Allergies No known drug allergies Medications Name Sig Start Date Stop Date Status Note LastModified by Organization Details LastModified Time metformin 500 mg tablet active Not Available Not Available Not Available atorvastatin 80 mg tablet active Not Available Not Available Not Available albuterol sulfate 2.5 mg/3 mL (0.083 %) solution for nebulization Inhale 2.5 mg every day by nebulizatio n route as directed for 1 day. 2022 active Not Available Not Available Not Avai lable divalproex 250 mg tablet,delay ed release active Not Available Not Available N ot Available benzonatate 200 mg capsule Take 1 capsule 3 times a day by oral route as needed for 7 days. 2022 active Not Available Not Available Not Avai lable prednisone 20 mg tablet Take 2 tablets every day by oral route in the morning for 5 days. 2022 active Not Available Not Available Not Avai lable clopidogrel 75 mg tablet active Not Available Not Available Not Available losartan 100 mg-hydrochlo rothiazide 25 mg tablet active Not Available Not Available Not Available citalopram 20 mg tablet active Not Available Not Available Not Available divalproex ER 500 mg tablet,exten ded release 24 hr active Not Available Not Available Not Available gabapentin 100 mg capsule active Not Available Not Available Not Available albuterol sulfate HFA 90 mcg/actuatio n aerosol inhaler INHALE 2 PUFFS EVERY 4 TO 6 HOURS NEEDED FOR 10 DAYS active Not Available Not Available No t Available carbidopa 25 mg-levodopa 100 mg tablet active Not Available Not Available Not Available fluticasone propionate 50 mcg/actuatio n nasal spray,suspen rohit SPRAY 1 SPRAY TWICE A DAY BY INTRANASAL ROUTE DIRECTED FOR 14 DAYS. active Not Available Not Available No t Available ipratropium bromide 0.02 % solution for inhalation Inhale 0.5 mg by inhalation route as directed for 1 day. 2022 active Not Available Not Available Not Avai lable carbidopa 10 mg-levodopa 100 mg disintegrati ng tablet Place 2 tablets 4 times a day by translingua l route. active Not Available Not Available No t Available losartan 100 mg-hydrochlo rothiazide 12.5 mg tablet Take 1 tablet every day by oral route. active Not Available Not Available No t Available atorvastatin active Not Available Not Available Not Available aspirin active Not Available Not Avail able Not Available citalopram active Not Available Not Av ailable Not Available Depakote active Not Available Not Avai lable Not Available clopidogrel active Not Available Not A vailable Not Available metformin active Not Available Not Eusebia ilable Not Available gabapentin active Not Available Not Av ailable Not Available multivitamin active Not Available Not Available Not Available Bystolic 10 mg tablet active Not Available Not Available No t Available Bystolic active Not Available Not Avai lable Not Available Vitals Date Recorded Body height Body mass index (BMI) Body weight Oxygen saturation Oxygen saturation in Arterial blood by Pulse oximetry Heart rate Systolic blood pressure Diastolic blood pressure Provider Name and Address Organization Details Last Updated DateTime 3 182.88 cm 31.2 kg/m2 239464. 25 g 100 % 100 % 78 /min 128 mm[Hg] 73 mm[Hg] LINDEN UPTONTODD PA - [facility] 3 19:03:36 Date Recorded Body height Body mass index (BMI) Body weight Respiratory rate Oxygen saturation Oxygen saturation in Arterial blood by Pulse oximetry Body temperature Systolic blood pressure Diastolic blood pressure Provider Name and Address Organization Details Last Updated DateTime 3 182.88 cm 31.2 kg/m2 545583. 25 g 19 /min 97 % 97 % 98.9 [degF] 142 mm[Hg] 77 mm[Hg] LINDEN UPTONTODD PA - [facility] 3 11:05:16 Social History Question Answer Notes LastModified by Current Media Details LastModified Time Tobacco Smoking Status Never Smoker LINDEN ZATODD kessler, PA - [facility] 06/20/2022 18:56:03 Have You Recently Traveled Abroad? No Information not available 06/20/2022 Are You Currently In School? No Information not available 11/21/2022 Sex: Unknown Functional Status Question Answer Note LastModified by Current Media Details LastModified Time Do you use any illicit or recreational drugs? No Information not available 06/20/2022 What is your level of alcohol consumption? None Information not available 06/20/2022 Are you currently employed? No Information not available 11/21/2022 Mental Status None recorded. Family History Relationship Description Onset Age of this Age Resolved Age Notes LastModified by Organization Details LastModified Time Father No current problems or disability [email or web address] Not available 05/26 19:01:07 Mother No current problems or disability [email or web address] Not available 05/26 19:01:07 Medical History No medical history recorded. Past Encounters Encounter ID Performer Location Encounter Start Date Encounter Closed Date Diagnosis/Indication Diagnosis SNOMED-CT Code Diagnosis ICD10 Code Diagnosis [place] [id number] [place] [id number] [address] [address] [place] [address] 06/20/2022 17:02:57 06/20/2022 19:32:22 Acute bronchitis 32899909 J20.9 [id number] [place] [address] [address] [place] [address] 11/21/2022 09:52:10 11/21/2022 12:18:36 Exposure to SARS-CoV-2 589367405 Z20.822 Acute bronchitis 7308174 2 J20.9 Health Concerns Section Related Observation LastModified by Organization Detai ls LastModified Time None Recorded Concern Status LastModified by Organization Details LastModified Time None Recorded Advance Directives Directive None Recorded Payers Insurance Date Sequence Insurance Name Policy Number Policy Astorga Covered Member ID Astorga Member ID Guarantor Name 11/21/2022 1 [place]: [employer] Edward J Seder [id number] Edward Seder 11/21/2022 2 [facility] [id number] Edward J Seder [id number] Edward Seder Notes Date Note Type Note Provider Name and Address Organization Details Recorded Time 3 text/html CongestionReported bypatient.Notes:chest congestion , wheezing, nasal congestion with post nasal drip x 3 days. denies nay fever or fever with chills. no SOB or respiratory distress. Vijay Esquivel NP [address] [place], [address], PA - [facility] 06/20/2022 19:24:59 3 text/html CoughReported bypatient.source of patient informationInformation obtained from patient; Patient arrived at Urgent Care ambulatory; learning styles: auditory Quality:harsh;dry; intermittent; symptoms worse with lying down Severity:worsening;pain with cough; moderate Duration:constant; symptoms lasting over 2 weeks Timing:worsening; gradual Context:Patient denies vaping; non-smoker;history of bronchitis Modifying Factors:at night Associated Symptoms:no fever; no chills; no chest pain; no heartburn; no nausea; no vomiting; no edema; no agitation; no wheezing; no post nasal drip;hurts to breathSore throatReported bypatient.Source of patient informationInformation obtained from patient; Patient arrived at Urgent Care ambulatory; learning styles: auditory Location:throat Severity:mild Quality:sharp; burning Onset/Timin days Associated Symptoms:no sputum production; no shortness of breath; no wheezing; no vomiting; no nausea;sore throat;hoarseness;coughing; sinus pain/ congestion Context:no foreign travel; non-smoker;sick contact Modifying Factors:exposed to Strep non householdCOVID-19 SymptomsReported bypatient.COVID-19 Signs and Symptomscough worsening; fever improving/resolved; shortness of breath resolved; chills improving/resolved; muscle pain improving/resolved; headache resolved;sore throat worsening; loss of taste or smell resolved; vomiting or diarrhea resolved; fatigue resolved; anorexia improving/resolved Quality:productive cough;wheezy cough Severity:moderate; worsening Duration:symptoms lasting 7 days Onset/Timing:cannot identify Context:allergies Associated Symptoms:no sputum production; no nausea; no vomiting; no diarrhea; no lymphadenopathy; no fever/chills; no headache; no body aches; no change in mental status; no hypotension; no tachycardia;wheezing;ear pain or pressure Vijay Esquivel NP [address] [place], [address], [place] - [facility] 11/21/2022 12:10:16
== END 2024-10-19 10:49 | disposition home or self-care (01) ==
LOC: HO.HSMS 09:37
PROVIDERS: PCP Internal Medicine; Visit Provider Nurse Practitioner Family
DX: G20.A1 Parkinson's disease without dyskinesia, without mention of fluctuations (principal); G25.81 Restless legs syndrome; R42 Dizziness and giddiness
CPT/HCPCS: 99214

== ENCOUNTER → 2024-10-19 09:35 | Outpatient (BNVA) | payer MEDICARE, SELFPAY | PROVIDERS: PCP Internal Medicine; Visit Provider Nurse Practitioner Family | DX: G20.A1 Parkinson's disease without dyskinesia, without mention of fluctuations (principal); G25.81 Restless legs syndrome; R42 Dizziness and giddiness | CPT/HCPCS: 99212 ==

== ENCOUNTER 2025-05-03 09:52 | Outpatient (AMB) | payer MEDICARE, SELFPAY ==
[2025-05-03 09:51] VITALS: BP 140/60; PULSE 92; O2SAT 95; BMI 32.0
--- NOTE | 2025-05-03 09:51 | MHC.OFFVIS ---
Vital Signs 05/03/25 09:51 Height 6 ft Weight 236 lb BMI 32.0 BP 140/60 H Blood Pressure Location Lt brachial Position Sitting Pulse 92 Pulse Source Pulse Oximeter Pulse Oximetry (%) 95 Oxygen Delivery Method Room Air Intake Visit Reasons: Follow Up 6mo Intake Note: Patient presents follow up for Parkinson's/RLS [employer] Supervisor Required: No Accompanied by: Self / Same As Patient Allergies No Known Allergies Allergy (Verified 05/03/25 09:55) Medication List - Last Reconciled 05/03/25 by CRISTOFER Farias albuterol sulfate 90 mcg/actuation 2 puffs inhalation Q4-6H PRN amlodipine 10 mg PO DAILY ascorbic acid (vitamin C) mg PO aspirin 81 mg PO DAILY atorvastatin 1 tab PO DAILY carbidopa-levodopa 25-100 mg 1.5 tabs PO BID 28 days citalopram 1 tab PO DAILY gabapentin 100 mg PO BID PRN 30 days gabapentin 400 mg PO BEDTIME 30 days isosorbide mononitrate ER 60 mg PO DAILY isosorbide mononitrate ER 30 mg PO DAILY losartan-hydrochlorothiazide 100-25 mg 1 tab PO DAILY mecobalamin (vitamin B12) 1,000 mcg PO DAILY metformin 1 tab PO BID metoprolol succinate ER 100 mg PO DAILY huywllru-yrx-CN-lycopen-lutein (Cerovite Senior) PO mdrrkfyfkvsh-zsaavniu-cbtvqc 1 tab PO DAILY nebivolol (Bystolic) 1 tab PO DAILY oxcarbazepine 150 mg PO DAILY HPI Comments Details: Right-handed 74-yr-old male presents for f/u visit of Parkinson's disease. Pt reports he recently underwent recent f/u nuclear stress test d/t breakthrough angina s/s- he has not heard on results yet. Pt reports he has been doing better overall in terms of his PD. Pt's current PD medication regimen: CD-LD 25-100mg 1.5 tabs BID- however now taking all of it at betime- 11pm-12am (in-line w/ his sleep-wake routine). Gabapentin 300+100mg qhs and uses 100mg prn for a nap- helps for BLE restlessness/pain. ADL's: Ind Swallowing: No issues Cough: No issues Drooling: No issues Orthostatic lightheadedness: Denies. Has stopped drinking diet coke. Now drinking water with crystal light. Constipation: No issues Freezing: No issues Stiffness: No issues Tremor: Overall better, but every once in a while he notices a mild head tremor/bobble- which he can stop. Denies neck pain. The other night, he noticed increased LUE tremor while playing pool. Falls: None Gait: No usual issues, but is cautious on stairs. Hallucinations: Denies Memory: Stable- states pretty good Mood: No issues Sleep: Sleeping ok- maybe too much . Denies restlessness at night. Has had several normal sleep studies. Exercise: walking less overall- now has a different dog. as walking can induce lower back pain- has done PT without much help. [facility] Medical History (Updated 05/03/25 @ 10:36 by CRISTOFER Farias) Presence of stent in LAD coronary artery Cryptogenic stroke ERNESTO (obstructive sleep apnea) COPD (chronic obstructive pulmonary disease) Asthma Stroke Non-rheumatic aortic regurgitation CAD (coronary artery disease) Vascular disease of abdomen Hyperlipidemia HTN (hypertension) DMII (diabetes mellitus, type 2) Surgical History S/P laparoscopic cholecystectomy History of lung surgery History of AAA (abdominal aortic aneurysm) repair H/O heart artery stent H/O bariatric surgery Family History Father CAD (coronary artery disease) Mother Lung cancer Social History Household Members: None Housing: House Do you presently have visiting nurse or other home services: No Alcohol intake: never Patient Tobacco Use Status: Former Tobacco user Second Hand Smoke Exposure: No service: No Current occupational status: retired Physical Exam Vital Signs: Last Vital Signs Pulse 92 05/03/25 09:51 BP 140/60 H 05/03/25 09:51 Pulse Ox 95 05/03/25 09:51 Oxygen Delivery Method Room Air 05/03/25 09:51 BMI result Body Mass Index 32.0 Const General: cooperative and no acute distress Resp Effort & Inspection: normal respiratory effort and able to speak in complete sentences Neuro Other: General: A&O x's 3 Expression: Slight decrease Voice: Mild hoarseness Tremor: None today Tone: Mild BUE Dyskinesia: None FFM: Slight decrease Foot taps: Slight decrease Gait: Stands ok, dropped right shoulder, decreased arm swing- more so on right, shorter steps w/ knees slightly bent, steady gait Psych: Pleasant affect Assessment & Plan Assessment & Plan (1) Parkinson's disease without dyskinesia: Code(s): G20.A1 - Parkinson's disease without dyskinesia, without mention of fluctuations Category: Medical Qualifiers: Fluctuating manifestations: without fluctuating manifestations Qualified Code(s): G20.A1 - Parkinson's disease without dyskinesia, without mention of fluctuations (2) Restless leg syndrome: Code(s): G25.81 - Restless legs syndrome Category: Medical (3) Orthostatic lightheadedness: Comment: Improved Code(s): R42 - Dizziness and giddiness Category: Medical Plan For PD: Continue CD-LD 25-100mg 1.5 tabs bid- however advised to take BID and not QHS For orthostatic lightheadedness symptoms: Improved Continue avoiding diet coke Stressed the importance of increased physical activity for Parkinson's management. Continue increased social activity. ? For RLS: Gabapentin 400mg q evening and 100mg bid prn. For hypersomnia w/ family h/o hypersomnia w/o cataplexy: Future considerations: undergoing f/u sleep study/MSLT, as untreated hypersomnia can be associated with increased risk for accidents and CV complications if secondary to untreated ERNESTO. Patient has declined, as he has had several negative sleep studies in the past and and he is not overly bothered by his hypersomnia s/s. ? Follow-up in 6 months in clinic or sooner prn Coding Level of Care Code Est Pt Level 4 (18193) Diagnoses Parkinson's disease without dyskinesia or fluctuating manifestations G20.A1 Fluctuating manifestations: without fluctuating manifestations Restless leg syndrome G25.81 Orthostatic lightheadedness R42
== END 2025-05-03 10:51 | disposition home or self-care (01) ==
PROVIDERS: PCP Internal Medicine; Visit Provider Nurse Practitioner Family
DX: G20.A1 Parkinson's disease without dyskinesia, without mention of fluctuations (principal); G25.81 Restless legs syndrome; R42 Dizziness and giddiness
CPT/HCPCS: 99214

== ENCOUNTER → 2025-05-03 09:52 | Outpatient (BNVA) | payer MEDICARE, SELFPAY | PROVIDERS: PCP Internal Medicine; Visit Provider Nurse Practitioner Family | DX: G20.A1 Parkinson's disease without dyskinesia, without mention of fluctuations (principal); G25.81 Restless legs syndrome; R42 Dizziness and giddiness | CPT/HCPCS: 99212 ==